=== PATIENT | male | born 1940 | race Caucasian/White ===

== ENCOUNTER 2019-08-28 23:59 | Emergency (ER) | payer MEDICARE, OTHER, MEDICAID, SELFPAY ==
[2019-08-29] VITALS: BP 164/93; PULSE 70; RESP 18; TEMP 36.6; O2SAT 98; BMI 29.0
--- NOTE | 2019-08-29 | ED_ITS ---
Entered by Lauren Pulido, acting as scribe for HPI - Psych General: Chief Complaint: Psychiatric Symptoms Stated Complaint: SI Time Seen by Provider: 08/29/19 00:01 Source: EMS Mode of arrival: EMS Limitations: no limitations History of Present Illness: HPI Narrative: 78 yo m came to the er by [facility] for Si attempt. 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 Pt states that he had had been having some problems and he decided to stab himself with some scissors in the right AC. 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 Review of Systems General: Reports: other (negative unless marked) Const: Denies: fever or chills Eyes: Denies: change in vision, eye discomfort or eye redness ENMT: Denies: throat pain, painful swallowing, ear pain, nasal discharge or nasal congestion Card: Denies: chest pain, palpitations, irregular heart rhythm or syncope Resp: Denies: shortness of breath, productive cough or wheezing GI: Denies: abdominal pain, nausea, vomiting or vomiting blood : Denies: difficulty urinating, painful urination or blood in urine Musc: Denies: neck pain or muscle weakness Skin/Breast: Denies: rash Neuro: Reports: behavioral changes; Denies: headache, numbness in extremities or dizziness Psych: Reports: depression and suicidal ideation PFS ED PFSH: Medical History Adrenal adenoma Atrial fibrillation Patient is taking a full ASA. Refuses Warfarin due to GI bleed in the past. Pt has episodes of atrial fibrillation with rapid ventricular rate. He has a history of TIA as well. ?No dizziness of syncope BPH (benign prostatic hyperplasia) Depression Diverticulitis Fatigue GERD (gastroesophageal reflux disease) GI bleed Hyperlipidemia Hypertension Incontinence Insomnia Neuropathy Osteoporosis Pacemaker Shortness of breath Thoracic back pain TIA (transient ischemic attack) Surgical History H/O vasectomy Hx of cataract surgery S/P foot surgery, right Family History Other CAD (coronary artery disease) Cancer Diabetes Hypertension Social History Smoking and tobacco status: never smoked Alcohol intake: never Physical Exam Const: COMMON NORMALS: no apparent distress HENMT: COMMON NORMALS: normocephalic, external ears normal and external nose normal; nasal mucous membranes&turbinates abnorm HEAD & SCALP: normocephalic FACE & SINUS: sinuses nontender NOSE: external nose normal; nasal mucous membranes&turbinates abnorm EXTERNAL EAR: Yes external ears normal MOUTH: oral and palatal mucosa normal THROAT: posterior oropharynx normal Neck/C-Spine: COMMON NORMALS: full ROM Resp: COMMON NORMALS: normal respiratory effort Cardio: COMMON NORMALS: regular rate and regular rhythm RATE: regular rate RHYTHM: regular rhythm GI: COMMON NORMALS: normal to inspection, nondistended, normoactive bowel sounds : COMMON NORMALS: Yes no CVA tenderness BLADDER/KIDNEY EXAM: Yes no CVA tenderness Back/Pelvis: COMMON NORMALS: no CVA tenderness Extremity: COMMON NORMALS: normal to inspection RIGHT UPPER EXTREMITY: Yes elbow joint (puncture digna to the ac) Right elbow: Yes inspection Psych: COMMON NORMALS: mental status grossly normal APPEARANCE: Yes grossly normal ATTITUDE: Yes calm Skin: COMMON NORMALS: no rashes or lesions noted GENERAL SKIN EXAM: no rashes or lesions noted Procedures Laceration Laceration 1: Site: upper extremity Side (If applicable): right Size (cm): 1 Description: linear Depth: simple, single layer Local Anesthetic: lidocaine 1% Amount of anesthesia used (mL): 3 Pre-repair: wound explored, irrigated extensively and deep structures in tact Skin layer closed with: nylon Size (cm): 4-0 Number of sutures: 1 Technique: simple, interrupted MDM - Psych MDM Narrative: Medical decision making narrative: 78-year-old gentleman in a custodial. He says he was put there because he was having problems with hypersexuality. He is away from his . He was feeling down and hopeless. He stabbed himself with a dull pair of scissors in the right AC space. There is no tendon damage. Bleeding was controlled on arrival. 1 suture was placed. Were looking for placement for geriatric psychiatry for this gentleman. TSH is mildly high. His other laboratory is benign. No urinary tract infection. Chest x-ray is negative for any infiltrate. EKG shows a paced rh ythm. He is positive for benzodiazepines, but is prescribed alprazolam. B12 level is pending at this point. Lab Data: Attestation: I reviewed the patient's lab results. Labs: Lab Results 08/29/19 08/29/19 08/29/19 Range/Units 00:21 00:21 01:40 WBC 7.4 (4.0-10.0) 10^3/ uL RBC 3.98 L (4.1-5.3) 10^6/u L Hgb 13.4 (11.7-16.6) g/dL Hct 39.7 L (42.0-52.0) % MCV 99.7 H (80-94) fL MCH 33.7 (28.0-34.0) pg MCHC 33.8 (30.0-36.0) g/dL RDW 12.1 (12.1-15.1) % Plt Count 248 (130-400) 10^3/c mm MPV 8.9 (7.4-10.4) fL Neut % (Auto) 59.2 % Lymph % (Auto) 20.6 % Dougherty % (Auto) 12.4 % Eos % (Auto) 6.5 % Baso % (Auto) 0.9 % Neut # (Auto) 4.4 (1.8-7.7) 10^3/u L Lymph # (Auto) 1.5 (0.8-4.8) 10^3/u L Dougherty # (Auto) 0.9 (0.2-0.9) 10^3/u L Eos # (Auto) 0.5 (0.0-0.8) 10^3/u L Baso # (Auto) 0.1 (0.0-0.1) 10^3/u L Nucleated RBC % (a uto) 0 % Nucleated RBCs # 0.0 /100WBC Sodium 135 L (136-145) mmol/L Potassium 4.7 (3.5-5.1) mmol/L Chloride 101 (98-107) mmol/L Carbon Dioxide 27 (22-29) mmol/L Anion Gap 11.7 (5-19) BUN 19 (8-23) mg/dL Creatinine 1.2 (0.7-1.2) mg/dL Glucose 119 H (65-115) mg/dL Calculated Osmolal ity 278 L (285-295) mOsm/k g Calcium 8.8 (8.5-10.5) mg/dL Total Bilirubin 0.2 (0.15-1.2) mg/dL AST 22 (0-40) U/L ALT 28 (0-41) U/L Alkaline Phosphata se 65 (40-130) IU/L Total Protein 6.9 (6.6-8.7) g/dL Albumin 3.9 (3.5-5.2) g/dL Globulin 3.0 (1.3-4.6) g/dL TSH 8.51 H (0.27-4.20) uIU/ mL Urine Color Yellow (Yellow) Urine Appearance Clear (CLEAR) Urine pH 5 (5-7) Ur Specific Gravit y 1.020 (1.005-1.030) Urine Protein Neg (Negative) Urine Glucose (UA) Norm (Normal) Urine Ketones Negative (Negative) Urine Blood Neg (Negative) Urine Nitrate Negative (Negative) Urine Bilirubin Neg (NEGATIVE) Urine Urobilinogen Norm (Negative) mg/dL Ur Leukocyte Ashley ase Negative (Negative) Digoxin 1.0 (0.6-1.2) ng/mL Salicylates < 0.3 L (3-10) mg/dL Urine Opiates Scre en (Negative) ng/mL Acetaminophen < 10.0 L (10-30) ug/mL Ur Barbiturates Sc reen (Negative) ng/mL Carbamazepine 2.0 L (4.0-12.0) ug/mL Ur Phencyclidine S crn (Negative) ng/mL Ur Amphetamines Sc reen (Negative) ng/mL U Benzodiazepines Scrn (Negative) ng/mL Urine Cocaine Scre en (Negative) ng/mL U Marijuana (THC) Screen (Negative) ng/mL Ethyl Alcohol < 10 (0-10) mg/dL 08/29/19 Range/Units 01:40 WBC (4.0-10.0) 10^3/ uL RBC (4.1-5.3) 10^6/u L Hgb (11.7-16.6) g/dL Hct (42.0-52.0) % MCV (80-94) fL MCH (28.0-34.0) pg MCHC (30.0-36.0) g/dL RDW (12.1-15.1) % Plt Count (130-400) 10^3/c mm MPV (7.4-10.4) fL Neut % (Auto) % Lymph % (Auto) % Dougherty % (Auto) % Eos % (Auto) % Baso % (Auto) % Neut # (Auto) (1.8-7.7) 10^3/u L Lymph # (Auto) (0.8-4.8) 10^3/u L Dougherty # (Auto) (0.2-0.9) 10^3/u L Eos # (Auto) (0.0-0.8) 10^3/u L Baso # (Auto) (0.0-0.1) 10^3/u L Nucleated RBC % (a uto) % Nucleated RBCs # /100WBC Sodium (136-145) mmol/L Potassium (3.5-5.1) mmol/L Chloride (98-107) mmol/L Carbon Dioxide (22-29) mmol/L Anion Gap (5-19) BUN (8-23) mg/dL Creatinine (0.7-1.2) mg/dL Glucose (65-115) mg/dL Calculated Osmolal ity (285-295) mOsm/k g Calcium (8.5-10.5) mg/dL Total Bilirubin (0.15-1.2) mg/dL AST (0-40) U/L ALT (0-41) U/L Alkaline Phosphata se (40-130) IU/L Total Protein (6.6-8.7) g/dL Albumin (3.5-5.2) g/dL Globulin (1.3-4.6) g/dL TSH (0.27-4.20) uIU/ mL Urine Color (Yellow) Urine Appearance (CLEAR) Urine pH (5-7) Ur Specific Gravit y (1.005-1.030) Urine Protein (Negative) Urine Glucose (UA) (Normal) Urine Ketones (Negative) Urine Blood (Negative) Urine Nitrate (Negative) Urine Bilirubin (NEGATIVE) Urine Urobilinogen (Negative) mg/dL Ur Leukocyte Ashley ase (Negative) Digoxin (0.6-1.2) ng/mL Salicylates (3-10) mg/dL Urine Opiates Scre en Negative (Negative) ng/mL Acetaminophen (10-30) ug/mL Ur Barbiturates Sc reen Negative (Negative) ng/mL Carbamazepine (4.0-12.0) ug/mL Ur Phencyclidine S crn Negative (Negative) ng/mL Ur Amphetamines Sc reen Negative (Negative) ng/mL U Benzodiazepines Scrn Positive H (Negative) ng/mL Urine Cocaine Scre en Negative (Negative) ng/mL U Marijuana (THC) Screen Negative (Negative) ng/mL Ethyl Alcohol (0-10) mg/dL Discharge Plan Discharge Prescriptions: No Action bisacodyl [Dulcolax (bisacodyl)] 10 mg suppository 10 mg NV ONCE PRNRF: 0 magnesium hydroxide [Milk of Magnesia] 400 mg/5 mL suspension 30 ml PO BID PRNRF: 0 Metamucil Fiber Thin 2.5 gram wafer 2 wafer PO TID PRNRF: 0 cholestyramine (with sugar) 4 gram powder 4 gm PO TID PRNRF: 0 levothyroxine 100 mcg capsule 100 mcg PO DAILY RF: 0 memantine 10 mg tablet 10 mg PO DAILY RF: 0 aspirin 325 mg tablet 325 mg PO DAILY RF: 0 donepezil 10 mg tablet 10 mg PO DAILY RF: 0 oxcarbazepine 150 mg tablet 150 mg PO BID RF: 0 digoxin 125 mcg (0.125 mg) tablet 125 mcg PO DAILY RF: 0 propafenone 225 mg capsule,extended release 12 hr 225 mg PO Q12H RF: 0 medroxyprogesterone 10 mg tablet 10 mg PO DAILY RF: 0 acetaminophen [Tylenol] 325 mg tablet 650 mg PO Q6H PRNRF: 0 propranolol 40 mg tablet 40 mg PO BID RF: 0 fluticasone propionate 50 mcg/actuation spray,suspension 1 spray INTRANASAL BID RF: 0 alprazolam 0.25 mg tablet 0.125 mg PO BID RF: 0 bupropion HCl 150 mg tablet extended release 24 hr 150 mg PO QAM RF: 0 trazodone 100 mg tablet 200 mg PO .at bedtime RF: 0 omeprazole 20 mg capsule,delayed release(DR/EC) 20 mg PO DAILY RF: 0 Coding Level of Care Code ED Integrated Circuit Fabricator for Chg Fwd Exam Comprehensive The documentation recorded by the Ashok sinha Stephanie Lyn, accurately reflects the service I personally performed and the decisions made by , Terrell Penn DO Aug 28, 2019 23:59
--- NOTE | 2019-08-29 00:15 | ECG_ITS ---
Measurements Intervals [place] Rate: 70 P: 124 MA: 231 QRS: -75 QRSD: 146 T: 86 QT: 424 QTc: 458 ELECTRONIC ATRIAL PACEMAKER ELECTRONIC VENTRICULAR PACEMAKER ABNORMAL RHYTHM ECG No previous ECG available for comparison Electronically Signed On 08-29-2019 17:21:35 CDT by Toro Mcpherson M.D. [id number]
--- NOTE | 2019-08-29 00:15 | XR_ITS ---
WS: [id number] XR chest 1V portable [id number] REASON FOR EXAM: altered mental status FINDINGS: Dual electrode pacemaker extends from the left side. The heart mediastinum within normal limits. The lung sweeney are well aerated. No pneumonia, pleural effusion, pulmonary edema, are pneumothorax. The hilum and apices normal. XR/XR chest 1V portable [id number] IMPRESSION: Negative chest for active pathology. Dual electrode pacemaker good position.
[2019-08-29 00:36] LABS: Basophils # 0.1 10^3/uL (0.0-0.1); Basophils % 0.9 %; Eosinophils # 0.5 10^3/uL (0.0-0.8); Eosinophils % 6.5 %; Hematocrit 39.7 % (42.0-52.0); Hemoglobin 13.4 g/dL (11.7-16.6); Lymphocytes # 1.5 10^3/uL (0.8-4.8); Lymphocytes % 20.6 %; Mean Corpuscular HGB Conc 33.8 g/dL (30.0-36.0); Mean Corpuscular Hemoglobin 33.7 pg (28.0-34.0); Mean Corpuscular Volume 99.7 fL (80-94); Mean Platelet Volume 8.9 fL (7.4-10.4); Monocytes # 0.9 10^3/uL (0.2-0.9); Monocytes % 12.4 %; Neutrophils # 4.4 10^3/uL (1.8-7.7); Neutrophils % 59.2 %; Nucleated Red Blood Cells % 0 %; Platelet Count 248 10^3/cmm (130-400); Red Blood Count 3.98 10^6/uL (4.1-5.3); Red Cell Distribution Width 12.1 % (12.1-15.1); White Blood Count 7.4 10^3/uL (4.0-10.0)
[2019-08-29 00:57] LABS: Acetaminophen < 10.0 ug/mL (10-30); Alanine Aminotransferase 28 U/L (0-41); Albumin Level 3.9 g/dL (3.5-5.2); Alkaline Phosphatase 65 IU/L (40-130); Anion Gap 11.7 (5-19); Aspartate Amino Transferase 22 U/L (0-40); Blood Urea Nitrogen 19 mg/dL (8-23); Calcium 8.8 mg/dL (8.5-10.5); Carbon Dioxide 27 mmol/L (22-29); Chloride 101 mmol/L (98-107); Creatinine Clr Calc Pharmacy 50.0841; Glucose 119 mg/dL (65-115); Osmolality Calculated 278 mOsm/kg (285-295); Potassium 4.7 mmol/L (3.5-5.1); Sodium 135 mmol/L (136-145); Thyroid Stimulating Hormone 8.51 uIU/mL (0.27-4.20); Total Bilirubin 0.2 mg/dL (0.15-1.2); Total Protein 6.9 g/dL (6.6-8.7)
[2019-08-29 01:08] LABS: Alcohol Level < 10 mg/dL (0-10); Salicylate < 0.3 mg/dL (3-10)
[2019-08-29 02:05] LABS: Add Urine Microscopic? NO
[2019-08-29 02:08] LABS: Bilirubin Urine Neg (NEGATIVE); Blood Urine Neg (Negative); Glucose Urine UA Norm (Normal); Ketones Urine Negative (Negative); Leukocyte Esterase Urine Negative (Negative); Nitrate Urine Negative (Negative); Protein Urine Neg (Negative); Urine Appearance Clear (CLEAR); Urine Color Yellow (Yellow); Urobilinogen Urine Norm (Negative); pH Urine 5 (5-7)
[2019-08-29 02:17] LABS: Amphetamines Screen Urine Negative (Negative); Barbiturates Screen Urine Negative (Negative); Benzodiazepines Screen Urine Positive (Negative); Cocaine Screen Urine Negative (Negative); Opiate Screen Urine Negative (Negative); PCP Screen Urine Negative (Negative); THC Screen Urine Negative (Negative)
[2019-08-29 03:07] LABS: Vitamin B12 340 pg/mL (232-1245)
[2019-08-29 05:46] VITALS: BP 119/72; PULSE 74; RESP 16; TEMP 37; O2SAT 97
== END 2019-08-29 07:40 | disposition other institution (70) ==
PROVIDERS: Emergency Provider Emergency Medicine; Family Provider Internal Medicine; PCP Internal Medicine
DX: S51.031A Puncture wound without foreign body of right elbow, initial encounter (principal); I48.91 Unspecified atrial fibrillation; E78.5 Hyperlipidemia, unspecified; I10 Essential (primary) hypertension; Z86.73 Personal history of transient ischemic attack (TIA), and cerebral infarction without residual deficits; W26.8XXA Contact with other sharp object(s), not elsewhere classified, initial encounter; Y92.129 Unspecified place in nursing home as the place of occurrence of the external cause
CPT/HCPCS: 12001; 12345; 71045; 80053; 80156; 80162; 80306; 80307; 81003; 82607; 84443; 85025; 93005; 99284; 99285

== ENCOUNTER 2020-03-10 11:25 | Emergency (ER) | payer MEDICARE, OTHER, MEDICAID, SELFPAY ==
[2020-03-10 11:27] VITALS: BP 156/91; PULSE 71; RESP 18; TEMP 36.6; O2SAT 95; BMI 27.6
[2020-03-10 12:01] VITALS: BP 128/72; PULSE 79; RESP 14; O2SAT 95
--- NOTE | 2020-03-10 12:08 | W.ED.WOUNDLC ---
HPI - Wound/Laceration General: Chief Complaint: Wound/Laceration Stated Complaint: BLEEDING ABOVE LEFT EYEBROW S/P FALL Time Seen by Provider: 03/10/20 11:31 Source: patient Mode of arrival: EMS Limitations: physical limitation History of Present Illness: HPI narrative: 79 yo male patient presents to ER with fall. Pt c/o laceration to right sie of forehead. Pt states he did not have any LOC and is not on blood thinners. Pt states he was walking to fast and got his feet tangled up. Pt denies any preceeding symptoms to fall. Pt is unsure of when last tetanus. Pt denies chest pain, shortness of breath or headache. Associated symptoms: Denies chills, fever(s), nausea, syncope or vomiting Review of Systems General: Reports: 10 or more systems reviewed and unremarkable except in HPI and below Const: Denies: fever(s) or chills Eyes: Denies: change in vision, blurry vision or blind spots ENMT: Denies: throat pain, dental pain, ear or mastoid pain or nasal discharge Card: Denies: chest pain, palpitations, irregular heart rhythm, lightheadedness or syncope Resp: Denies: dyspnea, productive cough, wheezing, stridor or pain on inspiration GI: Denies: abdominal pain, nausea or vomiting : Denies: flank pain, difficulty urinating, dysuria, urinary frequency or urinary urgency Musc: Denies: neck pain or back pain Neuro: Denies: headache(s), numbness in extremities, weakness in extremities, sensory changes, lack of coordination, dizziness, vertigo, confusion, behavioral changes, Slurred speech present or difficulty communicating thoughts [facility] ED PFSH: Medical History Adrenal adenoma Atrial fibrillation Patient is taking a full ASA. Refuses Warfarin due to GI bleed in the past. Pt has episodes of atrial fibrillation with rapid ventricular rate. He has a history of TIA as well. ?No dizziness of syncope BPH (benign prostatic hyperplasia) Depression Diverticulitis Fatigue GERD (gastroesophageal reflux disease) GI bleed Hyperlipidemia Hypertension Incontinence Insomnia Neuropathy Osteoporosis Pacemaker Shortness of breath Thoracic back pain TIA (transient ischemic attack) Surgical History H/O vasectomy Hx of cataract surgery S/P foot surgery, right Family History Other CAD (coronary artery disease) Cancer Diabetes Hypertension Social History Smoking and tobacco status: never smoked Alcohol intake: never Procedures Laceration Laceration 1: Site: face Size (cm): 5 Description: irregular Depth: simple, single layer Local Anesthetic: lidocaine 1% and with epi Amount of anesthesia used (mL): 5 Pre-repair: wound explored and irrigated extensively Skin layer closed with: nylon Size (cm): 5-0 Number of sutures: 10 Technique: simple, interrupted Subcutaneous layer closed with: other (nylon) Course Vital Signs: Vital signs: Vital Signs Temperature 97.8 F 03/10/20 11:27 Pulse Rate 79 03/10/20 12:01 Respiratory Rate 14 03/10/20 12:01 Blood Pressure 128/72 03/10/20 12:01 Pulse Oximetry 95 03/10/20 12:01 Discharge Plan Discharge Patient Disposition: Home Clinical Impression: Facial laceration Qualifiers: Encounter type: initial encounter Qualified Code(s): S01.81XA - Laceration without foreign body of other part of head, initial encounter Closed fracture nasal bone Qualifiers: Encounter type: initial encounter Qualified Code(s): S02.2XXA - Fracture of nasal bones, initial encounter for closed fracture Condition: Stable Prescriptions: No Action bisacodyl [Dulcolax (bisacodyl)] 10 mg suppository 10 mg MS ONCE PRNRF: 0 magnesium hydroxide [Milk of Magnesia] 400 mg/5 mL suspension 30 ml PO BID PRNRF: 0 Metamucil Fiber Thin 2.5 gram wafer 2 wafer PO TID PRNRF: 0 cholestyramine (with sugar) 4 gram powder 4 gm PO TID PRNRF: 0 levothyroxine 100 mcg capsule 100 mcg PO DAILY RF: 0 memantine 10 mg tablet 10 mg PO DAILY RF: 0 aspirin 325 mg tablet 325 mg PO DAILY RF: 0 donepezil 10 mg tablet 10 mg PO DAILY RF: 0 oxcarbazepine 150 mg tablet 150 mg PO BID RF: 0 digoxin 125 mcg (0.125 mg) tablet 125 mcg PO DAILY RF: 0 propafenone 225 mg capsule,extended release 12 hr 225 mg PO Q12H RF: 0 medroxyprogesterone 10 mg tablet 10 mg PO DAILY RF: 0 acetaminophen [Tylenol] 325 mg tablet 650 mg PO Q6H PRNRF: 0 propranolol 40 mg tablet 40 mg PO BID RF: 0 fluticasone propionate 50 mcg/actuation spray,suspension 1 spray INTRANASAL BID RF: 0 bupropion HCl 150 mg tablet extended release 24 hr 150 mg PO QAM RF: 0 trazodone 100 mg tablet 200 mg PO .at bedtime RF: 0 omeprazole 20 mg capsule,delayed release(DR/EC) 20 mg PO DAILY RF: 0 aripiprazole 5 mg tablet 5 mg PO DAILY RF: 0 fluoxetine 40 mg capsule 40 mg PO DAILY RF: 0 Discharge Orders: Discharge Order (Routine); Ordered 03/10/20 Ordered By: Adriana Burks Referrals: Rito Woods MD [Primary Care Provider] - Discharge Diet: Advance as tolerated Discharge Activity: Resume usual activity Patient Instructions: Nasal Fracture (ED), Laceration (ED) Activity Restrictions/Additional Instructions: 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
--- NOTE | 2020-03-10 12:09 | CTR_ITS ---
PROCEDURE INFORMATION: Exam: CT Head Without Contrast Exam date and time: 03/10/2020 12:59 PM Age: 79 years old Clinical indication: Injury or trauma; Initial encounter; Blunt trauma (contusions or hematomas); Consciousness not specified; Patient HX: Face first fall while walking TECHNIQUE: Imaging protocol: Computed tomography of the head without contrast. Radiation optimization: All CT scans at this facility use at least one of these dose optimization techniques: automated exposure control; mA and/or kV adjustment per patient size (includes targeted exams where dose is matched to clinical indication); or iterative reconstruction. COMPARISON: No relevant prior studies available. RADIATION DOSE METRICS: Total DLP (mGy-cm): 899.1 FINDINGS: Brain: No acute brain parenchymal abnormality. No intracranial hemorrhage. No extraaxial fluid collections. There is diffuse cerebral atrophy. Cerebral ventricles: No hydrocephalus when allowing for the atrophy. Bones/joints: No calvarial fracture. There are nasal bone fractures. Paranasal sinuses: Mucoperiosteal thickening and/or fluid in the sphenoid sinus. Mastoid air cells: The mastoid air cells are aerated. Soft tissues: There is a right frontal scalp hematoma. There is superficial soft tissue swelling, with gas bubbles, involving the nose. CT/CT head wo con* [id number] IMPRESSION: No intracranial injury or calvarial fracture. Radiation Dose CTDIVOL = (mGy): DLP = 899.1 (mGy-cm)
--- NOTE | 2020-03-10 12:09 | CTR_ITS ---
PROCEDURE INFORMATION: Exam: CT Maxillofacial Without Contrast Exam date and time: 03/10/2020 12:58 PM Age: 79 years old Clinical indication: Injury or trauma; Initial encounter; Blunt trauma (contusions or hematomas); Nose; Patient HX: Face first fall while walking TECHNIQUE: Imaging protocol: Computed tomography images of the face without contrast. Radiation optimization: All CT scans at this facility use at least one of these dose optimization techniques: automated exposure control; mA and/or kV adjustment per patient size (includes targeted exams where dose is matched to clinical indication); or iterative reconstruction. COMPARISON: No relevant prior studies available. RADIATION DOSE METRICS: Total DLP (mGy-cm): 733.37 FINDINGS: Orbits: No intraorbital emphysema or hematoma. The globes are intact. Bones/joints: There are acute nasal bone fractures. The temporomandibular joints are intact but degenerated, more so on the right. Paranasal sinuses: There is mucoperiosteal thickening and/or fluid in the sphenoid sinus. Mild mucoperiosteal thickening in ethmoid air cells bilaterally as well as the right maxillary antrum. Soft tissues: There is superficial soft tissue swelling with gas bubbles in the soft tissue of the nose. There is a right periorbital and right frontal scalp hematoma. CT/CT facial bones wo con* [id number] IMPRESSION: 1. Nasal bone fractures. 2. Superficial soft tissue injury. Radiation Dose CTDIVOL = (mGy): DLP = 733.37 (mGy-cm)
--- NOTE | 2020-03-10 12:09 | CTR_ITS ---
PROCEDURE INFORMATION: Exam: CT Cervical Spine Without Contrast Exam date and time: 03/10/2020 12:59 PM Age: 79 years old Clinical indication: Injury or trauma; Initial encounter; Blunt trauma; Patient HX: Face first fall while walking TECHNIQUE: Imaging protocol: Computed tomography images of the cervical spine without contrast. Radiation optimization: All CT scans at this facility use at least one of these dose optimization techniques: automated exposure control; mA and/or kV adjustment per patient size (includes targeted exams where dose is matched to clinical indication); or iterative reconstruction. COMPARISON: No relevant prior studies available. RADIATION DOSE METRICS: Total DLP (mGy-cm): 690.8 FINDINGS: Vertebrae: The vertebral bodies maintain height and alignment. The facets align normally. There is extensive bilateral multilevel facet arthropathy.The craniocervical junction is normal. There is degeneration and narrowing of the atlantodens interval. Extensive erosive changes present in the dens. No acute fracture. Discs/Spinal canal/Neural foramina: Disc degeneration and uncovertebral joint degeneration basically at every level in the cervical spine with the least affected being C2-C3. Multilevel mild central canal stenosis due to posterior osteophyte formation. Multilevel bilateral degenerative foraminal stenosis of varying degrees. Soft tissues: No acute soft tissue abnormality. Lungs: The lung apices are normal. CT/CT cervical spin wo con* [id number] IMPRESSION: 1. No acute osseous abnormality. 2. Multilevel degenerative changes and spinal stenosis. Radiation Dose CTDIVOL = (mGy): DLP = 690.8 (mGy-cm)
[2020-03-10 16:43] VITALS: BP 172/84; PULSE 73; RESP 18; O2SAT 96
--- NOTE | 2020-03-12 15:33 | DCPLANNER ---
account manager had message to schedule a follow up appointment for patient with Dr. Peterson, ENT. account manager faxed patients information to the office of Dr. Peterson. account manager will call for appointment information.
--- NOTE | 2020-03-14 10:58 | DCPLANNER ---
Patient has a follow up appointment scheduled for Saturday, March 21, 2020 at 2:[address] Peterson. Clinic called patient with appointment information.
--- NOTE | 2020-03-26 16:51 | DCPLANNER ---
Patient had a follow up appointment scheduled for 03.21.[address] Peterson - patient did attend appointment.
== END 2020-03-10 17:18 | disposition home or self-care (01) ==
PROVIDERS: Emergency Provider Registered Nurse; PCP Internal Medicine
DX: S01.81XA Laceration without foreign body of other part of head, initial encounter (principal); S02.2XXA Fracture of nasal bones, initial encounter for closed fracture; Z79.82 Long term (current) use of aspirin; I48.91 Unspecified atrial fibrillation; E78.5 Hyperlipidemia, unspecified; I10 Essential (primary) hypertension; Z95.0 Presence of cardiac pacemaker; Z86.73 Personal history of transient ischemic attack (TIA), and cerebral infarction without residual deficits; W01.0XXA Fall on same level from slipping, tripping and stumbling without subsequent striking against object, initial encounter
CPT/HCPCS: 12013; 12345; 70450; 70486; 72125; 99282; 99283

== ENCOUNTER → 2020-08-07 11:05 | Outpatient (BNVA) | payer MEDICARE, OTHER, MEDICAID, SELFPAY | PROVIDERS: PCP Internal Medicine; Visit Provider Internal Medicine Cardiovascular Disease | DX: R53.1 Weakness (principal) | CPT/HCPCS: 80053; 84443; 85025 ==

== ENCOUNTER 2020-10-03 17:50 | Outpatient (CLI) | payer MEDICARE, OTHER, MEDICAID, SELFPAY ==
[2020-10-03 18:40] LABS: Add Urine Microscopic? NO; Charge for UA Resulting for Rev
[2020-10-03 18:45] LABS: Basophils # 0.1 10^3/uL (0.0-0.1); Basophils % 0.8 %; Eosinophils # 0.4 10^3/uL (0.0-0.8); Eosinophils % 5.3 %; Hematocrit 44.2 % (42.0-52.0); Hemoglobin 14.9 g/dL (11.7-16.6); Lymphocytes # 1.6 10^3/uL (0.8-4.8); Lymphocytes % 21.7 %; Mean Corpuscular HGB Conc 33.7 g/dL (30.0-36.0); Mean Corpuscular Hemoglobin 33.3 pg (28.0-34.0); Mean Corpuscular Volume 98.7 fL (80-94); Monocytes # 0.6 10^3/uL (0.2-0.9); Monocytes % 7.5 %; Neutrophils # 4.86 10^3/uL (1.8-7.7); Neutrophils % 64.3 %; Nucleated Red Blood Cells % 0 %; Platelet Count 292 10^3/cmm (130-400); Red Blood Count 4.48 10^6/uL (4.1-5.3); Red Cell Distribution Width 12.5 % (12.1-15.1); White Blood Count 7.6 10^3/uL (4.0-10.0)
[2020-10-03 18:48] LABS: Bilirubin Urine Neg (Negative); Blood Urine Neg (Negative); Glucose Urine UA Norm (Normal); Ketones Urine Negative (Negative); Leukocyte Esterase Urine Negative (Negative); Nitrate Urine Negative (Negative); Protein Urine Neg (Negative); Specific Gravity, Urine 1.015 (1.005-1.030); Urine Appearance Clear (CLEAR); Urine Color Yellow (Yellow); Urobilinogen Urine 1 mg/dL (Negative); pH Urine 6 (5-7)
[2020-10-03 19:22] LABS: Alanine Aminotransferase 28 U/L (0-41); Albumin Level 4.4 g/dL (3.5-5.2); Alkaline Phosphatase 112 IU/L (40-130); Anion Gap 13.6 (5-19); Aspartate Amino Transferase 25 U/L (0-40); Blood Urea Nitrogen 19 mg/dL (8-23); Carbon Dioxide 26 mmol/L (22-29); Chloride 94 mmol/L (98-107); Chol HDL Ratio 5.42 mg/dL (1.0-5.00); Cholesterol 244 mg/dL (0-200); Globulin 2.5 g/dL (1.3-4.6); Glucose 102 mg/dL (65-115); HDL Cholesterol 45 mg/dL (60-100); LDL Cholesterol Calculated 153 mg/dL (50-129); Osmolality Calculated 270 mOsm/kg (285-295); Potassium 4.6 mmol/L (3.5-5.1); Sodium 129 mmol/L (136-145); Total Bilirubin 0.2 mg/dL (0.15-1.2); Total Protein 6.9 g/dL (6.6-8.7); Triglycerides 230 mg/dL (0-150)
== END 2020-10-03 17:51 | disposition home or self-care (01) ==
PROVIDERS: PCP Internal Medicine; Visit Provider Nurse Practitioner Family
DX: E03.9 Hypothyroidism, unspecified (principal); Z20.828 Contact with and (suspected) exposure to other viral communicable diseases; R50.9 Fever, unspecified; M62.81 Muscle weakness (generalized); I10 Essential (primary) hypertension
CPT/HCPCS: 80053; 80061; 81003; 85025

== ENCOUNTER 2021-05-22 11:22 | Outpatient (CLI) | payer MEDICARE, MEDICAID, SELFPAY ==
--- NOTE | 2021-05-22 11:31 | XR_ITS ---
WS: [id number] Exam: XR chest 2V insp/exp [id number] Date/Time of Exam: 05/22/2021 11:31 AM Reason For Exam: R05.9 - Cough, unspecified Comparison 08/29/2019. The lungs are fully expanded and clear. No pneumothorax is seen. No pleural effusion. Normal cardiome diastinal silhouette. A permanent cardiac pacer superimposes the left chest. Hiatal hernia noted. Reg ional bony elements are intact. XR/XR chest 2V insp/exp [id number] IMPRESSION: 1. No acute cardiopulmonary finding. No pneumothorax or infiltrate. 2. Prominent hiatal hernia.
== END 2021-05-22 11:23 | disposition home or self-care (01) ==
LOC: RAD 11:28
PROVIDERS: PCP Internal Medicine; Visit Provider Internal Medicine Cardiovascular Disease
DX: Z01.818 Encounter for other preprocedural examination (principal); R05.9 Cough, unspecified; K44.9 Diaphragmatic hernia without obstruction or gangrene; Z95.0 Presence of cardiac pacemaker
CPT/HCPCS: 71046; 80048; 85025; 85610; 86850; 86900; 87635

== ENCOUNTER 2021-06-05 14:05 | Observation (INO) | payer MEDICARE, MEDICAID, OTHER, SELFPAY ==
[2021-06-05] VITALS (7 sets, daily range): BP systolic 137–145; BP diastolic 69–81; PULSE 70–81; RESP 12–20; TEMP 36.6–36.9; O2SAT 96–99
--- NOTE | 2021-06-05 11:34 | ECG_ITS ---
[facility] Test Date: 2021-06-05 Pat Name: Sylvia Baptiste Department: Room: Gender: Male Surgical Coder: : 1940 Requested By: Malika Gutierrez Order Number: [id number] Elizabeth MD: Colby Lopez M.D. Measurements Intervals [place] Rate: 69 P: 116 [place]: 254 QRS: -38 QRSD: 105 T: 35 QT: 366 QTc: 394 Interpretive Statements ELECTRONIC ATRIAL PACEMAKER ELECTRONIC VENTRICULAR PACEMAKER -- CONTOUR ANALYSIS BASED ON INTRINSIC RHYTHM INDETERMINATE AXIS MINIMAL ST DEPRESSION [0.025+ mV ST DEPRESSION] Compared to ECG 08/29/2019 02:15:40 Indeterminate axis now present ST (T wave) deviation now present Electronically Signed On 06-06-2021 9:17:23 [employer] by Colby Lopez M.D. [id number]
[2021-06-05 11:48] LABS: Basophils # 0.1 10^3/uL (0.0-0.1); Basophils % 0.8 %; Eosinophils # 0.7 10^3/uL (0.0-0.8); Eosinophils % 7.8 %; Hematocrit 45.2 % (42.0-52.0); Hemoglobin 15.2 g/dL (11.7-16.6); Lymphocytes # 2.1 10^3/uL (0.8-4.8); Lymphocytes % 24.7 %; Mean Corpuscular HGB Conc 33.6 g/dL (30.0-36.0); Mean Corpuscular Hemoglobin 32.9 pg (28.0-34.0); Mean Corpuscular Volume 97.8 fl (80-94); Mean Platelet Volume 9.2 fL (7.4-10.4); Monocytes # 0.9 10^3/uL (0.2-0.9); Neutrophils % 55.3 %; Nucleated Red Blood Cells % 0 %; Platelet Count 298 10^3/cmm (130-400); Red Blood Count 4.62 10^6/uL (4.1-5.3); Red Cell Distribution Width 12.6 % (12.1-15.1); White Blood Count 8.3 10^3/uL (4.0-10.0)
[2021-06-05 12:08] LABS: Anion Gap 18.5 (5-19); Blood Urea Nitrogen 19 mg/dL (8-23); Calcium 8.9 mg/dL (8.5-10.5); Carbon Dioxide 20 mmol/L (22-29); Chloride 98 mmol/L (98-107); Glucose 85 mg/dL (65-115); Osmolality Calculated 276 mOsm/kg (285-295); Potassium 4.5 mmol/L (3.5-5.1); Sodium 132 mmol/L (136-145)
[2021-06-05 12:36] LABS: INR 0.99 (0.8-1.2)
--- NOTE | 2021-06-05 12:52 | W.PM.OPSUD ---
Surgery/Procedure H&P Update DATE OF PROCEDURE: June 05, 2021 DATE H&P PERFORMED: 05/22/21 H&P UPDATE INFORMATION: I have reviewed H&P completed within last 30 days, I have examined patient prior to procedure and No changes to prior documentation PREOP DIAGNOSIS: Julietteemaker MELINA PRIMARY INDICATION FOR PROCEDURE: MELINA PLANNED PROCEDURE: Operation Date: 06/05/21 12:00 Proposed Procedures p Pacemaker Generator Change(Left) - Malika Gutierrez MD PATIENT REASSESSED PRIOR TO SEDATION, WITH NO CHANGE NOTED: Yes PHYSICAL EXAM: alert, oriented x 3, clear to auscultation bilaterally, regular rate & rhythm and operative site marked AIRWAY EVAL/ANESTHESIA PLAN: normal airway, see other exam findings, ASA III, Monitored Anesthesia, Local Anesthesia, Risks, benefits & alternatives of sedation and/or procedure discussed and Patient agrees to continue as planned
--- NOTE | 2021-06-05 14:05 | PC.NURSE ---
Transfer Note Patient transferred to [facility] from clinical lab technologist via wheel chair. Handoff received from Beau RN. Patient oriented to environment and equipment. Covering service notified. Orders reviewed and will continue to monitor. Family and/or automobile sales representative notified.
[2021-06-05] MEDS: fluticasone nasal spray 16gm Btl 1 SPRAY INTRANASAL (18:04)
[2021-06-05] MEDS: propranolol 40 mg Tablet PO (18:04)
[2021-06-05] MEDS: OXcarbazepine 300 mg Tablet PO (18:04)
--- NOTE | 2021-06-05 18:42 | P.OP_ITS ---
Operative Report Date of procedure: June 05, 2021 Pre-op Diagnosis: Nicolasa SUMMERS Procedure: PROCEDURE: PACEMAKER REVISION PREOPERATIVE DIAGNOSIS: Pacemaker elective replacement indication. POSTOPERATIVE DIAGNOSIS: Pacemaker elective replacement indication. ESTIMATED BLOOD LOSS: Around 5 milliliters. COMPLICATIONS: None. BRIEF HISTORY: The patient is 80-year-old white male who had a permanent pacemaker implantation for symptomatic bradycardia. The patient was found to have elective replacement indication, during routine office followup evaluation. For further management of patient's condition for the symptomatic bradycardia, the patient required a pacemaker revision. Patient required a dual-chamber pacemaker for symptom relief and the need for AV synchrony The procedure was explained to the patient and his family in detail with the risks and benefits. The risks of bleeding, hematoma, vascular injury, infection and other concomitant complications were explained in detail, which the patient understood well and consented to proceed. PROCEDURES PERFORMED: 1. Explantation of the old pacemaker generator. 2. Implantation of the new generator. The patient brought to the Cardiac Print Production Manager. The left side of the neck and the subclavian area were cleaned and draped in a sterile fashion. 1% Xylocaine was used for local anesthetic agent. A 2 inch long incision was made just below the previous pacemaker scar. By sharp and blunt dissection, the pacemaker pocket was accessed. The old generator was delivered from the pocket. The generator was detached from the lead. The new Medtronic generator was attached to the lead. The pacemaker pocket was copiously irrigated with vancomycin solution. Complete hemostasis was achieved. The lead was positioned behind the generator and the generator was attached to the pectoralis fascia by suturing with 0 Surgilon. Sponge counts were confirmed. The pacemaker pocket was closed in layers. Skin was approximated using 4-0 Vicryl. EXPLANTED DEVICE: Pacemaker Generator: Brand: [employer] Model number: K063. Serial number: [id number]. Date of implant: 12/29 2012 IMPLANTED DEVICES: Ventricular Lead: Date of implantation: 08/04/2006 Model number: Flextend 4087 Serial number: [id number] Make: Checkd.In. Atrial lead Date of implantation: 08/04/2006 Model number: Flextend 4086 Serial number: [id number] Make: [employer] Implanted Generator: Date of implantation : 06/05/2021 Brand: Essentio DR pacemaker Model number: L101 Serial number: [id number] Make: Checkd.In Stimulation Threshold: The ventricular sensing was 19.1 millivolts. Ventricular lead impedance was 728 ohms and the pacing threshold was 1.0 volts at 0.4 milliseconds. The atrial sensing was 1.3 millivolts. Atrial lead impedance was 461 ohms and the pacing threshold was 1.5 volts at 0.4 milliseconds. The pacemaker was set for DDDR mode with an upper rate of 115 and a lower rate of 70. A pressure dressing was applied over the pacemaker site. The patient was transferred back to medical floor in stable condition. Sponge counts were correct.
[2021-06-06] MEDS: propafenone 150 mg Tablet 225 MG PO (01:34)
[2021-06-06] MEDS: sodium chloride 0.9% 1,000 ML 75 ML IV (01:38)
[2021-06-06 03:45] VITALS: BP 159/76; PULSE 70; RESP 14; TEMP 36.6; O2SAT 95
[2021-06-06 04:59] VITALS: PULSE 100
--- NOTE | 2021-06-06 06:00 | ECG_ITS ---
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 Measurements Intervals [place] Rate: 70 P: 131 NM: 236 QRS: -36 QRSD: 106 T: 32 QT: 390 QTc: 421 Interpretive Statements ELECTRONIC ATRIAL PACEMAKER LEFT AXIS DEVIATION [QRS AXIS < -30] Compared to ECG 06/05/2021 11:50:54 Left-axis deviation now present Ventricular-paced complex(es) or rhythm no longer present Indeterminate axis no longer present ST (T wave) deviation no longer present Electronically Signed On 06-06-2021 8:54:11 DIVISION HEAD by Colby Lopez M.D. [id number]
[2021-06-06 08:00] VITALS: BP 151/73; PULSE 70; RESP 18; TEMP 36.9; O2SAT 96
[2021-06-06] MEDS: levothyroxine 100 mcg Tablet PO (08:29)
[2021-06-06] MEDS: propranolol 40 mg Tablet PO (08:29)
[2021-06-06] MEDS: fluoxetine 10 mg Capsule PO (08:29)
[2021-06-06] MEDS: aspirin 81 mg EC Tablet PO (08:29)
[2021-06-06] MEDS: digoxin 125 mcg Tablet PO (08:29)
[2021-06-06] MEDS: memantine 5 mg tablet 10 MG PO (08:29)
[2021-06-06] MEDS: pantoprazole DR 40 mg Tablet PO (08:30)
[2021-06-06] MEDS: donepezil 5 MG Tablet 10 MG PO (08:30)
[2021-06-06] MEDS: medroxyprogesterone 2.5 mg Tablet 10 MG PO (09:42)
[2021-06-06] MEDS: OXcarbazepine 300 mg Tablet PO (09:42)
[2021-06-06 11:19] VITALS: BP 122/64; PULSE 70; RESP 18; TEMP 36.7; O2SAT 97
--- NOTE | 2021-06-06 11:25 | PC.CHAP ---
Pastoral Care Encounter/Spiritual Assessment Type of Contact [] Declined trailer chief visit [] Patient/Family/Request visit [] Outpatient visit [] Follow-up visit [] Physician referral [] Code/Alert [x] Routine visit [] Staff referral [] Actively dying [] Patient sleeping [] Family support [] [] Out of room [] Palliative care [] [x] Receiving care in room [] Pre-surgical visit [] Trauma [x] Long length of stay [] ICU visit [] Other: Relational/Emotional Strength [x] Patient feels connected with others/family/visitors/staff [] Distress [] Loneliness/isolation [] Abandonment Spirituality of Patient [x] Person of Aracelis [] Attends Uatsdin of their Aracelis [x] Believes in Prayer [] Reads Bible or Pentecostalism materials [] There are Spiritual issues to be addressed Soil Conservation Technician Interventions [x] Prayer [x] Active listening [x] Non-anxious presence [x] Spiritual/emotional support [] Crisis/trauma care [x] Spiritual counseling [] Bereavement support [] Provided bereavement packet [] Provided Bible/devotional materials [] Provided toy/stuffed animal, coloring book to patient or family member [] Provided Communion [] Anointing/[place] [] Salvation [x] Completed spiritual assessment [] Other: Impact on Illness or Injury [] Angry [] Fearful [x] Anxious [] Often cries [] Exhaustion [x] Unable to work [] Unable to attend baptist [] Unable to walk/stand [] Unable to read [] Unable to drive [] Unable to eat/drink [] Unable to sleep [] Unable to be with family [] Patient intubated [] Other: Summary [place] in to [place] has a good attitude and is going home today Time spent with patient 10 mins
[2021-06-06 12:12] LABS: Adenovirus Not Detected (NOT DETECT); Chlamydia Pneumoniae Not Detected (NOT DETECT); Coronavirus 229E,HKU1,NL63,OC4 Not Detected (NOT DETECT); Human Metapneumovirus Not Detected (NOT DETECT); Human Rhinovirus/Enterovirus Not Detected (NOT DETECT); Influenza A Not Detected (NOT DETECT); Influenza A H1 Not Detected (NOT DETECT); Influenza A H1-2009 Not Detected (NOT DETECT); Influenza A H3 Not Detected (NOT DETECT); Influenza B Not Detected (NOT DETECT); Mycoplasma Pneumoniae Not Detected (NOT DETECT); Parainfluenza Virus Type 1 Not Detected (NOT DETECT); Parainfluenza Virus Type 2 Not Detected (NOT DETECT); Parainfluenza Virus Type 3 Not Detected (NOT DETECT); Parainfluenza Virus Type 4 Not Detected (NOT DETECT); Respiratory Syncytial Virus A Not Detected (NOT DETECT); Respiratory Syncytial Virus B Not Detected (NOT DETECT); SARS-COV-2 Not Detected (NOT DETECT)
--- NOTE | 2021-06-06 12:44 | PC.NURSE ---
Report called to DAWOOD Diaz, at [facility]
== END 2021-06-06 13:45 ==
LOC: CSU 14:11
PROVIDERS: Admitting Provider Internal Medicine Cardiovascular Disease; PCP Internal Medicine; Visit Provider Internal Medicine Cardiovascular Disease
DX: Z45.010 Encounter for checking and testing of cardiac pacemaker pulse generator [battery] (principal); Z79.82 Long term (current) use of aspirin; N40.0 Benign prostatic hyperplasia without lower urinary tract symptoms; I10 Essential (primary) hypertension; Z86.73 Personal history of transient ischemic attack (TIA), and cerebral infarction without residual deficits; Z87.891 Personal history of nicotine dependence; E78.2 Mixed hyperlipidemia; I48.91 Unspecified atrial fibrillation
CPT/HCPCS: 33213; 80048; 85025; 85610; 87635; 93005; 97165; C1769; C1785; G0378; J0690; J2250; J3010; J7030; J7050

== ENCOUNTER → 2021-08-22 13:57 | Outpatient (BNVA) | payer MEDICARE, MEDICAID, OTHER, SELFPAY | PROVIDERS: PCP Internal Medicine; Visit Provider Internal Medicine Cardiovascular Disease | DX: I48.11 Longstanding persistent atrial fibrillation (principal); I10 Essential (primary) hypertension; E78.2 Mixed hyperlipidemia; G45.9 Transient cerebral ischemic attack, unspecified | CPT/HCPCS: 99214 ==

== ENCOUNTER → 2021-09-19 08:23 | Outpatient (BNVA) | payer MEDICARE, OTHER, MEDICAID, SELFPAY | PROVIDERS: PCP Internal Medicine; Referring Provider Internal Medicine; Visit Provider Podiatrist Foot & Ankle Surgery | DX: L60.0 Ingrowing nail (principal) | CPT/HCPCS: 11750; 99203; A6219; A6446 ==

== ENCOUNTER 2021-10-06 14:45 | Emergency (ER) | payer MEDICARE, MEDICAID, SELFPAY ==
--- NOTE | 2021-10-06 15:05 | CTR_ITS ---
PROCEDURE INFORMATION: Exam: CT Head Without Contrast Exam date and time: 10/06/2021 3:33 PM Age: 80 years old Clinical indication: Injury or trauma; Fall; Blunt trauma (contusions or hematomas) TECHNIQUE: Imaging protocol: Computed tomography of the head without contrast. Radiation optimization: All CT scans at this facility use at least one of these dose optimization techniques: automated exposure control; mA and/or kV adjustment per patient size (includes targeted exams where dose is matched to clinical indication); or iterative reconstruction. COMPARISON: CT head wo con* [id number] 03/10/2020 12:54 PM RADIATION DOSE METRICS: Total DLP (mGy-cm): 975.69 FINDINGS: Brain: No hemorrhage. Moderate diffuse cerebral atrophy. No significant white matter disease. No mass effect. Cerebral ventricles: No ventriculomegaly. Paranasal sinuses: Partially fluid-filled left sphenoid sinus. The rest of the paranasal sinuses are well pneumatized. Mastoid air cells: Visualized mastoid air cells are well aerated. Bones/joints: Unremarkable. No acute fracture. Soft tissues: Unremarkable. CT/CT head wo con* [id number] IMPRESSION: No acute intracranial abnormality.
--- NOTE | 2021-10-06 15:05 | XRR_ITS ---
PROCEDURE INFORMATION: Exam: XR Chest Exam date and time: 10/06/2021 3:16 PM Age: 80 years old Clinical indication: Injury or trauma; Fall; Blunt trauma (contusions or hematomas) TECHNIQUE: Imaging protocol: XR of the chest. Views: 1 view. COMPARISON: CR XR chest 2V insp/exp [id number] 05/22/2021 11:51 AM FINDINGS: Tubes, catheters and devices: Two lead pacer device noted in the left chest wall. Lungs: Unremarkable. No consolidation. Pleural spaces: Unremarkable. No pleural effusion. No pneumothorax. Heart/Mediastinum: Unremarkable. No cardiomegaly. Bones/joints: Unremarkable. XR/XR chest 1V portable [id number] IMPRESSION: No acute findings.
--- NOTE | 2021-10-06 15:07 | ECG_ITS ---
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 Measurements Intervals [place] Rate: 70 P: 109 ME: 231 QRS: -10 QRSD: 107 T: 81 QT: 399 QTc: 431 Interpretive Statements ELECTRONIC ATRIAL PACEMAKER INCOMPLETE RIGHT BUNDLE BRANCH BLOCK [90+ ms QRS DURATION, TERMINAL R IN V1/V2, 40+ ms S IN I/aVL/V4/V5/V6] ABNORMAL RHYTHM ECG Compared to ECG 06/06/2021 08:41:00 Incomplete right bundle-branch block now present Left-axis deviation no longer present Electronically Signed On 10-06-2021 19:26:01 CDT by Colby Lopez M.D. [id number]
[2021-10-06 15:08] VITALS: BP 126/64; BP 145/76; BP 154/59; PULSE 72; PULSE 73
[2021-10-06 15:19] VITALS: BP 167/87; PULSE 70; RESP 13; TEMP 36.7; O2SAT 97; BMI 27.3
--- NOTE | 2021-10-06 15:19 | ED_ITS ---
HPI - General Adult General: Chief complaint: Fall Stated complaint: NAUSEA S/P FALL Time Seen by Provider: 10/06/21 14:53 History of Present Illness: 80-year-old male brought in by EMS following fall. Patient reports he had a couple falls today. The falls have happened only after he has been getting up from the toilet. He reports that when he gets up he gets dizzy loses balance and falls. He did hit his head 1 time on the floor. He is not on any blood thinners. He is not actively currently dizzy at this time. He is not having chest pain associated with it. He had some mild nausea patient does report that he is on antibiotic for an upper respiratory infection. Associated symptoms: Reports headache(s) and nausea; Deny chest pain, dyspnea, palpitations or vomiting Review of Systems Const: Reports: other (Please see HPI); Denies: fever(s) or chills ENMT: Reports: nasal congestion; Denies: throat pain Card: Reports: lightheadedness and dyspnea on exertion; Denies: chest pain, palpitations or edema Resp: Reports: chest congestion; Denies: dyspnea, productive cough or non-productive cough GI: Reports: nausea; Denies: abdominal pain, vomiting, diarrhea or constipation Musc: Denies: neck pain, back pain or extremity pain Neuro: Reports: headache(s) and numbness in extremities Endo: Denies: excessive sweating or flushing PFSH ED PFSH: Medical History Adrenal adenoma Atrial fibrillation Patient is taking a full ASA. Refuses Warfarin due to GI bleed in the past. Pt has episodes of atrial fibrillation with rapid ventricular rate. He has a history of TIA as well. ?No dizziness of syncope BPH (benign prostatic hyperplasia) Depression Diverticulitis Fatigue GERD (gastroesophageal reflux disease) GI bleed Hyperlipidemia Hypertension Incontinence Insomnia Neuropathy Osteoporosis Pacemaker Shortness of breath Thoracic back pain TIA (transient ischemic attack) Surgical History H/O vasectomy Hx of cataract surgery S/P foot surgery, right Family History Other CAD (coronary artery disease) Cancer Dementia Diabetes Hypertension Denies family history of Clotting disorder Chronic kidney disease (CKD) Suicide Anesthesia complication Bleeding disorder Lung disease Stroke Social History Smoking and tobacco status: never smoked Alcohol intake: never Physical Exam Const: COMMON NORMALS: no acute distress, average body habitus and patient oriented x3 HENMT: COMMON NORMALS: normocephalic, hearing grossly normal bilaterally, external ears normal, moist oral mucous membranes and oropharynx normal HEAD & SCALP: normocephalic EXTERNAL EAR: Yes external ears normal Neck/C-Spine: COMMON NORMALS: full ROM and supple Resp: COMMON NORMALS: normal respiratory effort, No retractions, No use of accessory muscles and clear to auscultation bilaterally AUSCULTATION: clear to auscultation bilaterally Cardio: COMMON NORMALS: regular rate and regular rhythm RATE: regular rate RHYTHM: regular rhythm GI: COMMON NORMALS: Normal to inspection, nondistended, normoactive bowel sounds present, Soft to palpation and non-tender PALPATION: Yes Soft to palpation : COMMON NORMALS: Yes no CVA tenderness BLADDER/KIDNEY EXAM: Yes no CVA tenderness Back/Pelvis: COMMON NORMALS: no CVA tenderness Extremity: COMMON NORMALS: normal to inspection, full ROM and capillary refill normal Neuro: COMMON NORMALS: patient oriented x3, CN's II-XII intact bilaterally, moves all extremities, no focal motor deficits, no sensory deficits noted and deep tendon reflexes 2+ bilaterally Psych: COMMON NORMALS: mental status grossly normal, cooperative and normal affect Skin: COMMON NORMALS: no rashes or lesions noted GENERAL SKIN EXAM: no rashes or lesions noted Course Vital Signs: Vital signs: Vital Signs Temperature 98.1 F 10/06/21 15:19 Pulse Rate 70 10/06/21 15:19 Respiratory Rate 13 10/06/21 15:19 Blood Pressure 167/87 10/06/21 15:19 Pulse Oximetry 97 10/06/21 15:19 [facility] - General Adult Medical Decision Making Patient's evaluation consistent with by some mild dehydration. Patient's dizziness is only upon standing. Patient had no dizziness or syncope events here in the ER. I discussed with him the need to make sure he is drinking plenty of fluids follow-up with your primary care provider and apartment community assistant manager next week for further evaluation and evaluate his medications to ensure he is on proper medications. Patient is otherwise stable discharged back to the residential. Lab Data : 10/06/21 16:00 10/06/21 16:00 Radiology Impressions Chest X-Ray 10/06/21 15:05 IMPRESSION: No acute findings. Head CT 10/06/21 15:05 IMPRESSION: No acute intracranial abnormality. Laboratory Results WBC 8.0 10^3/uL (4.0-10.0) 10/06/21 16:00 RBC 3.79 10^6/uL (4.1-5.3) L 10/06/21 16:00 Hgb 12.9 g/dL (11.7-16.6) 10/06/21 16:00 Hct 36.8 % (42.0-52.0) L 10/06/21 16:00 MCV 97.1 fl (80-94) H 10/06/21 16:00 MCH 34.0 pg (28.0-34.0) 10/06/21 16:00 MCHC 35.1 g/dL (30.0-36.0) 10/06/21 16:00 RDW 13.0 % (12.1-15.1) 10/06/21 16:00 Plt Count 283 10^3/cmm (130-400) 10/06/21 16:00 MPV 9.1 fL (7.4-10.4) 10/06/21 16:00 Neut % (Auto) 56.5 % 10/06/21 16:00 Lymph % (Auto) 25.6 % 10/06/21 16:00 [place] % (Auto) 11.3 % 10/06/21 16:00 Eos % (Auto) 5.5 % 10/06/21 16:00 Baso % (Auto) 0.8 % 10/06/21 16:00 Neut # (Auto) 4.50 10^3/uL (1.8-7.7) 10/06/21 16:00 Lymph # (Auto) 2.0 10^3/uL (0.8-4.8) 10/06/21 16:00 [place] # (Auto) 0.9 10^3/uL (0.2-0.9) 10/06/21 16:00 Eos # (Auto) 0.4 10^3/uL (0.0-0.8) 10/06/21 16:00 Baso # (Auto) 0.1 10^3/uL (0.0-0.1) 10/06/21 16:00 Nucleated RBC % (auto) 0 % 10/06/21 16:00 Nucleated RBCs # 0.0 /100WBC 10/06/21 16:00 Sodium 132 mmol/L (136-145) L 10/06/21 16:00 Potassium 4.5 mmol/L (3.5-5.1) 10/06/21 16:00 Chloride 102 mmol/L (98-107) 10/06/21 16:00 Carbon Dioxide 19 mmol/L (22-29) L 10/06/21 16:00 Anion Gap 15.5 (5-19) 10/06/21 16:00 BUN 22 mg/dL (8-23) 10/06/21 16:00 Creatinine 1.2 mg/dL (0.7-1.2) 10/06/21 16:00 GFR Calculation Not Reportable 10/06/21 16:00 Glucose 98 mg/dL (65-115) 10/06/21 16:00 Calculated Osmolality 277 mOsm/kg (285-295) L 10/06/21 16:00 Calcium 8.1 mg/dL (8.5-10.5) L 10/06/21 16:00 Magnesium 2.1 mg/dL (1.7-2.3) 10/06/21 16:00 Total Bilirubin 0.2 mg/dL (0.15-1.2) 10/06/21 16:00 AST 18 U/L (0-40) 10/06/21 16:00 ALT 20 U/L (0-41) 10/06/21 16:00 Alkaline Phosphatase 84 IU/L (40-130) 10/06/21 16:00 Troponin T Gen 5 ng/L 17 ng/L (0-15) H 10/06/21 16:00 C-Reactive Protein 9.4 mg/L (0.0-4.9) H 10/06/21 16:00 Total Protein 6.3 g/dL (6.6-8.7) L 10/06/21 16:00 Albumin 3.8 g/dL (3.5-5.2) 10/06/21 16:00 Globulin 2.5 g/dL (1.3-4.6) 10/06/21 16:00 Urine Color Yellow (Yellow) 10/06/21 17:05 Urine Appearance Clear (CLEAR) 10/06/21 17:05 Urine pH 5 (5-7) 10/06/21 17:05 Ur Specific [place] 1.020 (1.005-1.030) 10/06/21 17:05 Urine Protein Neg (Negative) 10/06/21 17:05 Urine Glucose (UA) Norm (Normal) 10/06/21 17:05 Urine Ketones Negative (Negative) 10/06/21 17:05 Urine Blood Neg (Negative) 10/06/21 17:05 Urine Nitrate Negative (Negative) 10/06/21 17:05 Urine Bilirubin Neg (Negative) 10/06/21 17:05 Urine Urobilinogen Norm mg/dL (Negative) 10/06/21 17:05 Ur Leukocyte Esterase Negative (Negative) 10/06/21 17:05 Discharge Plan Discharge Patient Disposition: Home Clinical Impression: Vaso-vagal reaction, Dizziness on standing, Pacemaker Condition: Stable Prescriptions: No Action bisacodyl [Dulcolax (bisacodyl)] 10 mg suppository 10 mg DE ONCE PRN (Reason: Constipation) 0RF magnesium hydroxide [Milk of Magnesia] 400 mg/5 mL suspension 30 ml PO BID PRN (Reason: Constipation) 0RF cholestyramine (with sugar) 4 gram powder 4 gm PO TID PRN (Reason: cholesterol) 0RF levothyroxine 100 mcg capsule 100 mcg PO DAILY 0RF memantine 10 mg tablet 10 mg PO DAILY 0RF donepezil 10 mg tablet 10 mg PO DAILY 0RF digoxin 125 mcg (0.125 mg) tablet 125 mcg PO DAILY 0RF propafenone 225 mg capsule,extended release 12 hr 225 mg PO Q12H 0RF medroxyprogesterone 10 mg tablet 10 mg PO DAILY 0RF acetaminophen [Tylenol] 325 mg tablet 650 mg PO Q6H PRN (Reason: Pain) 0RF propranolol 40 mg tablet 40 mg PO BID 0RF fluticasone propionate 50 mcg/actuation spray,suspension 1 spray INTRANASAL BID 0RF omeprazole 20 mg capsule,delayed release(DR/EC) 20 mg PO DAILY 0RF oxcarbazepine 150 mg tablet 300 mg PO BID 0RF aspirin [Adult Aspirin Regimen] 81 mg tablet,delayed release (DR/EC) 81 mg PO DAILY 0RF fluoxetine 10 mg capsule 10 mg PO DAILY 0RF tamsulosin 0.4 mg capsule 0.4 mg PO DAILY 0RF cephalexin 500 mg capsule 500 mg PO BID 7 Days Qty: 14 0RF silver sulfadiazine 1 % cream 1 applic topical BID 14 Days Qty: 50 2RF Rx Instructions: apply a 1.5 mm thickness Lidocaine Viscous solution See Rx Instructions .ROUTE .COMPLEX PRN (Reason: Mouth Pain) 0RF Rx Instructions: one application apply to affected area of lower gum Discharge Orders: Discharge ED (Routine); Ordered 10/06/21 Ordered By: Anival Corea Referrals: Rito Woods MD [Primary Care Provider] - Discharge Diet: Usual diet Discharge Activity: Resume usual activity Patient Instructions: Opioid Safety Activity Restrictions/Additional Instructions: Please wait a few seconds or minutes when she is standing prior to ambulating Follow-up with your primary care provider next week and consider following up with cardiology Drink plenty of electrolyte containing fluids Coding Level of Care Code ED Scenario Writer for Chg Fwd Exam Comprehensive
[2021-10-06 16:05] LABS: Basophils # 0.1 10^3/uL (0.0-0.1); Basophils % 0.8 %; Eosinophils # 0.4 10^3/uL (0.0-0.8); Eosinophils % 5.5 %; Hematocrit 36.8 % (42.0-52.0); Hemoglobin 12.9 g/dL (11.7-16.6); Lymphocytes % 25.6 %; Mean Corpuscular HGB Conc 35.1 g/dL (30.0-36.0); Mean Corpuscular Volume 97.1 fl (80-94); Mean Platelet Volume 9.1 fL (7.4-10.4); Monocytes # 0.9 10^3/uL (0.2-0.9); Monocytes % 11.3 %; Neutrophils % 56.5 %; Nucleated Red Blood Cells % 0 %; Platelet Count 283 10^3/cmm (130-400); Red Blood Count 3.79 10^6/uL (4.1-5.3)
[2021-10-06] MEDS: sodium chloride 0.9% 500 ML IV (16:12)
[2021-10-06 16:33] LABS: Alanine Aminotransferase 20 U/L (0-41); Albumin Level 3.8 g/dL (3.5-5.2); Alkaline Phosphatase 84 IU/L (40-130); Anion Gap 15.5 (5-19); Aspartate Amino Transferase 18 U/L (0-40); Blood Urea Nitrogen 22 mg/dL (8-23); C Reactive Protein 9.4 mg/L (0.0-4.9); Calcium 8.1 mg/dL (8.5-10.5); Carbon Dioxide 19 mmol/L (22-29); Chloride 102 mmol/L (98-107); Globulin 2.5 g/dL (1.3-4.6); Glucose 98 mg/dL (65-115); Magnesium 2.1 mg/dL (1.7-2.3); Osmolality Calculated 277 mOsm/kg (285-295); Potassium 4.5 mmol/L (3.5-5.1); Sodium 132 mmol/L (136-145); Total Bilirubin 0.2 mg/dL (0.15-1.2); Total Protein 6.3 g/dL (6.6-8.7)
[2021-10-06 16:34] LABS: Troponin T (5th) Once 17 ng/L (0-15)
[2021-10-06 17:36] LABS: Add Urine Microscopic? NO; Charge for UA Resulting for Rev
[2021-10-06 17:40] LABS: Bilirubin Urine Neg (Negative); Blood Urine Neg (Negative); Glucose Urine UA Norm (Normal); Ketones Urine Negative (Negative); Leukocyte Esterase Urine Negative (Negative); Nitrate Urine Negative (Negative); Protein Urine Neg (Negative); Urine Appearance Clear (CLEAR); Urine Color Yellow (Yellow); Urobilinogen Urine Norm (Negative); pH Urine 5 (5-7)
[2021-10-06 19:36] VITALS: BP 166/69; PULSE 77; RESP 18; O2SAT 98
[2021-10-06 19:47] VITALS: BP 166/69; PULSE 77; RESP 18; O2SAT 98
== END 2021-10-06 19:45 | disposition home or self-care (01) ==
PROVIDERS: Emergency Provider Student in an Organized Health Care Education/Training Program; PCP Internal Medicine
DX: R55 Syncope and collapse (principal); R42 Dizziness and giddiness; W19.XXXA Unspecified fall, initial encounter; Z95.0 Presence of cardiac pacemaker; I48.91 Unspecified atrial fibrillation; I10 Essential (primary) hypertension; Z86.73 Personal history of transient ischemic attack (TIA), and cerebral infarction without residual deficits; Z79.82 Long term (current) use of aspirin
CPT/HCPCS: 70450; 71045; 80053; 81003; 83735; 84484; 85025; 86140; 93005; 96360; 99283; J7040

== ENCOUNTER → 2021-11-06 08:26 | Outpatient (BNVA) | payer MEDICARE, MEDICAID, SELFPAY | PROVIDERS: PCP Internal Medicine; Visit Provider Podiatrist Foot & Ankle Surgery | DX: Z98.890 Other specified postprocedural states (principal); M79.672 Pain in left foot | CPT/HCPCS: 99213 ==

== ENCOUNTER 2022-01-16 13:08 | Outpatient (CLI) | payer MEDICARE, MEDICAID, SELFPAY ==
[2022-01-16 14:56] LABS: Basophils # 0.1 10^3/uL (0.0-0.1); Basophils % 0.8 %; Eosinophils # 0.6 10^3/uL (0.0-0.8); Eosinophils % 7.9 %; Lymphocytes # 1.7 10^3/uL (0.8-4.8); Lymphocytes % 23.7 %; Mean Corpuscular HGB Conc 33.3 g/dL (30.0-36.0); Mean Corpuscular Hemoglobin 32.3 pg (28.0-34.0); Mean Corpuscular Volume 96.8 fl (80-94); Mean Platelet Volume 9.8 fL (7.4-10.4); Monocytes # 0.7 10^3/uL (0.2-0.9); Monocytes % 9.9 %; Neutrophils # 4.15 10^3/uL (1.8-7.7); Neutrophils % 57.3 %; Nucleated Red Blood Cells % 0 %; Platelet Count 314 10^3/cmm (130-400); Red Blood Count 4.65 10^6/uL (4.1-5.3); Red Cell Distribution Width 13.4 % (12.1-15.1); White Blood Count 7.3 10^3/uL (4.0-10.0)
[2022-01-16 15:24] LABS: Anion Gap 15.8 (5-19); Blood Urea Nitrogen 26 mg/dL (8-23); Calcium 9.3 mg/dL (8.5-10.5); Carbon Dioxide 25 mmol/L (22-29); Chloride 104 mmol/L (98-107); Digoxin 1.4 ng/mL (0.6-1.2); Glucose 76 mg/dL (65-115); Osmolality Calculated 294 mOsm/kg (285-295); Potassium 4.8 mmol/L (3.5-5.1); Sodium 140 mmol/L (136-145)
== END 2022-01-16 13:09 | disposition home or self-care (01) ==
LOC: LAB 13:10
PROVIDERS: PCP Internal Medicine; Visit Provider Nurse Practitioner Family
DX: Z86.73 Personal history of transient ischemic attack (TIA), and cerebral infarction without residual deficits (principal)
CPT/HCPCS: 80048; 80162; 85025

== ENCOUNTER 2022-01-17 10:49 | Outpatient (CLI) | payer MEDICARE, MEDICAID, SELFPAY ==
[2022-01-17 11:48] LABS: Digoxin 0.9 ng/mL (0.6-1.2)
== END 2022-01-17 10:50 | disposition home or self-care (01) ==
PROVIDERS: PCP Internal Medicine; Visit Provider Nurse Practitioner Family
DX: I50.9 Heart failure, unspecified (principal)
CPT/HCPCS: 80162

== ENCOUNTER 2022-01-20 15:37 | Emergency (ER) | payer MEDICARE, MEDICAID, SELFPAY ==
[2022-01-20 15:38] VITALS: BP 126/72; PULSE 72; RESP 17; TEMP 36.8; O2SAT 100; BMI 29.0
--- NOTE | 2022-01-20 15:39 | ECG_ITS ---
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 Measurements Intervals [place] Rate: 70 P: 100 NE: 240 QRS: -22 QRSD: 98 T: 70 QT: 379 QTc: 410 Interpretive Statements ELECTRONIC ATRIAL PACEMAKER BORDERLINE LEFT AXIS DEVIATION [QRS AXIS < -20] ABNORMAL RHYTHM ECG Compared to ECG 10/06/2021 16:07:58 Incomplete right bundle-branch block no longer present Electronically Signed On 01-21-2022 0:49:10 CDT by Malika Gutierrez M.D. [id number]
--- NOTE | 2022-01-20 15:39 | XR_ITS ---
WS: [id number] XR chest 1V portable [id number] REASON FOR EXAM: ams FINDINGS: Chest appears unchanged compared to 10/06/2021. Cardiac device overlying the right chest with pacemaker leads to the right atrium and right ventricul ar apex. Moderate tortuosity the thoracic aorta without aneurysmal dilatation. Normal heart size. Large hiatal hernia. Calcified granulomatous disease in both hemithoraces. No lung mass or significant lung nodule. No acute pulmonary parenchymal or pleural disease. XR/XR chest 1V portable [id number] IMPRESSION: No acute chest abnormality.
--- NOTE | 2022-01-20 15:39 | CTR_ITS ---
PROCEDURE INFORMATION: Exam: CT Head Without Contrast Exam date and time: 01/20/2022 4:25 PM Age: 81 years old Clinical indication: Altered mental status/memory loss; Additional info: AMS TECHNIQUE: Imaging protocol: Computed tomography of the head without contrast. Radiation optimization: All CT scans at this facility use at least one of these dose optimization techniques: automated exposure control; mA and/or kV adjustment per patient size (includes targeted exams where dose is matched to clinical indication); or iterative reconstruction. COMPARISON: CT head wo con* [id number] 10/06/2021 3:33 PM RADIATION DOSE METRICS: Total DLP (mGy-cm): 1171.98 FINDINGS: Brain: Age related parenchymal volume loss noted. There is decreased attenuation of the periventricular white matter, consistent with chronic microangiopathic white matter disease. No parenchymal edema identified. No intracranial hemorrhage noted. Cerebral ventricles: No ventriculomegaly. Paranasal sinuses: Mild mucoperiosteal thickening noted in the left sphenoid sinus. Paranasal sinuses are otherwise clear. Mastoid air cells: Unremarkable as visualized. No mastoid effusion. Bones/joints: Unremarkable. No acute fracture. Soft tissues: Unremarkable. CT/CT head wo con* [id number] IMPRESSION: 1. No acute intracranial abnormality demonstrated. 2. There is no interval change from the prior examination.
[2022-01-20 16:02] VITALS: BP 124/70; PULSE 70; RESP 16; O2SAT 97
[2022-01-20 16:12] LABS: Basophils # 0.1 10^3/uL (0.0-0.1); Basophils % 0.7 %; Eosinophils # 0.5 10^3/uL (0.0-0.8); Eosinophils % 7.8 %; Hematocrit 40.7 % (42.0-52.0); Hemoglobin 13.6 g/dL (11.7-16.6); Lymphocytes % 29.1 %; Mean Corpuscular HGB Conc 33.4 g/dL (30.0-36.0); Mean Corpuscular Hemoglobin 32.6 pg (28.0-34.0); Mean Corpuscular Volume 97.6 fl (80-94); Mean Platelet Volume 9.5 fL (7.4-10.4); Monocytes # 0.6 10^3/uL (0.2-0.9); Monocytes % 9.3 %; Neutrophils # 3.56 10^3/uL (1.8-7.7); Neutrophils % 52.8 %; Nucleated Red Blood Cells % 0 %; Platelet Count 259 10^3/cmm (130-400); Red Blood Count 4.17 10^6/uL (4.1-5.3); Red Cell Distribution Width 13.4 % (12.1-15.1); White Blood Count 6.8 10^3/uL (4.0-10.0)
--- NOTE | 2022-01-20 16:26 | ED_ITS ---
HPI - General Adult General: Chief complaint: General Medical Stated complaint: PER [facility] STAFF PT HAS INCREASED CONFUSION Time Seen by Provider: 01/20/22 15:38 History of Present Illness: Patient is an 81-year-old male presenting for from retirement for concerns of increased confusion per retirement, patient for the last few days has been reporting that he has experienced sharp pain around from his pacemaker site. Patient has been scheduled to meet with Dr. Plasencia. However earlier today, patient had a shock episode 130 this afternoon and was completely confused and altered for a few minutes. Patient denies any fever/chills, cough, runny nose sore throat, chest pain shortness breath palpitation or lightheadedness. Patient has no complaints of abdominal pain, nausea/vomiting, or complaints. Patient denies any syncope or lightheadedness around the time and the tingling of his pacemaker. Onset:earlier today Duration:ongoing Location:home Severity:moderate Associated symptoms: Deny chest pain, dyspnea, nausea, rash, palpitations or vomiting Review of Systems Const: Denies: fever(s) or chills Eyes: Denies: change in vision ENMT: Denies: mouth pain Card: Reports: other (+chest shocks); Denies: chest pain or palpitations Resp: Denies: dyspnea or non-productive cough GI: Denies: abdominal pain, nausea, vomiting or diarrhea : Denies: dysuria Musc: Denies: extremity pain Skin/Breast: Denies: rash or new lesions Neuro: Reports: other (+increased confusion); Denies: weakness in extremities Psych: Reports: other (Normal mood) Cameron/Lymph: Denies: easy bruising PFS ED PFSH: Medical History Adrenal adenoma Atrial fibrillation Patient is taking a full ASA. Refuses Warfarin due to GI bleed in the past. Pt has episodes of atrial fibrillation with rapid ventricular rate. He has a history of TIA as well. ?No dizziness of syncope BPH (benign prostatic hyperplasia) Depression Diverticulitis Fatigue GERD (gastroesophageal reflux disease) GI bleed Hyperlipidemia Hypertension Incontinence Insomnia Neuropathy Osteoporosis Pacemaker Shortness of breath Thoracic back pain TIA (transient ischemic attack) Surgical History H/O vasectomy Hx of cataract surgery S/P foot surgery, right Family History Other CAD (coronary artery disease) Cancer Dementia Diabetes Hypertension Denies family history of Clotting disorder Chronic kidney disease (CKD) Suicide Anesthesia complication Bleeding disorder Lung disease Stroke Social History Smoking and tobacco status: never smoked Alcohol intake: never Physical Exam Const: COMMON NORMALS: alert HENMT: COMMON NORMALS: atraumatic HEAD & SCALP: atraumatic MOUTH: moist mucous membranes not abnormal Eye: COMMON NORMALS: EOMs intact bilaterally and conjunctivae normal CON JUNCTIVA: Yes conjunctivae normal Neck/C-Spine: COMMON NORMALS: full ROM and supple Chest: OTHER: + Left chest pacemaker site dry/clean/intact Resp: COMMON NORMALS: normal respiratory effort and clear to auscultation bilaterally AUSCULTATION: clear to auscultation bilaterally Cardio: COMMON NORMALS: regular rate RATE: regular rate GI: COMMON NORMALS: Soft to palpation and non-tender PALPATION: Yes Soft to palpation Extremity: COMMON NORMALS: full ROM Neuro: SENSORIUM/ORIENTATION: Yes alert MOTOR EXAM: No Abnormal motor strength present and Other motor observations present (no focal motor deficits) Psych: COMMON NORMALS: speech normal SPEECH: Yes normal speech MOOD & AFFECT: Yes euthymic mood Course Vital Signs: Vital signs: Vital Signs Temperature 98.0 F 01/20/22 19:22 Pulse Rate 80 01/20/22 21:53 Respiratory Rate 17 01/20/22 21:53 Blood Pressure 128/75 01/20/22 21:53 Pulse Oximetry 99 01/20/22 19:22 Oxygen Delivery Me thod 01/20/22 19:22 MDM - General Adult Medical Decision Making 81-year-old male with history of pacemaker dependence, dementia, atrial fibrillation, prior GI bleed presenting to the emergency room for evaluation of altered mental status and sharp pain around the pacemaker site. On exam, patient is hemodynamically stable. Patient has a paced rhythm on the monitor. Patient is AAOx3, answering all my questions. Patient's pacemaker site appears to be dry/clean/intact. X-ray negative for any acute finding. UA is negative for any signs of UTI. CT is clear. Patient is to troponin with delta less than 5. Patient is creatinine 1.5 which is similar to his baseline. We discussed case with [facility] who tells me at the present, there is no increased atrial or ventricular activity for the last few days. It is unclear what exactly happened. As Patient has a pacemaker not and not an ICD device, it is unlikely the patient has been receiving shocks. However, given these unusual presentation will have patient follow-up closely with Cardiology for furthe assessment. Doubt ACS/PE or other emergent causes of chest pain. Troponin with delta less than 5. EKG is nonischemic. No suspicion for aortic dissection given no widened mediastinum, 2+ upper extremity pulses, or tearing pain. No suspicion for PE given no pleuritic chest pain, recent immobilization or surgery hemoptysis, or other VTE risk factors. EKG is non-ischemic. XR normal. I have given patient follow up with our patient case manager to be seen by our outpatient by Dr. Gutierrez for pacemaker assessment. Patient aware of a call from our patient case manager to schedule for appointment(s) and verbalizes understanding of the importance of following up. Disposition: Discharge. Patient counseled regarding diagnostic impression, treatment plan. Patient given ED strict return precautions to return for continuation, worsening, or development of new symptoms. Instructed to f/u w/ Dr Fermin Gutierrez regarding symptoms today. Patient verbalized understanding. Lab Data : 01/20/22 15:55 01/20/22 15:55 Radiology Impressions Chest X-Ray 01/20/22 15:39 IMPRESSION: No acute chest abnormality. Head CT 01/20/22 15:39 IMPRESSION: 1. No acute intracranial abnormality demonstrated. 2. There is no interval change from the prior examination. Laboratory Results WBC 6.8 10^3/uL (4.0-10.0) 01/20/22 15:55 RBC 4.17 10^6/uL (4.1-5.3) 01/20/22 15:55 Hgb 13.6 g/dL (11.7-16.6) 01/20/22 15:55 Hct 40.7 % (42.0-52.0) L 01/20/22 15:55 MCV 97.6 fl (80-94) H 01/20/22 15:55 MCH 32.6 pg (28.0-34.0) 01/20/22 15:55 MCHC 33.4 g/dL (30.0-36.0) 01/20/22 15:55 RDW 13.4 % (12.1-15.1) 01/20/22 15:55 Plt Count 259 10^3/cmm (130-400) 01/20/22 15:55 MPV 9.5 fL (7.4-10.4) 01/20/22 15:55 Neut % (Auto) 52.8 % 01/20/22 15:55 Lymph % (Auto) 29.1 % 01/20/22 15:55 [place] % (Auto) 9.3 % 01/20/22 15:55 Eos % (Auto) 7.8 % 01/20/22 15:55 Baso % (Auto) 0.7 % 01/20/22 15:55 Neut # (Auto) 3.56 10^3/uL (1.8-7.7) 01/20/22 15:55 Lymph # (Auto) 2.0 10^3/uL (0.8-4.8) 01/20/22 15:55 [place] # (Auto) 0.6 10^3/uL (0.2-0.9) 01/20/22 15:55 Eos # (Auto) 0.5 10^3/uL (0.0-0.8) 01/20/22 15:55 Baso # (Auto) 0.1 10^3/uL (0.0-0.1) 01/20/22 15:55 Nucleated RBC % (auto) 0 % 01/20/22 15:55 Nucleated RBCs # 0.0 /100WBC 01/20/22 15:55 Sodium 134 mmol/L (136-145) L 01/20/22 15:55 Potassium 4.2 mmol/L (3.5-5.1) 01/20/22 15:55 Chloride 104 mmol/L (98-107) 01/20/22 15:55 Carbon Dioxide 17 mmol/L (22-29) L 01/20/22 15:55 Anion Gap 17.2 (5-19) 01/20/22 15:55 BUN 25 mg/dL (8-23) H 01/20/22 15:55 Creatinine 1.5 mg/dL (0.7-1.2) H 01/20/22 15:55 GFR Calculation Not Reportable 01/20/22 15:55 Glucose 112 mg/dL (65-115) 01/20/22 15:55 Calculated Osmolality 283 mOsm/kg (285-295) L 01/20/22 15:55 Calcium 8.9 mg/dL (8.5-10.5) 01/20/22 15:55 Total Bilirubin 0.2 mg/dL (0.15-1.2) 01/20/22 15:55 AST 17 U/L (0-40) 01/20/22 15:55 ALT 15 U/L (0-41) 01/20/22 15:55 Alkaline Phosphatase 92 IU/L (40-130) 01/20/22 15:55 Troponin T Baseline 21 ng/L (0-15) H 01/20/22 15:55 Troponin T 120 Minute 19.38 ng/L (0-15) H 01/20/22 17:45 Delta Troponin T -1.62 ABS# (0-10) L 01/20/22 17:45 Total Protein 6.7 g/dL (6.6-8.7) 01/20/22 15:55 Albumin 3.6 g/dL (3.5-5.2) 01/20/22 15:55 Globulin 3.1 g/dL (1.3-4.6) 01/20/22 15:55 Lipase 28 U/L (13-60) 01/20/22 15:55 Urine Color Yellow (Yellow) 01/20/22 19:17 Urine Appearance Clear (CLEAR) 01/20/22 19:17 Urine pH 6 (5-7) 01/20/22 19:17 Ur Specific [place] 1.020 (1.005-1.030) 01/20/22 19:17 Urine Protein Neg (Negative) 01/20/22 19:17 Urine Glucose (UA) Norm (Normal) 01/20/22 19:17 Urine Ketones Negative (Negative) 01/20/22 19:17 Urine Blood Neg (Negative) 01/20/22 19:17 Urine Nitrate Negative (Negative) 01/20/22 19:17 Urine Bilirubin Neg (Negative) 01/20/22 19:17 Urine Urobilinogen Norm mg/dL (Negative) 01/20/22 19:17 Ur Leukocyte Esterase Negative (Negative) 01/20/22 19:17 Imaging Data Other Imaging: Radiologist's impression: [facility] [place] [address] CT Scan Report Signed Patient: Sylvia Baptiste Unit #: [id number] : 1940 Age/Sex: 81 / M ADM Date: 01/20/22 Loc: ER Room/Bed: Attending Dr: Ordering Provider/Ordering MD: Joycelyn Herman MD Date of Service: 01/20/22 Procedure(s): CT head wo con* [id number] Accession Number(s): [id number] Report Number: [id number] PROCEDURE INFORMATION: Exam: CT Head Without Contrast Exam date and time: 01/20/2022 4:25 PM Age: 81 years old Clinical indication: Altered mental status/memory loss; Additional info: AMS TECHNIQUE: Imaging protocol: Computed tomography of the head without contrast. Radiation optimization: All CT scans at this facility use at least one of these dose optimization techniques: automated exposure control; mA and/or kV adjustment per patient size (includes targeted exams where dose is matched to clinical indication); or iterative reconstruction. COMPARISON: CT head wo con* [id number] 10/06/2021 3:33 PM RADIATION DOSE METRICS: Total DLP (mGy-cm): 1171.98 FINDINGS: Brain: Age related parenchymal volume loss noted. There is decreased attenuation of the periventricular white matter, consistent with chronic microangiopathic white matter disease. No parenchymal edema identified. No intracranial hemorrhage noted. Cerebral ventricles: No ventriculomegaly. Paranasal sinuses: Mild mucoperiosteal thickening noted in the left sphenoid sinus. Paranasal sinuses are otherwise clear. Mastoid air cells: Unremarkable as visualized. No mastoid effusion. Bones/joints: Unremarkable. No acute fracture. Soft tissues: Unremarkable. CT/CT head wo con* [id number] IMPRESSION: 1. No acute intracranial abnormality demonstrated. 2. There is no interval change from the prior examination. ? Dictated By: Valentin Mejía MD Signed By: Valentin Mejía MD Signed Date/Time: 01/20/22 1659 DD/ [address] [facility] [place] [address] XRay Report Signed Patient: Sylvia Baptiste Unit #: [id number] : 1940 Age/Sex: 81 / M ADM Date: 01/20/22 Loc: ER Room/Bed: Attending Dr: Ordering Provider/Ordering MD: Joycelyn Herman MD Date of Service: 01/20/22 Procedure(s): XR chest 1V portable [id number] Accession Number(s): [id number] Report Number: [id number] WS: [id number] XR chest 1V portable [id number] REASON FOR EXAM: ams FINDINGS: Chest appears unchanged compared to 10/06/2021. Cardiac device overlying the right chest with pacemaker leads to the right atrium and right ventricular apex. Moderate tortuosity the thoracic aorta without aneurysmal dilatation. Normal heart size. Large hiatal hernia. Calcified granulomatous disease in both hemithoraces. No lung mass or significant lung nodule. No acute pulmonary parenchymal or pleural disease. XR/XR chest 1V portable [id number] IMPRESSION: No acute chest abnormality. ? ? Dictated By: Rayray Zhang Jr, MD Signed By: Rayray Zhang Jr, MD Signed Date/Time: 01/20/221554 DD/ 53 Discharge Plan Discharge Patient Disposition: Home Clinical Impression: Altered mental status Condition: Stable Prescriptions: No Action bisacodyl [Dulcolax (bisacodyl)] 10 mg suppository 10 mg MD DAILY PRN (Reason: Constipation) magnesium hydroxide [Milk of Magnesia] 400 mg/5 mL suspension 30 ml PO DAILY PRN (Reason: Constipation) digoxin 125 mcg (0.125 mg) tablet 125 mcg PO DAILY@07 Rx Instructions: hold for pulse less than 60 propafenone 225 mg capsule,extended release 12 hr 225 mg PO Q12H Rx Instructions: @07:00,19:00 medroxyprogesterone 10 mg tablet 10 mg PO DAILY@07 acetaminophen [Tylenol] 325 mg tablet 650 mg PO Q4H PRN (Reason: Pain) propranolol 40 mg tablet 40 mg PO BID Rx Instructions: hold from 01/16/2022 to 02/13/2022 fluticasone propionate 50 mcg/actuation spray,suspension 1 spray INTRANASAL BID@ aspirin [Adult Aspirin Regimen] 81 mg tablet,delayed release (DR/EC) 81 mg PO DAILY@07 fluoxetine 10 mg capsule 10 mg PO DAILY@07 tamsulosin 0.4 mg capsule 0.4 mg PO DAILY@19 triamcinolone acetonide 0.1 % ointment 1 applic topical BID Qty: 80 0RF Rx Instructions: Apply to affected area no more than 2 weeks per month. Not for face oxcarbazepine 300 mg tablet 300 mg PO BID@07,19 omeprazole 40 mg Capsule,Delayed Release(Dr/Ec) 40 mg PO DAILY@07 Ultram 50 mg Tablet 50 mg PO Q8H PRN (Reason: Pain) levothyroxine 100 mcg tablet 100 mcg PO DAILY@06 [id number] Enema 19-7 gram/118 mL Enema 118 ml MD DAILY PRN (Reason: Constipation) Lidocaine Viscous 2 % Solution See Rx Instructions .ROUTE .COMPLEX Rx Instructions: give 15ml po every 2 hours as needed for gum pain Claritin 10 mg Tablet 10 mg PO DAILY@07 Discharge Orders: Discharge ED (Routine); Ordered 01/20/22 Ordered By: Joycelyn Herman Referrals: Rito Woods MD [Primary Care Provider] - Discharge Diet: Advance as tolerated Discharge Activity: Increase activity as tolerated Patient Instructions: Altered Mental Status (ED) Activity Restrictions/Additional Instructions: Come back if you have any new or concerning issues. Coding Level of Care Code ED Journal Box Inspector for Zachary Fwd Exam Comprehensive
[2022-01-20 16:37] LABS: Troponin(5th) Baseline 21 ng/L (0-15)
[2022-01-20 16:38] LABS: Alanine Aminotransferase 15 U/L (0-41); Albumin Level 3.6 g/dL (3.5-5.2); Alkaline Phosphatase 92 IU/L (40-130); Anion Gap 17.2 (5-19); Aspartate Amino Transferase 17 U/L (0-40); Blood Urea Nitrogen 25 mg/dL (8-23); Calcium 8.9 mg/dL (8.5-10.5); Carbon Dioxide 17 mmol/L (22-29); Chloride 104 mmol/L (98-107); Globulin 3.1 g/dL (1.3-4.6); Glucose 112 mg/dL (65-115); Lipase 28 U/L (13-60); Osmolality Calculated 283 mOsm/kg (285-295); Potassium 4.2 mmol/L (3.5-5.1); Sodium 134 mmol/L (136-145); Total Bilirubin 0.2 mg/dL (0.15-1.2); Total Protein 6.7 g/dL (6.6-8.7)
[2022-01-20 18:49] LABS: Troponin 5 2HR 19.38 ng/L (0-15)
[2022-01-20 18:52] LABS: Troponin 5 2HR Delta -1.62 ABS# (0-10)
[2022-01-20 19:22] VITALS: BP 137/76; PULSE 76; RESP 17; TEMP 36.7; O2SAT 99
[2022-01-20 19:42] LABS: Add Urine Microscopic? NO; Charge for UA Resulting for Rev
[2022-01-20 20:13] LABS: Bilirubin Urine Neg (Negative); Blood Urine Neg (Negative); Glucose Urine UA Norm (Normal); Ketones Urine Negative (Negative); Leukocyte Esterase Urine Negative (Negative); Nitrate Urine Negative (Negative); Protein Urine Neg (Negative); Urine Appearance Clear (CLEAR); Urine Color Yellow (Yellow); Urobilinogen Urine Norm (Negative); pH Urine 6 (5-7)
[2022-01-20 21:00] VITALS: BP 128/75; PULSE 80; RESP 17
[2022-01-20 21:53] VITALS: BP 128/75; PULSE 80; RESP 17
--- NOTE | 2022-01-22 14:18 | DCPLANNER ---
Addendum entered by Agustina Wild 02/04/22 13:13: Patient had a follow up appointment scheduled with [facility] - patient did attend appointment. Addendum entered by Agustina Wild 01/23/22 13:57: Patient has a follow up appointment scheduled for Thursday, January 27, 2022 at 10:[address] Gutierrez at [facility]. Clinic will call patient with appointment information. Original Note: design engineering manager had message to schedule a follow up appointment for patient with cardiology. design engineering manager sent patients information to the front offce stass at cardiology. Patients information will be printed and reviewed. Clinic will call patient with appointment information.
== END 2022-01-20 22:19 | disposition home or self-care (01) ==
PROVIDERS: Emergency Provider Emergency Medicine; PCP Internal Medicine
DX: R41.82 Altered mental status, unspecified (principal); Z79.82 Long term (current) use of aspirin; E78.5 Hyperlipidemia, unspecified; I10 Essential (primary) hypertension; Z95.0 Presence of cardiac pacemaker; Z86.73 Personal history of transient ischemic attack (TIA), and cerebral infarction without residual deficits
CPT/HCPCS: 70450; 71045; 80053; 81003; 83690; 84484; 85025; 93005; 99285

== ENCOUNTER 2022-01-24 12:46 | Emergency (ER) | payer MEDICARE, MEDICAID, SELFPAY ==
[2022-01-24 12:47] VITALS: BP 141/71; PULSE 78; RESP 20; TEMP 36.6; O2SAT 99; BMI 26.6
--- NOTE | 2022-01-24 13:01 | ECG_ITS ---
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 Measurements Intervals [place] Rate: 70 P: 107 [place]: 222 QRS: -33 QRSD: 107 T: 55 QT: 387 QTc: 418 Interpretive Statements ELECTRONIC ATRIAL PACEMAKER LEFT AXIS DEVIATION [QRS AXIS < -30] MINIMAL ST DEPRESSION [0.025+ mV ST DEPRESSION] Nonspecific T wave changes Compared to ECG 01/20/2022 16:08:49 ST (T wave) deviation now present Electronically Signed On 01-24-2022 18:28:44 CDT by Malika Gutierrez M.D. [id number]
--- NOTE | 2022-01-24 13:03 | ED_ITS ---
HPI - Weakness General: Chief complaint: Weakness Stated complaint: SHOCKING FEELING IN CHEST Time Seen by Provider: 01/24/22 12:55 History of Present Illness: Patient comes in with a sensation of extra beats. States that every few minutes over the last couple weeks he feels like he is having an extra beat in his heart. Denies chest pain, shortness of breath. Denies any fever, cough, congestion, vomiting, diarrhea, or other cold symptoms. Patient has a pacemaker in. He was seen here last week he states for similar symptoms. Associated symptoms: Denies chest pain, dysuria, fever(s), headache(s), nausea or vomiting Review of Systems Const: Denies: fever(s) or body aches Eyes: Denies: change in vision or blurry vision ENMT: Denies: throat pain or odynophagia Card: Reports: palpitations; Denies: chest pain Resp: Denies: dyspnea or productive cough GI: Denies: abdominal pain, nausea or vomiting : Denies: flank pain or dysuria Musc: Denies: neck pain or back pain Skin/Breast: Denies: rash or pruritus Neuro: Denies: headache(s) or numbness in extremities Psych: Denies: anxiety or change in appetite Endo: Denies: polyuria or excessive sweating PFSH ED PFSH: Medical History Adrenal adenoma Atrial fibrillation Patient is taking a full ASA. Refuses Warfarin due to GI bleed in the past. Pt has episodes of atrial fibrillation with rapid ventricular rate. He has a history of TIA as well. ?No dizziness of syncope BPH (benign prostatic hyperplasia) Depression Diverticulitis Fatigue GERD (gastroesophageal reflux disease) GI bleed Hyperlipidemia Hypertension Incontinence Insomnia Neuropathy Osteoporosis Pacemaker Shortness of breath Thoracic back pain TIA (transient ischemic attack) Surgical History H/O vasectomy Hx of cataract surgery S/P foot surgery, right Family History Other CAD (coronary artery disease) Cancer Dementia Diabetes Hypertension Denies family history of Clotting disorder Chronic kidney disease (CKD) Suicide Anesthesia complication Bleeding disorder Lung disease Stroke Social History Smoking and tobacco status: never smoked Alcohol intake: never Physical Exam Const: COMMON NORMALS: no acute distress, patient oriented x3, healthy appearing and alert HENMT: COMMON NORMALS: normocephalic and atraumatic HEAD & SCALP: normocephalic and atraumatic Eye: COMMON NORMALS: Equal, round and reactive pupils present and EOMs intact bilaterally PUPIL: Yes Equal, round and reactive pupils present Neck/C-Spine: COMMON NORMALS: full ROM and supple Resp: COMMON NORMALS: normal respiratory effort, No retractions and No use of accessory muscles Cardio: COMMON NORMALS: regular rate and regular rhythm RATE: regular rate RHYTHM: regular rhythm GI: COMMON NORMALS: Normal to inspection, nondistended, normoactive bowel sounds present, Soft to palpation and non-tender PALPATION: Yes Soft to palpation Back/Pelvis: COMMON NORMALS: thoracic and lumbar spine normal to inspection and no thoracic nor lumbar tenderness Extremity: COMMON NORMALS: normal to inspection and full ROM Neuro: COMMON NORMALS: patient oriented x3 SENSORIUM/ORIENTATION: Yes alert Psych: COMMON NORMALS: mental status grossly normal and cooperative Skin: COMMON NORMALS: no rashes or lesions noted and no wounds GENERAL SKIN EXAM: no rashes or lesions noted Course Vital Signs: Vital signs: Vital Signs Temperature 97.9 F 01/24/22 12:47 Pulse Rate 78 01/24/22 12:47 Respiratory Rate 20 H 01/24/22 12:47 Blood Pressure 141/71 01/24/22 12:47 Pulse Oximetry 99 01/24/22 12:47 Oxygen Delivery Me thod 01/24/22 12:47 MDM - Weakness Medical Decision Making Patient comes in with a sensation of extra beats. States that every few minutes over the last couple weeks he feels like he is having an extra beat in his heart. Denies chest pain, shortness of breath. Denies any fever, cough, congestion, vomiting, diarrhea, or other cold symptoms. Patient has a pacemaker in. He was seen here last week he states for similar symptoms. Physical exam is unremarkable. Will check labs, EKG, interrogate pacemaker, and reassess. On reassessment I talked to the patient about the test results. Will discharge home at this time with precautions to return for worsening or changing symptoms. Lab Data : 01/24/22 13:00 01/24/22 13:00 Laboratory Results WBC 7.0 10^3/uL (4.0-10.0) 01/24/22 13:00 RBC 4.47 10^6/uL (4.1-5.3) 01/24/22 13:00 Hgb 14.2 g/dL (11.7-16.6) 01/24/22 13:00 Hct 42.9 % (42.0-52.0) 01/24/22 13:00 MCV 96.0 fl (80-94) H 01/24/22 13:00 MCH 31.8 pg (28.0-34.0) 01/24/22 13:00 MCHC 33.1 g/dL (30.0-36.0) 01/24/22 13:00 RDW 13.4 % (12.1-15.1) 01/24/22 13:00 Plt Count 265 10^3/cmm (130-400) 01/24/22 13:00 MPV 9.5 fL (7.4-10.4) 01/24/22 13:00 Neut % (Auto) 47.0 % 01/24/22 13:00 Lymph % (Auto) 31.5 % 01/24/22 13:00 [place] % (Auto) 12.8 % 01/24/22 13:00 Eos % (Auto) 7.4 % 01/24/22 13:00 Baso % (Auto) 0.9 % 01/24/22 13:00 Neut # (Auto) 3.30 10^3/uL (1.8-7.7) 01/24/22 13:00 Lymph # (Auto) 2.2 10^3/uL (0.8-4.8) 01/24/22 13:00 [place] # (Auto) 0.9 10^3/uL (0.2-0.9) 01/24/22 13:00 Eos # (Auto) 0.5 10^3/uL (0.0-0.8) 01/24/22 13:00 Baso # (Auto) 0.1 10^3/uL (0.0-0.1) 01/24/22 13:00 Nucleated RBC % (auto) 0 % 01/24/22 13:00 Nucleated RBCs # 0.0 /100WBC 01/24/22 13:00 Sodium 137 mmol/L (136-145) 01/24/22 13:00 Potassium 4.4 mmol/L (3.5-5.1) 01/24/22 13:00 Chloride 102 mmol/L (98-107) 01/24/22 13:00 Carbon Dioxide 23 mmol/L (22-29) 01/24/22 13:00 Anion Gap 16.4 (5-19) 01/24/22 13:00 BUN 25 mg/dL (8-23) H 01/24/22 13:00 Creatinine 1.4 mg/dL (0.7-1.2) H 01/24/22 13:00 GFR Calculation Not Reportable 01/24/22 13:00 Glucose 82 mg/dL (65-115) 01/24/22 13:00 Calculated Osmolality 287 mOsm/kg (285-295) 01/24/22 13:00 Calcium 9.1 mg/dL (8.5-10.5) 01/24/22 13:00 Total Bilirubin 0.2 mg/dL (0.15-1.2) 01/24/22 13:00 AST 22 U/L (0-40) 01/24/22 13:00 ALT 18 U/L (0-41) 01/24/22 13:00 Alkaline Phosphatase 100 IU/L (40-130) 01/24/22 13:00 Total Protein 7.2 g/dL (6.6-8.7) 01/24/22 13:00 Albumin 4.1 g/dL (3.5-5.2) 01/24/22 13:00 Globulin 3.1 g/dL (1.3-4.6) 01/24/22 13:00 Discharge Plan Discharge Patient Disposition: Home Clinical Impression: Palpitations Condition: Stable Prescriptions: No Action bisacodyl [Dulcolax (bisacodyl)] 10 mg suppository 10 mg DC DAILY PRN (Reason: Constipation) magnesium hydroxide [Milk of Magnesia] 400 mg/5 mL suspension 30 ml PO DAILY PRN (Reason: Constipation) digoxin 125 mcg (0.125 mg) tablet 125 mcg PO DAILY@07 Rx Instructions: hold for pulse less than 60 propafenone 225 mg capsule,extended release 12 hr 225 mg PO Q12H Rx Instructions: @07:00,19:00 medroxyprogesterone 10 mg tablet 10 mg PO DAILY@07 acetaminophen [Tylenol] 325 mg tablet 650 mg PO Q4H PRN (Reason: Pain) propranolol 40 mg tablet 40 mg PO BID Rx Instructions: hold from 01/16/2022 to 02/13/2022 fluticasone propionate 50 mcg/actuation spray,suspension 1 spray INTRANASAL BID@09,21 aspirin [Adult Aspirin Regimen] 81 mg tablet,delayed release (DR/EC) 81 mg PO DAILY@07 fluoxetine 10 mg capsule 10 mg PO DAILY@07 tamsulosin 0.4 mg capsule 0.4 mg PO DAILY@19 triamcinolone acetonide 0.1 % ointment 1 applic topical BID Qty: 80 0RF Rx Instructions: Apply to affected area no more than 2 weeks per month. Not for face oxcarbazepine 300 mg tablet 300 mg PO BID@07,19 omeprazole 40 mg Capsule,Delayed Release(Dr/Ec) 40 mg PO DAILY@07 Ultram 50 mg Tablet 50 mg PO Q8H PRN (Reason: Pain) levothyroxine 100 mcg tablet 100 mcg PO DAILY@06 [place] Enema 19-7 gram/118 mL Enema 118 ml DC DAILY PRN (Reason: Constipation) Lidocaine Viscous 2 % Solution See Rx Instructions .ROUTE .COMPLEX Rx Instructions: give 15ml po every 2 hours as needed for gum pain Claritin 10 mg Tablet 10 mg PO DAILY@07 Discharge Orders: Discharge ED (Routine); Ordered 01/24/22 Ordered By: Pedro Duggan Referrals: Rito Woods MD [Primary Care Provider] - Coding Level of Care Code ED Gyroscopic Engineering Technician for Chg Fwd Exam Comprehensive
[2022-01-24 13:12] LABS: Basophils # 0.1 10^3/uL (0.0-0.1); Basophils % 0.9 %; Eosinophils # 0.5 10^3/uL (0.0-0.8); Eosinophils % 7.4 %; Hematocrit 42.9 % (42.0-52.0); Hemoglobin 14.2 g/dL (11.7-16.6); Lymphocytes # 2.2 10^3/uL (0.8-4.8); Lymphocytes % 31.5 %; Mean Corpuscular HGB Conc 33.1 g/dL (30.0-36.0); Mean Corpuscular Hemoglobin 31.8 pg (28.0-34.0); Mean Platelet Volume 9.5 fL (7.4-10.4); Monocytes # 0.9 10^3/uL (0.2-0.9); Monocytes % 12.8 %; Nucleated Red Blood Cells % 0 %; Platelet Count 265 10^3/cmm (130-400); Red Blood Count 4.47 10^6/uL (4.1-5.3); Red Cell Distribution Width 13.4 % (12.1-15.1)
[2022-01-24 13:41] LABS: Alanine Aminotransferase 18 U/L (0-41); Albumin Level 4.1 g/dL (3.5-5.2); Alkaline Phosphatase 100 IU/L (40-130); Anion Gap 16.4 (5-19); Aspartate Amino Transferase 22 U/L (0-40); Blood Urea Nitrogen 25 mg/dL (8-23); Calcium 9.1 mg/dL (8.5-10.5); Carbon Dioxide 23 mmol/L (22-29); Chloride 102 mmol/L (98-107); Globulin 3.1 g/dL (1.3-4.6); Glucose 82 mg/dL (65-115); Osmolality Calculated 287 mOsm/kg (285-295); Potassium 4.4 mmol/L (3.5-5.1); Sodium 137 mmol/L (136-145); Total Bilirubin 0.2 mg/dL (0.15-1.2); Total Protein 7.2 g/dL (6.6-8.7)
--- NOTE | 2022-01-24 13:45 | PC.NURSE ---
pacemaker interrogated
--- NOTE | 2022-01-24 14:50 | PC.PHAR ---
pt is from [facility]-regina mancini [place] [facility] [place]s-
--- NOTE | 2022-01-24 15:13 | ECG_ITS ---
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 Measurements Intervals [place] Rate: 70 P: -40 WI: 216 QRS: 108 QRSD: 104 T: -26 QT: 401 QTc: 433 Interpretive Statements ELECTRONIC ATRIAL PACEMAKER PATTERN CONSISTENT WITH PULMONARY DISEASE POSSIBLE RIGHT VENTRICULAR HYPERTROPHY [SOME/ALL OF: PROMINENT R IN V1, LATE TRANSITION, RAD, REILLY, SSS] MINIMAL ST DEPRESSION [0.025+ mV ST DEPRESSION] ABNORMAL QRS-T ANGLE [QRS-T AXIS DIFFERENCE > 60] Compared to ECG 01/24/2022 12:55:44 Left-axis deviation no longer present ST (T wave) deviation still present Electronically Signed On 01-24-2022 18:37:06 CDT by Malika Gutierrez M.D. [id number]
[2022-01-24] MEDS: dilTIAZem 30 mg Tablet PO (16:12)
--- NOTE | 2022-01-24 16:16 | ECG_ITS ---
[facility] Test Date: 2022-01-24 Pat Name: Sylvia Baptiste Department: Room: Gender: Male Millwright Helper: : 1940 Requested By: Pedro Duggan Order Number: [id number] Elizabeth MD: Malika Gutierrez M.D. Measurements Intervals [place] Rate: 74 P: 124 WI: 215 QRS: -17 QRSD: 105 T: 52 QT: 386 QTc: 428 Interpretive Statements ELECTRONIC ATRIAL PACEMAKER POSSIBLE INFERIOR MYOCARDIAL INFARCTION , PROBABLY OLD [30 ms Q WAVE IN II/aVF] ABNORMAL RHYTHM ECG Compared to ECG 01/24/2022 15:13:58 Myocardial infarct finding now present ST (T wave) deviation no longer present Electronically Signed On 01-24-2022 18:37:49 CDT by Malika Gutierrez M.D. [id number]
[2022-01-24 17:03] VITALS: BP 118/71; PULSE 85; RESP 16; O2SAT 98
== END 2022-01-24 17:04 | disposition home or self-care (01) ==
PROVIDERS: Emergency Provider Emergency Medicine; PCP Internal Medicine
DX: R00.2 Palpitations (principal); Z79.82 Long term (current) use of aspirin; E78.5 Hyperlipidemia, unspecified; I10 Essential (primary) hypertension; Z95.0 Presence of cardiac pacemaker; Z86.73 Personal history of transient ischemic attack (TIA), and cerebral infarction without residual deficits
CPT/HCPCS: 80053; 85025; 93005; 99284

== ENCOUNTER → 2022-01-27 11:32 | Outpatient (BNVA) | payer MEDICARE, MEDICAID, SELFPAY | PROVIDERS: PCP Internal Medicine; Visit Provider Internal Medicine Cardiovascular Disease | DX: R06.02 Shortness of breath (principal); R42 Dizziness and giddiness; I48.11 Longstanding persistent atrial fibrillation; Z95.0 Presence of cardiac pacemaker; I10 Essential (primary) hypertension; G45.9 Transient cerebral ischemic attack, unspecified | CPT/HCPCS: 36415; 80048; 83880; 99214 ==

== ENCOUNTER → 2022-02-04 13:34 | Outpatient (BNVA) | payer MEDICARE, MEDICAID, SELFPAY | PROVIDERS: PCP Internal Medicine; Visit Provider Otolaryngology | DX: R42 Dizziness and giddiness (principal); R53.1 Weakness; I48.11 Longstanding persistent atrial fibrillation; R06.02 Shortness of breath; I95.1 Orthostatic hypotension; R09.81 Nasal congestion | CPT/HCPCS: 99204; 99205 ==

== ENCOUNTER 2022-02-25 11:16 | Emergency (ER) | payer MEDICARE, MEDICAID, SELFPAY ==
[2022-02-25 11:25] VITALS: BP 96/61; PULSE 83; RESP 18; TEMP 35.9; O2SAT 98; BMI 26.6
--- NOTE | 2022-02-25 11:50 | XRR_ITS ---
PROCEDURE INFORMATION: Exam: XR Right Shoulder Exam date and time: 02/25/2022 12:02 PM Age: 81 years old Clinical indication: Injury or trauma; Fall; Blunt trauma (contusions or hematomas); Shoulder; Right; Patient HX[place] [facility] [place]. PT states that his RT arm mid shaft is in a lot of pain; Additional info: Fall with shoulder pain TECHNIQUE: Imaging protocol: Radiologic exam of the Right shoulder. Views: 2 or more views. COMPARISON: NM bone scan whole body* [id number] 06/12/2015 7:12 AM FINDINGS: Bones/joints: There is a humeral head fracture extending into the neck including the greater tuberosity. Glenohumeral alignment is intact. Moderate inferior AC joint spurring. Soft tissues: Normal. XR/XR shoulder RT min 2V* [id number] IMPRESSION: Humeral head fracture.
--- NOTE | 2022-02-25 11:50 | CT_ITS ---
WS: [id number] CT HEAD NONCONTRAST HISTORY: fall and hit head. endorses brief LOC TECHNIQUE: Contiguous axial imaging performed through the brain in 2.5 mm imaging. Bone and soft tiss ue windows. Sagittal and coronal reformats reviewed. All CT scans at [facility] use at least one of these dose optimization techniques: automated exposure control; mA and/or kV adjustment per pa tient size (includes targeted exams where dose is matched to clinical indication); or iterative recon struction. DLP: 1159.58 mGy.cm COMPARISON: 01/20/2022 No acute intracranial hemorrhage, midline shift or mass effect. Moderate bilateral symmetric atrophy and mild small vessel ischemic disease. No lacunar infarcts. Ventricles: Normal size with no hydrocephalus. No inferior displacement of cerebellar tonsils. Paranasal sinuses: As visualized are clear. Mastoid air cells: Well pneumatized. Calvarium and scalp: Skull is intact with no soft tissue edema or swelling. CT/CT head wo con* [id number] IMPRESSION: 1. No acute intracranial hemorrhage or edema. 2. Moderate atrophy and small vessel ischemic disease.
--- NOTE | 2022-02-25 11:50 | CT_ITS ---
WS: [id number] CT CERVICAL SPINE HISTORY: fall with neck pain TECHNIQUE: Contiguous 2.5 mm axial imaging performed through the entire cervical spine. Sagittal and coronal reformats also performed. All CT scans at [facility] use at least one of these dose o ptimization techniques: automated exposure control; mA and/or kV adjustment per patient size (include s targeted exams where dose is matched to clinical indication); or iterative reconstruction. DLP: 145.87 mGy.cm COMPARISON: 03/10/2020 New fracture at the base of the odontoid process. This fracture is new since 03/10/2020. Slight retrop ulsion of the superior portion of the odontoid process by 2.6 mm. Marked narrowing of the predental s pace. The craniocervical junction is normally aligned. Additional chronic disc space narrowing and facet joint arthritis. C2-C3: Osteophytic ridging and facet joint arthritis. C3-C4: Moderate bilateral facet arthritis and foraminal narrowing. C4-C5: Diffuse osteophytic ridging and facet arthritis. C5-C6: Osteophytic ridging and severe facet joint arthritis and foraminal narrowing. C6-C7: Facet joint arthritis and foraminal narrowing. C7-T1: Facet arthritis and foraminal narrowing. Paravertebral soft tissues are negative. Mild soft tissue thickening surrounding the odontoid process . CT/CT cervical spin wo con* [id number] IMPRESSION: 1. Age-indeterminate minimally displaced fracture involving the base of the od ontoid process. Fracture is new since 03/10/2020 with only slight posterior disp lacement of the superior odontoid. 2. Advanced multilevel facet joint arthritis and disc disease. Notified AVNI Baxter at 02/25/2022 1:14 PM.
--- NOTE | 2022-02-25 11:59 | ED_ITS ---
Documented by User: AVNI Baxter 02/26/22 23:18 HPI - Fall General: Chief Complaint: Fall Stated Complaint: fall/ right shoulder and neck pain Time Seen by Provider: 02/25/22 11:38 History of Present Illness: Patient is an 81-year-old male comes to the ED via EMS after fall. Patient has a pacemaker and resides [facility]. Patient says he was walking in the bathroom and he was barefoot. He said the floor was a little wet he slipped causing him to fall backwards. Patient endorses hitting back of head and having a brief loss of consciousness. He has a mild headache and some neck pain since fall. Most of his pain is in his right shoulder and he rates the pain as severe. EMS put patient in a sling for right arm and c- collar. Patient is not on any blood thinners. Denies any loss of sensation or weakness to face or extremities. Associated symptoms-after fall: Reports headache(s) and neck pain; Denies abdominal pain, chest pain or hematuria Review of Systems Const: Denies: fever(s), chills or fatigue Eyes: Denies: change in vision or eye discomfort ENMT: Denies: throat pain, odynophagia, nasal discharge or nasal congestion Card: Denies: chest pain, palpitations, edema, swelling of feet/ankles, dyspnea on exertion or orthopnea Resp: Denies: dyspnea, productive cough or non-productive cough GI: Denies: abdominal pain, nausea, vomiting, diarrhea, constipation or hemat ochezia : Denies: flank pain, difficulty urinating, dysuria or hematuria Musc: Reports: neck pain and extremity pain (Right shoulder); Denies: back pain or extremity swelling Skin/Breast: Denies: rash or new lesions Neuro: Reports: headache(s); Denies: numbness in extremities or weakness in extremities PFS ED PFSH: Medical History Adrenal adenoma Atrial fibrillation Patient is taking a full ASA. Refuses Warfarin due to GI bleed in the past. Pt has episodes of atrial fibrillation with rapid ventricular rate. He has a history of TIA as well. ?No dizziness of syncope BPH (benign prostatic hyperplasia) Depression Diverticulitis Fatigue GERD (gastroesophageal reflux disease) GI bleed Hyperlipidemia Hypertension Incontinence Insomnia Neuropathy Osteoporosis Pacemaker Shortness of breath Thoracic back pain TIA (transient ischemic attack) Surgical History H/O vasectomy Hx of cataract surgery S/P foot surgery, right Family History Other CAD (coronary artery disease) Cancer Dementia Diabetes Hypertension Denies family history of Clotting disorder Chronic kidney disease (CKD) Suicide Anesthesia complication Bleeding disorder Lung disease Stroke Social History Smoking and tobacco status: never smoked Alcohol intake: never Physical Exam Const: COMMON NORMALS: patient oriented x3 and alert GENERAL APPEARANCE: cooperative HENMT: COMMON NORMALS: normocephalic HEAD & SCALP: normocephalic MOUTH: Normal oral and palatal mucosa present THROAT: posterior oropharynx normal and uvula midline Neck/C-Spine: COMMON NORMALS: supple GENERAL: Yes normal visual inspection CERVICAL SPINE: Yes Cervical spine tenderness, Yes Paracervical muscle tenderness and Yes collar present Resp: COMMON NORMALS: normal respiratory effort, No retractions, No use of accessory muscles and clear to auscultation bilaterally AUSCULTATION: clear to auscultation bilaterally Cardio: COMMON NORMALS: regular rate, regular rhythm, S1 normal heart sound present, S2 normal heart sound present, No gallops present (Cardio), No clicks present (Cardio), No murmurs present (Cardio) and Peripheral pulses 2+ throughout RATE: regular rate RHYTHM: regular rhythm HEART SOUNDS: S1 normal heart sound present and S2 normal heart sound present PERIPHERAL PULSES: Peripheral pulses 2+ throughout GI: COMMON NORMALS: Normal to inspection, nondistended, normoactive bowel sounds present, Soft to palpation, non-tender and no masses PALPATION: Yes Soft to palpation : COMMON NORMALS: Yes no CVA tenderness BLADDER/KIDNEY EXAM: Yes no CVA tenderness Back/Pelvis: COMMON NORMALS: no CVA tenderness Extremity: NARRATIVE EXTREMITY EXAM: Right shoulder?tenderness to humeral head region of upper arm. Limited range of motion due to pain. Neurovascular intact distally. Neuro: COMMON NORMALS: patient oriented x3 SENSORIUM/ORIENTATION: Yes alert GAIT: Yes Normal gait present Skin: GENERAL SKIN EXAM: dry skin Course Consultations: Consultation #1: I contacted Dr. Mccarthy about patient's CT cervical spine finding of odontoid fracture he reviewed the CT imaging and thought that fracture appears old and not new. He told me to keep patient in c-collar and he will see patient in clinic. Time: 14:10 Vital Signs: Vital signs: Vital Signs Temperature 96.7 F L 02/25/22 11:25 Pulse Rate 83 02/25/22 11:25 Respiratory Rate 16 02/25/22 12:30 Blood Pressure 102/66 02/25/22 15:29 Pulse Oximetry 98 02/25/22 11:25 Oxygen Delivery Me thod 02/25/22 11:25 MDM - Fall Medical Decision Making Patient is an 81-year-old male comes to the ED with right shoulder and neck pain after fall. Patient resides at [facility]. Patient slipped on wet bathroom floor causing injury. Denies any loss of consciousness or neuro symptoms. Vitals are stable. Exam shows tenderness over the proximal head of right humerus. Limited range of motion in right shoulder due to pain. Neurovascular tact distally. Patient has some tenderness over posterior aspect of neck and C- spine. Rest of patient's exam is benign. X-ray of right shoulder showed a humeral head fracture. CT of head showed no acute findings. Cervical spine CT showed age-indeterminate minimally displaced fracture involving the base of the odontoid process. I contacted Dr. Mccarthy told about patient case and he reviewed the CT findings and thinks the fracture appears old and not acute. He told me to keep patient in c-collar and he will follow-up with patient in the clinic. I placed order with case management for patient to be referred to Ortho for the arm fracture and Dr. Mccarthy for the odontoid fracture. Patient was put in a shoulder immobilizer and kept in c-collar discharged home with a prescription for hydrocodone. Strict return ED precautions given. Patient understood and agreed with plan. Lab Data Radiology Impressions Cervical Spine CT 02/25/22 11:50 IMPRESSION: 1. Age-indeterminate minimally displaced fracture involving the base of the odontoid process. Fracture is new since 03/10/2020 with only slight posterior displacement of the superior odontoid. 2. Advanced multilevel facet joint arthritis and disc disease. Notified AVNI Baxter at 02/25/2022 1:[address] 02/25/22 11:50 IMPRESSION: 1. No acute intracranial hemorrhage or edema. 2. Moderate atrophy and small vessel ischemic disease. Shoulder X-Ray 02/25/22 11:50 IMPRESSION: Humeral head fracture. Chest X-Ray 02/25/22 12:13 IMPRESSION: Right proximal humeral fracture. Humerus X-Ray 02/25/22 12:13 IMPRESSION: Proximal humeral fracture. Discharge Plan Discharge Patient Disposition: Home Clinical Impression: Fracture of head of humerus Qualifiers: Encounter type: subsequent encounter Fracture type: closed Laterality: right Fracture healing: with routine healing Qualified Code(s): S42.291D - Other displaced fracture of upper end of right humerus, subsequent encounter for fracture with routine healing Odontoid fracture Qualifiers: Encounter type: subsequent encounter Fracture type: closed Fracture healing: with routine healing Qualified Code(s): S12.100D - Unspecified displaced fracture of second cervical vertebra, subsequent encounter for fracture with routine healing Condition: Stable Prescriptions: No Action bisacodyl [Dulcolax (bisacodyl)] 10 mg suppository 10 mg OH DAILY PRN (Reason: Constipation) digoxin 125 mcg (0.125 mg) tablet 125 mcg PO DAILY@07 Rx Instructions: hold for pulse less than 60 propafenone 225 mg capsule,extended release 12 hr 225 mg PO Q12H Rx Instructions: @07:00,19:00 medroxyprogesterone 10 mg tablet 10 mg PO DAILY@07 acetaminophen [Tylenol] 325 mg tablet 650 mg PO Q4H PRN (Reason: Pain) propranolol 40 mg tablet 40 mg PO BID fluticasone propionate 50 mcg/actuation spray,suspension 1 spray INTRANASAL BID@, aspirin [Adult Aspirin Regimen] 81 mg tablet,delayed release (DR/EC) 81 mg PO DAILY@07 fluoxetine 10 mg capsule 10 mg PO DAILY@ tamsulosin 0.4 mg capsule 0.4 mg PO DAILY@ oxcarbazepine 300 mg tablet 300 mg PO BID@, omeprazole 40 mg Capsule,Delayed Release(Dr/Ec) 40 mg PO DAILY@07 tramadol [Ultram] 50 mg Tablet 50 mg PO Q8H PRN (Reason: Pain) levothyroxine 100 mcg tablet 100 mcg PO DAILY@06 [id number] Enema 19-7 gram/118 mL Enema 118 ml OH DAILY PRN (Reason: Constipation) lidocaine HCl [Lidocaine Viscous] 2 % Solution See Rx Instructions .ROUTE .COMPLEX Rx Instructions: give 15ml po every 2 hours as needed for gum pain loratadine [Claritin] 10 mg Tablet 10 mg PO DAILY@07 Discharge Orders: Discharge ED (Routine); Ordered 02/25/22 Ordered By: Chava Hussein Referrals: Rito Woods MD [Primary Care Provider] - Discharge Diet: Regular Discharge Activity: Limit activity as instructed Patient Instructions: Fractures - Humerus, Arm Fracture in Adults (DC), Opioid Safety Activity Restrictions/Additional Instructions: Follow-up with medical provider as directed. Case management will be contacting you next several days to set up an appointment with Ortho for follow-up on arm fracture and cervical spine fracture. Take medications as prescribed. Keep right arm in shoulder immobilizer. Wear c-collar until cleared by Dr. Mccarthy the orthospine specialist. Return to the ER or your medical provider if condition worsens. Please read and understand discharge instructions. Thank you for choosing [facility] for your healthcare needs today. Please realize this is an emergency room and that we are providing you with a medical screening exam and this may not be complete and all inclusive of all the testing and or work up that you may need to determine your ailment or severity of your illness. It is very important that you follow up as instructed or that you return to the Emergency Department should you have concerns or if your condition changes or worsens in any way. Coding Level of Care Code ED Cinder Crusher Operator for Chg Fwd Exam Comprehensive Documented by User: Yusuf Healy DO 03/04/22 08:25 HPI - Fall General: Chief Complaint: Fall Stated Complaint: fall/ right shoulder and neck pain Time Seen by Provider: 02/25/22 11:38 [facility] ED PFSH: Medical History Adrenal adenoma Atrial fibrillation Patient is taking a full ASA. Refuses Warfarin due to GI bleed in the past. Pt has episodes of atrial fibrillation with rapid ventricular rate. He has a history of TIA as well. ?No dizziness of syncope BPH (benign prostatic hyperplasia) Depression Diverticulitis Fatigue GERD (gastroesophageal reflux disease) GI bleed Hyperlipidemia Hypertension Incontinence Insomnia Neuropathy Osteoporosis Pacemaker Shortness of breath Thoracic back pain TIA (transient ischemic attack) Surgical History H/O vasectomy Hx of cataract surgery S/P foot surgery, right Family History Other CAD (coronary artery disease) Cancer Dementia Diabetes Hypertension Denies family history of Clotting disorder Chronic kidney disease (CKD) Suicide Anesthesia complication Bleeding disorder Lung disease Stroke Social History Smoking and tobacco status: never smoked Alcohol intake: never Course Vital Signs: Vital signs: Vital Signs Temperature 96.7 F L 02/25/22 11:25 Pulse Rate 83 02/25/22 11:25 Respiratory Rate 16 02/25/22 12:30 Blood Pressure 102/66 02/25/22 15:29 Pulse Oximetry 98 02/25/22 11:25 Oxygen Delivery Me thod 02/25/22 11:25 MDM - Fall Medical Decision Making Patient is an 81-year-old male comes to the ED with right shoulder and neck pain after fall. Patient resides at [facility]. Patient slipped on wet bathroom floor causing injury. Denies any loss of consciousness or neuro symptoms. Vitals are stable. Exam shows tenderness over the proximal head of right humerus. Limited range of motion in right shoulder due to pain. Neurovascular tact distally. Patient has some tenderness over posterior aspect of neck and C- spine. Rest of patient's exam is benign. X-ray of right shoulder showed a humeral head fracture. CT of head showed no acute findings. Cervical spine CT showed age-indeterminate minimally displaced fracture involving the base of the odontoid process. I contacted Dr. Mccarthy told about patient case and he reviewed the CT findings and thinks the fracture appears old and not acute. He told me to keep patient in c-collar and he will follow-up with patient in the clinic. I placed order with case management for patient to be referred to Ortho for the arm fracture and Dr. Mccarthy for the odontoid fracture. Patient was put in a shoulder immobilizer and kept in c-collar discharged home with a prescription for hydrocodone. Strict return ED precautions given. Patient understood and agreed with plan. Chart reviewed and patient discussed with midlevel. Agree with assessment and plan. Lab Data Radiology Impressions Cervical Spine CT 02/25/22 11:50 IMPRESSION: 1. Age-indeterminate minimally displaced fracture involving the base of the odontoid process. Fracture is new since 03/10/2020 with only slight posterior displacement of the superior odontoid. 2. Advanced multilevel facet joint arthritis and disc disease. Notified AVNI Baxter at 02/25/2022 1:[address] 02/25/22 11:50 IMPRESSION: 1. No acute intracranial hemorrhage or edema. 2. Moderate atrophy and small vessel ischemic disease. Shoulder X-Ray 02/25/22 11:50 IMPRESSION: Humeral head fracture. Chest X-Ray 02/25/22 12:13 IMPRESSION: Right proximal humeral fracture. Humerus X-Ray 02/25/22 12:13 IMPRESSION: Proximal humeral fracture. Discharge Plan Discharge Patient Disposition: Home Clinical Impression: Fracture of head of humerus Qualifiers: Encounter type: subsequent encounter Fracture type: closed Laterality: right Fracture healing: with routine healing Qualified Code(s): S42.291D - Other displaced fracture of upper end of right humerus, subsequent encounter for fracture with routine healing Odontoid fracture Qualifiers: Encounter type: subsequent encounter Fracture type: closed Fracture healing: with routine healing Qualified Code(s): S12.100D - Unspecified displaced fracture of second cervical vertebra, subsequent encounter for fracture with routine healing Condition: Stable Prescriptions: No Action bisacodyl [Dulcolax (bisacodyl)] 10 mg suppository 10 mg OH DAILY PRN (Reason: Constipation) digoxin 125 mcg (0.125 mg) tablet 125 mcg PO DAILY@07 Rx Instructions: hold for pulse less than 60 propafenone 225 mg capsule,extended release 12 hr 225 mg PO Q12H Rx Instructions: @07:00,19:00 medroxyprogesterone 10 mg tablet 10 mg PO DAILY@07 acetaminophen [Tylenol] 325 mg tablet 650 mg PO Q4H PRN (Reason: Pain) propranolol 40 mg tablet 40 mg PO BID fluticasone propionate 50 mcg/actuation spray,suspension 1 spray INTRANASAL BID@, aspirin [Adult Aspirin Regimen] 81 mg tablet,delayed release (DR/EC) 81 mg PO DAILY@07 fluoxetine 10 mg capsule 10 mg PO DAILY@07 tamsulosin 0.4 mg capsule 0.4 mg PO DAILY@19 oxcarbazepine 300 mg tablet 300 mg PO BID@07,19 omeprazole 40 mg Capsule,Delayed Release(Dr/Ec) 40 mg PO DAILY@07 tramadol [Ultram] 50 mg Tablet 50 mg PO Q8H PRN (Reason: Pain) levothyroxine 100 mcg tablet 100 mcg PO DAILY@06 Jvvjp-Uh-Jsm Enema 19-7 gram/118 mL Enema 118 ml OH DAILY PRN (Reason: Constipation) lidocaine HCl [Lidocaine Viscous] 2 % Solution See Rx Instructions .ROUTE .COMPLEX Rx Instructions: give 15ml po every 2 hours as needed for gum pain loratadine [Claritin] 10 mg Tablet 10 mg PO DAILY@07 Discharge Orders: Discharge ED (Routine); Ordered 02/25/22 Ordered By: Chava Hussein Referrals: Rito Woods MD [Primary Care Provider] - Discharge Diet: Regular Discharge Activity: Limit activity as instructed Patient Instructions: Fractures - Humerus, Arm Fracture in Adults (DC), Opioid Safety Activity Restrictions/Additional Instructions: Follow-up with medical provider as directed. Case management will be contacting you next several days to set up an appointment with Ortho for follow-up on arm fracture and cervical spine fracture. Take medications as prescribed. Keep right arm in shoulder immobilizer. Wear c-collar until cleared by Dr. Mccarthy the orthospine specialist. Return to the ER or your medical provider if condition worsens. Please read and understand discharge instructions. Thank you for choosing [facility] for your healthcare needs today. Please realize this is an emergency room and that we are providing you with a medical screening exam and this may not be complete and all inclusive of all the testing and or work up that you may need to determine your ailment or severity of your illness. It is very important that you follow up as instructed or that you return to the Emergency Department should you have concerns or if your condition changes or worsens in any way. Coding Level of Care Code ED Cinder Crusher Operator for Zachary Faria Exam Comprehensive
--- NOTE | 2022-02-25 12:13 | XRR_ITS ---
PROCEDURE INFORMATION: Exam: XR Right Humerus Exam date and time: 02/25/2022 12:17 PM Age: 81 years old Clinical indication: Injury or trauma; Fall; Blunt trauma (contusions or hematomas); Arm, upper; Right; Injury details: PT fell at [facility] on wet floor. PT states that his RT arm mid shaft is in a lot of pain; Additional info: Fall injury TECHNIQUE: Imaging protocol: Radiologic exam of the Right humerus. Views: 2 or more views. COMPARISON: CR XR shoulder RT min 2V* [id number] 02/25/2022 12:02 PM FINDINGS: Bones/joints: There is a fracture of the humeral neck extending into the greater tuberosity. Glenohumeral alignment is intact. Soft tissues: Normal. XR/[place] [id number] IMPRESSION: Proximal humeral fracture.
--- NOTE | 2022-02-25 12:13 | XRR_ITS ---
PROCEDURE INFORMATION: Exam: XR Chest Exam date and time: 02/25/2022 12:15 PM Age: 81 years old Clinical indication: Injury or trauma; Fall; Blunt trauma (contusions or hematomas); Injury details: PT fell at correction on wet floor. PT states that his RT arm mid shaft is in a lot of pain; Additional info: Fall injury TECHNIQUE: Imaging protocol: Radiologic exam of the chest. Views: 1 view. COMPARISON: CR XR chest 1V portable [id number] 01/20/2022 3:44 PM FINDINGS: Tubes, catheters and devices: Pacemaker. Lungs: Unremarkable. No consolidation. Pleural spaces: Unremarkable. No pleural effusion. No pneumothorax. Heart/Mediastinum: Unremarkable. No cardiomegaly. Bones/joints: Fracture of the right humeral neck extending into the head. XR/XR chest 1V portable [id number] IMPRESSION: Right proximal humeral fracture.
[2022-02-25 12:30] VITALS: RESP 16
[2022-02-25] MEDS: morphine 4 mg/mL SDV 1 mL IM (12:30)
[2022-02-25 14:04] VITALS: BP 102/66
[2022-02-25] MEDS: oxyCODONE-APAP 5-325 mg Tablet 1 TAB PO (14:37)
--- NOTE | 2022-02-25 15:15 | DCPLANNER ---
Addendum entered by Agustina Wild 03/07/22 09:00: Patient had a follow up appointment scheduled with ortho - patient did attend appointment. Addendum entered by Agustina Wild 02/28/22 09:08: Patient has a follow up appointment scheduled for , March 06, 2022 at 2:00 with AVNI Escalante at ortho. Clinic will call patient with appointment information. Original Note: facilities project manager had message to schedule a follow up appointment for patient with ortho, Dr. Mccarthy. facilities project manager sent patients information to the front office staff at ortho. Patients information will be printed and reviewed. Clinic will call patient with appointment information.
--- NOTE | 2022-02-25 15:18 | DCPLANNER ---
Addendum entered by Agustina Wild 03/06/22 07:49: Patient had a follow up appointment scheduled with ortho - patient did attend appointment. Addendum entered by Agustina Wild 02/28/22 08:58: Patient has a follow up appointment scheduled for Thursday, March 05, 2022 at 8:[address] Lucas. Clinic will call patient with appointment information. Original Note: chartered wealth manager had message to schedule a follow up appointment for patient with ortho. chartered wealth manager sent patients information to the front office staff at ortho. Patients information will be printed and reviewed. Clinic will call patient with appointment information.
[2022-02-25 15:29] VITALS: BP 102/66
== END 2022-02-25 15:32 | disposition home or self-care (01) ==
PROVIDERS: Emergency Provider Physician Assistant; PCP Internal Medicine
DX: S42.291A Other displaced fracture of upper end of right humerus, initial encounter for closed fracture (principal); S12.120A Other displaced dens fracture, initial encounter for closed fracture; Z79.82 Long term (current) use of aspirin; E78.5 Hyperlipidemia, unspecified; I10 Essential (primary) hypertension; Z95.0 Presence of cardiac pacemaker; Z86.73 Personal history of transient ischemic attack (TIA), and cerebral infarction without residual deficits; W01.0XXA Fall on same level from slipping, tripping and stumbling without subsequent striking against object, initial encounter; Y92.121 Bathroom in nursing home as the place of occurrence of the external cause
CPT/HCPCS: 29530; 70450; 71045; 72125; 73030; 73060; 96372; 99285; J2270

== ENCOUNTER 2022-02-28 15:34 | Emergency (ER) | payer MEDICARE, MEDICAID, SELFPAY ==
[2022-02-28 15:36] VITALS: BP 130/61; PULSE 72; RESP 16; TEMP 36.2; O2SAT 98
--- NOTE | 2022-02-28 19:39 | ED_ITS ---
HPI - Fall General: Chief Complaint: Fall Stated Complaint: FALLS Time Seen by Provider: 02/28/22 19:39 History of Present Illness: 81-year-old male patient comes in for reevaluation after a fall this morning. Patient reports coming out of the bathroom at the [facility] when he slipped on wet floor. Patient had recently fallen and been evaluated 3 to 4 days ago and was diagnosed at that time with a right humeral head fracture and a mild odontoid fracture of the cervical neck. Patient appears nontoxic. Patient appears in mild pain. Review of Systems Const: Denies: fever(s) Musc: Reports: extremity pain [facility] ED PFSH: Medical History Adrenal adenoma Atrial fibrillation Patient is taking a full ASA. Refuses Warfarin due to GI bleed in the past. Pt has episodes of atrial fibrillation with rapid ventricular rate. He has a history of TIA as well. ?No dizziness of syncope BPH (benign prostatic hyperplasia) Depression Diverticulitis Fatigue GERD (gastroesophageal reflux disease) GI bleed Hyperlipidemia Hypertension Incontinence Insomnia Neuropathy Osteoporosis Pacemaker Shortness of breath Thoracic back pain TIA (transient ischemic attack) Surgical History H/O vasectomy Hx of cataract surgery S/P foot surgery, right Family History Other CAD (coronary artery disease) Cancer Dementia Diabetes Hypertension Denies family history of Clotting disorder Chronic kidney disease (CKD) Suicide Anesthesia complication Bleeding disorder Lung disease Stroke Social History Smoking and tobacco status: never smoked Alcohol intake: never Physical Exam Const: COMMON NORMALS: alert HENMT: COMMON NORMALS: normocephalic HEAD & SCALP: normocephalic Neck/C-Spine: CERVICAL SPINE: Yes cervical ROM abnormal (Reduced range of motion), No pain with cervical ROM and No Cervical spine tenderness Resp: COMMON NORMALS: normal respiratory effort and clear to auscultation bilaterally AUSCULTATION: clear to auscultation bilaterally Cardio: COMMON NORMALS: regular rate and regular rhythm RATE: regular rate RHYTHM: regular rhythm Back/Pelvis: COMMON NORMALS: thoracic and lumbar spine normal to inspection Extremity: RIGHT UPPER EXTREMITY: Yes upper arm (Ecchymosis and swelling to the proximal right upper arm) Neuro: SENSORIUM/ORIENTATION: Yes alert Skin: COMMON NORMALS: turgor normal GENERAL SKIN EXAM: turgor normal Course Vital Signs: Vital signs: Vital Signs Temperature 97.1 F L 02/28/22 15:36 Pulse Rate 72 02/28/22 15:36 Respiratory Rate 16 02/28/22 15:36 Blood Pressure 130/61 02/28/22 15:36 Pulse Oximetry 98 02/28/22 15:36 Oxygen Delivery Me thod 02/28/22 15:36 MDM - Fall Medical Decision Making 81-year-old male patient comes in today with recent fall and needing evaluation. Patient recently fallen and was diagnosed with cervical odontoid fracture and a right proximal humerus fracture. On exam patient has a tenderness in the right shoulder. No significant tenderness is noted of the cervical spine, thoracic spine, or lumbar spine. Patient is able to stand and ambulate with minimal to no difficulty. Patient appears nontoxic. Patient appears no acute distress. P atient reported a slip and fall on wet floor. Differential diagnosis includes fracture, contusions, intracranial bleeding. CT of the head and neck noted no intracranial bleeding or acute injuries. X-ray of the humerus noted the proximal humeral fracture. No changes was noted in the fracture of the CT of the neck. Reviewed exam with patient and family with recommendations for continuing care at the retirement and follow-up as needed. Lab Data : 02/28/22 15:50 02/28/22 15:50 Radiology Impressions Cervical Spine CT 02/28/22 19:43 IMPRESSION: 1. No change in C2 fracture. 2. No additional acute abnormalities. Head CT 02/28/22 19:43 IMPRESSION: No acute intracranial abnormality. Humerus X-Ray 02/28/22 19:43 IMPRESSION: Proximal right humerus fracture not significantly changed. Laboratory Results WBC 10.8 10^3/uL (4.0-10.0) H 02/28/22 15:50 RBC 3.59 10^6/uL (4.1-5.3) L 02/28/22 15:50 Hgb 11.7 g/dL (11.7-16.6) 02/28/22 15:50 Hct 35.9 % (42.0-52.0) L 02/28/22 15:50 MCV 100.0 fl (80-94) H 02/28/22 15:50 MCH 32.6 pg (28.0-34.0) 02/28/22 15:50 MCHC 32.6 g/dL (30.0-36.0) 02/28/22 15:50 RDW 14.8 % (12.1-15.1) 02/28/22 15:50 Plt Count 327 10^3/cmm (130-400) 02/28/22 15:50 MPV 10.1 fL (7.4-10.4) 02/28/22 15:50 Neut % (Auto) 62.0 % 02/28/22 15:50 Lymph % (Auto) 20.5 % 02/28/22 15:50 [place]bot % (Auto) 10.7 % 02/28/22 15:50 Eos % (Auto) 5.8 % 02/28/22 15:50 Baso % (Auto) 0.6 % 02/28/22 15:50 Neut # (Auto) 6.69 10^3/uL (1.8-7.7) 02/28/22 15:50 Lymph # (Auto) 2.2 10^3/uL (0.8-4.8) 02/28/22 15:50 [place]bot # (Auto) 1.2 10^3/uL (0.2-0.9) H 02/28/22 15:50 Eos # (Auto) 0.6 10^3/uL (0.0-0.8) 02/28/22 15:50 Baso # (Auto) 0.1 10^3/uL (0.0-0.1) 02/28/22 15:50 Nucleated RBC % (auto) 0 % 02/28/22 15:50 Nucleated RBCs # 0.0 /100WBC 02/28/22 15:50 Sodium 134 mmol/L (136-145) L 02/28/22 15:50 Potassium 4.3 mmol/L (3.5-5.1) 02/28/22 15:50 Chloride 104 mmol/L (98-107) 02/28/22 15:50 Carbon Dioxide 18 mmol/L (22-29) L 02/28/22 15:50 Anion Gap 16.3 (5-19) 02/28/22 15:50 BUN 29 mg/dL (8-23) H 02/28/22 15:50 Creatinine 1.3 mg/dL (0.7-1.2) H 02/28/22 15:50 GFR Calculation Not Reportable 02/28/22 15:50 Glucose 120 mg/dL (65-115) H 02/28/22 15:50 Calculated Osmolality 285 mOsm/kg (285-295) 02/28/22 15:50 Calcium 8.7 mg/dL (8.5-10.5) 02/28/22 15:50 Total Bilirubin 0.2 mg/dL (0.15-1.2) 02/28/22 15:50 AST 23 U/L (0-40) 02/28/22 15:50 ALT 17 U/L (0-41) 02/28/22 15:50 Alkaline Phosphatase 85 U/L (40-130) 02/28/22 15:50 Total Protein 6.8 g/dL (6.6-8.7) 02/28/22 15:50 Albumin 3.7 g/dL (3.5-5.2) 02/28/22 15:50 Globulin 3.1 g/dL (1.3-4.6) 02/28/22 15:50 Discharge Plan Discharge Patient Disposition: Home Clinical Impression: Fall Qualifiers: Encounter type: initial encounter Qualified Code(s): W19.XXXA - Unspecified fall, initial encounter Odontoid fracture Qualifiers: Encounter type: subsequent encounter Fracture type: closed Fracture healing: with routine healing Qualified Code(s): S12.100D - Unspecified displaced fracture of second cervical vertebra, subsequent encounter for fracture with routine healing Fracture of head of humerus Qualifiers: Encounter type: subsequent encounter Fracture type: closed Laterality: right Fr acture healing: with routine healing Qualified Code(s): S42.291D - Other displaced fracture of upper end of right humerus, subsequent encounter for fracture with routine healing Condition: Stable Prescriptions: No Action bisacodyl [Dulcolax (bisacodyl)] 10 mg suppository 10 mg NM DAILY PRN (Reason: Constipation) digoxin 125 mcg (0.125 mg) tablet 125 mcg PO DAILY@07 Rx Instructions: hold for pulse less than 60 propafenone 225 mg capsule,extended release 12 hr 225 mg PO Q12H Rx Instructions: @07:00,19:00 medroxyprogesterone 10 mg tablet 10 mg PO DAILY@07 acetaminophen [Tylenol] 325 mg tablet 650 mg PO Q4H PRN (Reason: Pain) propranolol 40 mg tablet 40 mg PO BID fluticasone propionate 50 mcg/actuation spray,suspension 1 spray INTRANASAL BID@09,21 aspirin [Adult Aspirin Regimen] 81 mg tablet,delayed release (DR/EC) 81 mg PO DAILY@07 fluoxetine 10 mg capsule 10 mg PO DAILY@07 tamsulosin 0.4 mg capsule 0.4 mg PO DAILY@19 oxcarbazepine 300 mg tablet 300 mg PO BID@, omeprazole 40 mg Capsule,Delayed Release(Dr/Ec) 40 mg PO DAILY@07 tramadol [Ultram] 50 mg Tablet 50 mg PO Q8H PRN (Reason: Pain) levothyroxine 100 mcg tablet 100 mcg PO DAILY@06 [id number]-Wep Enema 19-7 gram/118 mL Enema 118 ml NM DAILY PRN (Reason: Constipation) lidocaine HCl [Lidocaine Viscous] 2 % Solution See Rx Instructions .ROUTE .COMPLEX Rx Instructions: give 15ml po every 2 hours as needed for gum pain loratadine [Claritin] 10 mg Tablet 10 mg PO DAILY@07 Discharge Orders: Discharge ED (Routine); Ordered 02/28/22 Ordered By: Donaldo Donis Referrals: Rito Woods MD [Primary Care Provider] - Discharge Diet: Usual diet Discharge Activity: Increase activity as tolerated Patient Instructions: Pain Management Activity Restrictions/Additional Instructions: Activity as tolerated. Use acetaminophen for pain. Follow-up with primary care for further instruction. Return to ER for new concerns or worsening symptoms such as high fever, uncontrolled pain. Coding Level of Care Code ED Social Security Benefits Interviewer for Zachary Fwdee dee Exam Comprehensive
[2022-02-28 19:43] LABS: Basophils # 0.1 10^3/uL (0.0-0.1); Basophils % 0.6 %; Eosinophils # 0.6 10^3/uL (0.0-0.8); Eosinophils % 5.8 %; Hematocrit 35.9 % (42.0-52.0); Hemoglobin 11.7 g/dL (11.7-16.6); Lymphocytes # 2.2 10^3/uL (0.8-4.8); Lymphocytes % 20.5 %; Mean Corpuscular HGB Conc 32.6 g/dL (30.0-36.0); Mean Corpuscular Hemoglobin 32.6 pg (28.0-34.0); Mean Platelet Volume 10.1 fL (7.4-10.4); Monocytes # 1.2 10^3/uL (0.2-0.9); Monocytes % 10.7 %; Neutrophils # 6.69 10^3/uL (1.8-7.7); Nucleated Red Blood Cells % 0 %; Platelet Count 327 10^3/cmm (130-400); Red Blood Count 3.59 10^6/uL (4.1-5.3); Red Cell Distribution Width 14.8 % (12.1-15.1); White Blood Count 10.8 10^3/uL (4.0-10.0)
--- NOTE | 2022-02-28 19:43 | XRR_ITS ---
PROCEDURE INFORMATION: Exam: XR Right Humerus Exam date and time: 02/28/2022 7:47 PM Age: 81 years old Clinical indication: Injury or trauma; Fall; Other: Unknown; Additional info: Fall, injury TECHNIQUE: Imaging protocol: Radiologic exam of the Right humerus. Views: 2 or more views. COMPARISON: [place] [id number] 02/25/2022 12:17 PM FINDINGS: Bones/joints: There is comminuted fracture of the proximal right humerus involving the surgical neck of the humerus and greater tuberosity. Appearance of the fractures not significantly changed from 02/25/2022. No additional fracture is identified compared with the previous study. Soft tissues: Normal. XR/[place] [id number] IMPRESSION: Proximal right humerus fracture not significantly changed.
--- NOTE | 2022-02-28 19:43 | CTR_ITS ---
PROCEDURE INFORMATION: Exam: CT Head Without Contrast Exam date and time: 02/28/2022 7:51 PM Age: 81 years old Clinical indication: Injury or trauma; Blunt trauma (contusions or hematomas); Patient HX: Fall yesterday with blow to back of head. C/O dizziness. TECHNIQUE: Imaging protocol: Computed tomography of the head without contrast. Radiation optimization: All CT scans at this facility use at least one of these dose optimization techniques: automated exposure control; mA and/or kV adjustment per patient size (includes targeted exams where dose is matched to clinical indication); or iterative reconstruction. COMPARISON: CT head wo con* [id number] 02/25/2022 12:45 PM RADIATION DOSE METRICS: Total DLP (mGy-cm): 1319.48 FINDINGS: Brain: There is marked cerebral atrophy. No hemorrhage. Unremarkable white matter. No mass effect. Cerebral ventricles: No ventriculomegaly. Paranasal sinuses: Visualized sinuses are unremarkable. No fluid levels. Mastoid air cells: Visualized mastoid air cells are well aerated. Bones/joints: Unremarkable. No acute fracture. Soft tissues: Unremarkable. CT/CT head wo con* [id number] IMPRESSION: No acute intracranial abnormality.
--- NOTE | 2022-02-28 19:43 | CTR_ITS ---
PROCEDURE INFORMATION: Exam: CT Cervical Spine Without Contrast Exam date and time: 02/28/2022 7:51 PM Age: 81 years old Clinical indication: Injury or trauma; Blunt trauma; Patient HX: Fall yesterday with blow to back of head. C/O dizziness. TECHNIQUE: Imaging protocol: Computed tomography of the cervical spine without contrast. Radiation optimization: All CT scans at this facility use at least one of these dose optimization techniques: automated exposure control; mA and/or kV adjustment per patient size (includes targeted exams where dose is matched to clinical indication); or iterative reconstruction. COMPARISON: CT cervical spin wo con* [id number] 02/25/2022 12:50 PM RADIATION DOSE METRICS: Total DLP (mGy-cm): 210 FINDINGS: Bones/joints: Redemonstration a distracted age indeterminate type 2 odontoid process fracture. No additional acute cervical spine fractures. No changes in alignment from comparison.The cervical spine demonstrates marked degenerative changes at multiple levels. Lungs: Lung apices are normal. Soft tissues: Unremarkable. CT/CT cervical spin wo con* [id number] IMPRESSION: 1. No change in C2 fracture. 2. No additional acute abnormalities.
[2022-02-28 20:05] LABS: Alanine Aminotransferase 17 U/L (0-41); Albumin Level 3.7 g/dL (3.5-5.2); Alkaline Phosphatase 85 U/L (40-130); Anion Gap 16.3 (5-19); Aspartate Amino Transferase 23 U/L (0-40); Blood Urea Nitrogen 29 mg/dL (8-23); Calcium 8.7 mg/dL (8.5-10.5); Carbon Dioxide 18 mmol/L (22-29); Chloride 104 mmol/L (98-107); Globulin 3.1 g/dL (1.3-4.6); Glucose 120 mg/dL (65-115); Osmolality Calculated 285 mOsm/kg (285-295); Potassium 4.3 mmol/L (3.5-5.1); Sodium 134 mmol/L (136-145); Total Bilirubin 0.2 mg/dL (0.15-1.2); Total Protein 6.8 g/dL (6.6-8.7)
[2022-02-28] MEDS: HYDROcodone-acetaminophen 5-325 mg Tablet 1 TAB PO (20:08)
== END 2022-02-28 21:33 | disposition home or self-care (01) ==
PROVIDERS: Emergency Provider Nurse Practitioner Family; PCP Internal Medicine
DX: S12.100D Unspecified displaced fracture of second cervical vertebra, subsequent encounter for fracture with routine healing (principal); S42.291D Other displaced fracture of upper end of right humerus, subsequent encounter for fracture with routine healing; W19.XXXA Unspecified fall, initial encounter
CPT/HCPCS: 70450; 72125; 73060; 80053; 85025; 99285

== ENCOUNTER 2022-03-03 02:52 | Emergency (ER) | payer MEDICARE, MEDICAID, SELFPAY ==
[2022-03-03 02:53] VITALS: BMI 25.6
[2022-03-03 03:00] VITALS: BP 139/52; PULSE 70; RESP 16; TEMP 36.9; O2SAT 96
--- NOTE | 2022-03-03 03:38 | XRR_ITS ---
PROCEDURE INFORMATION: Exam: XR Chest Exam date and time: 03/03/2022 3:41 AM Age: 81 years old Clinical indication: Other: AMS TECHNIQUE: Imaging protocol: Radiologic exam of the chest. Views: 1 view. COMPARISON: CR XR chest 1V portable [id number] 02/25/2022 12:15 PM FINDINGS: Lungs: There are normal lung volumes without interstitial or airspace opacities. Pleural spaces: There are no pleural effusions or pneumothorax. Heart/Mediastinum: The heart size is normal. There is a left subclavian pacemaker seen. There is a mildly tortuous thoracic aorta. The trachea is in the midline. Bones/joints: Deformity of the right proximal humerus is seen, related to a mildly displaced, impacted right proximal humeral surgical neck fracture. Dedicated imaging may be performed, if there is further clinical concern. Soft tissues: Multiple external densities are seen overlying the chest, limiting assessment. XR/XR chest 1V portable [id number] IMPRESSION: 1. No chest radiographic evidence of acute cardiopulmonary disease. 2. Right proximal humeral fracture, as noted above.
--- NOTE | 2022-03-03 03:39 | ECG_ITS ---
[facility] Test Date: 2022-03-03 Pat Name: Sylvia Baptiste Department: Room: Gender: Male [employer]: : 1940 Requested By: Terrell Larsen Order Number: [id number] Elizabeth MD: Toro Mcpherson M.D. Measurements Intervals [place] Rate: 70 P: 116 NV: 200 QRS: 35 QRSD: 100 T: 71 QT: 385 QTc: 416 Interpretive Statements ELECTRONIC ATRIAL PACEMAKER INCOMPLETE RIGHT BUNDLE BRANCH BLOCK [90+ ms QRS DURATION, TERMINAL R IN V1/V2, 40+ ms S IN I/aVL/V4/V5/V6] ABNORMAL RHYTHM ECG Compared to ECG 01/24/2022 16:16:05 Incomplete right bundle-branch block now present Myocardial infarct finding no longer present Electronically Signed On 03-03-2022 7:37:06 CDT by Toro Mcpherson M.D. [id number]
[2022-03-03 04:00] LABS: Basophils # 0.1 10^3/uL (0.0-0.1); Basophils % 0.6 %; Eosinophils # 0.5 10^3/uL (0.0-0.8); Eosinophils % 5.4 %; Lymphocytes # 1.3 10^3/uL (0.8-4.8); Lymphocytes % 16.2 %; Mean Corpuscular HGB Conc 32.4 g/dL (30.0-36.0); Mean Corpuscular Hemoglobin 32.1 pg (28.0-34.0); Mean Corpuscular Volume 99.1 fl (80-94); Mean Platelet Volume 9.6 fL (7.4-10.4); Monocytes # 0.7 10^3/uL (0.2-0.9); Monocytes % 8.6 %; Neutrophils # 5.69 10^3/uL (1.8-7.7); Neutrophils % 68.7 %; Nucleated Red Blood Cells % 0 %; Platelet Count 309 10^3/cmm (130-400); Red Blood Count 3.43 10^6/uL (4.1-5.3); Red Cell Distribution Width 14.9 % (12.1-15.1); White Blood Count 8.3 10^3/uL (4.0-10.0)
--- NOTE | 2022-03-03 04:01 | W.ED.AMS ---
Documented by User: Terrell Penn, 03/03/22 22:19 HPI - Altered Mental Status General: Chief Complaint: Altered Mental Status Stated Complaint: AMS Time Seen by Provider: 03/03/22 03:23 History of Present Illness: 81-year-old male long-term patient with a history of dementia. He presents by ambulance this morning, with a complaint of worsening confusion in the long-term. [facility] called report saying that the patient was more confused than normal. He has a recent diagnosis of a shoulder fracture, and is wearing a c-collar as well as a shoulder immobilizer. Evidently, C2 fracture was noted on prior CT, that appeared old. He has not followed up with orthopedic spine as yet, hence the c-collar. MD complaint: altered mental status Onset (ago): hour(s) Timing confirmed by: caregiver Severity: moderate Context: other Review of Systems General: Reports: ROS unobtainable due to mental status Const: Denies: fever(s) Resp: Denies: dyspnea GI: Denies: vomiting PFSH ED PFSH: Medical History Adrenal adenoma Atrial fibrillation Patient is taking a full ASA. Refuses Warfarin due to GI bleed in the past. Pt has episodes of atrial fibrillation with rapid ventricular rate. He has a history of TIA as well. ?No dizziness of syncope BPH (benign prostatic hyperplasia) Depression Diverticulitis Fatigue GERD (gastroesophageal reflux disease) GI bleed Hyperlipidemia Hypertension Incontinence Insomnia Neuropathy Osteoporosis Pacemaker Shortness of breath Thoracic back pain TIA (transient ischemic attack) Surgical History H/O vasectomy Hx of cataract surgery S/P foot surgery, right Family History Other CAD (coronary artery disease) Cancer Dementia Diabetes Hypertension Denies family history of Clotting disorder Chronic kidney disease (CKD) Suicide Anesthesia complication Bleeding disorder Lung disease Stroke Social History Smoking and tobacco status: never smoked Alcohol intake: never Physical Exam Const: COMMON NORMALS: no acute distress GENERAL APPEARANCE: cooperative, comfortable and frail appearing HENMT: COMMON NORMALS: normocephalic, atraumatic and Normal external nose present HEAD & SCALP: normocephalic and atraumatic NOSE: Normal external nose present and Normal nares present Eye: COMMON NORMALS: Equal, round and reactive pupils present and EOMs intact bilaterally PUPIL: Yes Equal, round and reactive pupils present Neck/C-Spine: GENERAL: Yes trachea midline Chest: CHEST: Yes Symmetrical chest wall rise Resp: COMMON NORMALS: normal respiratory effort, No use of accessory muscles and clear to auscultation bilaterally AUSCULTATION: clear to auscultation bilaterally Cardio: COMMON NORMALS: regular rate and regular rhythm RATE: regular rate RHYTHM: regular rhythm GI: COMMON NORMALS: Normal to inspection, nondistended, normoactive bowel sounds present, Soft to palpation and non-tender PALPATION: Yes Soft to palpation Extremity: NARRATIVE EXTREMITY EXAM: Right shoulder in shoulder immobilizer. Mild tenderness. No cervical spine tenderness. He is immobilized in a c-collar. Neuro: KAT COMA SCALE: document GCS findings Kat coma scale eye opening: Spontaneous Kat coma scale verbal response: Confused [facility] coma scale motor response: Obey commands [facility] coma scale total score: 14 Psych: COMMON NORMALS: cooperative Course Vital Signs: Vital signs: Vital Signs Temperature 98.4 F 03/03/22 03:00 Pulse Rate 70 03/03/22 06:47 Respiratory Rate 16 03/03/22 06:47 Blood Pressure 91/55 03/03/22 06:47 Pulse Oximetry 95 03/03/22 06:47 Oxygen Delivery Me thod 03/03/22 03:00 MDM - Altered Mental Status Medical Decision Making Mental status does not appear bad here. He follows commands well. He answers simple questions yes and no. CBC is essentially normal. BUN is 25, creatinine 1.3. Chest x-ray is negative for any acute change. Urinalysis is pending. He'll be checked out to the next physician at shift change. Lab Data : 03/03/22 03:05 03/03/22 03:05 Radiology Impressions Chest X-Ray 03/03/22 03:38 IMPRESSION: 1. No chest radiographic evidence of acute cardiopulmonary disease. 2. Right proximal humeral fracture, as noted above. Laboratory Results WBC 8.3 10^3/uL (4.0-10.0) 03/03/22 03:05 RBC 3.43 10^6/uL (4.1-5.3) L 03/03/22 03:05 Hgb 11.0 g/dL (11.7-16.6) L 03/03/22 03:05 Hct 34.0 % (42.0-52.0) L 03/03/22 03:05 MCV 99.1 fl (80-94) H 03/03/22 03:05 MCH 32.1 pg (28.0-34.0) 03/03/22 03:05 MCHC 32.4 g/dL (30.0-36.0) 03/03/22 03:05 RDW 14.9 % (12.1-15.1) 03/03/22 03:05 Plt Count 309 10^3/cmm (130-400) 03/03/22 03:05 MPV 9.6 fL (7.4-10.4) 03/03/22 03:05 Neut % (Auto) 68.7 % 03/03/22 03:05 Lymph % (Auto) 16.2 % 03/03/22 03:05 [place] % (Auto) 8.6 % 03/03/22 03:05 Eos % (Auto) 5.4 % 03/03/22 03:05 Baso % (Auto) 0.6 % 03/03/22 03:05 Neut # (Auto) 5.69 10^3/uL (1.8-7.7) 03/03/22 03:05 Lymph # (Auto) 1.3 10^3/uL (0.8-4.8) 03/03/22 03:05 [place] # (Auto) 0.7 10^3/uL (0.2-0.9) 03/03/22 03:05 Eos # (Auto) 0.5 10^3/uL (0.0-0.8) 03/03/22 03:05 Baso # (Auto) 0.1 10^3/uL (0.0-0.1) 03/03/22 03:05 Nucleated RBC % (auto) 0 % 03/03/22 03:05 Nucleated RBCs # 0.0 /100WBC 03/03/22 03:05 Sodium 136 mmol/L (136-145) 03/03/22 03:05 Potassium 4.3 mmol/L (3.5-5.1) 03/03/22 03:05 Chloride 105 mmol/L (98-107) 03/03/22 03:05 Carbon Dioxide 21 mmol/L (22-29) L 03/03/22 03:05 Anion Gap 14.3 (5-19) 03/03/22 03:05 BUN 25 mg/dL (8-23) H 03/03/22 03:05 Creatinine 1.3 mg/dL (0.7-1.2) H 03/03/22 03:05 GFR Calculation Not Reportable 03/03/22 03:05 Glucose 102 mg/dL (65-115) 03/03/22 03:05 Calculated Osmolality 287 mOsm/kg (285-295) 03/03/22 03:05 Lactate 1.2 mmol/L (0.5-2.2) 03/03/22 03:05 Calcium 8.7 mg/dL (8.5-10.5) 03/03/22 03:05 Total Bilirubin 0.6 mg/dL (0.15-1.2) 03/03/22 03:05 AST 25 U/L (0-40) 03/03/22 03:05 ALT 22 U/L (0-41) 03/03/22 03:05 Alkaline Phosphatase 88 U/L (40-130) 03/03/22 03:05 C-Reactive Protein 130.2 mg/L (0.0-4.9) H 03/03/22 03:05 Total Protein 6.7 g/dL (6.6-8.7) 03/03/22 03:05 Albumin 3.4 g/dL (3.5-5.2) L 03/03/22 03:05 Globulin 3.3 g/dL (1.3-4.6) 03/03/22 03:05 Urine Color Yellow (Yellow) 03/03/22 06:17 Urine Appearance Clear (CLEAR) 03/03/22 06:17 Urine pH 5 (5-7) 03/03/22 06:17 Ur Specific [place] 1.015 (1.005-1.030) 03/03/22 06:17 Urine Protein Neg (Negative) 03/03/22 06:17 Urine Glucose (UA) Norm (Normal) 03/03/22 06:17 Urine Ketones Negative (Negative) 03/03/22 06:17 Urine Blood Neg (Negative) 03/03/22 06:17 Urine Nitrate Negative (Negative) 03/03/22 06:17 Urine Bilirubin Neg (Negative) 03/03/22 06:17 Urine Urobilinogen Norm mg/dL (Negative) 03/03/22 06:17 Ur Leukocyte Esterase Negative (Negative) 03/03/22 06:17 Discharge Plan Discharge Patient Disposition: Home Clinical Impression: Altered mental status, Dementia Condition: Stable Prescriptions: No Action bisacodyl [Dulcolax (bisacodyl)] 10 mg suppository 10 mg [place] DAILY PRN (Reason: Constipation) digoxin 125 mcg (0.125 mg) tablet 125 mcg PO DAILY@07 Rx Instructions: hold for pulse less than 60 propafenone 225 mg capsule,extended release 12 hr 225 mg PO Q12H Rx Instructions: @07:00,19:00 medroxyprogesterone 10 mg tablet 10 mg PO DAILY@07 acetaminophen [Tylenol] 325 mg tablet 650 mg PO Q4H PRN (Reason: Pain) propranolol 40 mg tablet 40 mg PO BID fluticasone propionate 50 mcg/actuation spray,suspension 1 spray INTRANASAL BID@, aspirin [Adult Aspirin Regimen] 81 mg tablet,delayed release (DR/EC) 81 mg PO DAILY@07 fluoxetine 10 mg capsule 10 mg PO DAILY@07 tamsulosin 0.4 mg capsule 0.4 mg PO DAILY@19 oxcarbazepine 300 mg tablet 300 mg PO BID@, omeprazole 40 mg Capsule,Delayed Release(Dr/Ec) 40 mg PO DAILY@07 tramadol [Ultram] 50 mg Tablet 50 mg PO Q8H PRN (Reason: Pain) levothyroxine 100 mcg tablet 100 mcg PO DAILY@06 [id number]-[id number]-Xxy Enema 19-7 gram/118 mL Enema 118 ml KS DAILY PRN (Reason: Constipation) lidocaine HCl [Lidocaine Viscous] 2 % Solution See Rx Instructions .ROUTE .COMPLEX Rx Instructions: give 15ml po every 2 hours as needed for gum pain loratadine [Claritin] 10 mg Tablet 10 mg PO DAILY@07 Discharge Orders: Discharge ED (Routine); Ordered 03/03/22 Ordered By: Shazia Betts Referrals: Rito Woods MD [Primary Care Provider] - 1-3 days Discharge Diet: Advance as tolerated Discharge Activity: Increase activity as tolerated Patient Instructions: Dementia (ED) Activity Restrictions/Additional Instructions: Return for fever greater than 100, worsening mental status, shortness of breath, any other concerning symptoms. Coding Level of Care Code ED Digital Advertising Specialist for [employer] Exam Comprehensive Documented by User: Shazia Betts MD 03/03/22 06:46 HPI - Altered Mental Status General: Chief Complaint: Altered Mental Status Stated Complaint: AMS Time Seen by Provider: 03/03/22 03:23 PFSH ED PFSH: Medical History Adrenal adenoma Atrial fibrillation Patient is taking a full ASA. Refuses Warfarin due to GI bleed in the past. Pt has episodes of atrial fibrillation with rapid ventricular rate. He has a history of TIA as well. ?No dizziness of syncope BPH (benign prostatic hyperplasia) Depression Diverticulitis Fatigue GERD (gastroesophageal reflux disease) GI bleed Hyperlipidemia Hypertension Incontinence Insomnia Neuropathy Osteoporosis Pacemaker Shortness of breath Thoracic back pain TIA (transient ischemic attack) Surgical History H/O vasectomy Hx of cataract surgery S/P foot surgery, right Family History Other CAD (coronary artery disease) Cancer Dementia Diabetes Hypertension Denies family history of Clotting disorder Chronic kidney disease (CKD) Suicide Anesthesia complication Bleeding disorder Lung disease Stroke Social History Smoking and tobacco status: never smoked Alcohol intake: never Physical Exam Neuro: KAT COMA SCALE: document GCS findings [facility] coma scale total score: 14 Course Vital Signs: Vital signs: Vital Signs Temperature 98.4 F 03/03/22 03:00 Pulse Rate 70 03/03/22 06:47 Respiratory Rate 16 03/03/22 06:47 Blood Pressure 91/55 03/03/22 06:47 Pulse Oximetry 95 03/03/22 06:47 Oxygen Delivery Me thod 03/03/22 03:00 MDM - Altered Mental Status Medical Decision Making Mental status does not appear bad here. He follows commands well. He answers simple questions yes and no. CBC is essentially normal. BUN is 25, creatinine 1.3. Chest x-ray is negative for any acute change. Urinalysis is pending. He'll be checked out to the next physician at shift change. Patient checked out to me pending urine urinalysis here is normal patient had some altered mental status likely due to his dementia he is stable for discharge back to the long-term. Lab Data : 03/03/22 03:05 03/03/22 03:05 Radiology Impressions Chest X-Ray 03/03/22 03:38 IMPRESSION: 1. No chest radiographic evidence of acute cardiopulmonary disease. 2. Right proximal humeral fracture, as noted above. Laboratory Results WBC 8.3 10^3/uL (4.0-10.0) 03/03/22 03:05 RBC 3.43 10^6/uL (4.1-5.3) L 03/03/22 03:05 Hgb 11.0 g/dL (11.7-16.6) L 03/03/22 03:05 Hct 34.0 % (42.0-52.0) L 03/03/22 03:05 MCV 99.1 fl (80-94) H 03/03/22 03:05 MCH 32.1 pg (28.0-34.0) 03/03/22 03:05 MCHC 32.4 g/dL (30.0-36.0) 03/03/22 03:05 RDW 14.9 % (12.1-15.1) 03/03/22 03:05 Plt Count 309 10^3/cmm (130-400) 03/03/22 03:05 MPV 9.6 fL (7.4-10.4) 03/03/22 03:05 Neut % (Auto) 68.7 % 03/03/22 03:05 Lymph % (Auto) 16.2 % 03/03/22 03:05 [place] % (Auto) 8.6 % 03/03/22 03:05 Eos % (Auto) 5.4 % 03/03/22 03:05 Baso % (Auto) 0.6 % 03/03/22 03:05 Neut # (Auto) 5.69 10^3/uL (1.8-7.7) 03/03/22 03:05 Lymph # (Auto) 1.3 10^3/uL (0.8-4.8) 03/03/22 03:05 [place] # (Auto) 0.7 10^3/uL (0.2-0.9) 03/03/22 03:05 Eos # (Auto) 0.5 10^3/uL (0.0-0.8) 03/03/22 03:05 Baso # (Auto) 0.1 10^3/uL (0.0-0.1) 03/03/22 03:05 Nucleated RBC % (auto) 0 % 03/03/22 03:05 Nucleated RBCs # 0.0 /100WBC 03/03/22 03:05 Sodium 136 mmol/L (136-145) 03/03/22 03:05 Potassium 4.3 mmol/L (3.5-5.1) 03/03/22 03:05 Chloride 105 mmol/L (98-107) 03/03/22 03:05 Carbon Dioxide 21 mmol/L (22-29) L 03/03/22 03:05 Anion Gap 14.3 (5-19) 03/03/22 03:05 BUN 25 mg/dL (8-23) H 03/03/22 03:05 Creatinine 1.3 mg/dL (0.7-1.2) H 03/03/22 03:05 GFR Calculation Not Reportable 03/03/22 03:05 Glucose 102 mg/dL (65-115) 03/03/22 03:05 Calculated Osmolality 287 mOsm/kg (285-295) 03/03/22 03:05 Lactate 1.2 mmol/L (0.5-2.2) 03/03/22 03:05 Calcium 8.7 mg/dL (8.5-10.5) 03/03/22 03:05 Total Bilirubin 0.6 mg/dL (0.15-1.2) 03/03/22 03:05 AST 25 U/L (0-40) 03/03/22 03:05 ALT 22 U/L (0-41) 03/03/22 03:05 Alkaline Phosphatase 88 U/L (40-130) 03/03/22 03:05 C-Reactive Protein 130.2 mg/L (0.0-4.9) H 03/03/22 03:05 Total Protein 6.7 g/dL (6.6-8.7) 03/03/22 03:05 Albumin 3.4 g/dL (3.5-5.2) L 03/03/22 03:05 Globulin 3.3 g/dL (1.3-4.6) 03/03/22 03:05 Urine Color Yellow (Yellow) 03/03/22 06:17 Urine Appearance Clear (CLEAR) 03/03/22 06:17 Urine pH 5 (5-7) 03/03/22 06:17 Ur Specific [place] 1.015 (1.005-1.030) 03/03/22 06:17 Urine Protein Neg (Negative) 03/03/22 06:17 Urine Glucose (UA) Norm (Normal) 03/03/22 06:17 Urine Ketones Negative (Negative) 03/03/22 06:17 Urine Blood Neg (Negative) 03/03/22 06:17 Urine Nitrate Negative (Negative) 03/03/22 06:17 Urine Bilirubin Neg (Negative) 03/03/22 06:17 Urine Urobilinogen Norm mg/dL (Negative) 03/03/22 06:17 Ur Leukocyte Esterase Negative (Negative) 03/03/22 06:17 EKG Data EKG 1: I personally reviewed and interpreted this EKG as follows: EKG interpretation date: 03/03/22 EKG interpretation time: 05:38 Interpretation: afib with rvr hr [address] or t wave abnormalities qrs 122 qtc 410 Discharge Plan Discharge Patient Disposition: Home Clinical Impression: Altered mental status, Dementia Condition: Stable Prescriptions: No Action bisacodyl [Dulcolax (bisacodyl)] 10 mg suppository 10 mg [place] DAILY PRN (Reason: Constipation) digoxin 125 mcg (0.125 mg) tablet 125 mcg PO DAILY@07 Rx Instructions: hold for pulse less than 60 propafenone 225 mg capsule,extended release 12 hr 225 mg PO Q12H Rx Instructions: @07:00,19:00 medroxyprogesterone 10 mg tablet 10 mg PO DAILY@07 acetaminophen [Tylenol] 325 mg tablet 650 mg PO Q4H PRN (Reason: Pain) propranolol 40 mg tablet 40 mg PO BID fluticasone propionate 50 mcg/actuation spray,suspension 1 spray INTRANASAL BID@09,21 aspirin [Adult Aspirin Regimen] 81 mg tablet,delayed release (DR/EC) 81 mg PO DAILY@07 fluoxetine 10 mg capsule 10 mg PO DAILY@ tamsulosin 0.4 mg capsule 0.4 mg PO DAILY@ oxcarbazepine 300 mg tablet 300 mg PO BID@, omeprazole 40 mg Capsule,Delayed Release(Dr/Ec) 40 mg PO DAILY@07 tramadol [Ultram] 50 mg Tablet 50 mg PO Q8H PRN (Reason: Pain) levothyroxine 100 mcg tablet 100 mcg PO DAILY@06 [id number] Enema 19-7 gram/118 mL Enema 118 ml [place] DAILY PRN (Reason: Constipation) lidocaine HCl [Lidocaine Viscous] 2 % Solution See Rx Instructions .ROUTE .COMPLEX Rx Instructions: give 15ml po every 2 hours as needed for gum pain loratadine [Claritin] 10 mg Tablet 10 mg PO DAILY@07 Discharge Orders: Discharge ED (Routine); Ordered 03/03/22 Ordered By: Shazia Betts Referrals: Rito Woods MD [Primary Care Provider] - 1-3 days Discharge Diet: Advance as tolerated Discharge Activity: Increase activity as tolerated Patient Instructions: Dementia (ED) Activity Restrictions/Additional Instructions: Return for fever greater than 100, worsening mental status, shortness of breath, any other concerning symptoms. Coding Level of Care Code ED Digital Advertising Specialist for [facility] [employer] Exam Comprehensive
[2022-03-03 04:15] LABS: Lactate (Lactic Acid level) 1.2 mmol/L (0.5-2.2)
[2022-03-03 04:16] LABS: Alanine Aminotransferase 22 U/L (0-41); Albumin Level 3.4 g/dL (3.5-5.2); Alkaline Phosphatase 88 U/L (40-130); Anion Gap 14.3 (5-19); Aspartate Amino Transferase 25 U/L (0-40); Blood Urea Nitrogen 25 mg/dL (8-23); C Reactive Protein 130.2 mg/L (0.0-4.9); Calcium 8.7 mg/dL (8.5-10.5); Carbon Dioxide 21 mmol/L (22-29); Chloride 105 mmol/L (98-107); Globulin 3.3 g/dL (1.3-4.6); Glucose 102 mg/dL (65-115); Osmolality Calculated 287 mOsm/kg (285-295); Potassium 4.3 mmol/L (3.5-5.1); Sodium 136 mmol/L (136-145); Total Bilirubin 0.6 mg/dL (0.15-1.2); Total Protein 6.7 g/dL (6.6-8.7)
[2022-03-03 05:48] VITALS: BP 120/49; PULSE 70; RESP 16; O2SAT 97
[2022-03-03 06:00] VITALS: BP 123/39; PULSE 70; RESP 16; O2SAT 97
[2022-03-03 06:18] LABS: Add Urine Microscopic? NO; Charge for UA Resulting for Rev
[2022-03-03 06:21] LABS: Bilirubin Urine Neg (Negative); Blood Urine Neg (Negative); Glucose Urine UA Norm (Normal); Ketones Urine Negative (Negative); Leukocyte Esterase Urine Negative (Negative); Nitrate Urine Negative (Negative); Protein Urine Neg (Negative); Specific Gravity, Urine 1.015 (1.005-1.030); Urine Appearance Clear (CLEAR); Urine Color Yellow (Yellow); Urobilinogen Urine Norm (Negative); pH Urine 5 (5-7)
[2022-03-03 06:47] VITALS: BP 91/55; PULSE 70; RESP 16; O2SAT 95
== END 2022-03-03 07:21 | disposition home or self-care (01) ==
PROVIDERS: Emergency Medicine; Emergency Provider Emergency Medicine; PCP Internal Medicine
DX: R41.82 Altered mental status, unspecified (principal); F03.90 Unspecified dementia, unspecified severity, without behavioral disturbance, psychotic disturbance, mood disturbance, and anxiety; Z79.82 Long term (current) use of aspirin; E78.5 Hyperlipidemia, unspecified; I10 Essential (primary) hypertension; Z95.0 Presence of cardiac pacemaker; Z86.73 Personal history of transient ischemic attack (TIA), and cerebral infarction without residual deficits
CPT/HCPCS: 51701; 71045; 80053; 81003; 83605; 85025; 86140; 93005; 99282; 99285

== ENCOUNTER 2022-03-03 13:39 | Emergency (ER) | payer MEDICARE, MEDICAID, SELFPAY ==
[2022-03-03 14:01] VITALS: BP 101/62; PULSE 70; RESP 16; TEMP 36.1; O2SAT 97
--- NOTE | 2022-03-03 20:21 | ED_ITS ---
HPI - General Adult General: Chief complaint: General Medical Stated complaint: NO COMPLAINTS/ FAMILY WANTS PT SEEN Time Seen by Provider: 03/03/22 15:04 History of Present Illness: 81-year-old male patient presents to the emergency department with daughter. Patient was seen earlier today with no acute findings. Daughter states there are no new concerns. Daughter states she is concerned that patient is not being monitored given his frequent falls in the [place] [facility] and is requesting help for this. Patient denies any new complaints. Associated symptoms: Deny chest pain, confusion, diaphoresis, dyspnea, headache(s), malaise, nausea, rash, palpitations, syncope or vomiting Review of Systems Const: Denies: fever(s), chills, body aches, change in appetite, change in weight, fatigue, malaise or diaphoresis Eyes: Denies: change in vision, blurry vision, blind spots, photophobia, eye discomfort, eye discharge, eye redness, floaters or seeing flashes ENMT: Denies: throat pain, uvular edema, enlarged tonsils, odynophagia, hoarseness, mouth pain, swelling of lips/tongue, oral sores, bleeding gums, dental pain, dry mouth, ear or mastoid pain, ear discharge, change in hearing, tinnitus, disequilibrium, nasal discharge, nasal congestion, post nasal drip or sinus pain Card: Denies: chest pain, palpitations, irregular heart rhythm, edema, swelling of feet/ankles, lightheadedness, syncope, pre-syncope, dyspnea on exertion, orthopnea, leg pain with exertion or acrocyanosis Resp: Denies: dyspnea, productive cough, non-productive cough, wheezing, stridor, pain on inspiration, change in phlegm color, hemoptysis or chest congestion GI: Denies: abdominal pain, nausea, vomiting, hematemesis, dysphagia, diarrhea, constipation, GI cramping, change in bowel habits or rectal pain : Denies: flank pain, dysuria, urinary frequency, urinary urgency, urinary hesitancy or hematuria Musc: Denies: neck pain, back pain, extremity pain, extremity swelling, joint pain, joint swelling, joint redness, joint warmth or deformity Skin/Breast: Denies: rash, pruritus, erythema, sores, new lesions, changes in skin color or dry skin Neuro: Denies: headache(s), numbness in extremities, weakness in extremities, sensory changes, lack of coordination, difficulty walking, frequent falls, dizziness, vertigo, confusion, behavioral changes, Slurred speech present, difficulty communicating thoughts or seizure-like activity Psych: Denies: anxiety, depression, suicidal ideation or homicidal ideation Endo: Denies: polyuria, polydipsia, tired all the time, cold intolerance, excessive sweating, flushing, hot flashes or heat intolerance Cameron/Lymph: Denies: easy bruising, easy bleeding, petechiae, purpura, enlarged lymph nodes or tender lymph nodes All/Imm: Denies: urticaria, throat swelling, tongue swelling, facial swelling, acute wheezing or itchy eyes PFSH ED PFSH: Medical History Adrenal adenoma Atrial fibrillation Patient is taking a full ASA. Refuses Warfarin due to GI bleed in the past. Pt has episodes of atrial fibrillation with rapid ventricular rate. He has a history of TIA as well. ?No dizziness of syncope BPH (benign prostatic hyperplasia) Depression Diverticulitis Fatigue GERD (gastroesophageal reflux disease) GI bleed Hyperlipidemia Hypertension Incontinence Insomnia Neuropathy Osteoporosis Pacemaker Shortness of breath Thoracic back pain TIA (transient ischemic attack) Surgical History H/O vasectomy Hx of cataract surgery S/P foot surgery, right Family History Other CAD (coronary artery disease) Cancer Dementia Diabetes Hypertension Denies family history of Clotting disorder Chronic kidney disease (CKD) Suicide Anesthesia complication Bleeding disorder Lung disease Stroke Social History Smoking and tobacco status: never smoked Alcohol intake: never Physical Exam Const: COMMON NORMALS: no acute distress, patient oriented x3, healthy appearing, alert and well nourished GENERAL APPEARANCE: cooperative, comfortable, well kempt and well developed; not ill appearing ORIENTATION/CONSCIOUSNESS: Yes awake, Yes oriented to person, Yes oriented to place and Yes oriented to time HENMT: COMMON NORMALS: normocephalic, atraumatic, hearing grossly normal bilaterally and moist oral mucous membranes HEAD & SCALP: normal to inspection, normocephalic and atraumatic THROAT: no uvular edema Neck/C-Spine: COMMON NORMALS: full ROM, no lymphadenopathy, supple, no meningeal signs, no JVD and Thyroid normal GENERAL: Yes normal visual inspection and Yes trachea midline THYROID: Thyroid normal CERVICAL SPINE: Yes cervical ROM normal Lymph: LYMPHATIC: no lymphadenopathy noted and no lymphedema noted Chest: COMMONS NORMALS: normal inspection of the chest and normal palpation of entire chest wall Resp: COMMON NORMALS: normal respiratory effort, No retractions, No use of accessory muscles and clear to auscultation bilaterally EFFORT & INSPECTION: Yes able to speak in complete sentences and Yes symmetric chest movement AUSCULTATION: clear to auscultation bilaterally Cardio: COMMON NORMALS: no JVD, regular rate and regular rhythm RATE: regular rate RHYTHM: regular rhythm Back/Pelvis: COMMON NORMALS: thoracic and lumbar spine normal to inspection, no thoracic nor lumbar tenderness and thoraco-lumbar ROM normal THORACIC SPINE/UPPER BACK: Yes normal to inspection LUMBAR SPINE/LOWER BACK: Yes normal to inspection Extremity: COMMON NORMALS: normal to inspection, full ROM and capillary refill normal GENERAL: Yes normal exam except as noted Neuro: COMMON NORMALS: patient oriented x3, CN's II-XII intact bilaterally, moves all extremities, no focal motor deficits, no sensory deficits noted, deep tendon reflexes 2+ bilaterally and gait normal SENSORIUM/ORIENTATION: Yes alert, Yes oriented to person, Yes oriented to place and Yes oriented to time MENINGEAL SIGNS: Yes no meningeal signs CRANIAL NERVES: Yes CN normal except as noted SPEECH: speech normal GAIT: Yes Normal gait present SENSORY EXAM: Yes extremities MOTOR EXAM: 5/5 motor strength present throughout Psych: COMMON NORMALS: mental status grossly normal, Normal thought process present, cooperative, normal affect, speech normal, activity/motor behavior normal, denies hallucinations, denies homicidal ideation and denies suicidal ideation APPEARANCE: Yes grossly normal and Yes well kempt ATTITUDE: Yes calm ACTIVITY/MOTOR BEHAVIOR: Yes appropriate eye contact SPEECH: Yes normal speech THOUGHT PROCESS: Normal thought process present THOUGHT CONTENT: Yes Normal thought content present ATTENTION/CONCENTRATION: Yes attention grossly intact MEMORY/COGNITION: Yes memory grossly intact INSIGHT: Good insight present (Psych) JUDGEMENT: Good judgement present (Psych) Skin: COMMON NORMALS: no rashes or lesions noted, no wounds, turgor normal, no jaundice, no petechiae and no mottling GENERAL SKIN EXAM: no rashes or lesions noted and turgor normal Course Vital Signs: Vital signs: Vital Signs Temperature 97.0 F L 03/03/22 14:01 Pulse Rate 70 03/03/22 14:01 Respiratory Rate 16 03/03/22 14:01 Blood Pressure 101/62 03/03/22 14:01 Pulse Oximetry 97 03/03/22 14:01 Oxygen Delivery Me thod 03/03/22 14:01 MDM - General Adult Medical Decision Making Patient is well-appearing nontoxic and in no acute distress.81-year-old male patient presents to the emergency department with daughter. Patient was seen earlier today with no acute findings. Daughter states there are no new concerns. Daughter states she is concerned that patient is not being monitored given his frequent falls in the [place] [facility] and is requesting help for this. Patient denies any new complaints. wind energy project manager at bedside discussing with daughter the possibility of moving moving patient to a more dementia oriented unit at the [place] [facility]. wind energy project manager discussed with daughter at bedside patient has follow-up with orthopedist scheduled tomorrow. I do not feel any further emergent testing is needed at this time. wind energy project manager did offer assistance to family and family is satisfied with this. Discharge Plan Discharge Patient Disposition: Home Clinical Impression: Referral needed Condition: Stable Prescriptions: No Action bisacodyl [Dulcolax (bisacodyl)] 10 mg suppository 10 mg DE DAILY PRN (Reason: Constipation) digoxin 125 mcg (0.125 mg) tablet 125 mcg PO DAILY@07 Rx Instructions: hold for pulse less than 60 propafenone 225 mg capsule,extended release 12 hr 225 mg PO Q12H Rx Instructions: @07:00,19:00 medroxyprogesterone 10 mg tablet 10 mg PO DAILY@07 acetaminophen [Tylenol] 325 mg tablet 650 mg PO Q4H PRN (Reason: Pain) propranolol 40 mg tablet 40 mg PO BID fluticasone propionate 50 mcg/actuation spray,suspension 1 spray INTRANASAL BID@ aspirin [Adult Aspirin Regimen] 81 mg tablet,delayed release (DR/EC) 81 mg PO DAILY@07 fluoxetine 10 mg capsule 10 mg PO DAILY@07 tamsulosin 0.4 mg capsule 0.4 mg PO DAILY@ oxcarbazepine 300 mg tablet 300 mg PO BID@ omeprazole 40 mg Capsule,Delayed Release(Dr/Ec) 40 mg PO DAILY@07 tramadol [Ultram] 50 mg Tablet 50 mg PO Q8H PRN (Reason: Pain) levothyroxine 100 mcg tablet 100 mcg PO DAILY@06 Alnxw-Mc-Kld Enema 19-7 gram/118 mL Enema 118 ml DE DAILY PRN (Reason: Constipation) lidocaine HCl [Lidocaine Viscous] 2 % Solution See Rx Instructions .ROUTE .COMPLEX Rx Instructions: give 15ml po every 2 hours as needed for gum pain loratadine [Claritin] 10 mg Tablet 10 mg PO DAILY@07 Discharge Orders: Discharge ED (Routine); Ordered 03/03/22 Ordered By: Adriana Burks Referrals: Rito Woods MD [Primary Care Provider] - Discharge Diet: Advance as tolerated Discharge Activity: Increase activity as tolerated Patient Instructions: Opioid Safety, Pain Management Activity Restrictions/Additional Instructions: Please keep follow up appointments as scheduled Coding Level of Care Code ED Business Rules Analyst for Zachary Faria
== END 2022-03-03 16:06 | disposition home or self-care (01) ==
PROVIDERS: Emergency Provider Registered Nurse; PCP Internal Medicine
DX: R29.6 Repeated falls (principal); Z79.82 Long term (current) use of aspirin; E78.5 Hyperlipidemia, unspecified; I10 Essential (primary) hypertension; Z95.0 Presence of cardiac pacemaker; Z86.73 Personal history of transient ischemic attack (TIA), and cerebral infarction without residual deficits
CPT/HCPCS: 99282

== ENCOUNTER → 2022-03-05 08:30 | Outpatient (BNVA) | payer MEDICARE, MEDICAID, SELFPAY | PROVIDERS: PCP Internal Medicine; Referring Provider Physician Assistant; Visit Provider Orthopaedic Surgery | DX: W19.XXXA Unspecified fall, initial encounter (principal); S42.201A Unspecified fracture of upper end of right humerus, initial encounter for closed fracture | CPT/HCPCS: 23600; 73030; 99213 ==

== ENCOUNTER 2022-03-05 09:38 | Outpatient (CLI) | payer MEDICARE, MEDICAID, SELFPAY | END 2022-03-05 09:39 | disposition home or self-care (01) | LOC: SPT 09:40 | PROVIDERS: PCP Internal Medicine; Visit Provider Orthopaedic Surgery | DX: S42.201D Unspecified fracture of upper end of right humerus, subsequent encounter for fracture with routine healing (principal); X58.XXXA Exposure to other specified factors, initial encounter | CPT/HCPCS: 97760; A4565 ==

== ENCOUNTER 2022-03-05 14:51 | Emergency (ER) | payer MEDICARE, MEDICAID, SELFPAY ==
--- NOTE | 2022-03-05 | CTR_ITS ---
PROCEDURE INFORMATION: Exam: CT Head Without Contrast Exam date and time: 03/05/2022 4:43 PM Age: 81 years old Clinical indication: Injury or trauma; Fall; Blunt trauma (contusions or hematomas); Without loss of consciousness; Additional info: S/P fall TECHNIQUE: Imaging protocol: Computed tomography of the head without contrast. Radiation optimization: All CT scans at this facility use at least one of these dose optimization techniques: automated exposure control; mA and/or kV adjustment per patient size (includes targeted exams where dose is matched to clinical indication); or iterative reconstruction. COMPARISON: CT head wo con* [id number] 02/28/2022 7:51 PM RADIATION DOSE METRICS: Total DLP (mGy-cm): 1240.6 FINDINGS: Brain: Moderate diffuse cortical volume loss. 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 Mild hypodensities in supratentorial periventricular and subcortical white matter, consistent with microangiopathy. No intracranial hemorrhage. Cerebral ventricles: No ventriculomegaly. Pituitary gland and sella: Partially empty sella. Paranasal sinuses: Small amount of mucus or fluid in the left sphenoid sinus. The other sinuses are clear. Mastoid air cells: Visualized mastoid air cells are well aerated. Orbital cavities: Cataract surgery. Bones/joints: Unremarkable. No acute fracture. Soft tissues: Unremarkable. Vasculature: No hyperdense artery. CT/CT head wo con* [id number] IMPRESSION: 1. No acute intracranial abnormality.
[2022-03-05 15:15] VITALS: BP 121/48; PULSE 94; RESP 16; TEMP 37.1; O2SAT 98; BMI 26.6
--- NOTE | 2022-03-05 15:54 | ED_ITS ---
HPI - Fall General: Chief Complaint: Fall Stated Complaint: Hit his head Time Seen by Provider: 03/05/22 15:25 History of Present Illness: Patient is an 81-year-old male comes to the ED via EMS after fall. Fall occurred just prior to arrival. Patient resides in skilled nursing. Patient was walking to the bathroom and tripped and fell in bathroom. Patient endorses hitting his head and having brief loss of consciousness. Since fall his only complaint is a mild headache. Patient does not take any blood thinners. Patient was seen at Dr. Lucas's office today for his right humerus fracture. X-rays were performed today and he was put in a shoulder immobilizer. His fall today occurred after his visit at Dr. Lucas's office. Patient is not complaining of any worsening shoulder pain since fall. Denies any neck pain or back pain. Associated symptoms-after fall: Reports headache(s); Denies abdominal pain, chest pain, hematuria or neck pain Review of Systems Const: Denies: fever(s), chills or fatigue Eyes: Denies: change in vision or eye discomfort ENMT: Denies: throat pain, odynophagia, nasal discharge or nasal congestion Card: Denies: chest pain, palpitations, edema, swelling of feet/ankles, dyspnea on exertion or orthopnea Resp: Denies: dyspnea, productive cough or non-productive cough GI: Denies: abdominal pain, nausea, vomiting, diarrhea, constipation or hematochezia : Denies: flank pain, difficulty urinating, dysuria or hematuria Musc: Denies: neck pain, back pain or extremity swelling Skin/Breast: Denies: rash or new lesions Neuro: Reports: headache(s); Denies: numbness in extremities or weakness in extremities [facility] ED PFSH: Medical History Adrenal adenoma Atrial fibrillation Patient is taking a full ASA. Refuses Warfarin due to GI bleed in the past. Pt has episodes of atrial fibrillation with rapid ventricular rate. He has a history of TIA as well. ?No dizziness of syncope BPH (benign prostatic hyperplasia) Depression Diverticulitis Fatigue GERD (gastroesophageal reflux disease) GI bleed Hyperlipidemia Hypertension Incontinence Insomnia Neuropathy Osteoporosis Pacemaker Shortness of breath Thoracic back pain TIA (transient ischemic attack) Surgical History H/O vasectomy Hx of cataract surgery S/P foot surgery, right Family History Other CAD (coronary artery disease) Cancer Dementia Diabetes Hypertension Denies family history of Clotting disorder Chronic kidney disease (CKD) Suicide Anesthesia complication Bleeding disorder Lung disease Stroke Social History Smoking and tobacco status: never smoked Alcohol intake: never Physical Exam Const: COMMON NORMALS: no acute distress, patient oriented x3 and alert GENERAL APPEARANCE: cooperative and comfortable HENMT: COMMON NORMALS: normocephalic HEAD & SCALP: normocephalic MOUTH: Normal oral and palatal mucosa present THROAT: posterior oropharynx normal and uvula midline Eye: COMMON NORMALS: Equal, round and reactive pupils present and EOMs intact bilaterally GENERAL EYE: appearance normal, both eyes and all related structures PUPIL: Yes Equal, round and reactive pupils present Neck/C-Spine: COMMON NORMALS: supple GENERAL: Yes normal visual inspection CERVICAL SPINE: Yes cervical ROM normal and No Cervical spine tenderness Lymph: LYMPHATIC: no lymphadenopathy noted Resp: COMMON NORMALS: normal respiratory effort, No retractions, No use of accessory muscles and clear to auscultation bilaterally AUSCULTATION: clear to auscultation bilaterally Cardio: COMMON NORMALS: regular rate, regular rhythm, S1 normal heart sound present, S2 normal heart sound present, No gallops present (Cardio), No clicks present (Cardio), No murmurs present (Cardio) and Peripheral pulses 2+ throughout RATE: regular rate RHYTHM: regular rhythm HEART SOUNDS: S1 normal heart sound present and S2 normal heart sound present PERIPHERAL PULSES: Peripheral pulses 2+ throughout GI: COMMON NORMALS: Normal to inspection, nondistended, normoactive bowel sounds present, Soft to palpation, non-tender and no masses PALPATION: Yes Soft to palpation : COMMON NORMALS: Yes no CVA tenderness BLADDER/KIDNEY EXAM: Yes no CVA tenderness Back/Pelvis: COMMON NORMALS: no CVA tenderness THORACIC SPINE/UPPER BACK: No thoracic spinal tenderness LUMBAR SPINE/LOWER BACK: No lumbar spinal tenderness Extremity: GENERAL: Yes normal exam except as noted Neuro: COMMON NORMALS: patient oriented x3, CN's II-XII intact bilaterally, moves all extremities, no focal motor deficits and no sensory deficits noted SENSORIUM/ORIENTATION: Yes alert SENSORY EXAM: Yes extremities (intact) MOTOR EXAM: 5/5 motor strength present throughout Skin: COMMON NORMALS: no rashes or lesions noted GENERAL SKIN EXAM: no rashes or lesions noted and dry skin Course Vital Signs: Vital signs: Vital Signs Temperature 98.7 F 03/05/22 15:15 Pulse Rate 94 03/05/22 15:15 Respiratory Rate 16 03/05/22 15:15 Blood Pressure 121/48 03/05/22 15:15 Pulse Oximetry 98 03/05/22 15:15 Oxygen Delivery Me thod 03/05/22 15:15 Oxygen Flow Rate 2 03/05/22 15:15 MDM - Fall Medical Decision Making Patient is an 81-year-old male comes to the ED via EMS after fall. Fall occurred just prior to arrival.. Patient was walking to the bathroom and tripped and fell in bathroom. Patient endorses hitting his head and having brief loss of consciousness. Since fall his only complaint is a mild headache. Patient does not take any blood thinners. Patient had a recent fracture of right humerus and is in shoulder sling. He saw Dr. Lucas in clinic today and they did x-rays. Fall occurred after his visit at Dr. Lucas's office today. Vitals are stable. Neuro exam shows no deficits. Right shoulder x-ray showed stable displaced proximal right humerus fracture. CT of head showed no acute intracranial abnormality. Patient diagnosed with fall and stable for discharge back to skilled nursing. Follow-up with PCP in the next week for reevaluation. Return to ED precautions given. Patient understood and agreed with plan. Lab Data Radiology Impressions Head CT 03/05/22 00:00 IMPRESSION: 1. No acute intracranial abnormality. Shoulder X-Ray 03/05/22 16:05 IMPRESSION: Stable displaced proximal right humerus fracture. Discharge Plan Discharge Patient Disposition: Home Clinical Impression: Fall Qualifiers: Encounter type: initial encounter Qualified Code(s): W19.XXXA - Unspecified fall, initial encounter Condition: Stable Prescriptions: No Action bisacodyl [Dulcolax (bisacodyl)] 10 mg suppository 10 mg AK DAILY PRN (Reason: Constipation) digoxin 125 mcg (0.125 mg) tablet 125 mcg PO DAILY@07 Rx Instructions: hold for pulse less than 60 propafenone 225 mg capsule,extended release 12 hr 225 mg PO Q12H Rx Instructions: @07:00,19:00 medroxyprogesterone 10 mg tablet 10 mg PO DAILY@07 acetaminophen [Tylenol] 325 mg tablet 650 mg PO Q4H PRN (Reason: Pain) propranolol 40 mg tablet 40 mg PO BID fluticasone propionate 50 mcg/actuation spray,suspension 1 spray INTRANASAL BID@,21 aspirin [Adult Aspirin Regimen] 81 mg tablet,delayed release (DR/EC) 81 mg PO DAILY@07 fluoxetine 10 mg capsule 10 mg PO DAILY@07 tamsulosin 0.4 mg capsule 0.4 mg PO DAILY@19 (DME) sling See Rx Instructions .Route .MEDSUPPLY Qty: 1 0RF Rx Instructions: As directed oxcarbazepine 300 mg tablet 300 mg PO BID@, omeprazole 40 mg Capsule,Delayed Release(Dr/Ec) 40 mg PO DAILY@07 tramadol [Ultram] 50 mg Tablet 50 mg PO Q8H PRN (Reason: Pain) levothyroxine 100 mcg tablet 100 mcg PO DAILY@06 Mlteo-Nv-Ggo Enema 19-7 gram/118 mL Enema 118 ml AK DAILY PRN (Reason: Constipation) lidocaine HCl [Lidocaine Viscous] 2 % Solution See Rx Instructions .ROUTE .COMPLEX Rx Instructions: give 15ml po every 2 hours as needed for gum pain loratadine [Claritin] 10 mg Tablet 10 mg PO DAILY@07 Discharge Orders: Discharge ED (Routine); Ordered 03/05/22 Ordered By: Chava Hussein Referrals: Rito Woods MD [Primary Care Provider] - Discharge Diet: Regular Discharge Activity: Increase activity as tolerated Activity Restrictions/Additional Instructions: Follow-up with medical provider as directed in the next 5-7 days for reevaluation. Continue taking all home medications as previously prescribed. Return to the ER or your medical provider if condition worsens. Please read and understand discharge instructions. Thank you for choosing [facility] for your healthcare needs today. Please realize this is an emergency room and that we are providing you with a medical screening exam and this may not be complete and all inclusive of all the testing and or work up that you may need to determine your ailment or severity of your illness. It is very important that you follow up as instructed or that you return to the Emergency Department should you have concerns or if your condition changes or worsens in any way. Coding Level of Care Code ED Hand Gluer And Slicer for Chg Fwd Exam Comprehensive
--- NOTE | 2022-03-05 16:05 | XRR_ITS ---
PROCEDURE INFORMATION: Exam: XR Right Shoulder Exam date and time: 03/05/2022 4:24 PM Age: 81 years old Clinical indication: Pain; Upper arm; Right; Additional info: Fall today-hx of humerus fracture TECHNIQUE: Imaging protocol: Radiologic exam of the Right shoulder. Views: 2 or more views. COMPARISON: CR XR shoulder RT min 2V* [id number] 02/25/2022 12:02 PM FINDINGS: Bones/joints: Stable displaced comminuted fracture in the surgical neck of the right humerus. Stable mildly displaced fracture in the lateral humeral head. The glenohumeral joint appears intact. Mild degenerative changes of the acromioclavicular and glenohumeral joints. Soft tissues: Normal. XR/XR shoulder RT min 2V* [id number] IMPRESSION: Stable displaced proximal right humerus fracture.
== END 2022-03-05 18:16 | disposition home or self-care (01) ==
PROVIDERS: Emergency Provider Physician Assistant; PCP Internal Medicine
DX: S42.201A Unspecified fracture of upper end of right humerus, initial encounter for closed fracture (principal); Z79.82 Long term (current) use of aspirin; E78.5 Hyperlipidemia, unspecified; I10 Essential (primary) hypertension; Z95.0 Presence of cardiac pacemaker; Z86.73 Personal history of transient ischemic attack (TIA), and cerebral infarction without residual deficits; W01.0XXA Fall on same level from slipping, tripping and stumbling without subsequent striking against object, initial encounter; Y92.121 Bathroom in nursing home as the place of occurrence of the external cause; W19.XXXA Unspecified fall, initial encounter
CPT/HCPCS: 23600; 70450; 73030; 99213; 99284

== ENCOUNTER 2022-03-06 06:00 | Outpatient (CLI) | payer MEDICARE, MEDICAID, SELFPAY | END 2022-03-06 06:01 | disposition home or self-care (01) | LOC: SPT 03-20 16:03 | PROVIDERS: PCP Internal Medicine; Visit Provider Physician Assistant | DX: Z46.89 Encounter for fitting and adjustment of other specified devices (principal); S12.110S Anterior displaced Type II dens fracture, sequela; S42.209S Unspecified fracture of upper end of unspecified humerus, sequela; X58.XXXS Exposure to other specified factors, sequela | CPT/HCPCS: 97760; 99203; L0174; L3670 ==

== ENCOUNTER → 2022-03-06 14:01 | Outpatient (BNVA) | payer MEDICARE, MEDICAID, SELFPAY | PROVIDERS: PCP Internal Medicine; Referring Provider Physician Assistant; Visit Provider Physician Assistant | DX: S12.110A Anterior displaced Type II dens fracture, initial encounter for closed fracture (principal); W19.XXXA Unspecified fall, initial encounter | CPT/HCPCS: 72040 ==

== ENCOUNTER → 2022-04-15 08:13 | Outpatient (BNVA) | payer MEDICARE, MEDICAID, SELFPAY | PROVIDERS: PCP Internal Medicine; Visit Provider Nurse Practitioner Family | DX: S42.201A Unspecified fracture of upper end of right humerus, initial encounter for closed fracture (principal); X58.XXXA Exposure to other specified factors, initial encounter | CPT/HCPCS: 73030; 99214 ==

== ENCOUNTER → 2022-05-15 07:55 | Outpatient (BNVA) | payer MEDICARE, MEDICAID, SELFPAY | PROVIDERS: PCP Internal Medicine; Visit Provider Physician Assistant | DX: S12.110D Anterior displaced Type II dens fracture, subsequent encounter for fracture with routine healing (principal); W19.XXXD Unspecified fall, subsequent encounter; M47.812 Spondylosis without myelopathy or radiculopathy, cervical region | CPT/HCPCS: 72040; 99213 ==

== ENCOUNTER → 2022-05-20 10:24 | Outpatient (BNVA) | payer MEDICARE, MEDICAID, SELFPAY | PROVIDERS: PCP Internal Medicine; Visit Provider Nurse Practitioner Family | DX: Z09 Encounter for follow-up examination after completed treatment for conditions other than malignant neoplasm (principal) | CPT/HCPCS: 73030; 99213 ==

== ENCOUNTER → 2022-06-03 14:19 | Outpatient (BNVA) | payer MEDICARE, MEDICAID, SELFPAY | PROVIDERS: PCP Internal Medicine; Visit Provider Student in an Organized Health Care Education/Training Program | DX: M72.0 Palmar fascial fibromatosis [Dupuytren] (principal) | CPT/HCPCS: 99204 ==

== ENCOUNTER → 2022-07-03 08:38 | Outpatient (BNVA) | payer MEDICARE, MEDICAID, SELFPAY | PROVIDERS: PCP Internal Medicine; Visit Provider Physician Assistant | DX: S12.110A Anterior displaced Type II dens fracture, initial encounter for closed fracture (principal); W19.XXXA Unspecified fall, initial encounter | CPT/HCPCS: 72040; 99212 ==

== ENCOUNTER → 2022-07-21 14:15 | Outpatient (BNVA) | payer MEDICARE, MEDICAID, SELFPAY | PROVIDERS: PCP Internal Medicine; Visit Provider Student in an Organized Health Care Education/Training Program | DX: M72.0 Palmar fascial fibromatosis [Dupuytren] (principal); Z71.89 Other specified counseling | CPT/HCPCS: 20527; 99214; J0775 ==

== ENCOUNTER → 2022-07-24 06:48 | Outpatient (BNVA) | payer MEDICARE, MEDICAID, SELFPAY | PROVIDERS: PCP Internal Medicine; Visit Provider Student in an Organized Health Care Education/Training Program | DX: M72.0 Palmar fascial fibromatosis [Dupuytren] (principal) | CPT/HCPCS: 26605; 99214; A4590 ==

== ENCOUNTER → 2022-07-28 10:18 | Outpatient (BNVA) | payer MEDICARE, MEDICAID, SELFPAY | PROVIDERS: PCP Internal Medicine; Visit Provider Internal Medicine Cardiovascular Disease | DX: I10 Essential (primary) hypertension (principal); Z79.899 Other long term (current) drug therapy; E78.2 Mixed hyperlipidemia; I48.11 Longstanding persistent atrial fibrillation; Z95.0 Presence of cardiac pacemaker; Z86.73 Personal history of transient ischemic attack (TIA), and cerebral infarction without residual deficits | CPT/HCPCS: 99214 ==

== ENCOUNTER → 2022-07-29 08:58 | Outpatient (BNVA) | payer MEDICARE, MEDICAID, SELFPAY | PROVIDERS: PCP Internal Medicine; Visit Provider Nurse Practitioner Family | DX: S42.211D Unspecified displaced fracture of surgical neck of right humerus, subsequent encounter for fracture with routine healing (principal); X58.XXXD Exposure to other specified factors, subsequent encounter | CPT/HCPCS: 73030; 99213 ==

== ENCOUNTER → 2022-08-21 08:08 | Outpatient (BNVA) | payer MEDICARE, MEDICAID, SELFPAY | PROVIDERS: PCP Internal Medicine; Visit Provider Student in an Organized Health Care Education/Training Program | DX: S42.301D Unspecified fracture of shaft of humerus, right arm, subsequent encounter for fracture with routine healing (principal); X58.XXXD Exposure to other specified factors, subsequent encounter; M72.0 Palmar fascial fibromatosis [Dupuytren] | CPT/HCPCS: 99213; L3919 ==

== ENCOUNTER → 2022-08-21 08:24 | Outpatient (BNVA) | payer MEDICARE, MEDICAID, SELFPAY | PROVIDERS: PCP Internal Medicine; Visit Provider Student in an Organized Health Care Education/Training Program | DX: M72.0 Palmar fascial fibromatosis [Dupuytren] (principal); S42.301D Unspecified fracture of shaft of humerus, right arm, subsequent encounter for fracture with routine healing; X58.XXXD Exposure to other specified factors, subsequent encounter | CPT/HCPCS: 73030 ==

== ENCOUNTER → 2022-10-09 08:49 | Outpatient (BNVA) | payer MEDICARE, MEDICAID, SELFPAY | PROVIDERS: PCP Internal Medicine; Visit Provider Nurse Practitioner Family | DX: M72.0 Palmar fascial fibromatosis [Dupuytren] (principal) | CPT/HCPCS: 99213 ==

== ENCOUNTER 2022-11-02 13:36 | Emergency (ER) | payer MEDICARE, MEDICAID, SELFPAY ==
[2022-11-02] VITALS (16 sets, daily range): BP systolic 93–149; BP diastolic 55–111; PULSE 70–86; RESP 12–21; O2SAT 92–99
--- NOTE | 2022-11-02 13:43 | CTR_ITS ---
PROCEDURE INFORMATION: Exam: CT Head Without Contrast Exam date and time: 11/02/2022 2:15 PM Age: 81 years old Clinical indication: Altered mental status/memory loss; Confusion or disorientation TECHNIQUE: Imaging protocol: Computed tomography of the head without contrast. Radiation optimization: All CT scans at this facility use at least one of these dose optimization techniques: automated exposure control; mA and/or kV adjustment per patient size (includes targeted exams where dose is matched to clinical indication); or iterative reconstruction. REPORTING DATA: Count of CT and Cardiac NM exams in prior 12 months: This patient has received 6 known CTs and 0 known cardiac nuclear medicine studies in the 12 months prior to the current study. COMPARISON: CT head wo con* [id number] 03/05/2022 4:43 PM RADIATION DOSE METRICS: Total DLP (mGy-cm): 1270.38 FINDINGS: Brain: Cerebral volume loss appropriate for age No hemorrhage. Unremarkable white matter. No mass effect. Cerebral ventricles: Moderate ventriculomegaly appropriate for age. Paranasal sinuses: Visualize there is a mucous collection in the left sphenoid sinus a No fluid levels. Mastoid air cells: Visualized mastoid air cells are well aerated. Bones/joints: Unremarkable. No acute fracture. Soft tissues: Unremarkable. CT/CT head wo con* [id number] IMPRESSION: 1. No acute intracranial abnormality. 2. Cerebral atrophic changes and ventriculomegaly appropriate for age
--- NOTE | 2022-11-02 13:43 | XRR_ITS ---
PROCEDURE INFORMATION: Exam: XR Chest Exam date and time: 11/02/2022 2:03 PM Age: 81 years old Clinical indication: Other: AMS; Additional info: Altered mental status TECHNIQUE: Imaging protocol: Radiologic exam of the chest. Views: 1 view. COMPARISON: CR XR chest 1V portable [id number] 03/03/2022 3:41 AM FINDINGS: Lungs: Unremarkable. No consolidation. Pleural spaces: Unremarkable. No pleural effusion. No pneumothorax. Heart/Mediastinum: Unremarkable. No cardiomegaly. Bones/joints: Unremarkable. Cardiac device left anterior chest XR/XR chest 1V portable [id number] IMPRESSION: No acute findings. Cardiac device left anterior chest in good position.
--- NOTE | 2022-11-02 13:43 | ECG_ITS ---
[facility] Test Date: 2022-11-02 Pat Name: Sylvia Baptiste Department: Room: Gender: Male Communications Marketing Intern: : 1940 Requested By: Temo Steiner Order Number: [id number] Elizabeth MD: Colby Lopez M.D. Measurements Intervals [place] Rate: 70 P: 110 MN: 218 QRS: -43 QRSD: 114 T: 55 QT: 386 QTc: 417 Interpretive Statements ELECTRONIC ATRIAL PACEMAKER LEFT AXIS DEVIATION [QRS AXIS < -30] INCOMPLETE RIGHT BUNDLE BRANCH BLOCK [90+ ms QRS DURATION, TERMINAL R IN V1/V2, 40+ ms S IN I/aVL/V4/V5/V6] Compared to ECG 03/03/2022 03:51:07 Left-axis deviation now present Electronically Signed On 11-02-2022 19:25:26 CDT by Colby Lopez M.D. [id number]
--- NOTE | 2022-11-02 13:45 | PC.NURSE ---
Pt hooked up to continuous bedside cardiac monitoring.
--- NOTE | 2022-11-02 13:46 | ED_ITS ---
HPI - Altered Mental Status General: Chief Complaint: Altered Mental Status Stated Complaint: UNRESPONSIVE AT NH Time Seen by Provider: 11/02/22 13:39 History of Present Illness: Patient presents to the ER by EMS with complaints of responsive only to painful stimuli. Patient's last known well is unknown. Patient lives at the custodial. MD complaint: altered mental status and decreased responsiveness Onset (ago): unknown Severity: severe Consistency of symptoms: Unknown Review of Systems General: Reports: ROS unobtainable due to medical condition PFSH ED PFSH: Medical History Adrenal adenoma Atrial fibrillation Patient is taking a full ASA. Refuses Warfarin due to GI bleed in the past. Pt has episodes of atrial fibrillation with rapid ventricular rate. He has a history of TIA as well. ?No dizziness of syncope BPH (benign prostatic hyperplasia) Depression Diverticulitis Dupuytren's contracture of right hand Fatigue GERD (gastroesophageal reflux disease) GI bleed Hyperlipidemia Hypertension Incontinence Insomnia Neuropathy Osteoporosis Pacemaker Shortness of breath Thoracic back pain TIA (transient ischemic attack) Surgical History H/O vasectomy Hx of cataract surgery S/P foot surgery, right Family History Other CAD (coronary artery disease) Cancer Dementia Diabetes Hypertension Denies family history of Clotting disorder Chronic kidney disease (CKD) Suicide Anesthesia complication Bleeding disorder Lung disease Stroke Social History Smoking and tobacco status: never smoked Alcohol intake: never Substance/Drug Use: never Physical Exam Const: COMMON NORMALS: average body habitus and well nourished ORIENTATION/CONSCIOUSNESS: Yes patient obtunded (Responsive to painful stimuli only) HENMT: COMMON NORMALS: normocephalic, atraumatic, Normal external nose present and moist oral mucous membranes HEAD & SCALP: normocephalic and atraumatic NOSE: Normal external nose present Eye: COMMON NORMALS: Equal, round and reactive pupils present and conjunctivae normal CONJUNCTIVA: Yes conjunctivae normal SCLERA: sclerae normal PUPIL: Yes Equal, round and reactive pupils present Neck/C-Spine: COMMON NORMALS: no lymphadenopathy, supple and no JVD Lymph: LYMPHATIC: no lymphadenopathy noted Chest: COMMONS NORMALS: normal inspection of the chest and normal palpation of entire chest wall Resp: COMMON NORMALS: normal respiratory effort, No retractions and No use of accessory muscles AUSCULTATION: wheezes (Occasional wheeze and rhonchi) Cardio: COMMON NORMALS: no JVD, regular rate, regular rhythm, S1 normal heart sound present, S2 normal heart sound present, No gallops present (Cardio), No clicks present (Cardio) and No murmurs present (Cardio) RATE: regular rate RHYTHM: regular rhythm HEART SOUNDS: S1 normal heart sound present and S2 normal heart sound present GI: COMMON NORMALS: Normal to inspection, nondistended, normoactive bowel sounds present, Soft to palpation, non-tender, No hepatosplenomegaly present and no masses PALPATION: Yes Soft to palpation and Yes No hepatosplenomegaly present Extremity: COMMON NORMALS: normal to inspection Neuro: OTHER: Responsive to painful stimuli Course Vital Signs: Vital signs: Vital Signs Pulse Rate 70 11/02/22 16:52 Respiratory Rate 18 11/02/22 16:30 Blood Pressure 123/55 11/02/22 16:52 Pulse Oximetry 97 11/02/22 16:52 Oxygen Delivery Me thod Room Air 11/02/22 14:46 MDM - Altered Mental Status Medical Decision Making Patient presents to the ER by EMS for altered mental status only responsive to painful stimuli. Exam was performed lab work and imaging was obtained which revealed elevated prolactin and urinary tract infection. Patient was given 1 L bolus of normal saline and 1 g of Rocephin IV. Upon waiting for this to finish patient began to wake up and talk and was alert and coherent. Is felt the p atient may have had a seizure due to his elevated prolactin as well as had a urinary tract infection. Patient be discharged back to the custodial on Cipro for his urinary tract infection is to follow-up with his primary care doctor within the next 1 week. As needed Differential Diagnosis Likely altered mental status; Unlikely alcoholic intoxication, delirium, dementia, hypoglycemia, hyponatremia, subarachnoid hemorrhage or sepsis Medical Records I reviewed the patient's medical records. Lab Data I reviewed the patient's lab results. 11/02/22 13:44 11/02/22 13:44 Radiology Impressions Chest X-Ray 11/02/22 13:43 IMPRESSION: No acute findings. Cardiac device left anterior chest in good position. Head CT 11/02/22 13:43 IMPRESSION: 1. No acute intracranial abnormality. 2. Cerebral atrophic changes and ventriculomegaly appropriate for age Laboratory Results WBC 7.7 10^3/uL (4.0-10.0) 11/02/22 13:44 RBC 4.42 10^6/uL (4.1-5.3) 11/02/22 13:44 Hgb 13.9 g/dL (11.7-16.6) 11/02/22 13:44 Hct 41.5 % (42.0-52.0) L 11/02/22 13:44 MCV 93.9 fl (80-94) 11/02/22 13:44 MCH 31.4 pg (28.0-34.0) 11/02/22 13:44 MCHC 33.5 g/dL (30.0-36.0) 11/02/22 13:44 RDW 13.0 % (12.1-15.1) 11/02/22 13:44 Plt Count 318 10^3/cmm (130-400) 11/02/22 13:44 MPV 9.0 fL (7.4-10.4) 11/02/22 13:44 Neut % (Auto) 53.5 % 11/02/22 13:44 Lymph % (Auto) 26.8 % 11/02/22 13:44 [place] % (Auto) 12.0 % 11/02/22 13:44 Eos % (Auto) 6.5 % 11/02/22 13:44 Baso % (Auto) 0.7 % 11/02/22 13:44 Neut # (Auto) 4.10 10^3/uL (1.8-7.7) 11/02/22 13:44 Lymph # (Auto) 2.1 10^3/uL (0.8-4.8) 11/02/22 13:44 [place] # (Auto) 0.9 10^3/uL (0.2-0.9) 11/02/22 13:44 Eos # (Auto) 0.5 10^3/uL (0.0-0.8) 11/02/22 13:44 Baso # (Auto) 0.1 10^3/uL (0.0-0.1) 11/02/22 13:44 Nucleated RBC % (auto) 0 % 11/02/22 13:44 Nucleated RBCs # 0.0 /100WBC 11/02/22 13:44 PT 13.30 SECONDS (12.1-14.9) 11/02/22 13:44 INR 0.99 (0.8-1.2) 11/02/22 13:44 Sodium 128 mmol/L (136-145) L 11/02/22 13:44 Potassium 4.6 mmol/L (3.5-5.1) 11/02/22 13:44 Chloride 93 mmol/L (98-107) L 11/02/22 13:44 Carbon Dioxide 21 mmol/L (22-29) L 11/02/22 13:44 Anion Gap 18.6 (5-19) 11/02/22 13:44 BUN 23 mg/dL (8-23) 11/02/22 13:44 Creatinine 1.2 mg/dL (0.7-1.2) 11/02/22 13:44 GFR Calculation Not Reportable 11/02/22 13:44 Glucose 99 mg/dL (65-115) 11/02/22 13:44 Calculated Osmolality 270 mOsm/kg (285-295) L 11/02/22 13:44 Calcium 8.9 mg/dL (8.5-10.5) 11/02/22 13:44 Magnesium 2.2 mg/dL (1.7-2.3) 11/02/22 13:44 Total Bilirubin 0.4 mg/dL (0.15-1.2) 11/02/22 13:44 AST 16 U/L (0-40) 11/02/22 13:44 ALT 15 U/L (0-41) 11/02/22 13:44 Alkaline Phosphatase 84 U/L (40-130) 11/02/22 13:44 Total Protein 6.5 g/dL (6.6-8.7) L 11/02/22 13:44 Albumin 4.0 g/dL (3.5-5.2) 11/02/22 13:44 Globulin 2.5 g/dL (1.3-4.6) 11/02/22 13:44 Prolactin 46.93 ng/mL (4.0-15.2) H 11/02/22 13:44 Prolactin Cancelled 11/02/22 13:44 Urine Color Yellow (Yellow) 11/02/22 13:50 Urine Appearance Sl hazy (CLEAR) A 11/02/22 13:50 Urine pH 5 (5-7) 11/02/22 13:50 Ur Specific [place] 1.015 (1.005-1.030) 11/02/22 13:50 Urine Protein Neg (Negative) 11/02/22 13:50 Urine Glucose (UA) Norm (Normal) 11/02/22 13:50 Urine Ketones Negative (Negative) 11/02/22 13:50 Urine Blood 3+ (Negative) H 11/02/22 13:50 Urine Nitrate Negative (Negative) 11/02/22 13:50 Urine Bilirubin Neg (Negative) 11/02/22 13:50 Urine Urobilinogen Norm mg/dL (Negative) 11/02/22 13:50 Ur Leukocyte Esterase 1+ (Negative) H 11/02/22 13:50 Urine RBC 15-25 /hpf (0-2) H 11/02/22 13:50 Urine WBC 25-40 /hpf (0-5) H 11/02/22 13:50 Ur Squamous Epith Cells None /hpf (0-5) 11/02/22 13:50 Amorphous Sediment Not Reportable 11/02/22 13:50 Urine Bacteria 3+ /hpf (NONE) H 11/02/22 13:50 Digoxin 1.2 ng/mL (0.6-1.2) 11/02/22 13:44 Urine Opiates Screen Negative ng/mL (Negative) 11/02/22 13:50 Ur Barbiturates Screen Negative ng/mL (Negative) 11/02/22 13:50 Ur Phencyclidine Scrn Negative ng/mL (Negative) 11/02/22 13:50 Ur Amphetamines Screen Negative ng/mL (Negative) 11/02/22 13:50 U Benzodiazepines Scrn Negative ng/mL (Negative) 11/02/22 13:50 Urine Cocaine Screen Negative ng/mL (Negative) 11/02/22 13:50 U Marijuana (THC) Screen Negative ng/mL (Negative) 11/02/22 13:50 EKG Data EKG 1: I personally reviewed and interpreted this EKG as follows: EKG interpretation date: 11/02/22 EKG interpretation time: 13:53 Prior EKG tracings: not available for review Interpretation: Electronic atrial pacemaker, ventricular rate 70 bpm, OK interval 218, QRS duration 114, QTc 406, left axis deviation, incomplete right bundle branch block Discharge Plan Discharge Patient Disposition: Home Clinical Impression: Elevated prolactin level, Acute hyponatremia Urinary tract infection Qualifiers: Urinary tract infection type: acute cystitis Hematuria presence: with hematuria Qualified Code(s): N30.01 - Acute cystitis with hematuria Condition: Stable Prescriptions: New ciprofloxacin HCl 500 mg tablet 500 mg PO Q12H Qty: 20 0RF No Action bisacodyl [Dulcolax (bisacodyl)] 10 mg suppository 10 mg OK DAILY PRN (Reason: Constipation) digoxin 125 mcg (0.125 mg) tablet 125 mcg PO DAILY@07 Rx Instructions: hold for pulse less than 60 propafenone 225 mg capsule,extended release 12 hr 225 mg PO Q12H Rx Instructions: @07:00,19:00 medroxyprogesterone 10 mg tablet 10 mg PO DAILY@07 acetaminophen [Tylenol] 325 mg tablet 650 mg PO Q4H PRN (Reason: Pain) fluticasone propionate 50 mcg/actuation spray,suspension 1 spray INTRANASAL BID@,21 aspirin [Adult Aspirin Regimen] 81 mg tablet,delayed release (DR/EC) 81 mg PO DAILY@07 fluoxetine 10 mg capsule 10 mg PO DAILY@07 hydrocodone-acetaminophen 7.5-325 mg tablet 1 tab PO Q6H PRN (DME) sling See Rx Instructions .Route .MEDSUPPLY Qty: 1 0RF Rx Instructions: As directed (DME) NINILCHIK J COLLAR See Rx Instructions .Route .MEDSUPPLY Qty: 1 0RF Rx Instructions: As directed (DME) Shoulder Immobilizer See Rx Instructions .Route .MEDSUPPLY Qty: 1 0RF Rx Instructions: As directed oxcarbazepine 300 mg tablet 300 mg PO BID@07,19 omeprazole 40 mg Capsule,Delayed Release(Dr/Ec) 40 mg PO DAILY@07 tramadol [Ultram] 50 mg Tablet 50 mg PO Q8H PRN (Reason: Pain) levothyroxine 100 mcg tablet 100 mcg PO DAILY@06 [id number] Enema 19-7 gram/118 mL Enema 118 ml OK DAILY PRN (Reason: Constipation) lidocaine HCl [Lidocaine Viscous] 2 % Solution See Rx Instructions .ROUTE .COMPLEX Rx Instructions: give 15ml po every 2 hours as needed for gum pain loratadine [Claritin] 10 mg Tablet 10 mg PO DAILY@07 Discharge Orders: Discharge ED (Routine); Ordered 11/02/22 Ordered By: Temo Steiner Referrals: Rito Woods MD [Primary Care Provider] - Patient Instructions: Urinary Tract Infection in Men (ED), Hyponatremia (ED), Altered Mental Status (ED) Activity Restrictions/Additional Instructions: Lab work shows you have a urinary tract infection and elevated prolactin. Please finish all your antibiotics for the urinary tract infection. The elevated prolactin may have come from you having a seizure. This should be further evaluated by your family practice physician in approximately 1 to 2 weeks. 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
[2022-11-02 13:54] LABS: Basophils # 0.1 10^3/uL (0.0-0.1); Basophils % 0.7 %; Eosinophils # 0.5 10^3/uL (0.0-0.8); Eosinophils % 6.5 %; Hematocrit 41.5 % (42.0-52.0); Hemoglobin 13.9 g/dL (11.7-16.6); Lymphocytes # 2.1 10^3/uL (0.8-4.8); Lymphocytes % 26.8 %; Mean Corpuscular HGB Conc 33.5 g/dL (30.0-36.0); Mean Corpuscular Hemoglobin 31.4 pg (28.0-34.0); Mean Corpuscular Volume 93.9 fl (80-94); Monocytes # 0.9 10^3/uL (0.2-0.9); Neutrophils % 53.5 %; Nucleated Red Blood Cells % 0 %; Platelet Count 318 10^3/cmm (130-400); Red Blood Count 4.42 10^6/uL (4.1-5.3); White Blood Count 7.7 10^3/uL (4.0-10.0)
[2022-11-02 14:05] LABS: INR 0.99 (0.8-1.2)
[2022-11-02 14:11] LABS: Digoxin 1.2 ng/mL (0.6-1.2)
[2022-11-02 14:22] LABS: Alanine Aminotransferase 15 U/L (0-41); Alkaline Phosphatase 84 U/L (40-130); Anion Gap 18.6 (5-19); Aspartate Amino Transferase 16 U/L (0-40); Blood Urea Nitrogen 23 mg/dL (8-23); Calcium 8.9 mg/dL (8.5-10.5); Carbon Dioxide 21 mmol/L (22-29); Chloride 93 mmol/L (98-107); Globulin 2.5 g/dL (1.3-4.6); Glucose 99 mg/dL (65-115); Magnesium 2.2 mg/dL (1.7-2.3); Osmolality Calculated 270 mOsm/kg (285-295); Potassium 4.6 mmol/L (3.5-5.1); Prolactin 46.93 ng/mL (4.0-15.2); Sodium 128 mmol/L (136-145); Total Bilirubin 0.4 mg/dL (0.15-1.2); Total Protein 6.5 g/dL (6.6-8.7)
[2022-11-02 14:39] LABS: Amphetamines Screen Urine Negative (Negative); Barbiturates Screen Urine Negative (Negative); Benzodiazepines Screen Urine Negative (Negative); Cocaine Screen Urine Negative (Negative); Opiate Screen Urine Negative (Negative); PCP Screen Urine Negative (Negative); THC Screen Urine Negative (Negative)
[2022-11-02 14:46] LABS: Glucose Urine UA Norm (Normal); Ketones Urine Negative (Negative); Protein Urine Neg (Negative); Specific Gravity, Urine 1.015 (1.005-1.030); Urine Appearance SL Hazy (CLEAR); Urine Color Yellow (Yellow); pH Urine 5 (5-7)
[2022-11-02 14:47] LABS: Add Urine Culture? Yes; Add Urine Microscopic? YES; Bacteria Urine 3+ /hpf; Bilirubin Urine Neg (Negative); Blood Urine 3+ (Negative); Leukocyte Esterase Urine 1+ (Negative); Nitrate Urine Negative (Negative); RBC Urine 15-25 /hpf (0-2); Urobilinogen Urine Norm (Negative); WBC Urine 25-40 /hpf (0-5)
[2022-11-02] MEDS: cefTRIAXone 1,000 MG in sodium chloride 0.9% (plus) 50 ML 100 MG IV (15:06)
[2022-11-02] MEDS: sodium chloride 0.9% 1,000 ML 999 ML IV (15:09)
--- NOTE | 2022-11-02 16:09 | PC.NURSE ---
Patient is now alert and oriented to self, place, and time. Dr. Steiner updated. Family at bedside.
== END 2022-11-02 16:45 | disposition home or self-care (01) ==
PROVIDERS: Emergency Provider Emergency Medicine; PCP Internal Medicine
DX: N30.01 Acute cystitis with hematuria (principal); E87.1 Hypo-osmolality and hyponatremia; E22.1 Hyperprolactinemia; Z79.82 Long term (current) use of aspirin; E78.5 Hyperlipidemia, unspecified; I10 Essential (primary) hypertension; Z95.0 Presence of cardiac pacemaker; Z86.73 Personal history of transient ischemic attack (TIA), and cerebral infarction without residual deficits
CPT/HCPCS: 70450; 71045; 80053; 80162; 80306; 81001; 83735; 84146; 85025; 85610; 87086; 93005; 96365; 99285; J0696; J7030

== ENCOUNTER 2022-11-02 23:41 | Inpatient (IN) | payer MEDICARE, MEDICAID, SELFPAY ==
[2022-11-02 23:46] VITALS: BP 107/59; PULSE 70; RESP 14; TEMP 36.3; O2SAT 96; BMI 25.7
[2022-11-03] VITALS (12 sets, daily range): BP systolic 94–161; BP diastolic 50–71; PULSE 70–75; RESP 15–22; TEMP 36.3–36.7; O2SAT 94–98; BMI 25.7
--- NOTE | 2022-11-03 00:11 | XRR_ITS ---
PROCEDURE INFORMATION: Exam: XR Chest Exam date and time: 11/03/2022 1:18 AM Age: 81 years old Clinical indication: Other: AMS TECHNIQUE: Imaging protocol: Radiologic exam of the chest. Views: 1 view. COMPARISON: CR (CHEST, ) 11/02/2022 2:03 PM FINDINGS: Tubes, catheters and devices: Left-sided pacing device. Lungs: Unremarkable. No consolidation. Pleural spaces: Unremarkable. No pleural effusion. No pneumothorax. Heart/Mediastinum: Unremarkable. No cardiomegaly. Vasculature: Advanced diffuse vascular calcification noted. Bones/joints: Unremarkable. XR/XR chest 1V portable [id number] IMPRESSION: No acute findings.
[2022-11-03 00:22] LABS: Basophils % 0.4 %; Eosinophils # 0.3 10^3/uL (0.0-0.8); Eosinophils % 2.8 %; Hematocrit 39.6 % (42.0-52.0); Hemoglobin 13.1 g/dL (11.7-16.6); Lymphocytes # 1.6 10^3/uL (0.8-4.8); Lymphocytes % 15.5 %; Mean Corpuscular HGB Conc 33.1 g/dL (30.0-36.0); Mean Corpuscular Hemoglobin 31.3 pg (28.0-34.0); Mean Corpuscular Volume 94.7 fl (80-94); Mean Platelet Volume 9.1 fL (7.4-10.4); Monocytes % 9.3 %; Neutrophils # 7.39 10^3/uL (1.8-7.7); Neutrophils % 71.8 %; Nucleated Red Blood Cells % 0 %; Platelet Count 280 10^3/cmm (130-400); Red Blood Count 4.18 10^6/uL (4.1-5.3); Red Cell Distribution Width 13.2 % (12.1-15.1); White Blood Count 10.3 10^3/uL (4.0-10.0)
[2022-11-03 00:36] LABS: ABG PCO2 29.3 mmHg (35-45); Arterial Blood Gas Hematocrit 36.8 % (42-52); Blood Gas Allen Test Pos; Blood Gas Sample Site Radial, right; Blood Gas Sample Type Arterial; Carboxyhemoglobin 1.4 %THgb (0.4-20.1); HGB O2 Sat 94.8 % (95-100); Methemoglobin 0.4 % (0.4-1.5); PO2 ABG 76.7 mmHg (80.0-100.0)
[2022-11-03 00:48] LABS: Troponin(5th) Baseline 26 ng/L (0-15)
[2022-11-03 00:50] LABS: Alanine Aminotransferase 14 U/L (0-41); Alkaline Phosphatase 80 U/L (40-130); Anion Gap 19.4 (5-19); Aspartate Amino Transferase 15 U/L (0-40); Blood Urea Nitrogen 25 mg/dL (8-23); Calcium 8.6 mg/dL (8.5-10.5); Carbon Dioxide 19 mmol/L (22-29); Chloride 98 mmol/L (98-107); Globulin 2.9 g/dL (1.3-4.6); Glucose 98 mg/dL (65-115); Magnesium 1.9 mg/dL (1.7-2.3); Osmolality Calculated 278 mOsm/kg (285-295); Phosphorus 4.6 mg/dL (2.5-4.5); Potassium 4.4 mmol/L (3.5-5.1); Sodium 132 mmol/L (136-145); Total Bilirubin 0.3 mg/dL (0.15-1.2); Total Protein 6.9 g/dL (6.6-8.7)
[2022-11-03 01:13] LABS: Lactic Sepsis W/Reflex 1.9 mmol/L (0.5-2.2)
[2022-11-03 01:45] LABS: Troponin 5 2HR 26.38 ng/L (0-15)
[2022-11-03 01:55] LABS: Troponin 5 2HR Delta 0.38 ABS# (0-10)
--- NOTE | 2022-11-03 02:12 | ECG_ITS ---
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 Measurements Intervals [place] Rate: 70 P: 106 IN: 242 QRS: -26 QRSD: 100 T: 76 QT: 382 QTc: 413 Interpretive Statements ELECTRONIC ATRIAL PACEMAKER BORDERLINE LEFT AXIS DEVIATION [QRS AXIS < -20] INCOMPLETE RIGHT BUNDLE BRANCH BLOCK [90+ ms QRS DURATION, TERMINAL R IN V1/V2, 40+ ms S IN I/aVL/V4/V5/V6] NONSPECIFIC ST & T-WAVE ABNORMALITY ABNORMAL RHYTHM ECG Compared to ECG 11/03/2022 00:48:39 Possible ischemia no longer present T-wave abnormality still present Electronically Signed On 11-03-2022 16:37:09 CDT by Colby Lopez M.D. [email or web address] ([email or web address]/[id number]
--- NOTE | 2022-11-03 02:13 | ED_ITS ---
HPI - Seizure General: Chief Complaint: Seizure Stated Complaint: seizure Time Seen by Provider: 11/02/22 23:50 Source: patient History of Present Illness: HPI Narrative: 81-year-old male seen 8 to 9 hours ago after a period of decreased responsiveness. He had another short episode of decreased responsiveness prior to arrival. EMS were called. This episode was noted as a shaking type episode that lasted a few seconds. He seemed to be somewhat confused afterwards. He presents alert and awake now. He is essentially at baseline. MD complaint: possible seizure Onset (ago): minute(s) Description of Episode: loss of consciousness and tonic-clonic movement -: second(s) Witnessed: Yes - by Bystander Trauma: No Seizure History: Yes Place: [facility] Possible Precipitating Event: none Associated symptoms: Reports confusion and weakness (Generalized); Deny chest pain, chills, cough, fever(s), rash or short of breath Treatments prior to arrival: none Review of Systems 2 Const: Denies: fever(s) or chills ENMT: Denies: throat pain Card: Denies: chest pain Resp: Denies: dyspnea, productive cough or non-productive cough GI: Denies: abdominal pain, nausea or vomiting Neuro: Reports: confusion; Denies: headache(s) PFSH ED PFSH: Medical History Adrenal adenoma Atrial fibrillation Patient is taking a full ASA. Refuses Warfarin due to GI bleed in the past. Pt has episodes of atrial fibrillation with rapid ventricular rate. He has a history of TIA as well. ?No dizziness of syncope BPH (benign prostatic hyperplasia) Depression Diverticulitis Dupuytren's contracture of right hand Fatigue GERD (gastroesophageal reflux disease) GI bleed Hyperlipidemia Hypertension Incontinence Insomnia Neuropathy Osteoporosis Pacemaker Shortness of breath Thoracic back pain TIA (transient ischemic attack) Surgical History H/O vasectomy Hx of cataract surgery S/P foot surgery, right Family History Other CAD (coronary artery disease) Cancer Dementia Diabetes Hypertension Denies family history of Clotting disorder Chronic kidney disease (CKD) Suicide Anesthesia complication Bleeding disorder Lung disease Stroke Social History Smoking and tobacco status: never smoked Alcohol intake: never Substance/Drug Use: never Physical Exam Const: COMMON NORMALS: no acute distress GENERAL APPEARANCE: cooperative and frail appearing; not ill appearing HENMT: COMMON NORMALS: normocephalic, atraumatic and Normal external nose present HEAD & SCALP: normocephalic and atraumatic FACE & SINUS: normal facial exam and face symmetric NOSE: Normal external nose present Eye: COMMON NORMALS: Equal, round and reactive pupils present and EOMs intact bilaterally PUPIL: Yes Equal, round and reactive pupils present Neck/C-Spine: GENERAL: Yes trachea midline Chest: CHEST: Yes Symmetrical chest wall rise Resp: COMMON NORMALS: normal respiratory effort, No use of accessory muscles and clear to auscultation bilaterally AUSCULTATION: clear to auscultation bilaterally Cardio: COMMON NORMALS: regular rate and regular rhythm RATE: regular rate RHYTHM: regular rhythm GI: COMMON NORMALS: Normal to inspection, nondistended, normoactive bowel sounds present and Soft to palpation PALPATION: Yes Soft to palpation Extremity: GENERAL: Yes edema (Mild) Neuro: KAT COMA SCALE: document GCS findings Kat coma scale eye opening: Spontaneous Kat coma scale verbal response: Orientated (To place and situation) [place] coma scale motor response: Obey commands Kat coma scale total score: 15 SPEECH: speech normal MOTOR EXAM: Normal motor muscle tone present throughout Psych: COMMON NORMALS: cooperative Course Vital Signs: Vital signs: Vital Signs Temperature 97.3 F L 11/02/22 23:46 Pulse Rate 71 11/03/22 01:42 Respiratory Rate 16 11/03/22 01:42 Blood Pressure 105/50 11/03/22 01:27 Pulse Oximetry 96 11/03/22 01:42 Oxygen Delivery Me thod Room Air 11/02/22 23:46 MDM - Seizure MDM Narrative Medical decision making narrative: This 81-year-old gentleman tells me he has a history of seizure disorder. He is on oxcarbazepine twice daily presumably for this. He was seen earlier for an unresponsive episode. This episode sounds short in duration. He is awake, alert, and answering questions now. His blood pressure has been essentially normal, currently 106/54. Heart rhythm is paced at 70. It is interrogated, there were no arrhythmias. Saturations been above 93%. He does not have chest pain. CBC is not remarkable. BMP is not remarkable. His lactic acid is 1.9. Blood gas shows a PCO2 of 29 and a PO2 of 78. Delta troponin did not change. EKG shows a paced rhythm. Chest x-ray is nonacute. The patient had digoxin levels that were normal earlier today. He also had a CT that was negative. Patient's urine showed urinary tract infection earlier today, which is being treated. The patient evidently ambulates either with a cane or without in the nursing h ome. He is incredibly weak on trying to stand here. He still mildly confused actually. Because the episode he had this unresponsive episode, blood pressures been soft, with a paced rhythm, he will be observed Lab Data 11/02/22 23:33 11/02/22: Labs: Radiology Impressions Chest X-Ray 11/03/22 00:11 IMPRESSION: No acute findings. Laboratory Results WBC 10.3 10^3/uL (4.0-10.0) H 11/02/22: RBC 4.18 10^6/uL (4.1-5.3) 11/02/22: Hgb 13.1 g/dL (11.7-16.6) 11/02/22: Hct 39.6 % (42.0-52.0) L 11/02/22: MCV 94.7 fl (80-94) H 11/02/22: MCH 31.3 pg (28.0-34.0) 11/02/22: MCHC 33.1 g/dL (30.0-36.0) 11/02/22: RDW 13.2 % (12.1-15.1) 11/02/22: Plt Count 280 10^3/cmm (130-400) 11/02/22: MPV 9.1 fL (7.4-10.4) 11/02/22: Neut % (Auto) 71.8 % 11/02/22: Lymph % (Auto) 15.5 % 11/02/22: [place] % (Auto) 9.3 % 11/02/22: Eos % (Auto) 2.8 % 11/02/22:33 Baso % (Auto) 0.4 % 11/02/22 23:33 Neut # (Auto) 7.39 10^3/uL (1.8-7.7) 11/02/22 23:33 Lymph # (Auto) 1.6 10^3/uL (0.8-4.8) 11/02/22 23:33 [place] # (Auto) 1.0 10^3/uL (0.2-0.9) H 11/02/22 23: Eos # (Auto) 0.3 10^3/uL (0.0-0.8) 11/02/22 23: Baso # (Auto) 0.0 10^3/uL (0.0-0.1) 11/02/22 23:33 Nucleated RBC % (auto) 0 % 11/02/22 23: Nucleated RBCs # 0.0 /100WBC 11/02/22 23:33 Specimen Type Arterial 11/03/22 00:28 Sample Site Radial, right 11/03/22 00:28 ABG pCO2 29.3 mmHg (35-45) L 11/03/22 00:28 ABG pO2 76.7 mmHg (80.0-100.0) L 11/03/22 00:28 Abhay Test Pos 11/03/22 00:28 Hematocrit 36.8 % (42-52) L 11/03/22 00:28 Hgb O2 Saturation 94.8 % (95-100) L 11/03/22 00:28 Carboxyhemoglobin 1.4 %THgb (0.4-20.1) 11/03/22 00:28 Methemoglobin 0.4 % (0.4-1.5) 11/03/22 00:28 Total Hemoglobin 12.0 g/dL (14-18) L 11/03/22 00:28 O2 Delivery Device None 11/03/22 00:28 FiO2 21.0 % 11/03/22 00:28 Archives Director ID [email or web address] 11/03/22 00:28 Sodium 132 mmol/L (136-145) L 11/02/22 23:33 Potassium 4.4 mmol/L (3.5-5.1) 11/02/22 23: Chloride 98 mmol/L (98-107) 11/02/22 23:33 Carbon Dioxide 19 mmol/L (22-29) L 11/02/22 23:33 Anion Gap 19.4 (5-19) H 11/02/22 23:33 BUN 25 mg/dL (8-23) H 11/02/22 23:33 Creatinine 1.3 mg/dL (0.7-1.2) H 11/02/22 23:33 GFR Calculation Not Reportable 11/02/22 23:33 Glucose 98 mg/dL (65-115) 11/02/22 23:33 Calculated Osmolality 278 mOsm/kg (285-295) L 11/02/22 23:33 Lactic Acid 1.9 mmol/L (0.5-2.2) 11/03/22 00:54 Calcium 8.6 mg/dL (8.5-10.5) 11/02/22 23:33 Phosphorus 4.6 mg/dL (2.5-4.5) H 11/02/22 23:33 Magnesium 1.9 mg/dL (1.7-2.3) 11/02/22 23:33 Total Bilirubin 0.3 mg/dL (0.15-1.2) 11/02/22 23:33 AST 15 U/L (0-40) 11/02/22 23:33 ALT 14 U/L (0-41) 11/02/22 23:33 Alkaline Phosphatase 80 U/L (40-130) 11/02/22 23:33 Troponin T Baseline 26 ng/L (0-15) H 11/02/22 23:33 Troponin T 120 Minute 26.38 ng/L (0-15) H 11/03/22 00:54 Delta Troponin T 0.38 ABS# (0-10) 11/03/22 00:54 C-Reactive Protein 12.0 mg/L (0.0-4.9) H 11/02/22 23:33 Total Protein 6.9 g/dL (6.6-8.7) 11/02/22 23:33 Albumin 4.0 g/dL (3.5-5.2) 11/02/22 23:33 Globulin 2.9 g/dL (1.3-4.6) 11/02/22 23:33 Discharge Plan Discharge Patient Disposition: Placed in Observation Clinical Impression: Seizure, Urinary tract infection Coding Level of Care Code ED 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
--- NOTE | 2022-11-03 03:00 | PC.NURSE ---
To room to ambulate pt. Pt states he normally gets up and walks with a walker. Pt helped up x 2 person assist. Two steps taken but very unsteady. After that, this nurse decided pt to unsteady to continue and placed back on edge of bed. While sitting there, pt still shaking and almost fell back against siderail, but was stopped by staff before hitting anything. Pt was then rotated back in the bed and repositioned for comfort. notified.
--- NOTE | 2022-11-03 03:30 | PC.NURSE ---
Staff to room. Pt attempting to get out of bed at foot of bed in spite of both bedrails being up. Pt stopped by staff. Pt asked to stand and ambulate back toward head of bed x3 person assist and unable to complete task. Pt placed back in bed and lifted back toward head and put in position of comfort. Foot of bed elevated to decrease sliding down in bed and make pt more comfortable.
--- NOTE | 2022-11-03 03:35 | PC.NURSE ---
Staff to room. Pt trying to crawl out of head of bed. Pt caught prior to falling or injuring self in any way. Nurse will stay in area to monitor pt closer and decrease chances for fall.
--- NOTE | 2022-11-03 04:14 | PC.NURSE ---
pt being transferred to inpatient room. no attempts have been made to get up during period of observation.
[2022-11-03 06:12] LABS: Troponin 5 6HR 26.03 ng/L (0-15)
--- NOTE | 2022-11-03 06:12 | ECG_ITS ---
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 Measurements Intervals [place] Rate: 70 P: 102 [place]: 231 QRS: -26 QRSD: 110 T: 13 QT: 362 QTc: 391 Interpretive Statements ELECTRONIC ATRIAL PACEMAKER BORDERLINE LEFT AXIS DEVIATION [QRS AXIS < -20] INCOMPLETE RIGHT BUNDLE BRANCH BLOCK [90+ ms QRS DURATION, TERMINAL R IN V1/V2, 40+ ms S IN I/aVL/V4/V5/V6] ST DEVIATION AND MODERATE T-WAVE ABNORMALITY, CONSIDER LATERAL ISCHEMIA [-0.1+ mV T-WAVE IN I/aVL/V5/V6] Compared to ECG 11/02/2022 13:53:53 T-wave abnormality now present Possible ischemia now present Electronically Signed On 11-03-2022 16:39:00 CDT by Colby Lopez M.D. [id number]
[2022-11-03 06:16] LABS: Troponin 5 6HR Delta 0.03 ng/L (0-12)
--- NOTE | 2022-11-03 06:25 | USCV_ITS ---
Sylvia Baptiste Age: 81 Gender: M : 1940 Exam Date: 11/03/2022 07:07 Ordering Phys: Larissa Li MD Technologist: CT Exam Location: [facility] – [place] Indication: syncope BP: 98 / 65 HR: 70 Rhythm: Sinus Technical Quality: Adequate MEASUREMENTS (Male / Female) Normal Values 2D ECHO LV Diastolic Diameter PLAX 4.3 cm 4.2 - 5.9 / 3.9 - 5.3 cm LV Systolic Diameter PLAX 3.1 cm IVS Diastolic Thickness 1.2 cm 0.6 - 1.0 / 0.6 - 0.9 cm IVS Systolic Thickness 2.3 cm LVPW Diastolic Thickness 1.0 cm 0.6 - 1.0 / 0.6 - 0.9 cm LVPW Systolic Thickness 1.8 cm LVOT Diameter 2.1 cm LV Ejection Fraction 2D Teich 53.2 % LV Ejection Fraction MOD 2C 69.2 % LV Ejection Fraction 2C AL 68.9 % LA Diameter 4.2 cm Aorta at Sinotubular Diameter 2.4 cm M-MODE Aortic Annulus Diameter 3.8 cm LA Ao Ratio MM 1.1 MV E Point Septal Separation 0.7 cm DOPPLER AV Peak Velocity 134.0 cm/s LVOT Peak Velocity 130.0 cm/s AV Area Cont Eq vti 3.7 cm squared AV Area Cont Eq pk 3.2 cm squared MV Peak Velocity 178.0 cm/s MV Area PHT 3.6 cm squared Mitral E to A Ratio 0.5 MV E' Velocity 51.4 cm/s Mitral E to MV E' Ratio 8.0 Mitral E to LV E' Lateral Ratio 8.3 Mitral E to LV E' Septal Ratio 7.9 TR Peak Velocity 276.7 cm/s TR Peak Gradient 30.6 mmHg TR Mean Velocity 202.4 cm/s TR Mean Gradient 18.8 mmHg TR Velocity Time Integral 65.1 cm TV Peak E Velocity 139.0 cm/s Right Atrial Pressure 3.0 mmHg Pulmonary Artery Systolic Pressu 33.6 mmHg FINDINGS Left Ventricle Normal left ventricular size and systolic function, EF 57 %. Moderate left ventricular hypertrophy. No regional wall motion abnormalities. Grade I/IV diastolic dysfunction (abnormal relaxation filling pattern), normal to mildly elevated filling pressures. Right Ventricle Normal right ventricular size and systolic function. Pacemaker/defibrillator wire is noted Right Atrium Mildly increased right atrial size. Pacemaker/defibrillator wire is noted Left Atrium Mildly increased left atrial size. Mitral Valve Thickened mitral valve. Moderate mitral annular calcification. Aortic Valve Thickened aortic valve. [id number] aortic valve regurgitation. Tricuspid Valve Moderate tricuspid valve regurgitation. Estimated pulmonary artery peak systolic pressure 34 mmHg Pulmonic Valve Thickened pulmonic valve. Pericardium No pericardial effusion. Aorta Normal aortic annulus size. IVC Inferior vena cava not visualized. CONCLUSIONS Normal left ventricular size and systolic function, EF 57 %. Moderate left ventricular hypertrophy. No regional wall motion abnormalities. Grade I/IV diastolic dysfunction (abnormal relaxation filling pattern), normal to mildly elevated filling pressures. Mild biatrial enlargement Thickened mitral valve. Moderate mitral annular calcification. Thickened aortic valve. [id number] aortic valve regurgitation. Moderate tricuspid valve regurgitation. Estimated pulmonary artery peak systolic pressure 34 mmHg There is no pericardial effusion. Pacemaker/defibrillator wire is noted in the right atrium and right ventricle No similar previous studies are available for comparison Dr Malika Gutierrez MD [facility] (Electronically Signed) Final Date: 03 Nov 2022 09:34 S
--- NOTE | 2022-11-03 06:25 | USCV_ITS ---
Sylvia Baptiste Age: 81 Gender: M : 1940 Exam Date: 11/03/2022 07:57 Ordering Phys: Larissa Li MD Technologist: CT Exam Location: [facility] – [place] Indication: syncope Risk Factors: Previous Vascular Surgery: Right Brachial BP: / Left Brachial BP: / Right Left Velocity (cm/s) Spectral Plaque Velocity (cm/s) Spectral Plaque Syst/Diast Broadening Syst/Diast Broadening 111.40/12.10 Prox CCA 66.70 / 9.40 91.50/ 6.60 Mid CCA 109.40/ 13.70 88.20/ 11.00 Distal CCA 113.60/ 11.10 161.90/12.60 Prox ICA 160.80/ 20.10 118.70/23.40 Mid ICA 209.10/ 28.10 93.50/ 21.60 Distal ICA 106.60/ 14.00 175.00 ECA 307.60 1.45 ICA/CCA 1.84 Occluded Vertebral Antegrade / cm/s 45.20/ 9.90 cm/s Bi Subclavian Bi 232.1 268.6 0 0 FINDINGS some elevated velocities, rt vert occluded CONCLUSIONS Right ICA stenosis 50-69%. Moderate atheromatous plaque right carotid bulb/ICA. Left ICA stenosis 50-69%. Moderate atheromatous plaque left carotid bulb/ICA. Normal antegrade Doppler flow noted in the left vertebral artery. Occluded right vertebral artery. Jonny Webb MD (Electronically Signed) Final Date: 03 Nov 2022 12:45 S
--- NOTE | 2022-11-03 06:28 | P.HP_ITS ---
Providers/Chief Complaint Admitting Physician: Larissa Li MD Primary Care Provider: Rito Woods MD Chief Complaint: seizure History of Present Illness Limited history is available from the patient. Sylvia Baptiste is a 81 year old male who lives by himself, presents to the emergency room today with chief complaints of having fallen at home. Patient states that the last thing he remembers is going to the bathroom and then passing out. He does not recall if he struck his head or was passed out. He appears to be somewhat disoriented, states that he got up and walked into the maintenance closet, then corrects himself and states he called EMS to come to the emergency room. He is unable to tell me any details beyond this except that he has been feeling increased generalized weakness for the past several weeks and has not fallen repeatedly at home. Reports that he has a history of seizure disorder and suspects that he may have had a seizure. Review of records shows he is on oxcarbazepine. Review of Systems General: Reports: 10 or more systems reviewed and unremarkable except in HPI and below Const: Denies: fever(s), chills or body aches Eyes: Denies: change in vision, blurry vision or photophobia ENMT: Reports: hoarseness; Denies: throat pain, enlarged tonsils, odynophagia or nasal congestion Card: Denies: chest pain, palpitations, irregular heart rhythm, edema, swelling of feet/ankles, lightheadedness, pre-syncope, dyspnea on exertion or orthopnea Resp: Denies: dyspnea, productive cough, non-productive cough, wheezing, stridor, pain on inspiration, change in phlegm color, hemoptysis or chest congestion GI: Denies: abdominal pain, nausea, vomiting, hematemesis, coffee ground angelito sis, dysphagia, heartburn, diarrhea, constipation, GI cramping, change in stool character, hematochezia or melena : Denies: flank pain, dysuria, urinary frequency, urinary urgency, urinary hesitancy or hematuria Musc: Denies: neck pain, back pain, extremity pain, joint swelling, joint warmth or deformity Neuro: Denies: headache(s), numbness in extremities, weakness in extremities, sensory changes, difficulty walking, frequent falls, dizziness, vertigo, behavioral changes, Slurred speech present or seizure-like activity Psych: Denies: anxiety, depression, suicidal ideation or homicidal ideation Endo: Denies: polyuria, polydipsia, tired all the time, cold intolerance or hot flashes Cameron/Lymph: Denies: easy bruising or easy bleeding Medications/Allergies Home Medications Medication Instructions Recorded Confirmed Last Taken Type acetaminophen 325 mg tablet 650 mg PO Q4H PRN Pain 06/27/19 10/09/22 02/24/22 History (Tylenol) bisacodyl 10 mg rectal suppository 10 mg AZ DAILY PRN Constipation 06/27/19 10/09/22 Unknown History (Dulcolax (bisacodyl)) digoxin 125 mcg (0.125 mg) tablet 125 mcg PO DAILY@06/27/19 10/09/22 02/25/22 History fluticasone propionate 50 1 spray intranasal BID@06/27/19 10/09/22 02/25/22 History mcg/actuation nasal spray,suspension medroxyprogesterone 10 mg tablet 10 mg PO DAILY@06/27/19 10/09/22 02/25/22 History propafenone 225 mg 225 mg PO Q12H 06/27/19 10/09/22 02/25/22 History capsule,extended release 12 hr aspirin 81 mg tablet,delayed 81 mg PO DAILY@08/07/20 10/09/22 02/25/22 History release (Adult Aspirin Regimen) fluoxetine 10 mg capsule 10 mg PO DAILY@08/22/21 10/09/22 02/25/22 History levothyroxine 100 mcg tablet 100 mcg PO DAILY@01/24/22 10/09/22 02/25/22 History lidocaine HCl 2 % mucosal solution See Rx Instructions .Route .COMPLEX 01/24/22 10/09/22 01/22/22 History (Lidocaine Viscous) loratadine 10 mg tablet (Claritin) 10 mg PO DAILY@01/24/22 10/09/22 02/25/22 History omeprazole 40 mg capsule,delayed 40 mg PO DAILY@01/24/22 10/09/22 02/25/22 History release oxcarbazepine 300 mg tablet 300 mg PO BID@07,19 08/12/22 04/27/23 09/13/22 History sodium phosphates 19 gram-7 118 ml AZ DAILY PRN Constipation 01/24/22 10/09/22 Unknown History gram/118 mL enema (Pkyuq-Xj-Yhy Enema) tramadol 50 mg tablet (Ultram) 50 mg PO Q8H PRN Pain 01/24/22 10/09/22 Unknown History sling #1 ea 03/05/22 10/09/22 Unknown Rx NANWALEK J COLLAR #1 ea 03/06/22 10/09/22 Unknown Rx Shoulder Immobilizer #1 ea 03/06/22 10/09/22 Unknown Rx hydrocodone 7.5 mg-acetaminophen 1 tab PO Q6H PRN 07/28/22 10/09/22 Unknown History 325 mg tablet ciprofloxacin HCl 500 mg tablet 500 mg PO Q12H #20 tabs 11/02/22 Unknown Rx Allergies Allergy/AdvReac Type Severity Reaction Status Date / Time No Known Allergies Allergy Verified 11/02/22 23:46 PFSH Acute PFSH: Medical History Adrenal adenoma Atrial fibrillation Patient is taking a full ASA. Refuses Warfarin due to GI bleed in the past. Pt has episodes of atrial fibrillation with rapid ventricular rate. He has a history of TIA as well. ?No dizziness of syncope BPH (benign prostatic hyperplasia) Depression Diverticulitis Dupuytren's contracture of right hand Fatigue GERD (gastroesophageal reflux disease) GI bleed Hyperlipidemia Hypertension Incontinence Insomnia Neuropathy Osteoporosis Pacemaker Shortness of breath Thoracic back pain TIA (transient ischemic attack) Surgical History H/O vasectomy Hx of cataract surgery S/P foot surgery, right Family History Other CAD (coronary artery disease) Cancer Dementia Diabetes Hypertension Denies family history of Clotting disorder Chronic kidney disease (CKD) Suicide Anesthesia complication Bleeding disorder Lung disease Stroke Social History Smoking and tobacco status: never smoked Alcohol intake: never Substance/Drug Use: never Vitals/I&O/Wt Last Vital Signs Temp 98.1 F 11/03/22 05:08 Pulse 70 11/03/22 05:08 Resp 19 H 11/03/22 05:08 BP 98/65 11/03/22 05:08 Pulse Ox 95 11/03/22 05:08 O2 Del Method Room Air 11/03/22 04:49 Weight last 48 hrs Weight 76.657 kg Weight 76.657 kg Physical Exam Narrative: General: No acute distress, AO x2-3 HEENT: PERRLA, pupils bilaterally equal and reactive, pallors not present Chest: Normal vesicular breath sounds, no added sounds, equal good air entry bilaterally CVS: S1-S2 regular, no murmurs, no tachycardia, no gallops, no rubs Abdomen: Soft, nontender, no organomegaly, bowel sounds present Neuro: No focal deficits, no facial deformity, AO x3, power 5/5 in all limbs Data 11/02/22 23:33 11/02/22 23:33 A&P Assessment and plan (1) Urinary tract infection: (2) Syncope: Plan Patient presenting today with fall in the bathroom at home in unclear circumstances For his history appears that he may have had a syncopal episode versus a seizure episode given his past history. Admit to [employer] Monitor on telemetry, obtain pacemaker report for any arrhythmias Check orthostatics CT head without acute intracranial abnormalities. Check echocardiogram and carotid artery ultrasound Patient also appears to have a UTI, denies any urinary symptoms or any fever, however he only appears to be alert x2 -3 uncertain if he is reliable in this regard. Empiric ceftriaxone 1 g IV every 24 hours for UTI PT OT eval for recurrent falls Attestations Medical Necessity Statement*: anticipate greater than 2 midnight admission for above defined care Coding Level of Care Code Acute Code for Chg Fwd Diagnoses Urinary tract infection N39.0 Syncope R55
[2022-11-03] MEDS: pantoprazole DR 40 mg Tablet PO (08:51)
[2022-11-03] MEDS: cefTRIAXone 1,000 MG in sodium chloride 0.9% (plus) 50 ML 100 MG IV (08:51)
[2022-11-03] MEDS: enoxaparin 40 mg/0.4 mL Syringe SUBCUT (08:52)
--- NOTE | 2022-11-03 12:17 | PM.MISC ---
Miscellaneous Note Note: Overnight HPI labs and vitals reviewed,2D Echo results reviewed. Carotid duplex results awaited, currently patient is holding good conversation,awaiting PT evaluation.
[2022-11-04] VITALS (9 sets, daily range): BP systolic 126–176; BP diastolic 62–92; PULSE 70–78; RESP 14–20; TEMP 36.7–37; O2SAT 96–99
[2022-11-04 05:55] LABS: Basophils % 0.7 %; Eosinophils # 0.1 10^3/uL (0.0-0.8); Eosinophils % 2.5 %; Hematocrit 39.4 % (42.0-52.0); Hemoglobin 12.7 g/dL (11.7-16.6); Lymphocytes % 18.1 %; Mean Corpuscular HGB Conc 32.2 g/dL (30.0-36.0); Mean Corpuscular Hemoglobin 32.6 pg (28.0-34.0); Mean Corpuscular Volume 101.3 fl (80-94); Mean Platelet Volume 9.3 fL (7.4-10.4); Monocytes # 0.7 10^3/uL (0.2-0.9); Monocytes % 12.3 %; Neutrophils # 3.73 10^3/uL (1.8-7.7); Neutrophils % 66.2 %; Nucleated Red Blood Cells % 0 %; Platelet Count 256 10^3/cmm (130-400); Red Blood Count 3.89 10^6/uL (4.1-5.3); Red Cell Distribution Width 13.3 % (12.1-15.1); White Blood Count 5.6 10^3/uL (4.0-10.0)
[2022-11-04] MEDS: enoxaparin 40 mg/0.4 mL Syringe SUBCUT (06:05)
[2022-11-04] MEDS: levothyroxine 100 mcg Tablet PO (06:06)
[2022-11-04] MEDS: aspirin 81 mg EC Tablet PO (06:09)
[2022-11-04] MEDS: pantoprazole DR 40 mg Tablet PO (06:09)
[2022-11-04 06:13] LABS: Alanine Aminotransferase 14 U/L (0-41); Albumin Level 3.8 g/dL (3.5-5.2); Alkaline Phosphatase 84 U/L (40-130); Aspartate Amino Transferase 23 U/L (0-40); Blood Urea Nitrogen 21 mg/dL (8-23); Calcium 8.9 mg/dL (8.5-10.5); Carbon Dioxide 21 mmol/L (22-29); Chloride 98 mmol/L (98-107); Globulin 3.2 g/dL (1.3-4.6); Glucose 105 mg/dL (65-115); Osmolality Calculated 273 mOsm/kg (285-295); Sodium 130 mmol/L (136-145); Total Bilirubin 0.4 mg/dL (0.15-1.2)
--- NOTE | 2022-11-04 08:41 | PC.NURSE ---
Pt urinated in toilet and flushed it before amount could be noted.
[2022-11-04] MEDS: cefTRIAXone 1,000 MG in sodium chloride 0.9% (plus) 50 ML 100 MG IV (09:39)
[2022-11-04] MEDS: sodium chloride 0.9% 1,000 ML 75 ML IV (09:43)
--- NOTE | 2022-11-04 10:20 | PC.CHAP ---
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 [] Patient/Family/Request visit [] Outpatient visit [] Follow-up visit [] Physician referral [] Code/Alert [x] Routine visit [] Staff referral [] Actively dying [] Patient sleeping [] Family support [] [] Out of room [] Palliative care [] [] Receiving care in room [] Pre-surgical visit [] Trauma [] Long length of stay [] ICU visit [] Other: Relational/Emotional Strength [x] Patient feels connected with others/family/visitors/staff [] Distress [] Loneliness/isolation [] Abandonment Spirituality of Patient [x] Person of Aracelis [] Attends Bahai of their Aracelis [x] Believes in Prayer [] Reads Bible or Episcopalian materials [] There are Spiritual issues to be addressed Gem Expert Interventions [x] Prayer [] Active listening [] Non-anxious presence [x] Spiritual/emotional support [] Crisis/trauma care [] Spiritual counseling [] Bereavement support [] Provided bereavement packet [] Provided Bible/devotional materials [] Provided toy/stuffed animal, coloring book to patient or family member [] Provided Communion [] Anointing/Lovely [] Salvation [x] Completed spiritual assessment [] Other: Impact on Illness or Injury [] Angry [] Fearful [] Anxious [] Often cries [] Exhaustion [] Unable to work [] Unable to attend hindu [] Unable to walk/stand [] Unable to read [] Unable to drive [] Unable to eat/drink [] Unable to sleep [] Unable to be with family [] Patient intubated [] Other: Summary Time spent with patient 5 min
[2022-11-04 13:45] LABS: ABG PH Result 7.43 (7.35-7.45); Base Excess ABG -4.1 mmol/L (-2.0-2.0); HCO3 ABG 19.3 mmol/L (22-26)
--- NOTE | 2022-11-04 18:05 | PM.PN ---
Subjective Subjective: Patient was seen and examined this morning, he has continued to complain of dizziness, orthostatic vital signs checked today is positive. Medications: Medication Review Details: Generic Name Dose Route Start Last Admin Trade Name Hemanth PRN Reason Stop Dose Admin Aspirin 81 mg 11/04/22 07:00 11/04/22 06:09 Aspirin 81 Mg Ec Tablet PO 81 mg DAILY@07 NIRAJ Administration Enoxaparin Sodium 40 mg 11/03/22 06:30 11/04/22 06:05 Enoxaparin 40 Mg /0.4 Ml Syringe SUBCUT 40 mg Q24H NIRAJ Administration Ceftriaxone Sodium 1,000 mg/ 50 mls @ 100 mls/ hr 11/03/22 06:30 11/04/22 10:32 Sodium Chloride IV Infused Q24H NIRAJ Infusion Protocol Sodium Chloride 1,000 mls @ 75 ml s/hr 11/04/22 09:00 11/04/22 09:43 Sodium Chloride 0.9% IV 75 mls/hr .[id number] NIRAJ Administration Levothyroxine Sodi um 100 mcg 11/04/22 06:00 11/04/22 06:06 Levothyroxine 10 0 Mcg Tablet PO 100 mcg DAILY@06 NIRAJ Administration Pantoprazole Sodiu m 40 mg 11/04/22 07:00 11/04/22 06:[address] 40 Mg Tablet PO 40 mg DAILY@07 NIRAJ Administration Vitals/I&O/Wt Last Vital Signs Temp 98.0 F 11/04/22 12:47 Pulse 70 11/04/22 12:47 Resp 18 11/04/22 12:47 BP 159/78 11/04/22 13:30 Pulse Ox 97 11/04/22 12:47 O2 Del Method Room Air 11/04/22 12:47 11/04/22 11/04/22 11/04/22 06:59 14:59 22:59 Intake Total 150 / 950 410 / 410 Balance 150 / 350 410 / 410 Weight last 48 hrs Weight 76.657 kg Weight 76.657 kg Physical Exam Const: COMMON NORMALS: patient oriented x3 HENMT: COMMON NORMALS: normocephalic and atraumatic HEAD & SCALP: normocephalic and atraumatic Resp: COMMON NORMALS: normal respiratory effort, No retractions, No use of accessory muscles and clear to auscultation bilaterally EFFORT & INSPECTION: Yes symmetric chest movement AUSCULTATION: clear to auscultation bilaterally Cardio: COMMON NORMALS: regular rate, regular rhythm, S1 normal heart sound present, S2 normal heart sound present, No gallops present (Cardio), No murmurs present (Cardio), No rub (Cardio) and Peripheral pulses 2+ throughout RATE: regular rate RHYTHM: regular rhythm HEART SOUNDS: S1 normal heart sound present and S2 normal heart sound present PERIPHERAL PULSES: Peripheral pulses 2+ throughout GI: COMMON NORMALS: Normal to inspection, nondistended, normoactive bowel sounds present, Soft to palpation, non-tender, No hepatosplenomegaly present and no masses AUSCULTATION: Yes normoactive bowel sounds PALPATION: Yes Soft to palpation and Yes No hepatosplenomegaly present RECTAL EXAM: Yes deferred Extremity: COMMON NORMALS: no clubbing, cyanosis or edema and no pedal edema Neuro: COMMON NORMALS: patient oriented x3 Data 11/04/22 05:47 11/04/22 05:47 A&P Assessment and plan (1) Urinary tract infection: (2) Syncope: Plan 81-year-old male with past medical history of hypertension, A-fib, not on anticoagulation due to GI bleed, TIA, s/p pacemaker, resident of [facility], was brought in after experiencing fall in the bathroom, appears to have experienced syncopal episode, seizure was a concern also.Currently he is being managed for: Assessment: S/p fall: Possibly syncopal episode: Possibly secondary to orthostatic hypotension: Possible vasovagal syncope: CT head without contrast no acute intracranial pathology: Carotid Doppler has shown: Occluded right vertebral artery. 2D echo: Has shown normal LV size and systolic function with a EF of 57% Pacemaker check has been done: No acute findings suggested Orthostatic vital sign positive: Patient has received normal saline bolus and is on maintenance IV fluid: We will monitor orthostatic vital sign for now. Will educate patient on conservative management of orthostatic vital sign. UTI: Urine culture is growing strep agalactiae Currently on ceftriaxone History of atrial fibrillation: Continue propafenone Not on anticoagulation due to prior history of GI bleed History of hypothyroidism: Continue levothyroxine for now History of TIA: Continue aspirin chronic hyponatremia: Currently on p.o. salt tablet Serum sodium appears to be approaching the baseline. CODE STATUS: Full code DVT prophylaxis on Lovenox Attestations Medical Necessity Statement*: Needs to be in hospital for IV hydration, positive orthostatic vitals. Coding Level of Care Code Acute Code for Chg Fwd Diagnoses Urinary tract infection N39.0 Syncope R55
[2022-11-05] MEDS: sodium chloride 0.9% 1,000 ML 75 ML IV (02:52)
[2022-11-05 03:58] VITALS: BP 169/79; PULSE 78; RESP 20; TEMP 36.8; O2SAT 96
[2022-11-05 05:11] LABS: Basophils % 0.7 %; Eosinophils # 0.6 10^3/uL (0.0-0.8); Eosinophils % 10.5 %; Hematocrit 34.9 % (42.0-52.0); Hemoglobin 11.6 g/dL (11.7-16.6); Lymphocytes # 1.7 10^3/uL (0.8-4.8); Lymphocytes % 28.8 %; Mean Corpuscular HGB Conc 33.2 g/dL (30.0-36.0); Mean Corpuscular Hemoglobin 31.6 pg (28.0-34.0); Mean Corpuscular Volume 95.1 fl (80-94); Mean Platelet Volume 8.9 fL (7.4-10.4); Monocytes # 0.9 10^3/uL (0.2-0.9); Monocytes % 14.8 %; Neutrophils # 2.66 10^3/uL (1.8-7.7); Neutrophils % 44.9 %; Nucleated Red Blood Cells % 0 %; Platelet Count 212 10^3/cmm (130-400); Red Blood Count 3.67 10^6/uL (4.1-5.3); Red Cell Distribution Width 13.1 % (12.1-15.1); White Blood Count 5.9 10^3/uL (4.0-10.0)
[2022-11-05 05:29] LABS: Anion Gap 12.9 (5-19); Blood Urea Nitrogen 16 mg/dL (8-23); Calcium 8.3 mg/dL (8.5-10.5); Carbon Dioxide 20 mmol/L (22-29); Chloride 104 mmol/L (98-107); Glucose 90 mg/dL (65-115); Osmolality Calculated 277 mOsm/kg (285-295); Potassium 3.9 mmol/L (3.5-5.1); Sodium 133 mmol/L (136-145)
[2022-11-05] MEDS: enoxaparin 40 mg/0.4 mL Syringe SUBCUT (05:51)
[2022-11-05] MEDS: levothyroxine 100 mcg Tablet PO (05:51)
[2022-11-05] MEDS: aspirin 81 mg EC Tablet PO (06:13)
[2022-11-05] MEDS: pantoprazole DR 40 mg Tablet PO (06:13)
[2022-11-05 08:00] VITALS: BP 150/78; PULSE 63; RESP 18; TEMP 36.9; O2SAT 96
[2022-11-05] MEDS: sodium chloride 1 gm Tablet PO (09:25)
[2022-11-05] MEDS: cefTRIAXone 1,000 MG in sodium chloride 0.9% (plus) 50 ML 100 MG IV (09:28)
[2022-11-05 12:00] VITALS: BP 177/99; PULSE 76; RESP 18; TEMP 36.7; O2SAT 99
[2022-11-05] MEDS: amlodipine 5 mg Tablet PO (13:15)
[2022-11-05 15:05] VITALS: BP 177/99; PULSE 76; RESP 18; TEMP 36.7; O2SAT 99
--- NOTE | 2022-11-06 15:41 | P.DS_ITS ---
Discharge Providers Date of Admission: 11/03/22 09:51 Date of Discharge: November 06, 2022 Attending Provider at Admission: Larissa Li MD Attending Provider at Discharge: Napoleon Garrido MD Primary Care Provider: Rito Woods MD Diagnoses at Discharge Discharge Diagnosis (1) Urinary tract infection: Status: Acute (2) Syncope: Status: Acute Reason for Visit Reason for Visit: seizure Hospital Course Hospital Course 81-year-old male with past medical history of hypertension, A-fib, not on anticoagulation due to GI bleed, TIA, s/p pacemaker, resident of [facility], was brought in after experiencing fall in the bathroom, appears to have experienced syncopal episode, seizure was a concern, at the longterm, it seizure could have been possible as a part of vasovagal syncope, patient has no prior history of seizure disorder, during the hospital stay he was managed for s/p fall: Possibly secondary to syncope versus seizure, possibly secondary to chronic orthostatic hypotension. No seizure episodes were experienced during this hospital stay.CT head without contrast no acute intracranial pathology:Carotid Doppler has shown:?Occluded right vertebral artery.2D echo: Has shown normal LV size and systolic function with a EF of 57%,Pacemaker check has been done: No acute findings suggested. Orthostatic vital sign was positive patient has known known history of chronic orthostatic hypotension, patient was managed with IV fluids, telemetry monitoring, orthostatic vital signs were monitored, physical therapy was on board, patient did not had any similar episode during the hospital stay, during the hospital stay he was also managed for UTI, urine culture was growing strep agalactiae, was on ceftriaxone and was discharged on levofloxacin, for his history of atrial fibrillation he was continued on propafenone, digoxin was also continued on discharge, patient is not on any anticoagulation due to prior history of GI bleed, For his prior history of hypothyroidism was continued on levothyroxine, patient was also continued to be managed for his other comorbid conditions.Overall he responded well to above medical management and was discharged in stable condition to longterm.He will continue to follow his PCP as outpatient. Physical Exam Const: COMMON NORMALS: patient oriented x3 HENMT: COMMON NORMALS: normocephalic and atraumatic HEAD & SCALP: normocephalic and atraumatic Resp: COMMON NORMALS: normal respiratory effort, No retractions, No use of accessory muscles and clear to auscultation bilaterally EFFORT & INSPECTION: Yes symmetric chest movement AUSCULTATION: clear to auscultation bilaterally Cardio: COMMON NORMALS: regular rate, regular rhythm, S1 normal heart sound present, S2 normal heart sound present, No gallops present (Cardio), No murmurs present (Cardio), No rub (Cardio) and Peripheral pulses 2+ throughout RATE: regular rate RHYTHM: regular rhythm HEART SOUNDS: S1 normal heart sound present and S2 normal heart sound present PERIPHERAL PULSES: Peripheral pulses 2+ throughout GI: COMMON NORMALS: Normal to inspection, nondistended, normoactive bowel sounds present, Soft to palpation, non-tender, No hepatosplenomegaly present and no masses AUSCULTATION: Yes normoactive bowel sounds PALPATION: Yes Soft to palpation and Yes No hepatosplenomegaly present RECTAL EXAM: Yes deferred Extremity: COMMON NORMALS: no clubbing, cyanosis or edema and no pedal edema Neuro: COMMON NORMALS: patient oriented x3 Discharge Data Studies Completed and Pending Completed Studies During Hospitalization Category Date Time Status XR chest 1V portable [id number] Stat Exams 11/03/22 00:11 Completed CV carotid duplex BI* [id number] Routine Ultrasound 11/03/22 06:25 Completed CV. echo complete* [id number] Routine Ultrasound 11/03/22 06:25 Completed Radiology Impressions Chest X-Ray 11/03/22 00:11 IMPRESSION: No acute findings. Laboratory Results WBC 5.9 10^3/uL (4.0-10.0) 11/05/22 05:03 RBC 3.67 10^6/uL (4.1-5.3) L 11/05/22 05:03 Hgb 11.6 g/dL (11.7-16.6) L 11/05/22 05:03 Hct 34.9 % (42.0-52.0) L 11/05/22 05:03 MCV 95.1 fl (80-94) H D 11/05/22 05:03 MCH 31.6 pg (28.0-34.0) 11/05/22 05:03 MCHC 33.2 g/dL (30.0-36.0) 11/05/22 05:03 RDW 13.1 % (12.1-15.1) 11/05/22 05:03 Plt Count 212 10^3/cmm (130-400) 11/05/22 05:03 MPV 8.9 fL (7.4-10.4) 11/05/22 05:03 Neut % (Auto) 44.9 % 11/05/22 05:03 Lymph % (Auto) 28.8 % 11/05/22 05:03 [place] % (Auto) 14.8 % 11/05/22 05:03 Eos % (Auto) 10.5 % 11/05/22 05:03 Baso % (Auto) 0.7 % 11/05/22 05:03 Neut # (Auto) 2.66 10^3/uL (1.8-7.7) 11/05/22 05:03 Lymph # (Auto) 1.7 10^3/uL (0.8-4.8) 11/05/22 05:03 [place] # (Auto) 0.9 10^3/uL (0.2-0.9) 11/05/22 05:03 Eos # (Auto) 0.6 10^3/uL (0.0-0.8) 11/05/22 05:03 Baso # (Auto) 0.0 10^3/uL (0.0-0.1) 11/05/22 05:03 Nucleated RBC % (auto) 0 % 11/05/22 05:03 Nucleated RBCs # 0.0 /100WBC 11/05/22 05:03 Specimen Type Arterial 11/03/22 00:28 Sample Site Radial, right 11/03/22 00:28 ABG pH 7.43 (7.35-7.45) 11/03/22 00:28 ABG pCO2 29.3 mmHg (35-45) L 11/03/22 00:28 ABG pO2 76.7 mmHg (80.0-100.0) L 11/03/22 00:28 ABG HCO3 19.3 mmol/L (22-26) L 11/03/22 00:28 ABG Base Excess -4.1 mmol/L (-2.0-2.0) L 11/03/22 00:28 Abhay Test Pos 11/03/22 00:28 Hematocrit 36.8 % (42-52) L 11/03/22 00:28 Hgb O2 Saturation 94.8 % (95-100) L 11/03/22 00:28 Carboxyhemoglobin 1.4 %THgb (0.4-20.1) 11/03/22 00:28 Methemoglobin 0.4 % (0.4-1.5) 11/03/22 00:28 Total Hemoglobin 12.0 g/dL (14-18) L 11/03/22 00:28 O2 Delivery Device None 11/03/22 00:28 FiO2 21.0 % 11/03/22 00:28 Professor Of Environmental Studies ID [email or web address] 11/03/22 00:28 Sodium 133 mmol/L (136-145) L 11/05/22 05:03 Potassium 3.9 mmol/L (3.5-5.1) 11/05/22 05:03 Chloride 104 mmol/L (98-107) 11/05/22 05:03 Carbon Dioxide 20 mmol/L (22-29) L 11/05/22 05:03 Anion Gap 12.9 (5-19) 11/05/22 05:03 BUN 16 mg/dL (8-23) 11/05/22 05:03 Creatinine 1.0 mg/dL (0.7-1.2) 11/05/22 05:03 GFR Calculation Not Reportable 11/05/22 05:03 Glucose 90 mg/dL (65-115) 11/05/22 05:03 Calculated Osmolality 277 mOsm/kg (285-295) L 11/05/22 05:03 Lactic Acid 1.9 mmol/L (0.5-2.2) 11/03/22 00:54 Calcium 8.3 mg/dL (8.5-10.5) L 11/05/22 05:03 Phosphorus 4.6 mg/dL (2.5-4.5) H 11/02/22 23:33 Magnesium 1.9 mg/dL (1.7-2.3) 11/02/22 23:33 Total Bilirubin 0.4 mg/dL (0.15-1.2) 11/04/22 05:47 AST 23 U/L (0-40) 11/04/22 05:47 ALT 14 U/L (0-41) 11/04/22 05:47 Alkaline Phosphatase 84 U/L (40-130) 11/04/22 05:47 Troponin T Baseline 26 ng/L (0-15) H 11/02/22 23:33 Troponin T 120 Minute 26.38 ng/L (0-15) H 11/03/22 00:54 Delta Troponin T 0.38 ABS# (0-10) 11/03/22 00:54 Troponin T Hi Sens 6Hr 26.03 ng/L (0-15) H 11/03/22 05:31 Troponin T Hi Sens 6Hr Delta 0.03 ng/L (0-12) 11/03/22 05:31 C-Reactive Protein 12.0 mg/L (0.0-4.9) H 11/02/22 23:33 Total Protein 7.0 g/dL (6.6-8.7) 11/04/22 05:47 Albumin 3.8 g/dL (3.5-5.2) 11/04/22 05:47 Globulin 3.2 g/dL (1.3-4.6) 11/04/22 05:47 Vitals Last Vital Signs Temp 98.1 F 11/05/22 15:05 Pulse 76 11/05/22 15:05 Resp 18 11/05/22 15:05 BP 177/99 11/05/22 15:05 Pulse Ox 99 11/05/22 15:05 O2 Del Method Room Air 11/05/22 12:00 Discharge Plan Discharge Patient Disposition: Xfer SNF Condition: Stable Prescriptions: New levofloxacin 500 mg tablet 500 mg PO DAILY 5 Days Qty: 5 0RF Continued bisacodyl [Dulcolax (bisacodyl)] 10 mg suppository 10 mg HI DAILY PRN (Reason: Constipation) digoxin 125 mcg (0.125 mg) tablet 125 mcg PO DAILY@07 Rx Instructions: hold for pulse less than 60 propafenone 225 mg capsule,extended release 12 hr 225 mg PO Q12H Rx Instructions: @07:00,19:00 medroxyprogesterone 10 mg tablet 10 mg PO DAILY@07 acetaminophen [Tylenol] 325 mg tablet 650 mg PO Q4H PRN (Reason: Pain) fluticasone propionate 50 mcg/actuation spray,suspension 1 spray INTRANASAL BID@09,21 aspirin [Adult Aspirin Regimen] 81 mg tablet,delayed release (DR/EC) 81 mg PO DAILY@07 hydrocodone-acetaminophen 7.5-325 mg tablet 1 tab PO Q6H PRN (Reason: Pain) (DME) sling See Rx Instructions .Route .MEDSUPPLY Qty: 1 0RF Rx Instructions: As directed (DME) [place] J COLLAR See Rx Instructions .Route .MEDSUPPLY Qty: 1 0RF Rx Instructions: As directed (DME) Shoulder Immobilizer See Rx Instructions .Route .MEDSUPPLY Qty: 1 0RF Rx Instructions: As directed fexofenadine 180 mg Tablet 180 mg PO DAILY ammonium lactate 12 % Cream 1 applic TOPICAL DAILY sodium chloride 1,000 mg Tablet,Soluble 1,000 mg PO DAILY oxcarbazepine 300 mg tablet 300 mg PO BID@07,19 omeprazole 40 mg Capsule,Delayed Release(Dr/Ec) 40 mg PO DAILY@07 tramadol [Ultram] 50 mg Tablet 50 mg PO Q8H PRN (Reason: Pain) levothyroxine 100 mcg tablet 100 mcg PO DAILY@06 [id number] Enema 19-7 gram/118 mL Enema 118 ml HI DAILY PRN (Reason: Constipation) lidocaine HCl [Lidocaine Viscous] 2 % Solution See Rx Instructions .ROUTE .COMPLEX Rx Instructions: give 15ml po every 2 hours as needed for gum pain Discontinued ciprofloxacin HCl 500 mg tablet 500 mg PO Q12H Qty: 20 0RF Discharge Orders: Discharge Order (Routine); Ordered 11/05/22 Ordered By: Napoleon Garrido Referrals: Rito Woods MD [Primary Care Provider] - Patient Instructions: Levofloxacin (By mouth), Opioid Safety, Seizures Discharge Attestations Time Spent in Discharge Care*: less than 30 min Quality Metrics Clinical Quality Measures [ No reported AMI, CVA or VTE this stay] Coding Level of Care Code Acute Code for Chg Fwd Diagnoses Urinary tract infection N39.0 Syncope R55
== END 2022-11-05 14:45 | disposition skilled nursing facility (03) | DRG 312 ==
LOC: ER 11-03 03:17 → MEDSURG 11-03 05:16
PROVIDERS: Admitting Provider Student in an Organized Health Care Education/Training Program; Emergency Provider Emergency Medicine; PCP Internal Medicine; Visit Provider Internal Medicine
DX: I95.1 Orthostatic hypotension (principal); N39.0 Urinary tract infection, site not specified; E87.1 Hypo-osmolality and hyponatremia; W18.30XA Fall on same level, unspecified, initial encounter; Y92.121 Bathroom in nursing home as the place of occurrence of the external cause; I10 Essential (primary) hypertension; I48.91 Unspecified atrial fibrillation; Z86.73 Personal history of transient ischemic attack (TIA), and cerebral infarction without residual deficits; Z95.810 Presence of automatic (implantable) cardiac defibrillator; Z79.82 Long term (current) use of aspirin; Z79.891 Long term (current) use of opiate analgesic; I08.3 Combined rheumatic disorders of mitral, aortic and tricuspid valves; N40.0 Benign prostatic hyperplasia without lower urinary tract symptoms; F32.A Depression, unspecified; K21.9 Gastro-esophageal reflux disease without esophagitis; E78.5 Hyperlipidemia, unspecified; G62.9 Polyneuropathy, unspecified; M81.0 Age-related osteoporosis without current pathological fracture; B95.4 Other streptococcus as the cause of diseases classified elsewhere; E03.9 Hypothyroidism, unspecified
CPT/HCPCS: 36415; 36600; 70450; 71045; 80048; 80053; 80162; 80306; 81001; 82805; 83605; 83735; 84100; 84146; 84484; 85025; 85610; 86140; 87086; 93005; 93306; 93880; 96365; 96372; 97116; 97161; 99285; J0696; J1650; J7030

== ENCOUNTER → 2023-01-01 10:35 | Outpatient (BNVA) | payer MEDICARE, MEDICAID, SELFPAY | PROVIDERS: PCP Internal Medicine; Visit Provider Dermatology | DX: L82.1 Other seborrheic keratosis (principal); L57.0 Actinic keratosis; L81.4 Other melanin hyperpigmentation; L57.8 Other skin changes due to chronic exposure to nonionizing radiation; L92.3 Foreign body granuloma of the skin and subcutaneous tissue | CPT/HCPCS: 11102; 17000; 99213 ==

== ENCOUNTER → 2023-02-09 11:14 | Outpatient (BNVA) | payer MEDICARE, MEDICAID, SELFPAY | PROVIDERS: PCP Internal Medicine; Visit Provider Internal Medicine Cardiovascular Disease | DX: I10 Essential (primary) hypertension (principal); E78.2 Mixed hyperlipidemia; I48.11 Longstanding persistent atrial fibrillation; Z95.0 Presence of cardiac pacemaker; Z86.73 Personal history of transient ischemic attack (TIA), and cerebral infarction without residual deficits | CPT/HCPCS: 99214 ==

== ENCOUNTER 2023-02-23 07:23 | Outpatient (CLI) | payer MEDICARE, MEDICAID, SELFPAY ==
--- NOTE | 2023-02-23 08:00 | USCV_ITS ---
Sylvia Baptiste Age: 82 Gender: M : 1940 Exam Date: 02/23/2023 07:53 Ordering Phys: Malika Gutierrez MD ([email or web address]) Technologist: ED [place] [facility] [place]: Stenosis Risk Factors: Previous Vascular Surgery: Right Brachial BP: / Left Brachial BP: / Right Left Velocity (cm/s) Spectral Plaque Velocity (cm/s) Spectral Plaque Syst/Diast Broadening Syst/Diast Broadening 113.60/14.30 Prox CCA 72.50 / 13.20 119.10/6.60 Mid CCA 63.70 / 11.00 83.80/ 8.80 Distal CCA 135.20/ 23.30 124.60/19.80 Prox ICA 196.50/ 42.70 121.30/16.50 Mid ICA 132.10/ 24.90 68.40/ 13.20 Distal ICA 105.60/ 14.00 99.20 ECA 247.80 1.05 ICA/CCA 1.45 Antegrade Vertebral Antegrade 32.00/ 11.00 cm/s 51.00/ 14.90 cm/s Tri Subclavian Tri 161.6 257.8 0 0 FINDINGS Comparison:. 11/03/22. Technically difficult exam. Diffuse bilateral scattered calcified plaque and intimal thickening throughout the common carotid arteries and extending through the bifurcation. Minimal flow seen in the right vertebral artery. No progression of stenosis since the prior exam. CONCLUSIONS Left ICA stenosis 50-69%. Right ICA stenosis < 50%. Minimal flow seen in the right verebral artery today. Extensive plaque throughout the carotid arteries. Dr. Klaudia Juan DO (Electronically Signed) Final Date: 23 February 2023 09:53 S
== END 2023-02-23 07:24 | disposition home or self-care (01) ==
PROVIDERS: PCP Internal Medicine; Visit Provider Internal Medicine Cardiovascular Disease
DX: I65.23 Occlusion and stenosis of bilateral carotid arteries (principal); R42 Dizziness and giddiness
CPT/HCPCS: 93880

== ENCOUNTER 2023-06-29 10:37 | Inpatient (IN) | payer MEDICARE, MEDICAID, SELFPAY ==
[2023-06-29] VITALS (12 sets, daily range): BP systolic 117–188; BP diastolic 64–85; PULSE 70–118; RESP 20–30; TEMP 36.6–36.7; O2SAT 93–100; BMI 26.4; BMI 27.0
--- NOTE | 2023-06-29 10:43 | ECG_ITS ---
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 Measurements Intervals [place] Rate: 126 P: 0 MT: 0 QRS: -77 QRSD: 129 T: 70 QT: 331 QTc: 480 Interpretive Statements ATRIAL FIBRILLATION WITH RAPID VENTRICULAR RESPONSE LEFT AXIS DEVIATION [QRS AXIS < -30] RIGHT BUNDLE BRANCH BLOCK [120+ ms QRS DURATION, UPRIGHT V1, 40+ ms S IN I/aVL/V4/V5/V6] ST DEPRESSION, CONSIDER SUBENDOCARDIAL INJURY [0.1+ mV ST DEPRESSION] Compared to ECG 11/03/2022 01:56:22 Right bundle-branch block now present ST (T wave) deviation now present Atrial-paced complex(es) or rhythm no longer present Incomplete right bundle-branch block no longer present T-wave abnormality no longer present Electronically Signed On 06-29-2023 11:22:09 SERVICE WRITER ADVISOR by Colby Lopez M.D. [id number]
--- NOTE | 2023-06-29 10:43 | XR_ITS ---
WS: [id number] Exam: XR chest 1V portable [id number] Date/Time of Exam: 06/29/2023 10:44 AM Reason For Exam: chest pain Comparison 11/03/2022. The lungs are clear and fully expanded. Unremarkable cardiomediastinal silhouette. No pleural effusio ns. Permanent cardiac pacer superimposes the LEFT chest. Monitoring leads overlie the chest. Bony str uctures are intact. IMPRESSION: 1. No acute cardiopulmonary process.
[2023-06-29 10:52] LABS: Basophils # 0.1 10^3/uL (0.0-0.1); Basophils % 0.8 %; Eosinophils # 0.7 10^3/uL (0.0-0.8); Eosinophils % 7.7 %; Hematocrit 45.5 % (37-53); Lymphocytes # 3.5 10^3/uL (0.8-4.8); Lymphocytes % 36.7 %; Mean Corpuscular HGB Conc 33.6 g/dL (30-55); Mean Corpuscular Hemoglobin 30.2 pg (27-33); Mean Corpuscular Volume 89.9 fl (82-101); Mean Platelet Volume 9.5 fL (7.4-10.4); Monocytes # 0.9 10^3/uL (0.2-0.9); Neutrophils # 4.33 10^3/uL (1.8-7.7); Neutrophils % 45.4 %; Nucleated Red Blood Cells % 0 %; Platelet Count 352 10^3/cmm (157-399); Red Blood Count 5.06 10^6/uL (3.85-5.65); Red Cell Distribution Width 15.4 % (12.1-15.1); White Blood Count 9.54 10^3/uL (3.29-11.43)
--- NOTE | 2023-06-29 11:01 | ED_ITS ---
HPI - Chest Pain 2 General: Chief Complaint: Chest Pain Stated Complaint: chest pain Time Seen by Provider: 06/29/23 10:51 Source: patient and EMS Mode of arrival: EMS Limitations: no limitations History of Present Illness: 82-year-old male is here from [facility] he does have a history A-fib he is in A-fib with RVR he states he has had sharp chest pains this morning. States that he has a pacemaker but does not believe it has been functioning. Denies any cough denies any fever denies any shortness of breath. Associated symptoms: Deny abdominal pain, dyspnea, fever(s), nausea or vomiting Review of Systems 2 Const: Denies: fever(s), chills, body aches or change in appetite Eyes: Denies: eye discomfort ENMT: Denies: throat pain or dental pain Card: Reports: chest pain Resp: Denies: dyspnea GI: Denies: abdominal pain, nausea, vomiting or diarrhea : Denies: dysuria Musc: Denies: neck pain or back pain Skin/Breast: Denies: rash Neuro: Denies: headache(s) PFSH ED 2 PFSH: Medical History Syncope Seizure Urinary tract infection Dupuytren's contracture of right hand Hypertension Hyperlipidemia Shortness of breath Atrial fibrillation Patient is taking a full ASA. Refuses Warfarin due to GI bleed in the past. Pt has episodes of atrial fibrillation with rapid ventricular rate. He has a history of TIA as well. ?No dizziness of syncope BPH (benign prostatic hyperplasia) Fatigue Insomnia GI bleed Adrenal adenoma Thoracic back pain Depression Neuropathy TIA (transient ischemic attack) Diverticulitis Incontinence GERD (gastroesophageal reflux disease) Pacemaker Osteoporosis Surgical History Hx of cataract surgery H/O vasectomy S/P foot surgery, right Family History Other CAD (coronary artery disease) Cancer Dementia Diabetes Hypertension Denies family history of Clotting disorder Chronic kidney disease (CKD) Suicide Anesthesia complication Bleeding disorder Lung disease Stroke Social History Smoking and tobacco/nicotine status: never used tobacco/nicotine Alcohol intake: never Substance/Drug Use: never Physical Exam 2 Const: COMMON NORMALS: no acute distress, patient oriented x3 and healthy appearing HENMT: COMMON NORMALS: normocephalic and atraumatic HEAD & SCALP: n ormocephalic and atraumatic Eye: COMMON NORMALS: Equal, round and reactive pupils present and EOMs intact bilaterally PUPIL: Yes Equal, round and reactive pupils present Neck/C-Spine: COMMON NORMALS: full ROM and supple Chest: COMMONS NORMALS: normal inspection of the chest and normal palpation of entire chest wall Resp: COMMON NORMALS: normal respiratory effort, No retractions, No use of accessory muscles and clear to auscultation bilaterally AUSCULTATION: clear to auscultation bilaterally Cardio: COMMON NORMALS: No murmurs present (Cardio) RATE: tachycardic R HYTHM: abnormal rhythm irregularly irregular GI: COMMON NORMALS: Normal to inspection, nondistended, normoactive bowel sounds present, Soft to palpation, non-tender and no masses PALPATION: Yes Soft to palpation Extremity: COMMON NORMALS: normal to inspection and full ROM Neuro: COMMON NORMALS: patient oriented x3, moves all extremities and no focal motor deficits Psych: COMMON NORMALS: mental status grossly normal, Normal thought process present and cooperative THOUGHT PROCESS: Normal thought process present Skin: COMMON NORMALS: no rashes or lesions noted and no wounds GENERAL SKIN EXAM: no rashes or lesions noted Course 2 Vital Signs: Vital signs: Vital Signs Temperature 98.0 F 06/29/23 10:51 Pulse Rate 105 H 06/29/23 13:23 Respiratory Rate 27 H 06/29/23 13:23 Blood Pressure 136/85 06/29/23 13:23 Pulse Oximetry 97 06/29/23 13:23 Oxygen Delivery Me thod Nasal Cannula 06/29/23 11:00 Oxygen Flow Rate 2 06/29/23 11:00 MDM - Chest Pain Medical Decision Making Patient presents here with chest pain along with A-fib with RVR his heart rate did improve after Cardizem bolus but he is now back up to the 120s did start him on a Cardizem drip his chest pain is resolved here he does have an elevated 2- hour troponin could be due to his A-fib as well spoke to the hospitalist will admit to CSU we will trend a 6-hour troponin. Medical Records I reviewed the patient's medical records. Lab Data I reviewed the patient's lab results. 06/29/23 10:30 06/29/23 10:30 Laboratory Results WBC 9.54 10^3/uL (3.29-11.43) 06/29/23 10:30 RBC 5.06 10^6/uL (3.85-5.65) 06/29/23 10:30 Hgb 15.30 g/dL (11.27-16.99) 06/29/23 10:30 Hct 45.5 % (37-53) 06/29/23 10:30 MCV 89.9 fl (82-101) 06/29/23 10:30 MCH 30.2 pg (27-33) 06/29/23 10:30 MCHC 33.6 g/dL (30-55) 06/29/23 10:30 RDW 15.4 % (12.1-15.1) H 06/29/23 10:30 Plt Count 352 10^3/cmm (157-399) 06/29/23 10:30 MPV 9.5 fL (7.4-10.4) 06/29/23 10:30 Neut % (Auto) 45.4 % 06/29/23 10:30 Lymph % (Auto) 36.7 % 06/29/23 10:30 [place] % (Auto) 9.0 % 06/29/23 10:30 Eos % (Auto) 7.7 % 06/29/23 10:30 Baso % (Auto) 0.8 % 06/29/23 10:30 Neut # (Auto) 4.33 10^3/uL (1.8-7.7) 06/29/23 10:30 Lymph # (Auto) 3.5 10^3/uL (0.8-4.8) 06/29/23 10:30 [place] # (Auto) 0.9 10^3/uL (0.2-0.9) 06/29/23 10:30 Eos # (Auto) 0.7 10^3/uL (0.0-0.8) 06/29/23 10:30 Baso # (Auto) 0.1 10^3/uL (0.0-0.1) 06/29/23 10:30 Nucleated RBC % (auto) 0 % 06/29/23 10:30 Nucleated RBCs # 0.0 /100WBC 06/29/23 10:30 Sodium 135 mmol/L (136-145) L 06/29/23 10:30 Potassium 4.0 mmol/L (3.5-5.1) 06/29/23 10:30 Chloride 99 mmol/L (98-107) 06/29/23 10:30 Carbon Dioxide 21 mmol/L (22-29) L 06/29/23 10:30 Anion Gap 19.0 (5-19) 06/29/23 10:30 BUN 16 mg/dL (8-23) 06/29/23 10:30 Creatinine 1.2 mg/dL (0.7-1.2) 06/29/23 10:30 GFR Calculation Not Reportable 06/29/23 10:30 Glucose 127 mg/dL (65-115) H 06/29/23 10:30 Calculated Osmolality 283 mOsm/kg (285-295) L 06/29/23 10:30 Calcium 9.6 mg/dL (8.5-10.5) 06/29/23 10:30 Total Bilirubin 0.4 mg/dL (0.15-1.2) 06/29/23 10:30 AST 23 U/L (0-40) 06/29/23 10:30 ALT 17 U/L (0-41) 06/29/23 10:30 Alkaline Phosphatase 93 U/L (40-130) 06/29/23 10:30 Troponin T Baseline 55 ng/L (0-15) H 06/29/23 10:30 Troponin T 120 Minute 69.33 ng/L (0-15) H 06/29/23 12:28 Delta Troponin T 14.33 ABS# (0-10) H* 06/29/23 12:28 Total Protein 7.8 g/dL (6.6-8.7) 06/29/23 10:30 Albumin 4.0 g/dL (3.5-5.2) 06/29/23 10:30 Globulin 3.8 g/dL (1.3-4.6) 06/29/23 10:30 Digoxin 1.1 ng/mL (0.6-1.2) 06/29/23 10:30 All radiology interpretation(s) finalized by discharge EKG Data EKG 1: I personally reviewed and interpreted this EKG as follows: EKG interpretation date: 06/29/23 EKG interpretation time: 10:54 Interpretation: afib rvr hr [address] or t wave abnormalities qrs 129 qtc 406 Discharge Plan Discharge Patient Disposition: Admitted As Inpatient Clinical Impression: Atrial fibrillation with RVR, Chest pain Condition: Stable Prescriptions: No Action bisacodyl [Dulcolax (bisacodyl)] 10 mg suppository 10 mg [place] DAILY PRN (Reason: Constipation) digoxin 125 mcg (0.125 mg) tablet 125 mcg PO DAILY@07 Rx Instructions: hold for pulse less than 60 propafenone 225 mg capsule,extended release 12 hr 225 mg PO Q12H Rx Instructions: @07:00,19:00 medroxyprogesterone 10 mg tablet 10 mg PO DAILY@07 acetaminophen [Tylenol] 325 mg tablet 650 mg PO Q4H PRN (Reason: Pain) fluticasone propionate 50 mcg/actuation spray,suspension 1 spray INTRANASAL BID@,21 aspirin [Adult Aspirin Regimen] 81 mg tablet,delayed release (DR/EC) 81 mg PO DAILY@07 hydrocodone-acetaminophen 7.5-325 mg tablet 1 tab PO Q6H PRN (Reason: Pain) (DME) sling See Rx Instructions .Route .MEDSUPPLY Qty: 1 0RF Rx Instructions: As directed (DME) [place] J COLLAR See Rx Instructions .Route .MEDSUPPLY Qty: 1 0RF Rx Instructions: As directed (DME) Shoulder Immobilizer See Rx Instructions .Route .MEDSUPPLY Qty: 1 0RF Rx Instructions: As directed ammonium lactate 12 % Cream 1 applic TOPICAL DAILY sodium chloride 1,000 mg Tablet,Soluble 1,000 mg PO DAILY oxcarbazepine 300 mg tablet 300 mg PO BID@07,19 omeprazole 40 mg Capsule,Delayed Release(Dr/Ec) 40 mg PO DAILY@07 tramadol [Ultram] 50 mg Tablet 50 mg PO Q8H PRN (Reason: Pain) levothyroxine 100 mcg tablet 100 mcg PO DAILY@06 Evlzf-Xz-Qik Enema 19-7 gram/118 mL Enema 118 ml [place] DAILY PRN (Reason: Constipation) lidocaine HCl [Lidocaine Viscous] 2 % Solution See Rx Instructions .ROUTE .COMPLEX Rx Instructions: give 15ml po every 2 hours as needed for gum pain Referrals: Rito Woods MD [Primary Care Provider] - Coding Level of Care Code ED Steward/Stewardess Second for Brandyg Giana
[2023-06-29] MEDS: sodium chloride 0.9% 1,000 ML 999 ML IV (11:10)
[2023-06-29 11:12] LABS: Troponin(5th) Baseline 55 ng/L (0-15)
[2023-06-29] MEDS: dilTIAZem 5 mg/mL SDV 5 mL 10 MG IVP (11:12)
[2023-06-29 11:15] LABS: Alanine Aminotransferase 17 U/L (0-41); Alkaline Phosphatase 93 U/L (40-130); Aspartate Amino Transferase 23 U/L (0-40); Blood Urea Nitrogen 16 mg/dL (8-23); Calcium 9.6 mg/dL (8.5-10.5); Carbon Dioxide 21 mmol/L (22-29); Chloride 99 mmol/L (98-107); Digoxin 1.1 ng/mL (0.6-1.2); Globulin 3.8 g/dL (1.3-4.6); Glucose 127 mg/dL (65-115); Osmolality Calculated 283 mOsm/kg (285-295); Sodium 135 mmol/L (136-145); Total Bilirubin 0.4 mg/dL (0.15-1.2); Total Protein 7.8 g/dL (6.6-8.7)
--- NOTE | 2023-06-29 12:43 | ECG_ITS ---
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 Measurements Intervals [place] Rate: 112 P: 0 ME: 0 QRS: -61 QRSD: 99 T: 73 QT: 387 QTc: 530 Interpretive Statements ATRIAL FLUTTER/TACHYCARDIA WITH RAPID VENTRICULAR RESPONSE LEFT AXIS DEVIATION [QRS AXIS < -30] PATTERN CONSISTENT WITH PULMONARY DISEASE INCOMPLETE RIGHT BUNDLE BRANCH BLOCK [90+ ms QRS DURATION, TERMINAL R IN V1/V2, 40+ ms S IN I/aVL/V4/V5/V6] ST DEPRESSION, CONSIDER SUBENDOCARDIAL INJURY [0.1+ mV ST DEPRESSION] Compared to ECG 06/29/2023 10:54:05 Incomplete right bundle-branch block now present Atrial fibrillation no longer present.Right bundle-branch block no longer present ST (T wave) deviation still present Electronically Signed On 06-30-2023 19:40:17 BAG MACHINE OPERATOR HELPER by Malika Gutierrez M.D. [id number]
[2023-06-29 13:04] LABS: Troponin 5 2HR 69.33 ng/L (0-15)
[2023-06-29 13:14] LABS: Troponin 5 2HR Delta 14.33 ABS# (0-10)
[2023-06-29 13:47] LABS: INR 0.94 (0.8-1.2)
--- NOTE | 2023-06-29 14:28 | P.HP_ITS ---
Providers/Chief Complaint 2 Admitting Physician: Savanna Wright MD Primary Care Provider: Rito Woods MD Chief Complaint: chest pain History of Present Illness Sylvia Baptiste is a 82 year old male who presented from senior living with chief complaint of chest pain. He indicates that he was lying in bed today when he had sudden onset of substernal chest pain. It was a pressure-like sensation that was severe. Does not recall if he had any associated symptoms. He was brought into the emergency room by EMS for evaluation. He was noted to be in atrial fibrillation with rapid ventricular response. Heart rate was as high as 120s to 130s. He has a known history of what sounds like paroxysmal atrial fibrillation from what I can discern from previous records. He is not on chronic anticoagulation due to history of GI bleed but he does take aspirin regularly. Heart rate is controlled by digoxin and propafenone. Digoxin level was checked and was within appropriate range. In the emergency room heart rate was 118 on arrival. He received some IV push Cardizem with initial improvement in his heart rate but subsequently developed rapid ventricular response again. 2-hour troponin was also noted to be slightly elevated with a delta at 14. He was chest pain-free. EMS had given him nitroglycerin x 2 doses. No known history of coronary artery disease from review of old records. He does have permanent pacemaker. He denies having had similar symptoms previously. History is obtained from Mr. Baptiste. While he is a alert and oriented to person, place, time and situation when to start talking with him it becomes apparent that he is confused about some details of his history and that answers to some questions are not the same if such questions are asked again. He does have a personal history of some dementia that presented primarily with behavioral changes a few years ago leading to him being at [facility]. he was originally on a dementia unit but currently resides on the regular floor after significant improvement with medications. Mr. Baptiste follows with Dr. Gutierrez on an outpatient basis and last saw him in January 2023. Twelve-lead EKG showed atrial fibrillation with rapid ventricular response initially. Review of Systems 2 General: Reports: Other (ROS as per HPI or as otherwise noted here) Const: Denies: fever(s) ENMT: Denies: throat pain Card: Reports: chest pain and palpitations; Denies: swelling of feet/ankles or dyspnea on exertion Resp: Denies: productive cough or non-productive cough GI: Denies: nausea, vomiting or hematochezia : Denies: difficulty urinating or hematuria Neuro: Reports: weakness in extremities (general, not focal); Denies: dizziness Psych: Reports: anxiety and depression (sad as he has not seen his or daughter) Cameron/Lymph: Denies: easy bleeding Medications/Allergies Home Medications Medication Instructions Recorded Confirmed Last Taken Type acetaminophen 325 mg tablet 650 mg PO Q4H PRN Pain 06/27/19 06/29/23 02/24/22 History (Tylenol) bisacodyl 10 mg rectal suppository 10 mg FL DAILY PRN Constipation 06/27/19 06/29/23 Unknown History (Dulcolax (bisacodyl)) digoxin 125 mcg (0.125 mg) tablet 125 mcg PO DAILY@06/27/19 06/29/23 02/25/22 History fluticasone propionate 50 1 spray intranasal BID@06/27/19 06/29/23 02/25/22 History mcg/actuation nasal spray,suspension medroxyprogesterone 10 mg tablet 10 mg PO DAILY@06/27/19 06/29/23 02/25/22 History propafenone 225 mg 225 mg PO Q12H 06/27/19 06/29/23 02/25/22 History capsule,extended release 12 hr aspirin 81 mg tablet,delayed 81 mg PO DAILY@08/07/20 06/29/23 02/25/22 History release (Adult Aspirin Regimen) levothyroxine 100 mcg tablet 100 mcg PO DAILY@01/24/22 06/29/23 02/25/22 History lidocaine HCl 2 % mucosal solution See Rx Instructions .Route .COMPLEX 01/24/22 06/29/23 01/22/22 History (Lidocaine Viscous) omeprazole 40 mg capsule,delayed 40 mg PO DAILY@01/24/22 06/29/23 02/25/22 History release oxcarbazepine 300 mg tablet 300 mg PO BID@01/24/22 06/29/23 02/25/22 History sodium phosphates 19 gram-7 118 ml FL DAILY PRN Constipation 01/24/22 06/29/23 Unknown History gram/118 mL enema (Plmkk-Kw-Cwf Enema) sling #1 ea 03/05/22 06/29/23 Unknown Rx [place] J COLLAR #1 ea 03/06/22 06/29/23 Unknown Rx Shoulder Immobilizer #1 ea 03/06/22 06/29/23 Unknown Rx hydrocodone 7.5 mg-acetaminophen 1 tab PO Q6H PRN Pain 07/28/22 06/29/23 Unknown History 325 mg tablet ammonium lactate 12 % topical cream 1 applic topical DAILY 11/03/22 06/29/23 Unknown History sodium chloride 1,000 mg soluble 1,000 mg PO DAILY 11/03/22 06/29/23 Unknown History tablet fexofenadine 180 mg tablet 180 mg PO DAILY 06/29/23 06/29/23 Unknown History magnesium hydroxide 400 mg/5 mL See Rx Instructions .Route 06/29/23 06/29/23 Unknown History oral suspension (Milk of Magnesia) .COMPLEX PRN Constipation nitroglycerin 0.4 mg sublingual See Rx Instructions .Route 06/29/23 06/29/23 Unknown History tablet (Nitrostat) .COMPLEX PRN Chest Pain Allergies Allergy/AdvReac Type Severity Reaction Status Date / Time No Known Allergies Allergy Verified 06/29/23 10:59 PFSH Acute 2 PFSH: Medical History (Updated 06/29/23 @ 17:43 by Savanna Wright MD) Hypothyroidism Tremor Alzheimer's dementia Orthostatic hypotension Anxiety Humerus fracture Conduct disorder on medroxyprogesterone Syncope Seizure Urinary tract infection Dupuytren's contracture of right hand Hypertension Hyperlipidemia Atrial fibrillation Patient is taking a full ASA. Refuses Warfarin due to GI bleed in the past. Pt has episodes of atrial fibrillation with rapid ventricular rate. He has a history of TIA as well. ? BPH (benign prostatic hyperplasia) Insomnia GI bleed Adrenal adenoma benign Thoracic back pain Depression Neuropathy TIA (transient ischemic attack) Diverticulitis Incontinence GERD (gastroesophageal reflux disease) Pacemaker Osteoporosis Surgical History Hx of cataract surgery H/O vasectomy S/P foot surgery, right Family History Other CAD (coronary artery disease) Cancer Dementia Diabetes Hypertension Denies family history of Clotting disorder Chronic kidney disease (CKD) Suicide Anesthesia complication Bleeding disorder Lung disease Stroke Social History (Updated 06/29/23 @ 17:41 by Savanna Wright MD) Smoking and tobacco/nicotine status: never used tobacco/nicotine Alcohol intake: never Substance/Drug Use: never Housing: [facility] Vitals/I&O/Wt Last Vital Signs Temp 98.0 F 06/29/23 10:51 Pulse 70 06/29/23 14:00 Resp 24 H 06/29/23 14:00 BP 145/75 06/29/23 14:00 Pulse Ox 96 06/29/23 14:00 O2 Del Method Nasal Cannula 06/29/23 11:00 O2 Flow Rate 2 06/29/23 11:00 06/28/23 06/29/23 06/29/23 22:59 06:59 14:59 Intake Total 1000 / 1000 Balance 1000 / 1000 Weight last 48 hrs Weight 78.925 kg Physical Exam 2 Narrative: Patient is awake and alert. Extraocular movements are intact. Oropharynx with moist mucous membranes. Neck is supple. Lungs are clear to auscultation bilaterally without any rales rhonchi or wheezes noted. Cardiovascular examination at the time of my exam shows a regular rate and rhythm without any murmurs gallops or rubs. Pulses are 2+ radially, 1+ at the feet. Abdomen is soft. Nontender. Extremities there is no pitting edema. Speech is clear. Face is symmetric. Handgrip is equal. Patient has a sad demeanor with some tearing up as he talks about his and daughter and missing them. Data 06/29/23 10:30 06/29/23 10:30 Other Labs: Laboratory Results WBC 9.54 10^3/uL (3.29-11.43) 06/29/23 10:30 RBC 5.06 10^6/uL (3.85-5.65) 06/29/23 10:30 Hgb 15.30 g/dL (11.27-16.99) 06/29/23 10:30 Hct 45.5 % (37-53) 06/29/23 10:30 MCV 89.9 fl (82-101) 06/29/23 10:30 MCH 30.2 pg (27-33) 06/29/23 10:30 MCHC 33.6 g/dL (30-55) 06/29/23 10:30 RDW 15.4 % (12.1-15.1) H 06/29/23 10:30 Plt Count 352 10^3/cmm (157-399) 06/29/23 10:30 MPV 9.5 fL (7.4-10.4) 06/29/23 10:30 Neut % (Auto) 45.4 % 06/29/23 10:30 Lymph % (Auto) 36.7 % 06/29/23 10:30 [place] % (Auto) 9.0 % 06/29/23 10:30 Eos % (Auto) 7.7 % 06/29/23 10:30 Baso % (Auto) 0.8 % 06/29/23 10:30 Neut # (Auto) 4.33 10^3/uL (1.8-7.7) 06/29/23 10:30 Lymph # (Auto) 3.5 10^3/uL (0.8-4.8) 06/29/23 10:30 [place] # (Auto) 0.9 10^3/uL (0.2-0.9) 06/29/23 10:30 Eos # (Auto) 0.7 10^3/uL (0.0-0.8) 06/29/23 10:30 Baso # (Auto) 0.1 10^3/uL (0.0-0.1) 06/29/23 10:30 Nucleated RBC % (auto) 0 % 06/29/23 10:30 Nucleated RBCs # 0.0 /100WBC 06/29/23 10:30 PT 12.80 SECONDS (12.1-14.9) 06/29/23 10:30 INR 0.94 (0.8-1.2) 06/29/23 10:30 Sodium 135 mmol/L (136-145) L 06/29/23 10:30 Potassium 4.0 mmol/L (3.5-5.1) 06/29/23 10:30 Chloride 99 mmol/L (98-107) 06/29/23 10:30 Carbon Dioxide 21 mmol/L (22-29) L 06/29/23 10:30 Anion Gap 19.0 (5-19) 06/29/23 10:30 BUN 16 mg/dL (8-23) 06/29/23 10:30 Creatinine 1.2 mg/dL (0.7-1.2) 06/29/23 10:30 GFR Calculation Not Reportable 06/29/23 10:30 Glucose 127 mg/dL (65-115) H 06/29/23 10:30 Calculated Osmolality 283 mOsm/kg (285-295) L 06/29/23 10:30 Calcium 9.6 mg/dL (8.5-10.5) 06/29/23 10:30 Total Bilirubin 0.4 mg/dL (0.15-1.2) 06/29/23 10:30 AST 23 U/L (0-40) 06/29/23 10:30 ALT 17 U/L (0-41) 06/29/23 10:30 Alkaline Phosphatase 93 U/L (40-130) 06/29/23 10:30 Troponin T Baseline 55 ng/L (0-15) H 06/29/23 10:30 Troponin T 120 Minute 69.33 ng/L (0-15) H 06/29/23 12:28 Delta Troponin T 14.33 ABS# (0-10) H* 06/29/23 12:28 Total Protein 7.8 g/dL (6.6-8.7) 06/29/23 10:30 Albumin 4.0 g/dL (3.5-5.2) 06/29/23 10:30 Globulin 3.8 g/dL (1.3-4.6) 06/29/23 10:30 Digoxin 1.1 ng/mL (0.6-1.2) 06/29/23 10:30 A&P Assessment and plan (1) Chest pain: Precordial chest pain with 2-hour delta troponin just outside of normal range. Could be secondary to onset of A-fib with RVR which is an intermittent problem for him or could be the cause of atrial fibrillation with rapid ventricular response. Has resolved after rate control, nitroglycerin and return to sinus rhythm more recently noted during my evaluation of him once on the floor. No known history of coronary artery disease but has multiple risk factors including known history of hypertension, hyperlipidemia, atrial fibrillation. (2) Atrial fibrillation: History of longstanding persistent atrial fibrillation that has been managed with antiarrhythmics and digoxin. He occasionally develops A-fib with RVR according to outpatient cardiology records, Which would be more of a paroxysmal pattern since starting propafenone. I am unable to discern from him what symptoms he has had previously with A-fib with RVR but he does not think that it was likely he experienced today. Initially required Cardizem for rate control but has since converted to sinus rhythm since arriving to floor. Qualifiers: Atrial fibrillation type: longstanding persistent Qualified Code(s): I 48.11 - Longstanding persistent atrial fibrillation (3) Pacemaker: Noted. Has been checked as recently as last clinic visit and January 2023 at which time battery life was deemed adequate and no specific abnormalities were noted. (4) Hypertension: Outpatient diagnosis though does not currently appear to be on any outpatient medication specifically for this. Blood pressures lower ranger after receiving 2 dose of nitroglycerin by EMS and diltiazem in ED, but have since elevated Qualifiers: Hypertension type: essential hypertension Qualified Code(s): I10 - Essential (primary) hypertension (5) Hyperlipidemia: Outpatient diagnosis but does not appear to be on any medication management chronically Qualifiers: Hyperlipidemia type: mixed hyperlipidemia Qualified Code(s): E78.2 - Mixed hyperlipidemia (6) Hypothyroidism: Acquired, chronically on levothyroxine (7) Conduct disorder: Chronically on medroxyprogesterone with good result along with oxcarbazepine (8) Anxiety: Present at admission along with tearfulness. From what I can gather appears to be a component of both conduct disorder and a degree of dementia. (9) Alzheimer's dementia: Diagnosis from senior living records. Patient was originally admitted to a behavioral unit a few years ago due to significant hypersexuality and conduct changes. Symptoms have been managed with medroxyprogesterone and oxcarbazepine with improvement. Most of the time patient will appear alert and oriented upon first talking to him but he does have difficulty recalling accurate details and can be emotional at times. Plan Observation admission for now Telemetry monitoring Given return of sinus rhythm will hold continuation of further cardizem at this time Continue serial cardiac enzymes Continue home digoxin and propafenone Discussed with Dr Gutierrez and he recommended cardiac stress testing which I have ordered Pacemaker check Continue aspirin and nitroglycerin, both home medications Add Lovenox Add nitro, may need antihypertensive at discharge Check lipid panel Check urinalysis Continue home levothyroxine, check TSH due to RVR Continue home medroxyprogesterone and oxcarbazepine Continue home fexofenadine and fluticasone for allergies Continue home omeprazole VTE prophylaxis: Lovenox currently at treatment dose GI Prophylaxis: PPI Telemetry: ordered secondary to afib with rvr at presentation Ruiz: not currently indicated Line(s): peripheral IVs Disposition plan: Home with outpatient follow up currently anticipated plus or minus follow-up with cardiology sooner than currently scheduled (08/19/23) Code Status: Allow Natural as per facility records Supportive care otherwise Findings, concerns and plans were discussed with patient and they were given an opportunity to ask questions Attestations 2 Medical Necessity Statement*: Currently anticipate a stay less than two midnights in this gentleman with a known history of atrial fibrillation presenting with chest pain and found to be in atrial fibrillation with rapid ventricular response. Chest pain has resolved as has his atrial fibrillation with rapid ventricular response. 2-hour troponin however is positive with a delta of 14 and etiology of either chest pain or A-fib with RVR is not clear at this point in time. Plans are as indicated. and High Time for a total of 80 minutes, includes reviewing past or interval history, examining/interviewing patient, placing orders, updating patient/family/other support, discussing plan of care with staff (nursing), communicating with other healthcare providers and documenting encounter Diagnoses Chest pain R07.9 Longstanding persistent atrial fibrillation I48.11 Atrial fibrillation type: longstanding persistent Pacemaker Z95.0 Essential hypertension I10 Hypertension type: essential hypertension Mixed hyperlipidemia E78.2 Hyperlipidemia type: mixed hyperlipidemia Hypothyroidism E03.9 Conduct disorder F91.9 Anxiety F41.9 Alzheimer's dementia G30.9; F02.80
[2023-06-29] MEDS: propafenone 150 mg Tablet PO ×2 (16:17→20:08)
[2023-06-29] MEDS: enoxaparin 80 mg/0.8 mL Syringe SUBCUT (16:17)
--- NOTE | 2023-06-29 17:00 | ECG_ITS ---
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 Measurements Intervals [place] Rate: 70 P: 128 AL: 221 QRS: -2 QRSD: 105 T: 122 QT: 389 QTc: 420 Interpretive Statements ELECTRONIC ATRIAL PACEMAKER INCOMPLETE RIGHT BUNDLE BRANCH BLOCK [90+ ms QRS DURATION, TERMINAL R IN V1/V2, 40+ ms S IN I/aVL/V4/V5/V6] NONSPECIFIC ST & T-WAVE ABNORMALITY Compared to ECG 06/29/2023 13:02:39 T-wave abnormality now present Atrial flutter no longer present Left-axis deviation no longer present ST (T wave) deviation no longer present Electronically Signed On 06-30-2023 19:41:09 REAL ESTATE ASSOCIATE by Malika Gutierrez M.D. [id number]
[2023-06-29 17:11] LABS: Troponin 5 6HR 207.9 ng/L (0-15); Troponin 5 6HR Delta 152.9 ng/L (0-12)
--- NOTE | 2023-06-29 17:26 | ECG_ITS ---
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 Interpretive Statements NAME OF STUDY: LEXISCAN SESTAMIBI STRESS TEST INDICATION: Chest pain, Afib with RVR; Positive Troponin PROCEDURE: At the baseline, the EKG revealed normal sinus rhythm with an incomplete right bundle branch block pattern. The baseline heart was 73 bpm with a blood pressue of 180/75 mm of Hg Lexiscan was infused over a period of 20 seconds. A total of 0.4 milligrams of Lexiscan was infused. The stress phase was continued for a total of 5 minutes. Heart rate at the end of the stress phase was 84 bpm with a blood pressure 150/74 mm of Hg. The EKG at the peak infusion revealed some nonspecific ST changes. Sestamibi was injected 20 seconds after the Lexiscan infusion. Heart rate at the end of the recovery phase was 82 bpm with a blood pressure of 138/74 mm of Hg. CONCLUSION: 1. No significant EKG changes with the LexiScan infusion 2. No LexiScan induced chest pain or cardiac arrhythmia 3. Normal blood pressure and heart rate response 4. Sestamibi/sestamibi perfusion scan pending; see separate report. Electronically Signed On 07-01-2023 10:17:44 GIVING OFFICER by Malika Gutierrez M.D. [id number]
[2023-06-29] MEDS: nitroglycerin 1 gm/inch oint Pkt 0.5 INCH TOPICAL (18:49)
[2023-06-29] MEDS: OXcarbazepine 300 mg Tablet PO (20:08)
[2023-06-29] MEDS: atorvastatin 40 mg Tablet PO (20:08)
[2023-06-29] MEDS: fluticasone nasal spray 16gm Btl 1 SPRAY INTRANASAL (20:08)
[2023-06-30] VITALS (13 sets, daily range): BP systolic 133–188; BP diastolic 62–84; PULSE 69–82; RESP 13–35; TEMP 36.4–36.8; O2SAT 95–97
[2023-06-30] MEDS: nitroglycerin 1 gm/inch oint Pkt 0.5 INCH TOPICAL ×4 (00:59→17:24)
[2023-06-30 04:41] LABS: Basophils # 0.1 10^3/uL (0.0-0.1); Basophils % 0.7 %; Eosinophils # 0.5 10^3/uL (0.0-0.8); Eosinophils % 6.4 %; Hematocrit 36.6 % (37-53); Lymphocytes # 2.1 10^3/uL (0.8-4.8); Lymphocytes % 25.9 %; Mean Corpuscular HGB Conc 33.1 g/dL (30-55); Mean Corpuscular Hemoglobin 30.4 pg (27-33); Mean Platelet Volume 9.7 fL (7.4-10.4); Monocytes # 0.8 10^3/uL (0.2-0.9); Monocytes % 10.2 %; Neutrophils # 4.67 10^3/uL (1.8-7.7); Neutrophils % 56.4 %; Nucleated Red Blood Cells % 0 %; Platelet Count 287 10^3/cmm (157-399); Red Blood Count 3.98 10^6/uL (3.85-5.65); Red Cell Distribution Width 15.6 % (12.1-15.1); White Blood Count 8.27 10^3/uL (3.29-11.43)
[2023-06-30 04:58] LABS: Anion Gap 14.1 (5-19); Blood Urea Nitrogen 16 mg/dL (8-23); Calcium 8.9 mg/dL (8.5-10.5); Carbon Dioxide 21 mmol/L (22-29); Chloride 105 mmol/L (98-107); Glucose 95 mg/dL (65-115); Osmolality Calculated 283 mOsm/kg (285-295); Phosphorus 3.9 mg/dL (2.5-4.5); Potassium 4.1 mmol/L (3.5-5.1); Sodium 136 mmol/L (136-145)
[2023-06-30 05:13] LABS: Chol HDL Ratio 5.97 mg/dL (1.0-5.00); Cholesterol 173 mg/dL (0-200); HDL Cholesterol 29 mg/dL (60-100); LDL Cholesterol Calculated 111 mg/dL (50-129); LDL HDL Ratio 3.83 RATIO (0.00-3.22); Thyroid Stimulating Hormone 2.81 uIU/mL (0.27-4.20); Triglycerides 165 mg/dL (0-150)
[2023-06-30] MEDS: regadenoson 0.4 Mg/5 ml Syringe IVP (07:35)
--- NOTE | 2023-06-30 08:00 | NMCV_ITS ---
NM toni perf SPECT r/s* [id number] Sylvia Baptiste Age: 82 Gender: M : 1940 Exam Date: 06/30/2023 06:49 Ordering Phys: Savanna Wright MD Technologist: MONY Li Exam Location: [facility] Indications: CHEST PAIN STRESS TEST Please see separate stress test report in [facility] for full findings IMAGE PROTOCOL Rest/Stress 1 Lexiscan Day Radiopharmaceutical Dose (mCi) Administration Site Administered by Rest: Tc-99m 10.9 IV MONY Alexander Sestamibi Stress:Tc-99m 32.9 IV MONY Alexander Sestamibi Rest: 30-Jun-2023 60 Discovery 630 Stress: 30-Jun-2023 30 Discovery 630 0.4mg Lexiscan. Supine position only as patient was unable to lay prone. SPECT RESULTS Technical Quality: Excellent Raw Data Analysis: Normal Image Corrections: No attenuation or motion correction applied Summed Stress Score: 8 Summed Rest Score: 1 Summed Difference Score: 7 PERFUSION FINDINGS Moderate area of moderately decreased tracer uptake involving the basal and mid inferior, mid inferolateral and apical lateral region with almost complete reversibility FUNCTIONAL RESULTS (calculated via Gated SPECT) Stress Image LV EF (%): 74 Stress EDV (mL):89 TID: 0.96 Stress ESV (mL):23 FUNCTIONAL FINDINGS: Segmental wall motion analysis revealing no gross wall motion abnormalities. IMPRESSIONS 1. Myocardial perfusion imaging revealing moderate area of reversible defect involving the inferior, inferolateral and apical lateral regions suggesting ischemia in the distribution of the right coronary artery/circumflex artery 2. Normal LV ejection fraction 74%. 3. LV wall motion analysis revealing no gross wall motion abnormalities. 4. Normal LV volume No similar previous studies are available for comparison Dr Malika Gutierrez MD [facility] (Electronically Signed) Final Date: 30 June 2023 10:02 S
[2023-06-30] MEDS: sodium chloride 1 gm Tablet PO (08:49)
[2023-06-30] MEDS: fexofenadine 60 mg Tablet 180 MG PO (08:49)
[2023-06-30] MEDS: medroxyprogesterone 2.5 mg Tablet 10 MG PO (08:49)
[2023-06-30] MEDS: levothyroxine 100 mcg Tablet PO (08:50)
[2023-06-30] MEDS: aspirin 81 mg EC Tablet PO (08:50)
[2023-06-30] MEDS: OXcarbazepine 300 mg Tablet PO ×2 (08:50→19:54)
[2023-06-30] MEDS: propafenone 150 mg Tablet PO ×3 (08:50→21:09)
[2023-06-30] MEDS: digoxin 125 mcg Tablet PO (08:51)
[2023-06-30] MEDS: pantoprazole DR 40 mg Tablet PO (08:51)
--- NOTE | 2023-06-30 09:07 | PC.CHAP ---
Pastoral Care Encounter/Spiritual Assessment Type of Contact [] Declined laborer petroleum refinery visit [] Patient/Family/Request visit [] Outpatient visit [] Follow-up visit [] Physician referral [] Code/Alert [] Routine visit [] Staff referral [] Actively dying [] Patient sleeping [] Family support [] [] Out of room [] Palliative care [] [x] Receiving care in room [] Pre-surgical visit [] Trauma [] Long length of stay [] ICU visit [] Other: Relational/Emotional Strength [] Patient feels connected with others/family/visitors/staff [] Distress [] Loneliness/isolation [] Abandonment Spirituality of Patient [] Person of Aracelis [] Attends Adventism of their Aracelis [] Believes in Prayer [] Reads Bible or Denominational materials [] There are Spiritual issues to be addressed Polishing Machine Operator Helper Interventions [] Prayer [] Active listening [] Non-anxious presence [] Spiritual/emotional support [] Crisis/trauma care [] Spiritual counseling [] Bereavement support [] Provided bereavement packet [] Provided Bible/devotional materials [] Provided toy/stuffed animal, coloring book to patient or family member [] Provided Communion [] Anointing/[place] [] Salvation [] Completed spiritual assessment [] Other: Impact on Illness or Injury [] Angry [] Fearful [] Anxious [] Often cries [] Exhaustion [] Unable to work [] Unable to attend zoroastrianism [] Unable to walk/stand [] Unable to read [] Unable to drive [] Unable to eat/drink [] Unable to sleep [] Unable to be with family [] Patient intubated [] Other: Summary Time spent with patient
--- NOTE | 2023-06-30 12:06 | P.PN_ITS ---
Subjective 2 Subjective: Positive stress test Considering dementia chronic kidney disease and no symptoms at rest discussed the option of angiogram versus medical management, I discussed this case with Dr. Mcpherson over the phone as well who recommended optimization of antianginal for now I have discussed this with the daughter and his Vitals/I&O/Wt Last Vital Signs Temp 97.6 F 06/30/23 09:02 Pulse 79 06/30/23 09:02 Resp 16 06/30/23 09:02 BP 186/79 06/30/23 09:02 Pulse Ox 97 06/30/23 09:02 O2 Del Method Room Air 06/30/23 03:07 O2 Flow Rate 2 06/29/23 11:00 06/29/23 06/30/23 06/30/23 22:59 06:59 14:59 Intake Total 716 / 716 Output Total 190 / 190 Balance 526 / 526 Weight last 48 hrs Weight 81.238 kg Weight 81.238 kg Weight 80.739 kg Weight 78.925 kg Physical Exam 2 Narrative: GCS 15 Awake and alert No active chest pain Awake and alert Eating breakfast S1, S2 Abdomen soft Data 06/30/23 03:52 06/30/23 03:52 A&P Assessment and plan (1) Positive cardiac stress test: (2) Chest pain: (3) NSTEMI (non-ST elevated myocardial infarction): (4) Hypertension: Qualifiers: Hypertension type: essential hypertension Qualified Code(s): I10 - Essential (primary) hypertension (5) Atrial fibrillation: Qualifiers: Atrial fibrillation type: longstanding persistent Qualified Code(s): I 48.11 - Longstanding persistent atrial fibrillation (6) Hypothyroidism: (7) Alzheimer's dementia: (8) Generalized weakness: Plan Positive stress test Plan is to medically optimize for now in case patient fails his medical management he can go for an angiogram for now as per my discussion with the family and Dr. Mcpherson over the phone, no plan for intervention as of now, this will change if patient starts getting symptoms or family thinks otherwise Continue cardiac diet Patient does not have capacity to make decision A-fib without RVR Not a candidate to be on anticoagulating agent DNR/DNI Multiple phone calls were made, spoke with Dr. Mcpherson, mother and call daughter twice, also had a family meeting later in the day Attestations 2 Medical Necessity Statement*: Possible discharge by tomorrow Diagnoses Positive cardiac stress test R94.39 Chest pain R07.9 NSTEMI (non-ST elevated myocardial infarction) I21.4 Essential hypertension I10 Hypertension type: essential hypertension Longstanding persistent atrial fibrillation I48.11 Atrial fibrillation type: longstanding persistent Hypothyroidism E03.9 Alzheimer's dementia G30.9; F02.80 Generalized weakness R53.1
[2023-06-30] MEDS: enoxaparin 80 mg/0.8 mL Syringe SUBCUT (13:50)
[2023-06-30] MEDS: fluticasone nasal spray 16gm Btl 1 SPRAY INTRANASAL ×2 (13:51→21:10)
--- NOTE | 2023-06-30 14:07 | PM.CONSULT ---
Providers/Reason For Consult Consulting Physician/Specialty*: LARON Gutierrez MD/cardiology Reason for Consult*: Patient with a chest pain and abnormal Myocardial perfusion imaging Requesting Physician: Dr. Knowles Attending Physician: Mark Knowles MD Primary Care Provider: Rito Woods MD History of Present Illness History of Present Illness Sylvia Baptiste is a 82 year old male with a history of hypertension, dyslipidemia, chronic intermittent atrial fibrillation, GI bleed and dementia, was brought to the emergency room from the correction with complaints of shortness of breath and chest discomfort. The patient is not able to give any details of the chest pain. The pain was radiating across the chest. He also was found to be short of breath. For these reasons, he was brought to the emergency room. In the emergency room, he was found to be e in atrial fibrillation with rapid ventricular rate. He was started on IV Cardizem in the emergency room. The rhythm spontaneously converted to sinus. His initial troponin T was in the 50s. He had a 2-hour delta of 14 and a 6-hour delta of 150. Apparently he has not been complaining of any chest pain since the hospital admission. For further evaluation of his symptoms, a myocardial perfusion imaging was performed today. He was found to have moderate area of reversible defect in the basal, mid inferior, mid inferolateral and apical lateral regions. Cardiology consult is requested for further cardiac evaluation recommendations. This patient denies any chest pain at the time of my examination. Apparently has not had any chest symptoms since the hospital admission. No fever, chills or cough. He has no previous history for coronary disease or myocardial infarction. No history of congestive heart failure. He had a permanent pacer implantation for sick sinus syndrome in the . The device was revised in 2006 and in 2020. Pacemaker function was found to be appropriate based on the last interrogation. Review of Systems Narrative: CONSTITUTIONAL: No fever or chills. EYES: No blurring of vision or other visual disturbances lately. ENT: No hoarseness of voice, auditory disturbances or sore throat. CARDIOVASCULAR: As mentioned above. RESPIRATORY: No significant cough. GASTROINTESTINAL: History of GI bleed GENITOURINARY: No dysuria or hematuria. INTEGUMENTARY: No skin rashes or history of skin cancer. NEURO: Known to have dementia and history of CVA PSYCHIATRIC: No history of psychosis or major depression. HEMATOLOGIC: History of anemia ENDOCRINE: History of hypothyroidism MUSCULOSKELETAL: No recent joint pain or swelling. ALLERGY/IMMUNOLOGY: As mentioned above. Medications/Allergies Home Medications Medication Instructions Recorded Confirmed Last Taken Type acetaminophen 325 mg tablet 650 mg PO Q4H PRN Pain 06/27/19 06/29/23 02/24/22 History (Tylenol) bisacodyl 10 mg rectal suppository 10 mg MD DAILY PRN Constipation 06/27/19 06/29/23 Unknown History (Dulcolax (bisacodyl)) digoxin 125 mcg (0.125 mg) tablet 125 mcg PO DAILY@06/27/19 06/29/23 02/25/22 History fluticasone propionate 50 1 spray intranasal BID@06/27/19 06/29/23 02/25/22 History mcg/actuation nasal spray,suspension medroxyprogesterone 10 mg tablet 10 mg PO DAILY@06/27/19 06/29/23 02/25/22 History propafenone 225 mg 225 mg PO Q12H 06/27/19 06/29/23 02/25/22 History capsule,extended release 12 hr aspirin 81 mg tablet,delayed 81 mg PO DAILY@08/07/20 06/29/23 02/25/22 History release (Adult Aspirin Regimen) levothyroxine 100 mcg tablet 100 mcg PO DAILY@01/24/22 06/29/23 02/25/22 History lidocaine HCl 2 % mucosal solution See Rx Instructions .Route .COMPLEX 01/24/22 06/29/23 01/22/22 History (Lidocaine Viscous) omeprazole 40 mg capsule,delayed 40 mg PO DAILY@01/24/22 06/29/23 02/25/22 History release oxcarbazepine 300 mg tablet 300 mg PO BID@01/24/22 06/29/23 02/25/22 History sodium phosphates 19 gram-7 118 ml MD DAILY PRN Constipation 01/24/22 06/29/23 Unknown History gram/118 mL enema (Yjiyq-Oq-Cns Enema) sling #1 ea 03/05/22 06/29/23 Unknown Rx [facility] #1 ea 03/06/22 06/29/23 Unknown Rx Shoulder Immobilizer #1 ea 03/06/22 06/29/23 Unknown Rx hydrocodone 7.5 mg-acetaminophen 1 tab PO Q6H PRN Pain 07/28/22 06/29/23 Unknown History 325 mg tablet ammonium lactate 12 % topical cream 1 applic topical DAILY 11/03/22 06/29/23 Unknown History sodium chloride 1,000 mg soluble 1,000 mg PO DAILY 11/03/22 06/29/23 Unknown History tablet fexofenadine 180 mg tablet 180 mg PO DAILY 06/29/23 06/29/23 Unknown History magnesium hydroxide 400 mg/5 mL See Rx Instructions .Route 06/29/23 06/29/23 Unknown History oral suspension (Milk of Magnesia) .COMPLEX PRN Constipation nitroglycerin 0.4 mg sublingual See Rx Instructions .Route 06/29/23 06/29/23 Unknown History tablet (Nitrostat) .COMPLEX PRN Chest Pain Allergies Allergy/AdvReac Type Severity Reaction Status Date / Time No Known Allergies Allergy Verified 06/29/23 10:59 Current Medications Generic Name Dose Route Start Last Admin Trade Name Freq PRN Reason Stop Dose Admin Aspirin 81 mg 06/30/23 09:00 06/30/23 08:50 Aspirin 81 Mg Ec Tablet PO 81 mg DAILY NIRAJ Administration Atorvastatin Calcium 40 mg 06/29/23 21:00 06/29/23 20:08 Atorvastatin 40 Mg Tablet PO 40 mg BEDTIME NIRAJ Administration Digoxin 125 mcg 06/30/23 07:00 06/30/23 08:51 Digoxin 125 Mcg Tablet PO 125 mcg DAILY@07 NIRAJ Administration Docusate Sodium 100 mg 06/29/23 18:00 06/30/23 08:54 Docusate Sodium 100 Mg Capsule PO Not Given BID NIRAJ Enoxaparin Sodium 80 mg 06/30/23 12:00 06/30/23 13:50 Enoxaparin 80 Mg/0.8 Ml Syringe SUBCUT 80 mg Q12H NRIAJ Administration Fexofenadine HCl 180 mg 06/30/23 09:00 06/30/23 08:49 Fexofenadine 60 Mg Tablet PO 180 mg DAILY NIRAJ Administration Fluticasone Propionate 1 spray 06/29/23 21:00 06/30/23 13:51 Fluticasone Nasal Andreas 16gm Btl INTRANASAL 1 spray BID@ NIRAJ Administration Levothyroxine Sodium 100 mcg 06/30/23 06:00 06/30/23 08:50 Levothyroxine 100 Mcg Tablet PO 100 mcg DAILY@06 NIRAJ Administration Medroxyprogesterone Acetate 10 mg 06/30/23 09:00 06/30/23 08:49 Medroxyprogesterone 2.5 Mg Tablet PO 10 mg DAILY NIRAJ Administration Nitroglycerin 0.5 inch 06/29/23 18:00 06/30/23 13:51 Nitroglycerin 1 Gm/Inch Oint Pkt TOPICAL 0.5 inch Q6H NIRAJ Administration Oxcarbazepine 300 mg 06/29/23 19:00 06/30/23 08:50 Oxcarbazepine 300 Mg Tablet PO 300 mg BID@07,19 NIRAJ Administration Pantoprazole Sodium 40 mg 06/30/23 07:00 06/30/23 08:[address] 40 Mg Tablet PO 40 mg DAILY@07 NIRAJ Administration Propafenone HCl 150 mg 06/29/23 15:00 06/30/23 14:06 Propafenone 150 Mg Tablet PO 150 mg TID NIRAJ Administration Sodium Chloride 1 gm 06/30/23 09:00 06/30/23 08:49 Sodium Chloride 1 Gm Tablet PO 1 gm DAILY NIRAJ Administration PFSH Acute PFSH: Medical History Hypothyroidism Tremor Alzheimer's dementia Orthostatic hypotension Anxiety Humerus fracture Conduct disorder on medroxyprogesterone Syncope Seizure Urinary tract infection Dupuytren's contracture of right hand Hypertension Hyperlipidemia Atrial fibrillation Patient is taking a full ASA. Refuses Warfarin due to GI bleed in the past. Pt has episodes of atrial fibrillation with rapid ventricular rate. He has a history of TIA as well. ? BPH (benign prostatic hyperplasia) Insomnia GI bleed Adrenal adenoma benign Thoracic back pain Depression Neuropathy TIA (transient ischemic attack) Diverticulitis Incontinence GERD (gastroesophageal reflux disease) Pacemaker Osteoporosis Surgical History Hx of cataract surgery H/O vasectomy S/P foot surgery, right Family History Other CAD (coronary artery disease) Cancer Dementia Diabetes Hypertension Denies family history of Clotting disorder Chronic kidney disease (CKD) Suicide Anesthesia complication Bleeding disorder Lung disease Stroke Social History Smoking and tobacco/nicotine status: never used tobacco/nicotine Alcohol intake: never Substance/Drug Use: never Housing: [facility] Vitals/I&O/Wt Last Vital Signs Temp 97.6 F 06/30/23 09:02 Pulse 70 06/30/23 13:45 Resp 16 06/30/23 09:02 BP 173/76 06/30/23 13:45 Pulse Ox 97 06/30/23 09:02 O2 Del Method Room Air 06/30/23 03:07 O2 Flow Rate 2 06/29/23 11:00 06/29/23 06/30/23 06/30/23 22:59 06:59 14:59 Intake Total 716 / 716 Output Total 190 / 190 Balance 526 / 526 Weight last 48 hrs Weight 179 lb 1.6 oz Weight 179 lb 1.6 oz Weight 178 lb Weight 174 lb Physical Exam Narrative: GENERAL: The patient is alert and oriented to the person and place. Not in any acute distress. HEENT: No significant pallor, icterus or lymphadenopathy.Oral cavity: There are no mucous membrane lesions. NECK: Trachea appears to be central. No masses noted. No JVD or thyromegaly appreciated. RESPIRATORY: Chest is symmetrical. No intercostals muscle retraction or any accessory muscle activation. There is no chest wall tenderness. Breath sounds are heard bilaterally. No rales or rhonchi heard. No evidence of any consolidation. BREASTS: Deferred. HEART: The heart sounds are normal. No S3 or S4. Short systolic murmur the left sternal border. No diastolic murmurs. No pericardial rub ABDOMEN: No vessel pulsations or distention. No tenderness. No organomegaly appreciated. Bowel sounds are normally heard. : Deferred. RECTAL: Deferred. LYMPHATIC: No lymphadenopathy noted in the neck. EXTREMITIES: No edema or cyanosis. No clubbing. MUSCULOSKELETAL: No acute joint deformities or swelling SKIN: There are no significant rashes or ecchymosis NEUROPSYCHIATRIC: The patient is alert and oriented x3. Appears to be in a good mood. No tremors or rigidity noted. Data 06/30/23 03:52 06/30/23 03:52 Other Labs: Laboratory Last Values WBC 8.27 10^3/uL (3.29-11.43) 06/30/23 03:52 RBC 3.98 10^6/uL (3.85-5.65) 06/30/23 03:52 Hgb 12.10 g/dL (11.27-16.99) 06/30/23 03:52 Hct 36.6 % (37-53) L 06/30/23 03:52 MCV 92.0 fl (82-101) 06/30/23 03:52 MCH 30.4 pg (27-33) 06/30/23 03:52 MCHC 33.1 g/dL (30-55) 06/30/23 03:52 RDW 15.6 % (12.1-15.1) H 06/30/23 03:52 Plt Count 287 10^3/cmm (157-399) 06/30/23 03:52 MPV 9.7 fL (7.4-10.4) 06/30/23 03:52 Neut % (Auto) 56.4 % 06/30/23 03:52 Lymph % (Auto) 25.9 % 06/30/23 03:52 Braxton % (Auto) 10.2 % 06/30/23 03:52 Eos % (Auto) 6.4 % 06/30/23 03:52 Baso % (Auto) 0.7 % 06/30/23 03:52 Neut # (Auto) 4.67 10^3/uL (1.8-7.7) 06/30/23 03:52 Lymph # (Auto) 2.1 10^3/uL (0.8-4.8) 06/30/23 03:52 Braxton # (Auto) 0.8 10^3/uL (0.2-0.9) 06/30/23 03:52 Eos # (Auto) 0.5 10^3/uL (0.0-0.8) 06/30/23 03:52 Baso # (Auto) 0.1 10^3/uL (0.0-0.1) 06/30/23 03:52 Nucleated RBC % (auto) 0 % 06/30/23 03:52 Nucleated RBCs # 0.0 /100WBC 06/30/23 03:52 PT 12.80 SECONDS (12.1-14.9) 06/29/23 10:30 INR 0.94 (0.8-1.2) 06/29/23 10:30 Sodium 136 mmol/L (136-145) 06/30/23 03:52 Potassium 4.1 mmol/L (3.5-5.1) 06/30/23 03:52 Chloride 105 mmol/L (98-107) 06/30/23 03:52 Carbon Dioxide 21 mmol/L (22-29) L 06/30/23 03:52 Anion Gap 14.1 (5-19) 06/30/23 03:52 BUN 16 mg/dL (8-23) 06/30/23 03:52 Creatinine 1.3 mg/dL (0.7-1.2) H 06/30/23 03:52 GFR Calculation Not Reportable 06/30/23 03:52 Glucose 95 mg/dL (65-115) 06/30/23 03:52 Calculated Osmolality 283 mOsm/kg (285-295) L 06/30/23 03:52 Calcium 8.9 mg/dL (8.5-10.5) 06/30/23 03:52 Phosphorus 3.9 mg/dL (2.5-4.5) 06/30/23 03:52 Magnesium 2.0 mg/dL (1.7-2.3) 06/30/23 03:52 Total Bilirubin 0.4 mg/dL (0.15-1.2) 06/29/23 10:30 AST 23 U/L (0-40) 06/29/23 10:30 ALT 17 U/L (0-41) 06/29/23 10:30 Alkaline Phosphatase 93 U/L (40-130) 06/29/23 10:30 Troponin T Baseline 55 ng/L (0-15) H 06/29/23 10:30 Troponin T 120 Minute 69.33 ng/L (0-15) H 06/29/23 12:28 Delta Troponin T 14.33 ABS# (0-10) H* 06/29/23 12:28 Troponin T Hi Sens 6Hr 207.9 ng/L (0-15) H 06/29/23 16:42 Troponin T Hi Sens 6Hr Delta 152.9 ng/L (0-12) H* 06/29/23 16:42 Total Protein 7.8 g/dL (6.6-8.7) 06/29/23 10:30 Albumin 4.0 g/dL (3.5-5.2) 06/29/23 10:30 Globulin 3.8 g/dL (1.3-4.6) 06/29/23 10:30 Triglycerides 165 mg/dL (0-150) H 06/30/23 03:52 Cholesterol 173 mg/dL (0-200) 06/30/23 03:52 LDL Cholesterol, Calc 111 mg/dL (50-129) 06/30/23 03:52 HDL Cholesterol 29 mg/dL (60-100) L 06/30/23 03:52 LDL/HDL Ratio 3.83 RATIO (0.00-3.22) H 06/30/23 03:52 Cholesterol/HDL Ratio 5.97 mg/dL (1.0-5.00) H 06/30/23 03:52 TSH 2.81 uIU/mL (0.27-4.20) 06/30/23 03:52 Urine Color Yellow (Yellow) 06/30/23 14:00 Urine Appearance Clear (CLEAR) 06/30/23 14:00 Urine pH 6 (5-7) 06/30/23 14:00 Ur Specific [place] 1.015 (1.005-1.030) 06/30/23 14:00 Urine Protein Neg (Negative) 06/30/23 14:00 Urine Glucose (UA) Norm (Normal) 06/30/23 14:00 Urine Ketones Negative (Negative) 06/30/23 14:00 Urine Blood Neg (Negative) 06/30/23 14:00 Urine Nitrate Negative (Negative) 06/30/23 14:00 Urine Bilirubin Neg (Negative) 06/30/23 14:00 Urine Urobilinogen Neg mg/dL (Negative) 06/30/23 14:00 Ur Leukocyte Esterase Negative (Negative) 06/30/23 14:00 Digoxin 1.1 ng/mL (0.6-1.2) 06/29/23 10:30 Other data: The EKG revealed A paced rhythm Incomplete right bundle branch block pattern Diffuse ST-T changes Myocardial perfusion imaging on 06/30/2023 1. Myocardial perfusion imaging revealing moderate area of reversible defect involving the inferior, inferolateral and apical lateral regions suggesting ischemia in the distribution of the right coronary artery/circumflex artery 2. Normal LV ejection fraction 74%. 3. LV wall motion analysis revealing no gross wall motion abnormalities. 4. Normal LV volume No similar previous studies are available for comparison Current Doppler examination February 2023 Left ICA stenosis 50-69%. Right ICA stenosis < 50%. Minimal flow seen in the right verebral artery today. Extensive plaque throughout the carotid arteries. A&P Assessment and plan (1) NSTEMI (non-ST elevated myocardial infarction): Patient's clinical features are consistent with a non-ST elevation myocardial infarction. He is being treated with Lovenox, beta-austin, Plavix, aspirin and other symptomatic measures. (2) Abnormal myocardial perfusion study: The Myocardial perfusion imaging is suggestive of ischemia in the distribution of the right coronary artery and circumflex artery. In order to further evaluate the coronary status, patient requires a cardiac catheterization. This was discussed with the patient and his family. Patient son has been power of health care attorney. The daughter was present at the bedside. The daughter apparently discussed with the brother and her mother regarding his further management. They all wanted to have him the angiogram to decide on further management. Because of the history of chronic kidney disease, possibility of contrast-induced nephropathy, recurrence of CVA, etc. were discussed in detail which is understood well by the family. (3) Hyperlipidemia: May continue on the current medications. Qualifiers: Hyperlipidemia type: mixed hyperlipidemia Qualified Code(s): E78.2 - Mixed hyperlipidemia (4) Hypertension: The blood pressure is elevated. Will try to optimize the antihypertensive medications. Qualifiers: Hypertension type: essential hypertension Qualified Code(s): I10 - Essential (primary) hypertension (5) Atrial fibrillation: Patient is on propafenone and digoxin. The atrial fibrillation is intermittent. Currently he is in sinus rhythm. Because of the GI bleed, patient refused oral anticoagulation. Will continue on the current medications. Qualifiers: Atrial fibrillation type: longstanding persistent Qualified Code(s): I48.11 - Longstanding persistent atrial fibrillation (6) Chronic kidney disease: The BUN/creatinine seems to be stable. The possibility of the patient developing acute renal failure from the contrast-induced nephropathy was discussed. The family understood this well. Will be carefully hydrating the patient before and after the procedure. Qualifiers: Chronic kidney disease stage: stage 3 (moderate) Chronic kidney disease stage 3 subtype: stage 3a (GFR 45-59) Qualified Code(s): N18.31 - Chronic kidney disease, stage 3a Plan The other problems are History of TIA History of GI bleed Dementia For better control of the blood pressure, patient may start on amlodipine 5 mg p.o. now and daily. Also may go out and start him on Plavix 300 mg p.o. today followed by 75 mg p.o. daily I may go ahead an echocardiogram to evaluate LV function and rule out any other pathology. We may go ahead tentatively scheduled for the angiogram in the morning. Based on the results, further recommendations will be made Thank you for the opportunity to evaluate this patient and make these recommendations Consult Attestations Medical Necessity Statement: Patient requires continued hospital stay for close monitoring and further management Coding Level of Care Code 21434 Diagnoses NSTEMI (non-ST elevated myocardial infarction) I21.4 Abnormal myocardial perfusion study R94.39 Mixed hyperlipidemia E78.2 Hyperlipidemia type: mixed hyperlipidemia Essential hypertension I10 Hypertension type: essential hypertension Longstanding persistent atrial fibrillation I48.11 Atrial fibrillation type: longstanding persistent Stage 3a chronic kidney disease N18.31 Chronic kidney disease stage: stage 3 (moderate) Chronic kidney disease stage 3 subtype: stage 3a (GFR 45-59)
[2023-06-30 14:23] LABS: Add Urine Microscopic? NO; Charge for UA Resulting for Rev
[2023-06-30 14:32] LABS: Bilirubin Urine Neg (Negative); Blood Urine Neg (Negative); Glucose Urine UA Norm (Normal); Ketones Urine Negative (Negative); Leukocyte Esterase Urine Negative (Negative); Nitrate Urine Negative (Negative); Protein Urine Neg (Negative); Specific Gravity, Urine 1.015 (1.005-1.030); Urine Appearance Clear (CLEAR); Urine Color Yellow (Yellow); Urobilinogen Urine Neg (Negative); pH Urine 6 (5-7)
[2023-06-30] MEDS: metoprolol tartrate 25 mg Tablet PO ×2 (14:42→21:09)
--- NOTE | 2023-06-30 16:33 | USCV_ITS ---
Sylvia Baptiste Age: 82 Gender: M : 1940 Exam Date: 06/30/2023 17:06 Ordering Phys: Malika Gutierrez MD ([email or web address]) Technologist: [email or web address] Exam Location: [facility] [place] Indication: NSTEMI BP: 141 / 62 HR: 70 Rhythm: Sinus Technical Quality: Adequate MEASUREMENTS (Male / Female) Normal Values 2D ECHO LVOT Diameter 2.0 cm LV Ejection Fraction MOD 2C 59.6 % LV Ejection Fraction 2C AL 65.3 % LA Diameter 3.0 cm LA Width 3.6 cm LA Height 5.1 cm RA Width 4.1 cm RA Height 4.9 cm Aorta at Sinotubular Diameter 2.4 cm M-MODE Aortic Annulus Diameter 3.4 cm LA Ao Ratio MM 0.9 MV E Point Septal Separation 0.9 cm DOPPLER AV Peak Velocity 113.0 cm/s LVOT Peak Velocity 96.0 cm/s AV Area Cont Eq vti 3.4 cm squared AV Area Cont Eq pk 2.5 cm squared MV Peak Velocity 167.0 cm/s MV Area PHT 4.0 cm squared Mitral E to A Ratio 0.7 MV E' Velocity 43.0 cm/s Mitral E to MV E' Ratio 17.5 Mitral E to LV E' Lateral Ratio 15.5 Mitral E to LV E' Septal Ratio 20.7 TR Peak Velocity 135.4 cm/s TR Peak Gradient 7.3 mmHg TR Mean Velocity 106.0 cm/s TR Mean Gradient 4.7 mmHg TR Velocity Time Integral 37.5 cm TV Peak E Velocity 43.0 cm/s Right Atrial Pressure 8.0 mmHg Pulmonary Artery Systolic Pressu 15.3 mmHg PV Peak Velocity 67.0 cm/s RV Acceleration Time 0.1 s RV Ejection Time 0.2 s RV AcT/ET 0.5 FINDINGS Left Ventricle Normal left ventricular size and systolic function, EF 61 %. Moderate left ventricular hypertrophy. Grade I/IV diastolic dysfunction (abnormal relaxation filling pattern), normal to mildly elevated filling pressures. Right Ventricle Catheter/pacemaker wire in the right ventricular cavity. Right Atrium Mildly increased right atrial size. Catheter/pacemaker wire in the right atrial cavity. Left Atrium Mildly increased left atrial size. Mitral Valve Moderate mitral annular calcification. Mild mitral valve regurgitation. Aortic Valve Thickened aortic valve. Moderate aortic valve regurgitation. Tricuspid Valve Mild tricuspid valve regurgitation. Pulmonic Valve Mild pulmonary valve regurgitation. Pericardium No pericardial effusion. Aorta Normal aortic annulus size. IVC Inferior vena cava not visualized. CONCLUSIONS Normal left ventricular size and systolic function, EF 61 %. Moderate left ventricular hypertrophy. Grade I/IV diastolic dysfunction (abnormal relaxation filling pattern), normal to mildly elevated filling pressures. Mildly increased left atrial size. Moderate mitral annular calcification. Mild mitral valve regurgitation. Thickened aortic valve. Moderate aortic valve regurgitation. Mild tricuspid valve regurgitation. Mild pulmonary valve regurgitation. Estimated pulmonary artery peak systolic pressure, probably within normal limits Pacemaker wire in the right atrium and right ventricle There are no intracardiac masses. Dr Malika Gutierrez MD [facility] (Electronically Signed) Final Date: 30 June 2023 20:04 S
[2023-06-30] MEDS: lanolin oint 7 gm 1 APPLIC TOPICAL (17:24)
[2023-06-30] MEDS: docusate sodium 100 mg Capsule PO (17:24)
[2023-06-30] MEDS: sodium chloride 0.9% 1,000 ML 50 ML IV (17:25)
[2023-06-30] MEDS: clopidogrel 300 mg Tablet PO (19:02)
[2023-06-30] MEDS: amlodipine 5 mg Tablet PO (19:02)
[2023-06-30] MEDS: atorvastatin 40 mg Tablet PO (21:09)
[2023-07-01] VITALS (12 sets, daily range): BP systolic 127–180; BP diastolic 67–89; PULSE 60–80; RESP 21–24; TEMP 36.6–37; O2SAT 96–97; BMI 27.2
[2023-07-01] MEDS: nitroglycerin 1 gm/inch oint Pkt 0.5 INCH TOPICAL ×4 (00:53→21:26)
[2023-07-01 04:24] LABS: Anion Gap 16.3 (5-19); Blood Urea Nitrogen 22 mg/dL (8-23); Calcium 9.6 mg/dL (8.5-10.5); Carbon Dioxide 21 mmol/L (22-29); Chloride 101 mmol/L (98-107); Glucose 92 mg/dL (65-115); Osmolality Calculated 281 mOsm/kg (285-295); Potassium 4.3 mmol/L (3.5-5.1); Sodium 134 mmol/L (136-145)
[2023-07-01] MEDS: pantoprazole DR 40 mg Tablet PO (06:20)
[2023-07-01] MEDS: levothyroxine 100 mcg Tablet PO (06:20)
[2023-07-01] MEDS: OXcarbazepine 300 mg Tablet PO ×2 (06:20→21:26)
[2023-07-01] MEDS: digoxin 125 mcg Tablet PO (06:20)
--- NOTE | 2023-07-01 07:39 | PC.NURSE ---
pt is still very restless, confused and getting in and out the bed. pt is easily redirected and bed alarm reset.
--- NOTE | 2023-07-01 07:58 | XACV_ITS ---
Exam Room: [facility] Ht: 173 cm Wt: 81 kg BSA: 1.99 m2 Gender: Male : 1940 Any Known Allergies: No known allergies Exam Priority: Routine Indication(s): - Non-ST elevation OR Procedure(s): Procedure Description: Diagnostic procedure Procedure Description: PCI procedure Procedure Description: Coronary IVUS Procedure Description: Drug Eluting Coronary Stent Procedure Description: Miscellaneous Procedure Description: Angio-Seal Procedure Description: ACT Procedure Description: Coronary Angiography Matt KIRAN; Diagnostic Cath Status: Urgent Diagnostic Findings * Left Main is small caliber and diffusely diseased. No severe stenosis. . * Circumflex has diffuse moderate global hypokinesis. * LAD is small caliber. Has diffuse moderate disease. Distal to apical LAD has diffuse severe stenoses. * Proximal Right Coronary Artery: Critical 99% stenosis. Calcified lesion. * Distal Right Coronary Artery: obstructive 60% stenosis, ANA: 3 flow. * Coronary angiography shows right dominance. PCI Status: Urgent PCI Indication: NSTE - ACS Interventional Findings * Procedure details: We engaged RCA with JR4 guide catheter. IV heparin was administered to maintain anticoagulation. 0.014 run-through guidewire was used to cross the stenosis. We dilated the stenosis first with 2.0 x 12 mm semicompliant balloon. This was followed by dilation with 2.5 x 12 mm semicompliant balloon. We then predilated with 3.0 x 12 mm semicompliant balloon. We then dilated with 3.0 x 12 mm NC balloon. This caused a nonflow limiting dissection. We then proceeded with placement of 3.0 x 15 mm resolute Alpesh drug-eluting stent. It covered the dissection completely. Excellent flow and no significant residual stenosis was seen. IVUS was performed that showed no residual dissection extending past the stent. Guidewire and guide catheter were removed. Patient left the Cafeteria Server in a stable condition.. * Proximal Right Coronary Artery: 99% stenosis treated with a AB MINI TREK 2.00X12 RX BALLOON, AB TREK 2.50X12 RX BALLOON, AB TREK 3.00X12 RX BALLOON, AB TREK 3.00X12 RX BALLOON, MDT DARLENE EUPHORA RX 3.60L56HQ BALLOON, and MDDavid R ALPESH 3.0X15 JACOBY. 0% residual stenosis, ANA: 3 flow. Conclusions 1. Critical 99% proximal RCA stenosis s/p successful revascularization with 1 stent. Diffuse severe disease of distal to apical LAD. Medical therapy. This is not amenable to revascularization.. 2. Proximal Right Coronary Artery was treated with a Balloon, Balloon, Balloon, Balloon, Balloon, and Drug Eluting Stent. Recommendations * Dual antiplatelet therapy with aspirin and Plavix. * High intensity statin therapy. * Outpatient cardiology follow-up in 4 weeks. Interventional RX Recommendation: PCI w/o planned CABG Diagnostic RX Recommendation: PCI w/o planned CABG Anticoagulation: Heparin Pressures Phase:Rest AO : -6 / -8 ( -8 ) @ 10:28:00 AM 99 / 63 ( 81 ) @ 10:55:00 AM 72 / 35 ( 50 ) @ 11:17:00 AM 78 / 36 ( 48 ) @ 11:18:00 AM 162 / 86 ( 119 ) @ 11:20:00 AM 159 / 87 ( 120 ) @ 11:24:00 AM 152 / 83 ( 115 ) @ 11:25:00 AM Clinical Evaluation EBL: 5mL-10mL Procedural Details Procedure Consent Obtained. Current Diagnosis : NSTEMI. Pre-Procedure Time Out. Identified patient by full name and date of as verbalized by the patient/guarantor. Does the consent match the physician's order: Yes. Accurate & Complete Informed Consent: Yes. Inpatient/Outpatient History & Physical on Chart: Yes. If H&P is completed, is and addenduem needed: No; If yes, is the addendum complete: N/A. Visualize and Verify Site with Patient/Guarantor: N/A. Relevant Radiology Images available: Yes. Pre-op teaching completed and patient verbalized understanding. The risks, benefits, and alternatives of sedation and/or procedure were discussed by physician. The patient agrees to continue. Procedure started. [facility] Clinical Fraility Score: 7: Severely Frail. Cafeteria Server Indications: Worsening Angina. Chest Pain Symptom Assessment: Atypical Angina. Cardiovascular Instability: No. Correct patient, site and procedure confirmed by cath team. Current diagnosis: NSTEMI. PERRLA. Strong, equal hand court clerk bilaterally. Lungs clear x 5 lobes. IV Site on Arrival: 20 gauge in the right anticubital. IV Fluids: 0.9% NaCl at KVO. 300 mL infused prior to pit laborer. Pre Procedural Pulses: bilateral posterior tibial was Doppled. Pre Procedural Pulses: bilateral dorsalis pedis was Doppled. Pre Procedural Pulses: bilateral radial was 3+. Oxygen started at 3liters/min via nasal canula. right groin was prepped with chloroprep then draped in the usual sterile fashion. right radial was prepped with chloroprep then draped in the usual sterile fashion. Physician notified. Baseline sample Acquired. HR: 70 BPM. Family updated by md prior to the start of the procedure. Equipment: 5F - Radial. Cardiac Cath Pack. ACIST Manifold Kit Model BT 2000. Heparinized Saline (2 units/mL), 1000 mL bag. Equipment: 6F - Radial. Equipment: 5F - Femoral. Equipment: 6F - Femoral. Physician arrived. Physician scrubbed in. Immediate Pre-Procedure Time Out. Correct Patient: Yes; Correct Procedure: Yes; Correct Site: Yes; Correct Patient Position: Yes; Correct Supplies: Yes; Dried Flammable Prep: Yes; Blood Products Available: N/A;. Lidocaine 1% infiltrated to the right radial. Arterial access obtained. A 5 mexican TIG catheter in over wire. Wire out. Hand injection of the right brachial artery taken by . Glidewire inserted. Catheter advanced into the subclavian. Wire removed. Hand injection performed. Glidewire inserted. Unable to advance catheter. Removed as a whole by MD. Aborting radial for femoral approach d/t vasuclar anatomy. Lidocaine 1% infiltrated to the right groin. A TR Band was successful obtaining hemostatsis at the Right Radial artery insertion site. TR band placed. Hemostasis obtained. Arterial access obtained with micropuncture set. A CRD 5F JL4 Diagnostic Catheter was advanced over the wire and used for Left coronary angiography. Multiple views taken of left coronary artery. Catheter removed over the standard wire. A CRD 5F JR4 Diagnostic Catheter was advanced over the wire and used for Right coronary angiography. Multiple views taken of right coronary artery. Catheter removed over the wire. 6 mexican JR 4 guide catheter was inserted over the wire. Runthrough guidewire was advanced through the guide catheter to lesion in the prox RCA. Guidewire advanced across lesion. 2.5x 12 trek inserted. no cross. removed over the wire. Inflation number : 1 A AB MINI TREK 2.00X12 RX BALLOON was prepped and advanced across the Prox RCA , then inflated to 8 KAYLYN for 0:16 seconds. Inflation number: 2 The AB MINI TREK 2.00X12 RX BALLOON was reinflated across the Prox RCA, to 10 KAYLYN for 0:13 seconds. Balloon out. Results checked. Inflation number : 3 A AB TREK 2.50X12 RX BALLOON was prepped and advanced across the Prox RCA , then inflated to 10 KAYLYN for 0:20 seconds. Balloon out over the wire. ACT drawn. Results 326 seconds. Therapeutic limits - pre-heparin administration 90-150 seconds and monitoring heparin during a vascular procedure >250 seconds. Shockwave 3.0x12 inserted over the wire. Family updated. Shockwave lot [id number] EXP 11/12/2024. Shockwave balloon did not cross. Removed over the wire. Inflation number : 4 A AB TREK 3.00X12 RX BALLOON was prepped and advanced across the Prox RCA , then inflated to 8 KAYLYN for 0:14 seconds. Inflation number: 5 The AB TREK 3.00X12 RX BALLOON was reinflated across the Prox RCA, to 8 KAYLYN for 0:05 seconds. Inflation number: 6 The AB TREK 3.00X12 RX BALLOON was reinflated across the Prox RCA, to 8 KAYLYN for 0:11 seconds. Balloon out. Results checked. Shockwave 3.0x12 reinserted. No cross. Shockwave removed. Guideliner inserted. Shockwave reinserted. No cross. Shockwave removed. Inflation number : 7 A RAQUEL COLON EUPHORA RX 3.82R69OU BALLOON was prepped and advanced across the Prox RCA , then inflated to 18 KAYLYN for 0:22 seconds. Balloon out over the wire. 3.0x15 JACOBY inserted. No cross. Removed intact. 2nd Runthrough guidewire was advanced through the guide catheter to lesion in the prox RCA. Guidewire advanced across lesion. 2nd runthroug removed. Inflation Number : 8 A RAQUEL R ALPESH 3.0X15 JACOBY -Lot Number# [id number] was prepped and advanced across the Prox RCA. The stent was deployed at 12 KAYLYN for 0:21 seconds. EXP 10/23/25. Results checked. Stent balloon out over the wire. Results checked. IVUS catheter inserted. IVUS performed of the proximal RCA. IVUS catheter removed. Results checked. Runthrough wire removed. Results checked. Catheter removed over the wire. ACT drawn. Results 306 seconds. Therapeutic limits - pre-heparin administration 90-150 seconds and monitoring heparin during a vascular procedure >250 seconds. A Right femoral angiogram was performed to determine safe placement of closure device. A Angio-Seal VIP ([place]) was successful obtaining hemostatsis at the Right Femoral artery insertion site. Angioseal lot# [id number] exp 02/05/2024. Physician scrubbed out. Physician review of films. Angioseal placed without complications. No signs or symptoms of hematoma noted. Sterile dressing applied per usual sterile fashion. Post-op diagnosis: Critical proximal RCA stenosis; Status post 1 drug eleuting stent. Complications: None. Sheath(s) removed and manual pressure held until hemostasis was achieved. Sterile 4x4 and Op-site applied to the puncture site. No oozing or hematoma noted. Post sheath removal instructions were given and the patient verbalized understanding. Post Procedure: Pulses reassessed and unchanged. PERRLA. Strong, equal hand court clerk bilaterally. No VTE prophylaxis required. Medication waste: Lidocaine- 7 ml Nitroglycerin- 49.6 mg Heparin- 3000 units Versed- 1.5 mg Fentanyl- 25 mcg. Total IV fluids: 130 mL. Fluoro: 19:06. Contrast type used: Visipaque 320 mgI/mL, 200 mL bottle. [id number]. Estimated blood loss: 5mL-10mL. Responsiveness - Normal response to verbal stimuli; alert and oriented, PERRLA. Airway - Unaffected, no intervention required; spontaneous ventilation. Circulation: W/N/L, pulses unchanged. Nausea/Vomiting: No. Procedure completed. Patient transferred by stretcher to 1st floor. Vital chart was stopped. Access Site Site: Right Radial artery Sheath Size: 6 Fr Hemostasis Method: TR Band Hemostasis Success: Successful Site: Right Femoral artery Sheath Size: 6 Fr Hemostasis Method: Angio-Seal VIP ([facility] An[place]oli[place]) Hemostasis Success: Successful Procedure Medications Start: 10:16 AM Stop: 10:16 AM Medication: Fentanyl Amount: 25 mcg Route: I.V. Start: 10:23 AM Stop: 10:23 AM Medication: Nitrogylcerin Amount: 200 mcg Route: I.A. Start: 10:46 AM Stop: 10:46 AM Medication: Heparin Amount: 7000 units Route: I.V. Start: 10:57 AM Stop: 10:57 AM Medication: Fentanyl Amount: 25 mcg Route: I.V. Start: 11:17 AM Stop: 11:17 AM Medication: Heparin Amount: 1000 units Route: I.V. Start: 11:18 AM Stop: 11:18 AM Medication: 0.9% Saline Amount: 250 ml Route: I.V. bolus Start: 11:24 AM Stop: 11:24 AM Medication: Versed Amount: 0.5 mg Route: I.V. Start: 11:24 AM Stop: 11:24 AM Medication: Fentanyl Amount: 25 mcg Route: I.V. Start: 11:31 AM Stop: 11:31 AM Medication: Nitrogylcerin Amount: 200 mcg Route: I.C. I, the attending physician, have reviewed and verified all procedure medications. Yes, all medications given per verbal order History/Risk Factors Hypertension: Yes Dyslipidemia: No Peripheral Arterial Disease (PAD): No Myocardial Infarction (OR): No Obesity: No Renal Disease: Yes Prior Interventions PCI: No CABG: No Valve Surgery: No Report Signatures Finalized by Colby Lopez MD on 07/13/2023 11:10 AM
--- NOTE | 2023-07-01 08:00 | P.PN_ITS ---
Subjective 2 Subjective: Patient denies any chest pain. According to nurses, he was agitated through the night. This morning he seems to be calm and responding appropriately. The family is at the bedside. He is still wanting to go ahead with the procedure. Medications: Medication Review Details: Current Medications Acetaminophen (Acetaminophen 325 Mg Tablet) 650 mg PO Q4H PRN PRN Reason: mild pain or temp >/=101 Hydrocodone Bitart/Acetaminophen (Hydrocodone-Acetaminophen 7.5-325 Mg Tablet) 1 tab PO Q6H PRN PRN Reason: MODERATE TO SEVERE PAIN Amlodipine Besylate (Amlodipine 5 Mg Tablet) 5 mg PO DAILY [facility] Last Admin: 06/30/23 19:02 Dose: 5 mg Aspirin (Aspirin 81 Mg Ec Tablet) 81 mg PO DAILY [facility] Last Admin: 06/30/23 08:50 Dose: 81 mg Atorvastatin Calcium (Atorvastatin 40 Mg Tablet) 40 mg PO BEDTIME [facility] Last Admin: 06/30/23 21:09 Dose: 40 mg Bisacodyl (Bisacodyl 5 Mg Tablet) 10 mg PO DAILY PRN; Protocol PRN Reason: Constipation (see protocol) Clopidogrel Bisulfate (Clopidogrel 75 Mg Tablet) 75 mg PO DAILY [facility] Digoxin (Digoxin 125 Mcg Tablet) 125 mcg PO DAILY@07 [facility] Last Admin: 07/01/23 06:20 Dose: 125 mcg Docusate Sodium (Docusate Sodium 100 Mg Capsule) 100 mg PO BID [facility] Last Admin: 06/30/23 17:24 Dose: 100 mg Enoxaparin Sodium (Enoxaparin 80 Mg/0.8 Ml Syringe) 80 mg SUBCUT Q12H [facility] Last Admin: 07/01/23 00:26 Dose: Not Given Fexofenadine HCl (Fexofenadine 60 Mg Tablet) 180 mg PO DAILY [facility] Last Admin: 06/30/23 08:49 Dose: 180 mg Fluticasone Propionate (Fluticasone Nasal [place] 16gm Btl) 1 spray INTRANASAL BID@21 [facility] Last Admin: 06/30/23 21:10 Dose: 1 spray Sodium Chloride (Sodium Chloride 0.9%) 1,000 mls @ 50 mls/hr IV .Q20H [facility] Stop: 07/01/23 09:00 Last Admin: 06/30/23 17:25 Dose: 50 mls/hr Sodium Chloride (Sodium Chloride 0.9%) 1,000 mls @ 50 mls/hr IV .Q20H [facility] Stop: 07/02/23 03:56 Lanolin (Lanolin Oint 7 Gm) 1 applic TOPICAL PRN PRN PRN Reason: DRYNESS Last Admin: 06/30/23 17:24 Dose: 1 applic Lanolin (Lanolin Oint 7 Gm) 1 applic TOPICAL PRN PRN PRN Reason: DRYNESS Levothyroxine Sodium (Levothyroxine 100 Mcg Tablet) 100 mcg PO DAILY@06 [facility] Last Admin: 07/01/23 06:20 Dose: 100 mcg Magnesium Hydroxide (Magnesium Hydroxide 30 Ml Udc) 30 ml PO DAILY PRN PRN Reason: Constipation Medroxyprogesterone Acetate (Medroxyprogesterone 2.5 Mg Tablet) 10 mg PO DAILY [facility] Last Admin: 06/30/23 08:49 Dose: 10 mg Metoprolol Tartrate (Metoprolol Tartrate 25 Mg Tablet) 25 mg PO BID@0900,2100 [facility] Last Admin: 06/30/23 21:09 Dose: 25 mg Nitroglycerin (Nitroglycerin 0.4 Mg Sublingual Tablet) 0 mg SUBLINGUAL Q5MIN PRN PRN Reason: Chest Pain Nitroglycerin (Nitroglycerin 1 Gm/Inch Oint Pkt) 0.5 inch TOPICAL Q6H [facility] Last Admin: 07/01/23 06:22 Dose: 0.5 inch Ondansetron HCl (Ondansetron 2 Mg/Ml Sdv 2 Ml) 4 mg IVP Q8H PRN PRN Reason: vomiting, or N/V if npo Oxcarbazepine (Oxcarbazepine 300 Mg Tablet) 300 mg PO BID@07,19 [facility] Last Admin: 07/01/23 06:20 Dose: 300 mg Pantoprazole Sodium (Pantoprazole Dr 40 Mg Tablet) 40 mg PO DAILY@07 [facility] Last Admin: 07/01/23 06:20 Dose: 40 mg Propafenone HCl (Propafenone 150 Mg Tablet) 150 mg PO TID [facility] Last Admin: 06/30/23 21:09 Dose: 150 mg Sodium Chloride (Sodium Chloride 1 Gm Tablet) 1 gm PO DAILY [facility] Last Admin: 06/30/23 08:49 Dose: 1 gm Vitals/I&O/Wt Last Vital Signs Temp 97.9 F 07/01/23 03:30 Pulse 75 07/01/23 06:20 Resp 23 H 07/01/23 03:30 BP 180/87 07/01/23 03:30 Pulse Ox 96 07/01/23 03:30 O2 Del Method Room Air 07/01/23 03:30 O2 Flow Rate 2 06/29/23 11:00 06/30/23 07/01/23 07/01/23 22:59 06:59 14:59 Output Total 130 / 320 Balance -130 / 396 Weight last 48 hrs Weight 179 lb 1.6 oz Weight 179 lb 1.6 oz Weight 179 lb 1.6 oz Weight 178 lb Weight 174 lb Physical Exam 2 Narrative: GENERAL: The patient is alert and oriented to the person and place. Not in any acute distress. HEENT: No significant pallor, icterus or lymphadenopathy.Oral cavity: There are no mucous membrane lesions. NECK: Trachea appears to be central. No masses noted. No JVD or thyromegaly appreciated. RESPIRATORY: Chest is symmetrical. No intercostals muscle retraction or any accessory muscle activation. There is no chest wall tenderness. Breath sounds are heard bilaterally. No rales or rhonchi heard. No evidence of any consolidation. BREASTS: Deferred. HEART: The heart sounds are normal. No S3 or S4. Short systolic murmur the left sternal border. Grade 2 early diastolic murmur. No pericardial rub ABDOMEN: No vessel pulsations or distention. No tenderness. No organomegaly appreciated. Bowel sounds are normally heard. : Deferred. RECTAL: Deferred. LYMPHATIC: No lymphadenopathy noted in the neck. EXTREMITIES: No edema or cyanosis. No clubbing. MUSCULOSKELETAL: No acute joint deformities or swelling SKIN: There are no significant rashes or ecchymosis NEUROPSYCHIATRIC: The patient is alert and oriented x3. Appears to be in a good mood. No tremors or rigidity noted. Data 06/30/23 03:52 07/01/23 03:22 Other Labs: Laboratory Last Values WBC 8.27 10^3/uL (3.29-11.43) 06/30/23 03:52 RBC 3.98 10^6/uL (3.85-5.65) 06/30/23 03:52 Hgb 12.10 g/dL (11.27-16.99) 06/30/23 03:52 Hct 36.6 % (37-53) L 06/30/23 03:52 MCV 92.0 fl (82-101) 06/30/23 03:52 MCH 30.4 pg (27-33) 06/30/23 03:52 MCHC 33.1 g/dL (30-55) 06/30/23 03:52 RDW 15.6 % (12.1-15.1) H 06/30/23 03:52 Plt Count 287 10^3/cmm (157-399) 06/30/23 03:52 MPV 9.7 fL (7.4-10.4) 06/30/23 03:52 Neut % (Auto) 56.4 % 06/30/23 03:52 Lymph % (Auto) 25.9 % 06/30/23 03:52 [place] % (Auto) 10.2 % 06/30/23 03:52 Eos % (Auto) 6.4 % 06/30/23 03:52 Baso % (Auto) 0.7 % 06/30/23 03:52 Neut # (Auto) 4.67 10^3/uL (1.8-7.7) 06/30/23 03:52 Lymph # (Auto) 2.1 10^3/uL (0.8-4.8) 06/30/23 03:52 [place] # (Auto) 0.8 10^3/uL (0.2-0.9) 06/30/23 03:52 Eos # (Auto) 0.5 10^3/uL (0.0-0.8) 06/30/23 03:52 Baso # (Auto) 0.1 10^3/uL (0.0-0.1) 06/30/23 03:52 Nucleated RBC % (auto) 0 % 06/30/23 03:52 Nucleated RBCs # 0.0 /100WBC 06/30/23 03:52 PT 12.80 SECONDS (12.1-14.9) 06/29/23 10:30 INR 0.94 (0.8-1.2) 06/29/23 10:30 Sodium 134 mmol/L (136-145) L 07/01/23 03:22 Potassium 4.3 mmol/L (3.5-5.1) 07/01/23 03:22 Chloride 101 mmol/L (98-107) 07/01/23 03:22 Carbon Dioxide 21 mmol/L (22-29) L 07/01/23 03:22 Anion Gap 16.3 (5-19) 07/01/23 03:22 BUN 22 mg/dL (8-23) 07/01/23 03:22 Creatinine 1.2 mg/dL (0.7-1.2) 07/01/23 03:22 GFR Calculation Not Reportable 07/01/23 03:22 Glucose 92 mg/dL (65-115) 07/01/23 03:22 Calculated Osmolality 281 mOsm/kg (285-295) L 07/01/23 03:22 Calcium 9.6 mg/dL (8.5-10.5) 07/01/23 03:22 Phosphorus 3.9 mg/dL (2.5-4.5) 06/30/23 03:52 Magnesium 2.0 mg/dL (1.7-2.3) 06/30/23 03:52 Total Bilirubin 0.4 mg/dL (0.15-1.2) 06/29/23 10:30 AST 23 U/L (0-40) 06/29/23 10:30 ALT 17 U/L (0-41) 06/29/23 10:30 Alkaline Phosphatase 93 U/L (40-130) 06/29/23 10:30 Troponin T Baseline 55 ng/L (0-15) H 06/29/23 10:30 Troponin T 120 Minute 69.33 ng/L (0-15) H 06/29/23 12:28 Delta Troponin T 14.33 ABS# (0-10) H* 06/29/23 12:28 Troponin T Hi Sens 6Hr 207.9 ng/L (0-15) H 06/29/23 16:42 Troponin T Hi Sens 6Hr Delta 152.9 ng/L (0-12) H* 06/29/23 16:42 Total Protein 7.8 g/dL (6.6-8.7) 06/29/23 10:30 Albumin 4.0 g/dL (3.5-5.2) 06/29/23 10:30 Globulin 3.8 g/dL (1.3-4.6) 06/29/23 10:30 Triglycerides 165 mg/dL (0-150) H 06/30/23 03:52 Cholesterol 173 mg/dL (0-200) 06/30/23 03:52 LDL Cholesterol, Calc 111 mg/dL (50-129) 06/30/23 03:52 HDL Cholesterol 29 mg/dL (60-100) L 06/30/23 03:52 LDL/HDL Ratio 3.83 RATIO (0.00-3.22) H 06/30/23 03:52 Cholesterol/HDL Ratio 5.97 mg/dL (1.0-5.00) H 06/30/23 03:52 TSH 2.81 uIU/mL (0.27-4.20) 06/30/23 03:52 Urine Color Yellow (Yellow) 06/30/23 14:00 Urine Appearance Clear (CLEAR) 06/30/23 14:00 Urine pH 6 (5-7) 06/30/23 14:00 Ur Specific [place] 1.015 (1.005-1.030) 06/30/23 14:00 Urine Protein Neg (Negative) 06/30/23 14:00 Urine Glucose (UA) Norm (Normal) 06/30/23 14:00 Urine Ketones Negative (Negative) 06/30/23 14:00 Urine Blood Neg (Negative) 06/30/23 14:00 Urine Nitrate Negative (Negative) 06/30/23 14:00 Urine Bilirubin Neg (Negative) 06/30/23 14:00 Urine Urobilinogen Neg mg/dL (Negative) 06/30/23 14:00 Ur Leukocyte Esterase Negative (Negative) 06/30/23 14:00 Digoxin 1.1 ng/mL (0.6-1.2) 06/29/23 10:30 A&P Assessment and plan (1) NSTEMI (non-ST elevated myocardial infarction): Patient's clinical features are consistent with a non-ST elevation myocardial infarction. He is being treated with Lovenox, beta-austin, Plavix, aspirin and other symptomatic measures. (2) Abnormal myocardial perfusion study: The Myocardial perfusion imaging is suggestive of ischemia in the distribution of the right coronary artery and circumflex artery. In order to further evaluate the coronary status, patient requires a cardiac catheterization. This was discussed with the patient and his family. Patient son has the power of business analysis analyst. The daughter was present at the bedside. The daughter apparently discussed with the brother and her mother regarding his further management. They all wanted to have him the angiogram to decide on further management. Because of the history of chronic kidney disease, possibility of contrast-induced nephropathy, recurrence of CVA, etc. were discussed in detail which is understood well by the family. (3) Hyperlipidemia: May continue on the current medications. Qualifiers: Hyperlipidemia type: mixed hyperlipidemia Qualified Code(s): E78.2 - Mixed hyperlipidemia (4) Hypertension: The blood pressure is elevated. May go ahead and give him hydralazine 50 mg p.o. now. Also may go ahead and give other morning medications. Qualifiers: Hypertension type: essential hypertension Qualified Code(s): I10 - Essential (primary) hypertension (5) Atrial fibrillation: Patient is on propafenone and digoxin. The atrial fibrillation is intermittent. Currently he is in sinus rhythm. Because of the GI bleed, patient refused oral anticoagulation. Will continue on the current medications. Qualifiers: Atrial fibrillation type: longstanding persistent Qualified Code(s): I 48.11 - Longstanding persistent atrial fibrillation (6) Chronic kidney disease: The BUN/creatinine seems to be stable. The possibility of the patient developing acute renal failure from the contrast-induced nephropathy was discussed. The family understood this well. Will be carefully hydrating the patient before and after the procedure. Qualifiers: Chronic kidney disease stage: stage 3 (moderate) Chronic kidney disease stage 3 subtype: stage 3a (GFR 45-59) Qualified Code(s): N18.31 - Chronic kidney disease, stage 3a Plan The other problems are History of TIA History of GI bleed Dementia Possible cardiac catheterization today. Based on the angiogram findings, further recommendations will be made. Attestations 2 Medical Necessity Statement*: Patient requires continued hospital stay for close monitoring and further management Coding Level of Care Code 76235 Diagnoses NSTEMI (non-ST elevated myocardial infarction) I21.4 Abnormal myocardial perfusion study R94.39 Mixed hyperlipidemia E78.2 Hyperlipidemia type: mixed hyperlipidemia Essential hypertension I10 Hypertension type: essential hypertension Longstanding persistent atrial fibrillation I48.11 Atrial fibrillation type: longstanding persistent Stage 3a chronic kidney disease N18.31 Chronic kidney disease stage: stage 3 (moderate) Chronic kidney disease stage 3 subtype: stage 3a (GFR 45-59)
[2023-07-01] MEDS: amlodipine 5 mg Tablet PO (08:31)
[2023-07-01] MEDS: aspirin 325 mg Tablet PO (08:31)
[2023-07-01] MEDS: diphenhydrAMINE 50 mg Capsule PO (08:31)
[2023-07-01] MEDS: propafenone 150 mg Tablet PO ×3 (08:31→21:26)
[2023-07-01] MEDS: hyDRALAzine 50 mg Tablet PO (08:31)
[2023-07-01] MEDS: metoprolol tartrate 25 mg Tablet PO ×2 (08:31→21:26)
[2023-07-01] MEDS: clopidogrel 75 mg Tablet PO (08:31)
--- NOTE | 2023-07-01 10:00 | PC.NURSE ---
going to the laboratory phlebotomist
--- NOTE | 2023-07-01 10:04 | P.PN_ITS ---
Subjective 2 Subjective: This morning patient is going for angiogram No active chest pain Patient went to the bathroom on his own with some assistance from the family Hemodynamic stable Currently on room air Vitals/I&O/Wt Last Vital Signs Temp 97.9 F 07/01/23 03:30 Pulse 60 07/01/23 09:50 Resp 23 H 07/01/23 03:30 BP 151/70 07/01/23 09:50 Pulse Ox 96 07/01/23 03:30 O2 Del Method Room Air 07/01/23 03:30 O2 Flow Rate 2 06/29/23 11:00 06/30/23 07/01/23 07/01/23 22:59 06:59 14:59 Output Total 130 / 320 Balance -130 / 396 Weight last 48 hrs Weight 81.238 kg Weight 81.238 kg Weight 81.238 kg Weight 80.739 kg Weight 78.925 kg Physical Exam 2 Narrative: Awake alert Euvolemic GCS 15 Pleasant Oriented to himself S1, S2 Doing well on room air Data 06/30/23 03:52 07/01/23 03:22 A&P Assessment and plan (1) High risk medication use: (2) NSTEMI (non-ST elevated myocardial infarction): (3) Positive cardiac stress test: (4) Chest pain: (5) Chronic kidney disease: Qualifiers: Chronic kidney disease stage: stage 3 (moderate) Chronic kidney disease stage 3 subtype: stage 3a (GFR 45-59) Qualified Code(s): N18.31 - Chronic kidney disease, stage 3a (6) Alzheimer's dementia: Plan Going for angiogram today Possible discharge by tomorrow No active chest pain Continue therapeutic Lovenox Family at the bedside DNR/DNI N.p.o. for now Chronic kidney disease creatinine at baseline Attestations 2 Medical Necessity Statement*: Angiogram today Diagnoses High risk medication use Z79.899 NSTEMI (non-ST elevated myocardial infarction) I21.4 Positive cardiac stress test R94.39 Chest pain R07.9 Stage 3a chronic kidney disease N18.31 Chronic kidney disease stage: stage 3 (moderate) Chronic kidney disease stage 3 subtype: stage 3a (GFR 45-59) Alzheimer's dementia G30.9; F02.80
--- NOTE | 2023-07-01 10:17 | W.PM.OPSUD ---
Surgery/Procedure H&P Update DATE OF PROCEDURE: July 01, 2023 DATE H&P PERFORMED: 06/30/23 H&P UPDATE INFORMATION: I have reviewed H&P completed within last 30 days, I have examined patient prior to procedure and No changes to prior documentation PREOP DIAGNOSIS: NSTEMI PRIMARY INDICATION FOR PROCEDURE: NSTEMI PLANNED PROCEDURE: Left heart cath with possible percutaneous coronary intervention PATIENT REASSESSED PRIOR TO SEDATION, WITH NO CHANGE NOTED: Yes PHYSICAL EXAM: alert, oriented x 3, clear to auscultation bilaterally and regular rate & rhythm AIRWAY EVAL/ANESTHESIA PLAN: normal airway, ASA III, Local Anesthesia and Risks, benefits & alternatives of sedation and/or procedure discussed ADDITIONAL INFORMATION: Moderate sedation
--- NOTE | 2023-07-01 16:39 | PM.MISC ---
Miscellaneous Note Purpose of Documentation: Brief procedure note Note: Left heart cath findings: Left main: Patent. Diffuse disease LAD: Has severe diffuse disease in the distal to apical segement. LCX: Patent RCA: Has critical 99% ostial to proximal stenosis. S/p successful revascularization with balloon angioplasty and 1 stent PLAN: Dual anti-platetlet therapy with aspirin and plavix Transfer back to CSU
[2023-07-01] MEDS: atorvastatin 40 mg Tablet PO (21:26)
[2023-07-02] VITALS (8 sets, daily range): BP systolic 140–170; BP diastolic 73–82; PULSE 70–78; RESP 17–31; TEMP 36.6–37.1; O2SAT 93–96; BMI 25.6
[2023-07-02] MEDS: enoxaparin 80 mg/0.8 mL Syringe SUBCUT (00:29)
[2023-07-02] MEDS: nitroglycerin 1 gm/inch oint Pkt 0.5 INCH TOPICAL ×2 (04:10→08:03)
[2023-07-02 04:15] LABS: Basophils # 0.1 10^3/uL (0.0-0.1); Basophils % 0.6 %; Eosinophils # 0.7 10^3/uL (0.0-0.8); Eosinophils % 7.9 %; Hematocrit 38.5 % (37-53); Lymphocytes % 21.7 %; Mean Corpuscular HGB Conc 33.8 g/dL (30-55); Mean Corpuscular Hemoglobin 30.9 pg (27-33); Mean Corpuscular Volume 91.4 fl (82-101); Mean Platelet Volume 9.5 fL (7.4-10.4); Monocytes % 10.3 %; Neutrophils % 59.3 %; Nucleated Red Blood Cells % 0 %; Platelet Count 304 10^3/cmm (157-399); Red Blood Count 4.21 10^6/uL (3.85-5.65); Red Cell Distribution Width 15.7 % (12.1-15.1); White Blood Count 9.28 10^3/uL (3.29-11.43)
[2023-07-02 04:33] LABS: Anion Gap 16.2 (5-19); Blood Urea Nitrogen 22 mg/dL (8-23); Calcium 9.1 mg/dL (8.5-10.5); Carbon Dioxide 19 mmol/L (22-29); Chloride 102 mmol/L (98-107); Glucose 86 mg/dL (65-115); Osmolality Calculated 279 mOsm/kg (285-295); Potassium 4.2 mmol/L (3.5-5.1); Sodium 133 mmol/L (136-145)
[2023-07-02] MEDS: levothyroxine 100 mcg Tablet PO (06:36)
[2023-07-02] MEDS: digoxin 125 mcg Tablet PO (06:36)
[2023-07-02] MEDS: pantoprazole DR 40 mg Tablet PO (06:36)
[2023-07-02] MEDS: OXcarbazepine 300 mg Tablet PO (06:36)
[2023-07-02] MEDS: medroxyprogesterone 2.5 mg Tablet 10 MG PO (08:03)
[2023-07-02] MEDS: metoprolol tartrate 25 mg Tablet PO (08:04)
[2023-07-02] MEDS: fexofenadine 60 mg Tablet 180 MG PO (08:04)
[2023-07-02] MEDS: amlodipine 5 mg Tablet PO (08:04)
[2023-07-02] MEDS: sodium chloride 1 gm Tablet PO (08:04)
[2023-07-02] MEDS: clopidogrel 75 mg Tablet PO (08:04)
[2023-07-02] MEDS: aspirin 81 mg EC Tablet PO (08:04)
[2023-07-02] MEDS: docusate sodium 100 mg Capsule PO (08:04)
[2023-07-02] MEDS: propafenone 150 mg Tablet PO (08:04)
--- NOTE | 2023-07-02 09:00 | PM.PN ---
Subjective Subjective: Patient has no chest pain or shortness of breath. He underwent a cardiac catheterization yesterday. He was found to have a critical lesion at the ostium of the right coronary artery for which he underwent PCI. He had an uneventful postprocedure course. Has no hematoma bleeding from the arterial puncture sites at the right wrist and in the groin. Vital signs remained stable. Patient was somewhat agitated through the night. Medications: Medication Review Details: Current Medications Acetaminophen (Acetaminophen 325 Mg Tablet) 650 mg PO Q4H PRN PRN Reason: mild pain or temp >/=101 Hydrocodone Bitart/Acetaminophen (Hydrocodone-Acetaminophen 7.5-325 Mg Tablet) 1 tab PO Q6H PRN PRN Reason: MODERATE TO SEVERE PAIN Amlodipine Besylate (Amlodipine 5 Mg Tablet) 5 mg PO DAILY [facility] Last Admin: 07/02/23 08:04 Dose: 5 mg Aspirin (Aspirin 81 Mg Ec Tablet) 81 mg PO DAILY [facility] [place] Last Admin: 07/02/23 08:04 Dose: 81 mg Atorvastatin Calcium (Atorvastatin 40 Mg Tablet) 40 mg PO BEDTIME [facility] [place] Last Admin: 07/01/23 21:26 Dose: 40 mg Bisacodyl (Bisacodyl 5 Mg Tablet) 10 mg PO DAILY PRN; Protocol PRN Reason: Constipation (see protocol) Clopidogrel Bisulfate (Clopidogrel 75 Mg Tablet) 75 mg PO DAILY [facility] [place] Last Admin: 07/02/23 08:04 Dose: 75 mg Digoxin (Digoxin 125 Mcg Tablet) 125 mcg PO DAILY@07 [facility] [place] Last Admin: 07/02/23 06:36 Dose: 125 mcg Docusate Sodium (Docusate Sodium 100 Mg Capsule) 100 mg PO BID [facility] [place] Last Admin: 07/02/23 08:04 Dose: 100 mg Enoxaparin Sodium (Enoxaparin 80 Mg/0.8 Ml Syringe) 80 mg SUBCUT Q12H [facility] [place] Last Admin: 07/02/23 00:29 Dose: 80 mg Fexofenadine HCl (Fexofenadine 60 Mg Tablet) 180 mg PO DAILY [facility] [place] Last Admin: 07/02/23 08:04 Dose: 180 mg Fluticasone Propionate (Fluticasone Nasal [place] 16gm Btl) 1 spray INTRANASAL BID@09,21 [facility] [place] Last Admin: 07/02/23 08:38 Dose: Not Given Lanolin (Lanolin Oint 7 Gm) 1 applic TOPICAL PRN PRN PRN Reason: DRYNESS Last Admin: 06/30/23 17:24 Dose: 1 applic Lanolin (Lanolin Oint 7 Gm) 1 applic TOPICAL PRN PRN PRN Reason: DRYNESS Levothyroxine Sodium (Levothyroxine 100 Mcg Tablet) 100 mcg PO DAILY@06 [facility] [place] Last Admin: 07/02/23 06:36 Dose: 100 mcg Magnesium Hydroxide (Magnesium Hydroxide 30 Ml Udc) 30 ml PO DAILY PRN PRN Reason: Constipation Medroxyprogesterone Acetate (Medroxyprogesterone 2.5 Mg Tablet) 10 mg PO DAILY [facility] [place] Last Admin: 07/02/23 08:03 Dose: 10 mg Metoprolol Tartrate (Metoprolol Tartrate 25 Mg Tablet) 25 mg PO BID@0900,2100 [facility] [place] Last Admin: 07/02/23 08:04 Dose: 25 mg Nitroglycerin (Nitroglycerin 0.4 Mg Sublingual Tablet) 0 mg SUBLINGUAL Q5MIN PRN PRN Reason: Chest Pain Nitroglycerin (Nitroglycerin 1 Gm/Inch Oint Pkt) 0.5 inch TOPICAL Q6H [facility] [place] Last Admin: 07/02/23 08:03 Dose: 0.5 inch Ondansetron HCl (Ondansetron 2 Mg/Ml Sdv 2 Ml) 4 mg IVP Q8H PRN PRN Reason: vomiting, or N/V if npo Oxcarbazepine (Oxcarbazepine 300 Mg Tablet) 300 mg PO BID@07,19 [facility] [place] Last Admin: 07/02/23 06:36 Dose: 300 mg Pantoprazole Sodium (Pantoprazole Dr 40 Mg Tablet) 40 mg PO DAILY@07 [facility] [place] Last Admin: 07/02/23 06:36 Dose: 40 mg Propafenone HCl (Propafenone 150 Mg Tablet) 150 mg PO TID [facility] [place] Last Admin: 07/02/23 08:04 Dose: 150 mg Sodium Chloride (Sodium Chloride 1 Gm Tablet) 1 gm PO DAILY [facility] [place] Last Admin: 07/02/23 08:04 Dose: 1 gm Vitals/I&O/Wt Last Vital Signs Temp 98.5 F 07/02/23 07:33 Pulse 78 07/02/23 08:03 Resp 20 H 07/02/23 07:33 BP 153/73 07/02/23 07:33 Pulse Ox 95 07/02/23 07:33 O2 Del Method Room Air 07/02/23 07:33 O2 Flow Rate 2 06/29/23 11:00 Weight last 48 hrs Weight 168 lb 7 oz Weight 179 lb 1.6 oz Physical Exam Narrative: GENERAL: The patient is alert and oriented to the person and place. Not in any acute distress. HEENT: No significant pallor, icterus or lymphadenopathy.Oral cavity: There are no mucous membrane lesions. NECK: Trachea appears to be central. No masses noted. No JVD or thyromegaly appreciated. RESPIRATORY: Chest is symmetrical. No intercostals muscle retraction or any accessory muscle activation. There is no chest wall tenderness. Breath sounds are heard bilaterally. No rales or rhonchi heard. No evidence of any consolidation. BREASTS: Deferred. HEART: The heart sounds are normal. No S3 or S4. Short systolic murmur the left sternal border. Grade 2 early diastolic murmur. No pericardial rub ABDOMEN: No vessel pulsations or distention. No tenderness. No organomegaly appreciated. Bowel sounds are normally heard. : Deferred. RECTAL: Deferred. LYMPHATIC: No lymphadenopathy noted in the neck. EXTREMITIES: No hematoma bleeding at the radial arterial puncture site and also in the right groin MUSCULOSKELETAL: No acute joint deformities or swelling SKIN: There are no significant rashes or ecchymosis NEUROPSYCHIATRIC: The patient is alert and oriented x3. Appears to be in a good mood. No tremors or rigidity noted. Data 07/02/23 03:30 07/02/23 03:30 A&P Assessment and plan (1) NSTEMI (non-ST elevated myocardial infarction): Status post coronary angiogram. Status post PCI of the RCA lesion. Currently seems to be stable. (2) Hyperlipidemia: May continue on the current medications. Qualifiers: Hyperlipidemia type: mixed hyperlipidemia Qualified Code(s): E78.2 - Mixed hyperlipidemia (3) Hypertension: The blood pressure seems to be slowly getting under control. May continue on the current medication for the time being. Qualifiers: Hypertension type: essential hypertension Qualified Code(s): I10 - Essential (primary) hypertension (4) Atrial fibrillation: Patient is on propafenone and digoxin. The atrial fibrillation is intermittent. Currently he is in sinus rhythm. Because of the GI bleed, patient refused oral anticoagulation. Will continue on the current medications. We may keep him on baby aspirin and Plavix Qualifiers: Atrial fibrillation type: longstanding persistent Qualified Code(s): I48.11 - Longstanding persistent atrial fibrillation (5) Chronic kidney disease: The BUN/creatinine is stable. Will continue on the current measures. Qualifiers: Chronic kidney disease stage: stage 3 (moderate) Chronic kidney disease stage 3 subtype: stage 3a (GFR 45-59) Qualified Code(s): N18.31 - Chronic kidney disease, stage 3a Plan The other problems are History of TIA History of GI bleed Dementia If the patient continues to remain stable, may be discharged home today. Appointment the [facility] in 1 week to be seen by the nurse practitioner. Appointment with me in the office in 1 month. Attestations Medical Necessity Statement*: Disposition as per the primary Coding Level of Care Code 90828 Diagnoses NSTEMI (non-ST elevated myocardial infarction) I21.4 Mixed hyperlipidemia E78.2 Hyperlipidemia type: mixed hyperlipidemia Essential hypertension I10 Hypertension type: essential hypertension Longstanding persistent atrial fibrillation I48.11 Atrial fibrillation type: longstanding persistent Stage 3a chronic kidney disease N18.31 Chronic kidney disease stage: stage 3 (moderate) Chronic kidney disease stage 3 subtype: stage 3a (GFR 45-59)
--- NOTE | 2023-07-02 09:41 | P.DS_ITS ---
Discharge Providers Date of Admission: 06/30/23 12:26 Date of Discharge: July 02, 2023 Attending Provider at Admission: Savanna Wright MD Attending Provider at Discharge: Mark Knowles MD Primary Care Provider: Rito Woods MD Diagnoses at Discharge Discharge Diagnosis (1) NSTEMI (non-ST elevated myocardial infarction): Status: Acute (2) Hyperlipidemia: Status: Chronic Qualifiers: Hyperlipidemia type: mixed hyperlipidemia Qualified Code(s): E78.2 - Mixed hyperlipidemia (3) Hypertension: Status: Chronic Qualifiers: Hypertension type: essential hypertension Qualified Code(s): I10 - Essential (primary) hypertension (4) Atrial fibrillation: Status: Chronic Qualifiers: Atrial fibrillation type: longstanding persistent Qualified Code(s): I48.11 - Longstanding persistent atrial fibrillation Permanent problem details: Patient is taking a full ASA. Refuses Warfarin due to GI bleed in the past. Pt has episodes of atrial fibrillation with rapid ventricular rate. He has a history of TIA as well. ? (5) Chronic kidney disease: Status: Chronic Qualifiers: Chronic kidney disease stage: stage 3 (moderate) Chronic kidney disease stage 3 subtype: stage 3a (GFR 45-59) Qualified Code(s): N18.31 - Chronic kidney disease, stage 3a Reason for Visit Reason for Visit: chest pain Hospital Course Hospital Course 82-year-old male who was admitted for management evaluation of unstable angina which he experienced at the alf however no such episodes during hospitalization EKG without ischemic or infarctive changes, troponin were showed significant delta he was put on ACS protocol,, family was contemplating whether they would opt for intervention or stress test, decided to pursue stress test first, stress test was positive, multiple family meetings were conducted, they decided to go with angiogram, Dr. Ratliff did balloon angioplasty with 1 stent of RCA, patient has significant dementia, not complaining of active chest pain, he is DNR/DNI, he will be discharged on dual antiplatelet therapy, they follow- up with Dr. Gutierrez outpatient creatinine is 1.3 which is around baseline, grade 1 diastolic dysfunction with preserved ejection fraction Physical Exam Narrative: Awake and alert GCS 15 No active chest pain Eating breakfast Currently on room air Discharge Data Studies Completed and Pending Completed Studies During Hospitalization Category Date Time Status Cardiac Stress Test MIBI [Sestamibi Stress Test Request Exams 06/29/23 17:26 Completed ] Routine XR chest 1V portable [id number] Urgent Exams 06/29/23 10:43 Completed NM toni perf SPECT r/s* [id number] Routine Nuc Med 06/30/23 08:00 Completed CV. echo complete* [id number] Routine Ultrasound 06/30/23 16:33 Completed Pending at discharge Category Date Time Status REHABILITATION ENGINEER request for service Routine Exams 07/01/23 07:58 Taken Laboratory Results WBC 9.28 10^3/uL (3.29-11.43) 07/02/23 03:30 RBC 4.21 10^6/uL (3.85-5.65) 07/02/23 03:30 Hgb 13.00 g/dL (11.27-16.99) 07/02/23 03:30 Hct 38.5 % (37-53) 07/02/23 03:30 MCV 91.4 fl (82-101) 07/02/23 03:30 MCH 30.9 pg (27-33) 07/02/23 03:30 MCHC 33.8 g/dL (30-55) 07/02/23 03:30 RDW 15.7 % (12.1-15.1) H 07/02/23 03:30 Plt Count 304 10^3/cmm (157-399) 07/02/23 03:30 MPV 9.5 fL (7.4-10.4) 07/02/23 03:30 Neut % (Auto) 59.3 % 07/02/23 03:30 Lymph % (Auto) 21.7 % 07/02/23 03:30 [place] % (Auto) 10.3 % 07/02/23 03:30 Eos % (Auto) 7.9 % 07/02/23 03:30 Baso % (Auto) 0.6 % 07/02/23 03:30 Neut # (Auto) 5.50 10^3/uL (1.8-7.7) 07/02/23 03:30 Lymph # (Auto) 2.0 10^3/uL (0.8-4.8) 07/02/23 03:30 [place] # (Auto) 1.0 10^3/uL (0.2-0.9) H 07/02/23 03:30 Eos # (Auto) 0.7 10^3/uL (0.0-0.8) 07/02/23 03:30 Baso # (Auto) 0.1 10^3/uL (0.0-0.1) 07/02/23 03:30 Nucleated RBC % (auto) 0 % 07/02/23 03:30 Nucleated RBCs # 0.0 /100WBC 07/02/23 03:30 PT 12.80 SECONDS (12.1-14.9) 06/29/23 10:30 INR 0.94 (0.8-1.2) 06/29/23 10:30 Sodium 133 mmol/L (136-145) L 07/02/23 03:30 Potassium 4.2 mmol/L (3.5-5.1) 07/02/23 03:30 Chloride 102 mmol/L (98-107) 07/02/23 03:30 Carbon Dioxide 19 mmol/L (22-29) L 07/02/23 03:30 Anion Gap 16.2 (5-19) 07/02/23 03:30 BUN 22 mg/dL (8-23) 07/02/23 03:30 Creatinine 1.3 mg/dL (0.7-1.2) H 07/02/23 03:30 GFR Calculation Not Reportable 07/02/23 03:30 Glucose 86 mg/dL (65-115) 07/02/23 03:30 Calculated Osmolality 279 mOsm/kg (285-295) L 07/02/23 03:30 Calcium 9.1 mg/dL (8.5-10.5) 07/02/23 03:30 Phosphorus 3.9 mg/dL (2.5-4.5) 06/30/23 03:52 Magnesium 2.0 mg/dL (1.7-2.3) 06/30/23 03:52 Total Bilirubin 0.4 mg/dL (0.15-1.2) 06/29/23 10:30 AST 23 U/L (0-40) 06/29/23 10:30 ALT 17 U/L (0-41) 06/29/23 10:30 Alkaline Phosphatase 93 U/L (40-130) 06/29/23 10:30 Troponin T Baseline 55 ng/L (0-15) H 06/29/23 10:30 Troponin T 120 Minute 69.33 ng/L (0-15) H 06/29/23 12:28 Delta Troponin T 14.33 ABS# (0-10) H* 06/29/23 12:28 Troponin T Hi Sens 6Hr 207.9 ng/L (0-15) H 06/29/23 16:42 Troponin T Hi Sens 6Hr Delta 152.9 ng/L (0-12) H* 06/29/23 16:42 Total Protein 7.8 g/dL (6.6-8.7) 06/29/23 10:30 Albumin 4.0 g/dL (3.5-5.2) 06/29/23 10:30 Globulin 3.8 g/dL (1.3-4.6) 06/29/23 10:30 Triglycerides 165 mg/dL (0-150) H 06/30/23 03:52 Cholesterol 173 mg/dL (0-200) 06/30/23 03:52 LDL Cholesterol, Calc 111 mg/dL (50-129) 06/30/23 03:52 HDL Cholesterol 29 mg/dL (60-100) L 06/30/23 03:52 LDL/HDL Ratio 3.83 RATIO (0.00-3.22) H 06/30/23 03:52 Cholesterol/HDL Ratio 5.97 mg/dL (1.0-5.00) H 06/30/23 03:52 TSH 2.81 uIU/mL (0.27-4.20) 06/30/23 03:52 Urine Color Yellow (Yellow) 06/30/23 14:00 Urine Appearance Clear (CLEAR) 06/30/23 14:00 Urine pH 6 (5-7) 06/30/23 14:00 Ur Specific [place] 1.015 (1.005-1.030) 06/30/23 14:00 Urine Protein Neg (Negative) 06/30/23 14:00 Urine Glucose (UA) Norm (Normal) 06/30/23 14:00 Urine Ketones Negative (Negative) 06/30/23 14:00 Urine Blood Neg (Negative) 06/30/23 14:00 Urine Nitrate Negative (Negative) 06/30/23 14:00 Urine Bilirubin Neg (Negative) 06/30/23 14:00 Urine Urobilinogen Neg mg/dL (Negative) 06/30/23 14:00 Ur Leukocyte Esterase Negative (Negative) 06/30/23 14:00 Digoxin 1.1 ng/mL (0.6-1.2) 06/29/23 10:30 Vitals Last Vital Signs Temp 98.5 F 07/02/23 07:33 Pulse 78 07/02/23 08:03 Resp 20 H 07/02/23 07:33 BP 153/73 07/02/23 07:33 Pulse Ox 95 07/02/23 07:33 O2 Del Method Room Air 07/02/23 07:33 O2 Flow Rate 2 06/29/23 11:00 Discharge Plan Discharge Patient Disposition: Home Condition: Stable Prescriptions: New carvedilol [Coreg] 3.125 mg tablet 3.125 mg PO BID Qty: 60 3RF Rx Instructions: must administer with a meal/food atorvastatin 40 mg Tablet 40 mg PO BEDTIME Qty: 30 0RF clopidogrel 75 mg Tablet 75 mg PO DAILY Qty: 90 3RF Continued bisacodyl [Dulcolax (bisacodyl)] 10 mg suppository 10 mg [place] DAILY PRN (Reason: Constipation) propafenone 225 mg capsule,extended release 12 hr 225 mg PO Q12H Rx Instructions: @07:00,19:00 medroxyprogesterone 10 mg tablet 10 mg PO DAILY@07 acetaminophen [Tylenol] 325 mg tablet 650 mg PO Q4H PRN (Reason: Pain) fluticasone propionate 50 mcg/actuation spray,suspension 1 spray INTRANASAL BID@09,21 hydrocodone-acetaminophen 7.5-325 mg tablet 1 tab PO Q6H PRN (Reason: Pain) (DME) sling See Rx Instructions .Route .MEDSUPPLY Qty: 1 0RF Rx Instructions: As directed (DME) QUECHAN J COLLAR See Rx Instructions .Route .MEDSUPPLY Qty: 1 0RF Rx Instructions: As directed (DME) Shoulder Immobilizer See Rx Instructions .Route .MEDSUPPLY Qty: 1 0RF Rx Instructions: As directed ammonium lactate 12 % Cream 1 applic TOPICAL DAILY sodium chloride 1,000 mg Tablet,Soluble 1,000 mg PO DAILY oxcarbazepine 300 mg tablet 300 mg PO BID@07,19 omeprazole 40 mg Capsule,Delayed Release(Dr/Ec) 40 mg PO DAILY@07 levothyroxine 100 mcg tablet 100 mcg PO DAILY@06 Helqr-Xi-[id number] Enema 19-7 gram/118 mL Enema 118 ml VT DAILY PRN (Reason: Constipation) lidocaine HCl [Lidocaine Viscous] 2 % Solution See Rx Instructions .ROUTE .COMPLEX Rx Instructions: give 15ml po every 2 hours as needed for gum pain Genia 180 mg Tablet 180 mg PO DAILY Milk of Magnesia 400 mg/5 mL Suspension See Rx Instructions .ROUTE .COMPLEX PRN (Reason: Constipation) Rx Instructions: Give 30 ml by mouth every 24 hours as needed for constipation. Nitrostat 0.4 mg Tablet, Sublingual See Rx Instructions .ROUTE .COMPLEX PRN (Reason: Chest Pain) Rx Instructions: 0.4 mg sublingually every 5 minuts as needed for chest pain x 2 doses. If chest pain continues send to ER. aspirin [Adult Aspirin Regimen] 81 mg tablet,delayed release (DR/EC) 81 mg PO DAILY@07 Qty: 90 3RF Discontinued digoxin 125 mcg (0.125 mg) tablet 125 mcg PO DAILY@07 Rx Instructions: hold for pulse less than 60 Discharge Orders: Discharge Order (Routine); Ordered 07/02/23 Ordered By: Mark Knowles Referrals: Rito Woods MD [Primary Care Provider] - Tabatha Devi FNP [Nurse Practitioner] - 07/14/23 2:00 pm Patient Instructions: Opioid Safety Discharge Attestations Time Spent in Discharge Care*: greater than 30 min Quality Metrics Clinical Quality Measures [ No reported AMI, CVA or VTE this stay] Coding Level of Care Code Acute Code for [facility] Fwd Diagnoses NSTEMI (non-ST elevated myocardial infarction) I21.4 Mixed hyperlipidemia E78.2 Hyperlipidemia type: mixed hyperlipidemia Essential hypertension I10 Hypertension type: essential hypertension Longstanding persistent atrial fibrillation I48.11 Atrial fibrillation type: longstanding persistent Stage 3a chronic kidney disease N18.31 Chronic kidney disease stage: stage 3 (moderate) Chronic kidney disease stage 3 subtype: stage 3a (GFR 45-59)
== END 2023-07-02 15:46 | disposition skilled nursing facility (03) | DRG 322 ==
LOC: ER 13:38 → ER IP 13:45 → CSU 14:09
PROVIDERS: Internal Medicine; Physician Assistant; Admitting Provider Hospitalist; Emergency Provider Emergency Medicine; PCP Internal Medicine; Visit Provider Internal Medicine
PROC: 027034Z Dilation of Coronary Artery, One Artery with Drug-eluting Intraluminal Device, Percutaneous Approach (ICD-10-PCS; principal; 2023-07-01 10:00)
PROC: 027034Z Dilation of Coronary Artery, One Artery with Drug-eluting Intraluminal Device, Percutaneous Approach (ICD-10-PCS; 2023-07-01 10:00)
DX: I21.4 Non-ST elevation (NSTEMI) myocardial infarction (principal); I48.0 Paroxysmal atrial fibrillation; G30.9 Alzheimer's disease, unspecified; F02.80 Dementia in other diseases classified elsewhere, unspecified severity, without behavioral disturbance, psychotic disturbance, mood disturbance, and anxiety; E03.9 Hypothyroidism, unspecified; F41.9 Anxiety disorder, unspecified; M72.0 Palmar fascial fibromatosis [Dupuytren]; I12.9 Hypertensive chronic kidney disease with stage 1 through stage 4 chronic kidney disease, or unspecified chronic kidney disease; N18.31 Chronic kidney disease, stage 3a; E78.2 Mixed hyperlipidemia; N40.1 Benign prostatic hyperplasia with lower urinary tract symptoms; N39.498 Other specified urinary incontinence; F32.A Depression, unspecified; I49.5 Sick sinus syndrome; Z66 Do not resuscitate; F91.9 Conduct disorder, unspecified; M81.0 Age-related osteoporosis without current pathological fracture; K21.9 Gastro-esophageal reflux disease without esophagitis; G62.9 Polyneuropathy, unspecified; Z79.82 Long term (current) use of aspirin; Z87.440 Personal history of urinary (tract) infections; Z86.73 Personal history of transient ischemic attack (TIA), and cerebral infarction without residual deficits; Z95.0 Presence of cardiac pacemaker
CPT/HCPCS: 36415; 71045; 78452; 80048; 80053; 80061; 80162; 81003; 83735; 84100; 84443; 84484; 85025; 85347; 85610; 92978; 93005; 93017; 93306; 93454; 96365; 96372; 96375; 99152; 99153; 99285; A9500; C1725; C1753; C1760; C1769; C1874; C1887; C1894; C9600; G0378; J1644; J1650; J2250; J2785; J3010; J3490; J7030; Q0163; Q9967

== ENCOUNTER → 2023-07-14 13:48 | Outpatient (BNVA) | payer MEDICARE, MEDICAID, SELFPAY | PROVIDERS: PCP Internal Medicine; Visit Provider Nurse Practitioner Family | DX: I25.10 Atherosclerotic heart disease of native coronary artery without angina pectoris (principal); I12.9 Hypertensive chronic kidney disease with stage 1 through stage 4 chronic kidney disease, or unspecified chronic kidney disease; N18.9 Chronic kidney disease, unspecified; Z95.0 Presence of cardiac pacemaker | CPT/HCPCS: 99213 ==

== ENCOUNTER → 2023-08-19 09:46 | Outpatient (BNVA) | payer MEDICARE, MEDICAID, SELFPAY | PROVIDERS: PCP Internal Medicine; Visit Provider Internal Medicine Cardiovascular Disease | DX: I25.10 Atherosclerotic heart disease of native coronary artery without angina pectoris (principal); I65.23 Occlusion and stenosis of bilateral carotid arteries; E78.2 Mixed hyperlipidemia; I48.11 Longstanding persistent atrial fibrillation; Z95.0 Presence of cardiac pacemaker; Z86.73 Personal history of transient ischemic attack (TIA), and cerebral infarction without residual deficits; I12.9 Hypertensive chronic kidney disease with stage 1 through stage 4 chronic kidney disease, or unspecified chronic kidney disease; N18.9 Chronic kidney disease, unspecified | CPT/HCPCS: 99214 ==

== ENCOUNTER 2023-09-01 07:01 | Outpatient (CLI) | payer MEDICARE, MEDICAID, SELFPAY ==
--- NOTE | 2023-09-01 07:00 | USCV_ITS ---
Sylvia Baptiste Age: 82 Gender: M : 1940 Exam Date: 09/01/2023 07:10 Ordering Phys: Malika Gutierrez MD ([email or web address]) Technologist: NIKKI Exam Location: [facility] Indication: TIA Risk Factors: Previous Vascular Surgery: Right Brachial BP: / Left Brachial BP: / Right Left Velocity (cm/s) Spectral Plaque Velocity (cm/s) Spectral Plaque Syst/Diast Broadening Syst/Diast Broadening 127.60/12.60 Prox CCA 69.40 / 11.10 180.10/12.60 Mid CCA 127.70/ 17.70 154.30/15.20 Distal CCA 125.80/ 8.10 188.60/16.60 Prox ICA 184.00/ 22.70 104.30/11.30 Mid ICA 195.10/ 17.30 73.40/ 9.80 Distal ICA 115.20/ 11.40 166.80 ECA 316.00 1.20 ICA/CCA 1.60 Antegrade Vertebral Antegrade 26.70/ 0.00 cm/s 61.10/ 9.90 cm/s Tri Subclavian Tri 122.5 211.2 0 0 FINDINGS Moderate to heavy heterogenous irregular plaques of the bifurcations and proximal internal carotid arteries bilaterally Minimal to moderate plaque in the distal common carotid arteries bilaterally Antegrade flow in the vertebral arteries bilaterally Markedly elevated Doppler flow velocity in the left external carotid artery Diminished Doppler flow velocity on the right side CONCLUSIONS Moderate to heavy heterogenous irregular plaques of the bifurcations and proximal internal carotid arteries bilaterally suggesting 50 to 69% stenosis Markedly elevated Doppler flow velocity in the left external carotid artery suggesting hemodynamically significant stenosis Diminished flow velocity in the right vertebral artery may suggest occlusive disease Mild to moderate plaque in the distal common carotid artery bilaterally. Compared to the study from 02/23/2023, there is progression of disease in the right internal carotid artery. Dr Malika Gutierrez MD [facility] (Electronically Signed) Final Date: 07 September 2023 09:51 S
== END 2023-09-01 07:02 | disposition home or self-care (01) ==
LOC: RAD 07:01
PROVIDERS: PCP Internal Medicine; Visit Provider Internal Medicine Cardiovascular Disease
DX: G45.9 Transient cerebral ischemic attack, unspecified (principal); I77.9 Disorder of arteries and arterioles, unspecified
CPT/HCPCS: 93880

== ENCOUNTER 2023-10-31 20:51 | Inpatient (IN) | payer MEDICARE, MEDICAID, SELFPAY ==
[2023-10-31] VITALS (22 sets, daily range): BP systolic 154–198; BP diastolic 63–106; PULSE 70–77; RESP 18–30; TEMP 36.6; O2SAT 94–100; BMI 22.3
--- NOTE | 2023-10-31 20:53 | XRR_ITS ---
PROCEDURE INFORMATION: Exam: XR Chest Exam date and time: 10/31/2023 9:13 PM Age: 82 years old Clinical indication: Pain; Angina pectoris; Prior surgery; Surgery date: 6+ months; Surgery type: Pacemaker; Additional info: Chest pain TECHNIQUE: Imaging protocol: Radiologic exam of the chest. Views: 1 view. COMPARISON: CR XR chest 1V portable [id number] 06/29/2023 10:45 AM FINDINGS: Tubes, catheters and devices: Transvenous cardiac pacer leads are stable in position. Lungs: Unremarkable. No consolidation. Pleural spaces: Unremarkable. No pleural effusion. No pneumothorax. Heart/Mediastinum: Unremarkable. No cardiomegaly. Bones/joints: Unremarkable. XR/XR chest 1V portable [id number] IMPRESSION: No acute findings.
--- NOTE | 2023-10-31 21:00 | ED_ITS ---
HPI - Chest Pain 2 General: Chief Complaint: Chest Pain Stated Complaint: Chest Pain Time Seen by Provider: 10/31/23 20:52 History of Present Illness: 82-year-old man with a history of contreras ry artery disease status post balloon angioplasty, hypertension, hyperlipidemia, A-fib (he refuses anticoagulation secondary to a GI bleed in the past), pacemaker placement depression, TIA, diverticulitis, anxiety who presents to the emergency room with chest pain that started about 30 minutes ago. He said he had a very bad pressure in his epigastric/left lower chest. This was improved some with nitro. No nausea. No vomiting. Some mild diaphoresis. EKG transmitted and route shows some diffuse ST depression. After comparison to old EKG he had the same tracing. Although when he had this tracing he had had a non-STEMI at that time. Review of Systems 2 Narrative: Constitutional symptoms: Negative except as documented in HPI. Skin symptoms: Negative except as documented in HPI. Eye symptoms: Negative except as documented in HPI. ENMT symptoms: Negative except as documented in HPI. Respiratory symptoms: Negative except as documented in HPI. Cardiovascular symptoms: Negative except as documented in HPI. Gastrointestinal symptoms: Negative except as documented in HPI. Genitourinary symptoms: Negative except as documented in HPI. Musculoskeletal symptoms: Negative except as documented in HPI. Neurologic symptoms: Negative except as documented in HPI. Psychiatric symptoms: Negative except as documented in HPI. Endocrine symptoms: Negative except as documented in HPI. PFSH ED 2 PFSH: Medical History Hypertension Hyperlipidemia Atrial fibrillation Patient is taking a full ASA. Refuses Warfarin due to GI bleed in the past. Pt has episodes of atrial fibrillation with rapid ventricular rate. He has a history of TIA as well. ? Pacemaker Atherosclerosis of [place] coronary artery without angina pectoris Chronic kidney disease Abnormal myocardial perfusion study Positive cardiac stress test NSTEMI (non-ST elevated myocardial infarction) Chest pain High risk medication use digoxin Generalized weakness Hypothyroidism Tremor Alzheimer's dementia Orthostatic hypotension Anxiety Humerus fracture Conduct disorder on medroxyprogesterone Syncope Seizure Urinary tract infection Dupuytren's contracture of right hand BPH (benign prostatic hyperplasia) Insomnia GI bleed Adrenal adenoma benign Thoracic back pain Depression Neuropathy TIA (transient ischemic attack) Diverticulitis Incontinence GERD (gastroesophageal reflux disease) Osteoporosis Surgical History Hx of cataract surgery H/O vasectomy S/P foot surgery, right Family History Other CAD (coronary artery disease) Cancer Dementia Diabetes Hypertension Denies family history of Clotting disorder Chronic kidney disease (CKD) Suicide Anesthesia complication Bleeding disorder Lung disease Stroke Social History Smoking and tobacco/nicotine status: never used tobacco/nicotine Alcohol intake: never Substance/Drug Use: never Housing: Long-Term Physical Exam 2 Narrative: EXAM NARRATIVE: General: Alert, no acute distress. Skin: Warm, dry. Head: Normocephalic, atraumatic. Neck: Supple, trachea midline. Eye: Extraocular movements are intact. Ears, nose, mouth and throat: mucosa moist. Cardiovascular: Regular, Normal peripheral perfusion. Respiratory: Lungs are clear to auscultation, respirations are non-labored, breath sounds are equal, Symmetrical chest wall expansion. Gastrointestinal: Soft, Nontender, Non distended, Normal bowel sounds. Musculoskeletal: Normal ROM, no deformity. Neurological: Alert and oriented, No focal neurological deficit observed. Psychiatric: Cooperative, appropriate mood & affect. Course 2 Vital Signs: Vital signs: Vital Signs Temperature 97.8 F 10/31/23 20:52 Pulse Rate 76 10/31/23 20:56 Respiratory Rate 23 H 10/31/23 20:56 Blood Pressure 170/75 10/31/23 20:56 Pulse Oximetry 96 10/31/23 20:56 Oxygen Delivery Me thod Room Air 10/31/23 20:56 MDM - Chest Pain Medical Decision Making Differential diagnosis for patient with chest pain includes but is not limited to and based on the above HPI, review of systems and physical exam: Pneumonia. unstable angina. angina. Acute coronary syndrome / IN. Pulmonary embolism. Costochondritis / musculoskeletal. Pleurisy. Pericarditis. Esophageal spasm. Pancreatis. Cholecystitis. Workup: Lab work, chest X-ray and EKG ordered to evaluate, rule in and rule out above pathologies. EKG: Time 2053 rate 80. Normal sinus rhythm, first-degree AV block, diffuse ST depression that is unchanged from previous EKG. No ST elevation. No ectopy., This was reviewed and interpreted by myself the ER physician at 2055 Chest x-ray: Pacemaker is present in the left chest. Wires appear intact. No acute process. No infiltrate. No pneumothorax. This was reviewed and interpreted by myself the ER physician. Lab Review: Laboratory results were reviewed and interpreted by myself the emergency room physician. White count is 8. Hemoglobin is 13.5. BUN/creatinine are 21 and 1.2. Troponin is elevated at 128. I believe this patient is having a non-STEMI with a troponin at 128 only 30 minutes after symptoms started. I reviewed the patient's medical record. Consultation: I have consulted The affirmative action officer on-call per the hospitalist request Assessment and plan: Non-ST elevation myocardial infarction -Heparin drip started -I discussed the patient with the hospitalist on-call who is admitting the patient. - Discussed findings and plan with patient. Answered any questions. - All laboratory values were reviewed and interpreted personally by myself, the ER physician - All imaging was reviewed and interpreted personally by myself, the ER physician. - Evaluation and treatment of this problem were appropriate in the emergency setting Lab Data 10/31/23 20:39 10/31/23 20:39 Laboratory Results WBC 7.59 10^3/uL (3.29-11.43) 10/31/23 20:39 RBC 4.09 10^6/uL (3.85-5.65) 10/31/23 20:39 Hgb 13.50 g/dL (11.27-16.99) 10/31/23 20:39 Hct 38.8 % (37-53) 10/31/23 20:39 MCV 94.9 fl (82-101) 10/31/23 20:39 MCH 33.0 pg (27-33) 10/31/23 20:39 MCHC 34.8 g/dL (30-55) 10/31/23 20:39 RDW 13.5 % (12.1-15.1) 10/31/23 20:39 Plt Count 251 10^3/cmm (157-399) 10/31/23 20:39 MPV 9.3 fL (7.4-10.4) 10/31/23 20:39 Neut % (Auto) 52.2 % 10/31/23 20:39 Lymph % (Auto) 26.5 % 10/31/23 20:39 [place] % (Auto) 11.5 % 10/31/23 20:39 Eos % (Auto) 9.1 % 10/31/23 20:39 Baso % (Auto) 0.4 % 10/31/23 20:39 Neut # (Auto) 3.97 10^3/uL (1.8-7.7) 10/31/23 20:39 Lymph # (Auto) 2.0 10^3/uL (0.8-4.8) 10/31/23 20:39 [place] # (Auto) 0.9 10^3/uL (0.2-0.9) 10/31/23 20:39 Eos # (Auto) 0.7 10^3/uL (0.0-0.8) 10/31/23 20:39 Baso # (Auto) 0.0 10^3/uL (0.0-0.1) 10/31/23 20:39 Nucleated RBC % (auto) 0 % 10/31/23 20:39 Nucleated RBCs # 0.0 /100WBC 10/31/23 20:39 Sodium 131 mmol/L (136-145) L 10/31/23 20:39 Potassium 4.3 mmol/L (3.5-5.1) 10/31/23 20:39 Chloride 99 mmol/L (98-107) 10/31/23 20:39 Carbon Dioxide 19 mmol/L (22-29) L 10/31/23 20:39 Anion Gap 17.3 (5-19) 10/31/23 20:39 BUN 21 mg/dL (8-23) 10/31/23 20:39 Creatinine 1.2 mg/dL (0.7-1.2) 10/31/23 20:39 GFR Calculation Not Reportable 10/31/23 20:39 Glucose 146 mg/dL (65-115) H 10/31/23 20:39 Calculated Osmolality 278 mOsm/kg (285-295) L 10/31/23 20:39 Calcium 8.6 mg/dL (8.5-10.5) 10/31/23 20:39 Total Bilirubin 0.2 mg/dL (0.15-1.2) 10/31/23 20:39 AST 22 U/L (0-40) 10/31/23 20:39 ALT 17 U/L (0-41) 10/31/23 20:39 Alkaline Phosphatase 96 U/L (40-130) 10/31/23 20:39 Troponin T Baseline 128 ng/L (0-15) H* 10/31/23 20:39 NT-Pro-B Natriuret Pep 1474 pg/mL (0-450) H 10/31/23 20:39 Total Protein 7.2 g/dL (6.6-8.7) 10/31/23 20:39 Albumin 4.0 g/dL (3.5-5.2) 10/31/23 20:39 Globulin 3.2 g/dL (1.3-4.6) 10/31/23 20:39 All radiology interpretation(s) finalized by discharge Discharge Plan Discharge Patient Disposition: Admitted As Inpatient Clinical Impression: Non-ST elevated myocardial infarction Condition: Stable Coding Level of Care Code ED Finish Molder for Zachary Faria
[2023-10-31 21:02] LABS: Basophils % 0.4 %; Eosinophils # 0.7 10^3/uL (0.0-0.8); Eosinophils % 9.1 %; Hematocrit 38.8 % (37-53); Lymphocytes % 26.5 %; Mean Corpuscular HGB Conc 34.8 g/dL (30-55); Mean Corpuscular Volume 94.9 fl (82-101); Mean Platelet Volume 9.3 fL (7.4-10.4); Monocytes # 0.9 10^3/uL (0.2-0.9); Monocytes % 11.5 %; Neutrophils # 3.97 10^3/uL (1.8-7.7); Neutrophils % 52.2 %; Nucleated Red Blood Cells % 0 %; Platelet Count 251 10^3/cmm (157-399); Red Blood Count 4.09 10^6/uL (3.85-5.65); Red Cell Distribution Width 13.5 % (12.1-15.1); White Blood Count 7.59 10^3/uL (3.29-11.43)
[2023-10-31 21:32] LABS: Alanine Aminotransferase 17 U/L (0-41); Alkaline Phosphatase 96 U/L (40-130); Anion Gap 17.3 (5-19); Aspartate Amino Transferase 22 U/L (0-40); Blood Urea Nitrogen 21 mg/dL (8-23); Calcium 8.6 mg/dL (8.5-10.5); Carbon Dioxide 19 mmol/L (22-29); Chloride 99 mmol/L (98-107); Creatinine Clr Calc Pharmacy 44.6706; Globulin 3.2 g/dL (1.3-4.6); Glucose 146 mg/dL (65-115); NT Pro B Type Natriuretic Pept 1474 pg/mL (0-450); Osmolality Calculated 278 mOsm/kg (285-295); Potassium 4.3 mmol/L (3.5-5.1); Sodium 131 mmol/L (136-145); Total Bilirubin 0.2 mg/dL (0.15-1.2); Total Protein 7.2 g/dL (6.6-8.7)
[2023-10-31 21:33] LABS: Troponin(5th) Baseline 128 ng/L (0-15)
[2023-10-31] MEDS: heparin drip 25,000 UNIT/500 ML PREMIX 16 UNIT IV (22:06)
--- NOTE | 2023-10-31 22:11 | PM.HP ---
Providers/Chief Complaint Primary Care Provider: Rito Woods MD Chief Complaint: Chest Pain History of Present Illness Sylvia Baptiste is a 82 year old male with a past medical history of CAD, atrial fibrillation, history of GI bleeds, not on anticoagulation, recent history of coronary angiography, jun 2023, with history of stent placement, who presents [facility] for chest pain. Patient tells me that tonight he had dinner and went to bed, he woke up with severe substernal chest pain, nonradiating no associate shortness of breath, no lightheadedness, no dizziness, no nausea, no vomiting, initial troponin 120, EKG showing ST depressions in inferior lateral leads, currently chest pain-free Review of Systems Const: Denies: fever(s) Eyes: Denies: change in vision Card: Reports: chest pain Resp: Denies: dyspnea GI: Denies: abdominal pain Medications/Allergies Home Medications Medication Instructions Recorded Confirmed Last Taken Type acetaminophen 325 mg tablet 650 mg PO Q4H PRN Pain 06/27/19 08/19/23 02/24/22 History (Tylenol) bisacodyl 10 mg rectal suppository [address] DAILY PRN Constipation 06/27/19 08/19/23 Unknown History (Dulcolax (bisacodyl)) fluticasone propionate 50 1 spray intranasal BID@06/27/19 08/19/23 02/25/22 History mcg/actuation nasal spray,suspension propafenone 225 mg 225 mg PO Q12H 06/27/19 08/19/23 02/25/22 History capsule,extended release 12 hr levothyroxine 100 mcg tablet 100 mcg PO DAILY@01/24/22 08/19/23 02/25/22 History lidocaine HCl 2 % mucosal solution See Rx Instructions .Route .COMPLEX 01/24/22 08/19/23 01/22/22 History (Lidocaine Viscous) omeprazole 40 mg capsule,delayed 40 mg PO DAILY@01/24/22 08/19/23 02/25/22 History release oxcarbazepine 300 mg tablet 300 mg PO BID@01/24/22 08/19/23 02/25/22 History sodium phosphates 19 gram-[address] DAILY PRN Constipation 01/24/22 08/19/23 Unknown History gram/118 mL enema (Jncnc-Pe-Xch Enema) sling #1 ea 03/05/22 08/20/23 Unknown Rx CAPITAN GRANDE BAND J COLLAR #1 ea 03/06/22 08/20/23 Unknown Rx Shoulder Immobilizer #1 ea 03/06/22 08/20/23 Unknown Rx hydrocodone 7.5 mg-acetaminophen 1 tab PO Q6H PRN Pain 07/28/22 08/19/23 Unknown History 325 mg tablet ammonium lactate 12 % topical cream 1 applic topical DAILY 11/03/22 08/19/23 Unknown History sodium chloride 1,000 mg soluble 1,000 mg PO DAILY 11/03/22 08/19/23 Unknown History tablet fexofenadine 180 mg tablet 180 mg PO DAILY 06/29/23 08/20/23 Unknown History magnesium hydroxide 400 mg/5 mL See Rx Instructions .Route 06/29/23 08/19/23 Unknown History oral suspension (Milk of Magnesia) .COMPLEX PRN Constipation nitroglycerin 0.4 mg sublingual See Rx Instructions .Route 06/29/23 08/19/23 Unknown History tablet (Nitrostat) .COMPLEX PRN Chest Pain aspirin 81 mg tablet,delayed 81 mg PO DAILY@07 #90 tabs 07/02/23 08/19/23 02/25/22 Rx release (Adult Aspirin Regimen) atorvastatin 40 mg tablet 40 mg PO BEDTIME #30 tabs 07/02/23 08/19/23 Unknown Rx carvedilol 3.125 mg tablet (Coreg) 3.125 mg PO BID #60 tabs 07/02/23 08/19/23 Unknown Rx clopidogrel 75 mg tablet 75 mg PO DAILY #90 tabs 07/02/23 08/19/23 Unknown Rx digoxin 125 mcg (0.125 mg) tablet 125 mcg PO DAILY@07 #90 tabs 07/14/23 08/19/23 Unknown Rx Allergies Allergy/AdvReac Type Severity Reaction Status Date / Time No Known Allergies Allergy Verified 10/31/23 20:57 PFSH Acute PFSH: Medical History Hypertension Hyperlipidemia Atrial fibrillation Patient is taking a full ASA. Refuses Warfarin due to GI bleed in the past. Pt has episodes of atrial fibrillation with rapid ventricular rate. He has a history of TIA as well. ? Pacemaker Atherosclerosis of circle coronary artery without angina pectoris Chronic kidney disease Abnormal myocardial perfusion study Positive cardiac stress test NSTEMI (non-ST elevated myocardial infarction) Chest pain High risk medication use digoxin Generalized weakness Hypothyroidism Tremor Alzheimer's dementia Orthostatic hypotension Anxiety Humerus fracture Conduct disorder on medroxyprogesterone Syncope Seizure Urinary tract infection Dupuytren's contracture of right hand BPH (benign prostatic hyperplasia) Insomnia GI bleed Adrenal adenoma benign Thoracic back pain Depression Neuropathy TIA (transient ischemic attack) Diverticulitis Incontinence GERD (gastroesophageal reflux disease) Osteoporosis Surgical History Hx of cataract surgery H/O vasectomy S/P foot surgery, right Family History Other CAD (coronary artery disease) Cancer Dementia Diabetes Hypertension Denies family history of Clotting disorder Chronic kidney disease (CKD) Suicide Anesthesia complication Bleeding disorder Lung disease Stroke Social History Smoking and tobacco/nicotine status: never used tobacco/nicotine Alcohol intake: never Substance/Drug Use: never Housing: [facility] Vitals/I&O/Wt Last Vital Signs Temp 97.8 F 10/31/23 20:52 Pulse 76 10/31/23 20:56 Resp 23 H 10/31/23 20:56 BP 170/75 10/31/23 20:56 Pulse Ox 96 10/31/23 20:56 O2 Del Method Room Air 10/31/23 20:56 Weight last 48 hrs Weight 66.678 kg Physical Exam Const: COMMON NORMALS: no acute distress and patient oriented x3 HENMT: COMMON NORMALS: normocephalic HEAD & SCALP: normocephalic Eye: COMMON NORMALS: Equal, round and reactive pupils present and EOMs intact bilaterally Resp: COMMON NORMALS: normal respiratory effort, No retractions, No use of accessory muscles and clear to auscultation bilaterally AUSCULTATION: clear to auscultation bilaterally Cardio: COMMON NORMALS: regular rate, regular rhythm, S1 normal heart sound present and S2 normal heart sound present RATE: regular rate RHYTHM: regular rhythm HEART SOUNDS: S1 normal heart sound present and S2 normal heart sound present GI: COMMON NORMALS: Normal to inspection, nondistended, normoactive bowel sounds present, Soft to palpation and non-tender Extremity: COMMON NORMALS: no pedal edema Neuro: COMMON NORMALS: patient oriented x3 Psych: COMMON NORMALS: mental status grossly normal Data 10/31/23 20:39 10/31/23 20:39 A&P Assessment and plan (1) Atrial fibrillation: Qualifiers: Atrial fibrillation type: longstanding persistent Qualified Code(s): I48.11 - Longstanding persistent atrial fibrillation (2) Pacemaker: (3) Non-ST elevated myocardial infarction: (4) Hypertension: Qualifiers: Hypertension type: essential hypertension Qualified Code(s): I10 - Essential (primary) hypertension (5) Atherosclerosis of circle coronary artery without angina pectoris: Qualifiers: [place] vs. transplanted heart: circle heart Qualified Code(s): I25.10 - Atherosclerotic heart disease of circle coronary artery without angina pectoris (6) Hyperlipidemia: Qualifiers: Hyperlipidemia type: mixed hyperlipidemia Qualified Code(s): E78.2 - Mixed hyperlipidemia Plan Chest pain, NSTEMI -History of cath 07/01/2023 Conclusions 1. Critical 99% proximal RCA stenosis s/p successful revascularization with 1 stent. Diffuse severe disease of distal to apical LAD. Medical therapy. This is not amenable to revascularization.. 2. Proximal Right Coronary Artery was treated with a Balloon, Balloon, Balloon, Balloon, Balloon, and Drug Eluting Stent. ? Monitor for chest pain ? Serial EKGs consult troponins, telemetry monitoring ? Heparin drip, monitor hemoglobin closely as he has a history of GI bleed ? Aspirin, statin, Plavix, -Cardiac echo ? Cardiology to be consulted by ER -Hypothyroidism resume levothyroxine ? Acute atrial fibrillation, continue home medications, not on anticoagulation due to history of GI bleeds ? Check dig level ? Full code ? Heparin drip DVT prophylaxis Attestations Medical Necessity Statement*: Patient requires hospitalization, inpatient, greater than 2 midnights, for NSTEMI Coding Level of Care Code Acute Code for Chg Fwd Diagnoses Longstanding persistent atrial fibrillation I48.11 Atrial fibrillation type: longstanding persistent Pacemaker Z95.0 Non-ST elevated myocardial infarction I21.4 Essential hypertension I10 Hypertension type: essential hypertension Atherosclerosis of circle coronary artery of circle heart without angina pectoris I25.10 [place] vs. transplanted heart: circle heart Mixed hyperlipidemia E78.2 Hyperlipidemia type: mixed hyperlipidemia
--- NOTE | 2023-10-31 22:16 | PC.NURSE ---
DAUGHTER UPDATED ON PT CONDITION AND ADMIT
[2023-10-31 22:37] LABS: Thyroid Stimulating Hormone 2.63 uIU/mL (0.27-4.20)
[2023-10-31 22:41] LABS: Troponin 5 2HR Delta 0.6 ABS# (0-10)
[2023-10-31 22:44] LABS: Troponin 5 2HR 128.6 ng/L (0-15)
[2023-10-31 22:50] LABS: Digoxin 0.9 ng/mL (0.6-1.2)
[2023-10-31 22:53] LABS: INR 0.93 (0.8-1.2)
--- NOTE | 2023-10-31 22:55 | ECG_ITS ---
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 Measurements Intervals [place] Rate: 80 P: 50 [place]: 217 QRS: -26 QRSD: 104 T: 68 QT: 387 QTc: 447 Interpretive Statements SINUS RHYTHM WITH FIRST DEGREE AV BLOCK Marked ST depression, consistent with cardiac ischemia NONSPECIFIC ST & T-WAVE ABNORMALITY Compared to ECG 06/29/2023 17:00:08 First degree AV block now present Atrial-paced complex(es) or rhythm no longer present T-wave abnormality still present Electronically Signed On 11-01-2023 13:47:04 CDT by Yonatan Lucas M.D. [id number]
[2023-10-31 22:59] LABS: Estmated Average Glucose 126
[2023-10-31] MEDS: pantoprazole 40 mg SDV IVP (23:09)
[2023-10-31] MEDS: heparin drip 25,000 UNIT/500 ML PREMIX 24 UNIT IV (23:53)
[2023-11-01] VITALS (14 sets, daily range): BP systolic 108–204; BP diastolic 4–106; PULSE 70–76; RESP 19–35; TEMP 36.4–37; O2SAT 94–99
[2023-11-01] MEDS: carvedilol 3.125 mg Tablet PO ×3 (00:56→22:50)
[2023-11-01 02:42] LABS: Basophils % 0.6 %; Eosinophils # 0.7 10^3/uL (0.0-0.8); Eosinophils % 9.2 %; Hematocrit 36.6 % (37-53); Lymphocytes # 1.9 10^3/uL (0.8-4.8); Lymphocytes % 25.5 %; Mean Corpuscular HGB Conc 32.8 g/dL (30-55); Mean Corpuscular Hemoglobin 33.3 pg (27-33); Mean Corpuscular Volume 101.7 fl (82-101); Mean Platelet Volume 9.1 fL (7.4-10.4); Monocytes # 0.8 10^3/uL (0.2-0.9); Monocytes % 10.3 %; Neutrophils # 3.92 10^3/uL (1.8-7.7); Neutrophils % 54.1 %; Nucleated Red Blood Cells % 0 %; Platelet Count 193 10^3/cmm (157-399); Red Cell Distribution Width 13.3 % (12.1-15.1); White Blood Count 7.25 10^3/uL (3.29-11.43)
--- NOTE | 2023-11-01 02:55 | ECG_ITS ---
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 Measurements Intervals [place] Rate: 72 P: 124 AR: 223 QRS: -11 QRSD: 110 T: 137 QT: 403 QTc: 441 Interpretive Statements ELECTRONIC ATRIAL PACEMAKER INCOMPLETE RIGHT BUNDLE BRANCH BLOCK [90+ ms QRS DURATION, TERMINAL R IN V1/V2, 40+ ms S IN I/aVL/V4/V5/V6] ST DEVIATION AND MODERATE T-WAVE ABNORMALITY, CONSIDER LATERAL ISCHEMIA [-0.1+ mV T-WAVE IN I/aVL/V5/V6] Compared to ECG 10/31/2023 20:54:42 Possible ischemia now present Sinus rhythm no longer present First degree AV block no longer present T-wave abnormality still present Electronically Signed On 11-01-2023 13:44:58 CDT by Yonatan Lucas M.D. [id number]
[2023-11-01 03:13] LABS: Anion Gap 17.2 (5-19); Blood Urea Nitrogen 20 mg/dL (8-23); Calcium 8.5 mg/dL (8.5-10.5); Carbon Dioxide 14 mmol/L (22-29); Chloride 103 mmol/L (98-107); Glucose 131 mg/dL (65-115); NT Pro B Type Natriuretic Pept 1453 pg/mL (0-450); Osmolality Calculated 274 mOsm/kg (285-295); Potassium 4.2 mmol/L (3.5-5.1); Sodium 130 mmol/L (136-145)
[2023-11-01 03:14] LABS: Troponin 5 6HR Delta -8.7 ng/L (0-12)
[2023-11-01 03:15] LABS: Troponin 5 6HR 119.3 ng/L (0-15)
[2023-11-01 05:14] LABS: Partial Thromboplastin Time 54.1 SECONDS (23.9-36.7)
[2023-11-01] MEDS: heparin 5,000 unit/mL INJ 1 mL IV (05:38)
[2023-11-01] MEDS: levothyroxine 100 mcg Tablet PO (05:40)
[2023-11-01] MEDS: aspirin 81 mg EC Tablet PO (05:40)
[2023-11-01] MEDS: digoxin 125 mcg Tablet PO (05:40)
[2023-11-01] MEDS: OXcarbazepine 300 mg Tablet PO ×2 (05:41→18:00)
--- NOTE | 2023-11-01 06:00 | USCV_ITS ---
Sylvia Baptiste Age: 82 Gender: M : 1940 Exam Date: 11/01/2023 08:42 Ordering Phys: Andrea Lopes MD Technologist: Pedro Pablo Bowers [place] [facility] [place]: chest pain BP: 121 / 60 HR: 72 Rhythm: PACs Technical Quality: Adequate MEASUREMENTS (Male / Female) Normal Values 2D ECHO LV Diastolic Diameter PLAX 4.3 cm 4.2 - 5.9 / 3.9 - 5.3 cm IVS Diastolic Thickness 1.0 cm 0.6 - 1.0 / 0.6 - 0.9 cm IVS Systolic Thickness 1.6 cm LVPW Diastolic Thickness 1.0 cm 0.6 - 1.0 / 0.6 - 0.9 cm LVPW Systolic Thickness 1.5 cm LVOT Diameter 2.1 cm LV Ejection Fraction 2D Teich 56.6 % LV Ejection Fraction MOD 2C 59.9 % LV Ejection Fraction 2C AL 63.8 % LA Diameter 4.1 cm Aorta at Sinotubular Diameter 2.5 cm IVC Diameter 2.0 cm M-MODE LA Ao Ratio MM 1.1 AV Cusp Separation MM 1.1 cm DOPPLER AV Peak Velocity 125.0 cm/s LVOT Peak Velocity 110.0 cm/s AV Area Cont Eq vti 3.5 cm squared AV Area Cont Eq pk 3.1 cm squared MV Peak Velocity 380.0 cm/s MV Area PHT 5.6 cm squared Mitral E to A Ratio 0.7 TV Peak Velocity 228.0 cm/s TR Peak Velocity 264.0 cm/s TR Peak Gradient 27.9 mmHg TR Mean Velocity 172.0 cm/s TR Mean Gradient 14.2 mmHg TR Velocity Time Integral 51.2 cm PV Peak Velocity 76.7 cm/s RV Ejection Time 0.3 s FINDINGS Left Ventricle Normal left ventricular size, systolic function and wall thickness, with no regional wall motion abnormalities. Left ventricular ejection fraction is estimated at 64 %. Right Ventricle Normal right ventricular size and systolic function. Right Atrium Normal right atrial size. Left Atrium Normal left atrial size. Mitral Valve Structurally normal mitral valve. Trace mitral valve regurgitation. Aortic Valve Thickened aortic valve. No aortic valve stenosis. Trace aortic valve regurgitation. Tricuspid Valve Structurally normal tricuspid valve. No tricuspid valve regurgitation. Pulmonic Valve Pulmonic valve not well visualized. Trace pulmonary valve regurgitation. Pericardium No pericardial effusion. Aorta Normal size aortic root and proximal ascending aorta. IVC Normal inferior vena cava. CONCLUSIONS Normal left ventricular size and function with an estimated ejection fraction of 64 %. No left ventricular hypertrophy No significant valvular abnormality noted Normal right heart and pulmonary pressures. Yonatan Lucas MD (Electronically Signed) Final Date: 01 Nov 2023 13:59 S
[2023-11-01] MEDS: clopidogrel 75 mg Tablet PO (08:19)
[2023-11-01] MEDS: fexofenadine 60 mg Tablet 180 MG PO (09:44)
[2023-11-01] MEDS: sodium chloride 0.9% 1,000 ML 50 ML IV (10:01)
[2023-11-01] MEDS: isosorbide mononitrate ER 30 mg Tablet PO (10:02)
--- NOTE | 2023-11-01 10:27 | PM.CONSULT ---
Providers/Reason For Consult Consulting Physician/Specialty*: Cardiology Reason for Consult*: NSTEMI Requesting Physician: Dr. Lincoln Attending Physician: Omar Giordano MD Primary Care Provider: Rito Woods MD History of Present Illness History of Present Illness Sylvia Baptiste is a 82 year old male with a significant previous cardiac history admitted last night with apparently an episode of chest pain last night. Patient however now does not remember the chest pain history last night. Currently he denies any chest pain or any symptoms while resting in his bed. On arrival to the ER the EKG showed marked ST depression and elevated cardiac troponin enzymes, NSTEMI. Clinically patient not in heart failure. Overnight patient managed for NSTEMI. Note his previous history significant for atrial fibrillation, GI bleed therefore not on any anticoagulation long-term, recent hemoglobin stable between 12 and 13. He also underwent a angiography and angioplasty in June this year. Patient is a poor historian and therefore unable to obtain any detailed history. Currently his vitals are stable. And he is not in any chest pain or shortness of air. Review of Systems Narrative: I overall patient is a poor historian however as per record he has a significant coronary artery disease. History of GI bleed which is currently not an issue. As per the admission patient has sedentary lifestyle with the minimal ambulatory status. Unable to obtain detailed systemic review. Medications/Allergies Home Medications Medication Instructions Recorded Confirmed Last Taken Type acetaminophen 325 mg tablet 650 mg PO Q4H PRN Pain 06/27/19 11/01/23 02/24/22 History (Tylenol) bisacodyl 10 mg rectal suppository 10 mg AR DAILY PRN Constipation 06/27/19 11/01/23 Unknown History (Dulcolax (bisacodyl)) fluticasone propionate 50 1 spray intranasal BID@06/27/19 11/01/23 02/25/22 History mcg/actuation nasal spray,suspension propafenone 225 mg 225 mg PO 0700,1900 06/27/19 11/01/23 02/25/22 History capsule,extended release 12 hr levothyroxine 100 mcg tablet 100 mcg PO DAILY@06 01/24/22 11/01/23 02/25/22 History lidocaine HCl 2 % mucosal solution See Rx Instructions .Route .COMPLEX 01/24/22 11/01/23 01/22/22 History (Lidocaine Viscous) omeprazole 40 mg capsule,delayed 40 mg PO DAILY@07 01/24/22 11/01/23 02/25/22 History release oxcarbazepine 300 mg tablet 300 mg PO BID@07,01/24/22 11/01/23 02/25/22 History sodium phosphates 19 gram-7 118 ml AR DAILY PRN Constipation 01/24/22 11/01/23 Unknown History gram/118 mL enema (Tcohx-Bj-Yag Enema) hydrocodone 7.5 mg-acetaminophen 1 tab PO Q6H PRN Pain 07/28/22 11/01/23 Unknown History 325 mg tablet ammonium lactate 12 % topical cream 1 applic topical DAILY 11/03/22 11/01/23 Unknown History sodium chloride 1,000 mg soluble 1,000 mg PO DAILY 11/03/22 11/01/23 Unknown History tablet fexofenadine 180 mg tablet 180 mg PO DAILY 06/29/23 11/01/23 Unknown History magnesium hydroxide 400 mg/5 mL See Rx Instructions .Route 06/29/23 11/01/23 Unknown History oral suspension (Milk of Magnesia) .COMPLEX PRN Constipation nitroglycerin 0.4 mg sublingual See Rx Instructions .Route 06/29/23 11/01/23 Unknown History tablet (Nitrostat) .COMPLEX PRN Chest Pain aspirin 81 mg tablet,delayed 81 mg PO DAILY@07 #90 tabs 07/02/23 11/01/23 02/25/22 Rx release (Adult Aspirin Regimen) atorvastatin 40 mg tablet 40 mg PO BEDTIME #30 tabs 07/02/23 11/01/23 Unknown Rx carvedilol 3.125 mg tablet (Coreg) 3.125 mg PO BID #60 tabs 07/02/23 11/01/23 Unknown Rx clopidogrel 75 mg tablet 75 mg PO DAILY #90 tabs 07/02/23 11/01/23 Unknown Rx digoxin 125 mcg (0.125 mg) tablet 125 mcg PO DAILY@07 #90 tabs 07/14/23 11/01/23 Unknown Rx Allergies Allergy/AdvReac Type Severity Reaction Status Date / Time No Known Allergies Allergy Verified 10/31/23 20:57 Current Medications Generic Name Dose Route Start Last Admin Trade Name Freq PRN Reason Stop Dose Admin Aspirin 81 mg 11/01/23 07:00 11/01/23 05:40 Aspirin 81 Mg Ec Tablet PO 81 mg DAILY@07 NIRAJ Administration Carvedilol 3.125 mg 10/31/23 23:57 11/01/23 00:56 Carvedilol 3.125 Mg Tablet PO 3.125 mg Q12H NIRAJ Administration Clopidogrel Bisulfate 75 mg 11/01/23 09:00 11/01/23 08:19 Clopidogrel 75 Mg Tablet PO 75 mg DAILY NIRAJ Administration Digoxin 125 mcg 11/01/23 07:00 11/01/23 05:40 Digoxin 125 Mcg Tablet PO 125 mcg DAILY@07 NIRAJ Administration Fexofenadine HCl 180 mg 11/01/23 09:00 11/01/23 09:44 Fexofenadine 60 Mg Tablet PO 180 mg DAILY NIRAJ Administration Heparin Sodium (Porcine) 0 unit 10/31/23 23:52 11/01/23 05:38 Heparin 5,000 Unit/Ml Inj 1 Ml IV 1,700 unit PRN PRN Administration Heparin weight-base protocol Protocol Heparin Sodium/Sodium Chloride 25,000 unit in 500 mls @ 0 mls/hr 10/31/23 23:45 11/01/23 05:38 Heparin Drip IV 15.57 unit/kg/hr .Q0M NIRAJ 26 mls/hr Titration Protocol Per Protocol Sodium Chloride 1,000 mls @ 50 mls/hr 11/01/23 10:00 11/01/23 10:01 Sodium Chloride 0.9% IV 50 mls/hr .Q20H NIRAJ Administration Isosorbide Mononitrate 30 mg 11/01/23 09:50 11/01/23 10:02 Isosorbide Mononitrate Er 30 Mg Tablet PO 30 mg DAILY NIRAJ Administration Levothyroxine Sodium 100 mcg 11/01/23 06:00 11/01/23 05:40 Levothyroxine 100 Mcg Tablet PO 100 mcg DAILY@06 NIRAJ Administration Oxcarbazepine 300 mg 11/01/23 07:00 11/01/23 05:41 Oxcarbazepine 300 Mg Tablet PO 300 mg BID@ NIRAJ Administration Pantoprazole Sodium 40 mg 10/31/23 22:15 10/31/23 23:09 Pantoprazole 40 Mg Sdv IVP 40 mg Q24H NIRAJ Administration PFSH Acute PFSH: Medical History Hypertension Hyperlipidemia Atrial fibrillation Patient is taking a full ASA. Refuses Warfarin due to GI bleed in the past. Pt has episodes of atrial fibrillation with rapid ventricular rate. He has a history of TIA as well. ? Pacemaker Atherosclerosis of [place] coronary artery without angina pectoris Chronic kidney disease Abnormal myocardial perfusion study Positive cardiac stress test NSTEMI (non-ST elevated myocardial infarction) Chest pain High risk medication use digoxin Generalized weakness Hypothyroidism Tremor Alzheimer's dementia Orthostatic hypotension Anxiety Humerus fracture Conduct disorder on medroxyprogesterone Syncope Seizure Urinary tract infection Dupuytren's contracture of right hand BPH (benign prostatic hyperplasia) Insomnia GI bleed Adrenal adenoma benign Thoracic back pain Depression Neuropathy TIA (transient ischemic attack) Diverticulitis Incontinence GERD (gastroesophageal reflux disease) Osteoporosis Surgical History Hx of cataract surgery H/O vasectomy S/P foot surgery, right Family History Other CAD (coronary artery disease) Cancer Dementia Diabetes Hypertension Denies family history of Clotting disorder Chronic kidney disease (CKD) Suicide Anesthesia complication Bleeding disorder Lung disease Stroke Social History Smoking and tobacco/nicotine status: never used tobacco/nicotine Alcohol intake: never Substance/Drug Use: never Housing: Care Home Vitals/I&O/Wt Last Vital Signs Temp 98.6 F 11/01/23 08:41 Pulse 70 11/01/23 08:41 Resp 35 H 11/01/23 08:41 BP 170/4 11/01/23 09:48 Pulse Ox 97 11/01/23 08:41 O2 Del Method Room Air 11/01/23 04:00 O2 Flow Rate 2 10/31/23 22:54 10/31/23 11/01/23 11/01/23 22:59 06:59 14:59 Intake Total 683.867 / 683.867 Output Total 2 / Balance 681.867 / 681.867 Weight last 48 hrs Weight 178 lb Weight 184 lb 1.6 oz Weight 147 lb Physical Exam Narrative: Patient is resting comfortably on his bed. No respiratory distress. Vitals reveal blood pressure elevated 167/88, pulse 77/min regular, O2 saturation 94% on room air. No pedal edema. HEENT examination unremarkable. Neck veins not distended. Chest associated auscultation revealed normal air entry with no added sound Cardiac ablation normal first and second heart sounds with a mild systolic murmur. Abdomen soft nontender. Bowel sounds audible Skin is warm and dry Extremities no pedal edema. Distal pulses palpable Data 11/01/23 02:33 11/01/23 02:33 A&P Assessment and plan (1) Non-ST elevated myocardial infarction: Plan 82-year-old male patient with a previous known significant coronary disease with previous angioplasty in June this year, now admitted with 1. NSTEMI. Significant ST changes on EKG with elevated cardiac troponin. 2. Elevated blood pressure. Clinically no heart failure symptoms. Currently patient is asymptomatic and resting comfortably. I reviewed the current management plan including dual antiplatelets and heparin which are appropriate. He is also on oral nitrates. Concerning elevated blood pressure I am going to add one-time dose of amlodipine 5 mg. Further management of blood pressure will depend on blood pressure numbers. His hemoglobin is stable now. Renal functions are normal. Will plan for coronary angiogram tomorrow. Coding Level of Care Code Acute Code for [facility] Fwd Diagnoses Non-ST elevated myocardial infarction I21.4 Time Spent (min) 30
--- NOTE | 2023-11-01 10:35 | PC.NURSE ---
Dr. Lucas ordered a cardiac diet for patient. Order entered.
[2023-11-01] MEDS: amlodipine 5 mg Tablet PO (11:09)
[2023-11-01 11:30] LABS: Hematocrit 36.5 % (37-53)
--- NOTE | 2023-11-01 15:51 | PM.PN ---
Subjective Subjective: Admitted overnight. H&P and labs appreciated. Denies any active chest pain. Denies any nausea, vomiting, headache. Laying comfortably in bed. Blood pressure slightly elevated. Vitals/I&O/Wt Last Vital Signs Temp 97.8 F 11/01/23 12:46 Pulse 72 11/01/23 12:46 Resp 19 H 11/01/23 12:46 BP 147/67 11/01/23 12:46 Pulse Ox 98 11/01/23 12:46 O2 Del Method Room Air 11/01/23 04:00 O2 Flow Rate 2 10/31/23 22:54 11/01/23 11/01/23 11/01/23 06:59 14:59 22:59 Intake Total 683.867 / 683.867 335.367 / 335.367 Output Total Balance 681.867 / 681.867 335.367 / 335.367 Weight last 48 hrs Weight 80.739 kg Weight 83.506 kg Weight 66.678 kg Physical Exam Const: COMMON NORMALS: no acute distress and patient oriented x3 HENMT: COMMON NORMALS: normocephalic HEAD & SCALP: normocephalic Eye: COMMON NORMALS: Equal, round and reactive pupils present and EOMs intact bilaterally PUPIL: Yes Equal, round and reactive pupils present Resp: COMMON NORMALS: normal respiratory effort, No retractions, No use of accessory muscles and clear to auscultation bilaterally AUSCULTATION: clear to auscultation bilaterally Cardio: COMMON NORMALS: regular rate, regular rhythm, S1 normal heart sound present and S2 normal heart sound present RATE: regular rate RHYTHM: regular rhythm HEART SOUNDS: S1 normal heart sound present and S2 normal heart sound present GI: COMMON NORMALS: Normal to inspection, nondistended, normoactive bowel sounds present, Soft to palpation and non-tender PALPATION: Yes Soft to palpation Extremity: COMMON NORMALS: no pedal edema Neuro: COMMON NORMALS: patient oriented x3 Psych: COMMON NORMALS: mental status grossly normal Data 11/01/23 11:03 11/01/23 02:33 A&P Assessment and plan (1) Non-ST elevated myocardial infarction: (2) Hypertension: Qualifiers: Hypertension type: essential hypertension Qualified Code(s): I10 - Essential (primary) hypertension (3) Atrial fibrillation: Qualifiers: Atrial fibrillation type: longstanding persistent Qualified Code(s): I48.11 - Longstanding persistent atrial fibrillation (4) Pacemaker: (5) Atherosclerosis of [place] coronary artery without angina pectoris: Qualifiers: [place] vs. transplanted heart: [place] heart Qualified Code(s): I25.10 - Atherosclerotic heart disease of [place] coronary artery without angina pectoris (6) Hyperlipidemia: Qualifiers: Hyperlipidemia type: mixed hyperlipidemia Qualified Code(s): E78.2 - Mixed hyperlipidemia Plan [id number] MA: Appreciate troponin cycled results. No active chest pain. Continue with aspirin, Plavix, statin, beta-[place]. Echocardiogram results pending. Cardiology has been consulted. Continue with heparin drip. Hypertension: Blood pressure is elevated. Goal blood pressure less than 140/90 mmHg. Add Imdur 30 mg oral daily. Atrial fibrillation: Currently rate controlled. Continue with home dose of digoxin, beta-[place]. Heparin drip will be sufficient for DVT prophylaxis Full code. Continue other chronic home medications. Currently NPO. Will confirm with cardiology regarding possible cardiac angiogram today otherwise start on cardiac diet. Protonix OPD prophylaxis Attestations Medical Necessity Statement*: Requires further hospitalization for management of non-ST elevation MA, hypertensive urgency Diagnoses Non-ST elevated myocardial infarction I21.4 Essential hypertension I10 Hypertension type: essential hypertension Longstanding persistent atrial fibrillation I48.11 Atrial fibrillation type: longstanding persistent Pacemaker Z95.0 Atherosclerosis of [place] coronary artery of [place] heart without angina pectoris I25.10 [place] vs. transplanted heart: [place] heart Mixed hyperlipidemia E78.2 Hyperlipidemia type: mixed hyperlipidemia
--- NOTE | 2023-11-01 19:22 | PC.NURSE ---
Called and spoke with regarding plans for cath in morning. said plan is to cath patient tomorrow, make patient NPO after midnight.
[2023-11-01] MEDS: heparin drip 25,000 UNIT/500 ML PREMIX 21 UNIT IV (19:55)
[2023-11-01 20:24] LABS: Partial Thromboplastin Time 129.2 SECONDS (23.9-36.7)
[2023-11-01] MEDS: atorvastatin 40 mg Tablet PO (20:30)
[2023-11-01] MEDS: pantoprazole 40 mg SDV IVP (20:30)
[2023-11-02] VITALS (13 sets, daily range): BP systolic 129–168; BP diastolic 42–86; PULSE 70–74; RESP 15–28; TEMP 36.4–36.7; O2SAT 95–96
[2023-11-02 02:30] LABS: Basophils % 0.4 %; Eosinophils # 0.6 10^3/uL (0.0-0.8); Eosinophils % 6.8 %; Hematocrit 30.3 % (37-53); Lymphocytes # 1.7 10^3/uL (0.8-4.8); Lymphocytes % 20.7 %; Mean Corpuscular Hemoglobin 33.1 pg (27-33); Mean Corpuscular Volume 94.7 fl (82-101); Mean Platelet Volume 9.2 fL (7.4-10.4); Monocytes # 0.9 10^3/uL (0.2-0.9); Monocytes % 10.8 %; Neutrophils # 5.01 10^3/uL (1.8-7.7); Neutrophils % 60.9 %; Nucleated Red Blood Cells % 0 %; Platelet Count 196 10^3/cmm (157-399); Red Cell Distribution Width 13.3 % (12.1-15.1); White Blood Count 8.22 10^3/uL (3.29-11.43)
[2023-11-02 02:47] LABS: Alanine Aminotransferase 13 U/L (0-41); Albumin Level 3.4 g/dL (3.5-5.2); Alkaline Phosphatase 72 U/L (40-130); Anion Gap 16.4 (5-19); Aspartate Amino Transferase 16 U/L (0-40); Blood Urea Nitrogen 18 mg/dL (8-23); Carbon Dioxide 17 mmol/L (22-29); Chloride 101 mmol/L (98-107); Creatinine Clr Calc Pharmacy 48.3811; Globulin 2.5 g/dL (1.3-4.6); Glucose 110 mg/dL (65-115); Osmolality Calculated 273 mOsm/kg (285-295); Potassium 4.4 mmol/L (3.5-5.1); Sodium 130 mmol/L (136-145); Total Bilirubin 0.3 mg/dL (0.15-1.2); Total Protein 5.9 g/dL (6.6-8.7)
[2023-11-02 02:52] LABS: Partial Thromboplastin Time 88.3 SECONDS (23.9-36.7)
[2023-11-02] MEDS: sodium chloride 0.9% 1,000 ML 50 ML IV (05:20)
[2023-11-02] MEDS: aspirin 81 mg EC Tablet PO (06:13)
[2023-11-02] MEDS: OXcarbazepine 300 mg Tablet PO ×2 (06:13→18:48)
[2023-11-02] MEDS: digoxin 125 mcg Tablet PO (06:13)
[2023-11-02] MEDS: levothyroxine 100 mcg Tablet PO (06:14)
--- NOTE | 2023-11-02 07:46 | P.PN_ITS ---
Subjective 2 Subjective: Patient doing well. No chest pain. Underwent coronary angiogram that showed diffuse severe disease in LAD, left main also has diffuse disease. Culprit for NSTEMI was severe in-stent restenosis of proximal RCA stent. Underwent successful revascularization with balloon angioplasty Vitals/I&O/Wt Last Vital Signs Temp 97.6 F 11/02/23 07:00 Pulse 72 11/02/23 07:00 Resp 15 11/02/23 07:00 BP 135/65 11/02/23 07:00 Pulse Ox 95 11/02/23 07:00 O2 Del Method Room Air 11/02/23 07:00 O2 Flow Rate 2 10/31/23 22:54 11/01/23 11/02/23 11/02/23 22:59 06:59 14:59 Intake Total 137.9 / 239.877 2968.833 / 1543.100 Output Total 0 / 0 0 / 0 Balance 137.9 / 659.332 4199.833 / 1543.100 Weight last 48 hrs Weight 181 lb Weight 178 lb Weight 184 lb 1.6 oz Weight 147 lb Physical Exam 2 Narrative: GENERAL: Patient is alert NECK: No jugular vein distension. [] HEENT: No cyanosis. No icterus. No pallor. [] HEART: Regular S1 and S2. No murmur, rub or gallop. [] LUNGS: Clear to auscultate bilaterally. [] CENTRAL NERVOUS SYSTEM: Grossly nonfocal. [] EXTREMITIES: Lower extremities with 1+ edema bilaterally. Data 11/02/23 02:16 11/02/23 02:16 A&P Assessment and plan (1) Non-ST elevated myocardial infarction: (2) Hypertension: Qualifiers: Hypertension type: essential hypertension Qualified Code(s): I10 - Essential (primary) hypertension (3) Atrial fibrillation: Qualifiers: Atrial fibrillation type: longstanding persistent Qualified Code(s): I 48.11 - Longstanding persistent atrial fibrillation (4) Pacemaker: (5) Atherosclerosis of [place] coronary artery without angina pectoris: Qualifiers: [place] vs. transplanted heart: [place] heart Qualified Code(s): I25.10 - Atherosclerotic heart disease of [place] coronary artery without angina pectoris (6) Hyperlipidemia: Qualifiers: Hyperlipidemia type: mixed hyperlipidemia Qualified Code(s): E78.2 - Mixed hyperlipidemia Plan Patient admitted successful revascularization of critical proximal RCA in-stent restenosis with balloon angioplasty. This is the culprit lesion for the NSTEMI. LAD and left main have her disease however it is diffuse. Given his limited functional capacity, shared decision with family made to continue medical therapy for that. Continue dual antiplatelet therapy with aspirin and plavix Thank you for involving us with care of this patient. We will continue to follow. Please call with questions. Attestations 2 Medical Necessity Statement*: Care expected to cross 2 midnights. Coding Level of Care Code Acute Code for [facility] Diagnoses Non-ST elevated myocardial infarction I21.4 Essential hypertension I10 Hypertension type: essential hypertension Longstanding persistent atrial fibrillation I48.11 Atrial fibrillation type: longstanding persistent Pacemaker Z95.0 Atherosclerosis of [place] coronary artery of [place] heart without angina pectoris I25.10 [place] vs. transplanted heart: [place] heart Mixed hyperlipidemia E78.2 Hyperlipidemia type: mixed hyperlipidemia
--- NOTE | 2023-11-02 08:21 | XACV_ITS ---
Exam Room: [facility] Ht: 173 cm Wt: 82 kg BSA: 2.00 m2 Gender: Male : 1940 Any Known Allergies: No known allergies Exam Priority: Routine Procedure(s): Procedure Description: Diagnostic procedure Procedure Description: PCI procedure Procedure Description: PTCA Procedure Description: Miscellaneous Procedure Description: ACT Procedure Description: Coronary Angiography Diagnostic Cath Status: Urgent Diagnostic Findings * Left Main has diffuse moderate disease. * Left Anterior Descending has moderate diffuse disease in the proximal LAD and distal to apical vessel has severe diffuse disease. * Proximal Right Coronary Artery: Critical 95% in-stent restenosis. Distal vessel has diffuse significant disease.. * Circumflex has moderate diffuse disease. * Coronary angiography shows right dominance. PCI Status: Urgent PCI Indication: NSTE - ACS Interventional Findings * Proximal Right Coronary Artery: 95% stenosis treated with a MDT NC EUPHORA RX [id number] BALLOON. 0% residual stenosis, ANA: 3 flow. * Procedure detail: We engaged RCA with JR4 guide catheter. IV heparin was administered to maintain anticoagulation. 0.014 run-through guidewire was used to cross the stenosis and was placed in distal vessel. We dilated with severe ISR with 3.25 x 12 mm NC balloon at high pressure. Stent expanded well and there was no significant residual stenosis. Guidewire and guide catheter were removed. 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 Conclusions 1. Critical in-stent restenosis of proximal RCA stent s/p successful revascularization with balloon angioplasty.. 2. Proximal Right Coronary Artery was treated with a Balloon. Recommendations * Dual antiplatelet therapy with aspirin and plavix for atleast 1 year. * High intensity statin therapy. * Outpatient cardiology follow up in 4 weeks. Interventional RX Recommendation: PCI w/o planned CABG Diagnostic RX Recommendation: PCI w/o planned CABG Anticoagulation: Heparin Pressures Phase:Rest AO : 177 / 73 ( 113 ) @ 11:57:00 AM 117 / 74 ( 95 ) @ 12:01:00 PM 154 / 59 ( 96 ) @ 12:08:00 PM 117 / 57 ( 83 ) @ 12:13:00 PM 128 / 59 ( 88 ) @ 12:23:00 PM Clinical Evaluation EBL: 5mL-10mL Procedural Details Pre-Procedure Time Out. Identified patient by full name and date of as verbalized by the patient/guarantor. Does the consent match the physician's order: Yes. Accurate & Complete Informed Consent: Yes. Inpatient/Outpatient History & Physical on Chart: Yes. If H&P is completed, is and addenduem needed: No; If yes, is the addendum complete: N/A. Visualize and Verify Site with Patient/Guarantor: N/A. Relevant Radiology Images available: Yes. Pre-op teaching completed and patient verbalized understanding. The risks, benefits, and alternatives of sedation and/or procedure were discussed by physician. The patient agrees to continue. Procedure started. [facility] Clinical Fraility Score: 6: Moderately Frail. Lock Stitch Channeler Indications: ACS > 24 hours. Chest Pain Symptom Assessment: Typical Angina Symptoms. Correct patient, site and procedure confirmed by cath team. Current diagnosis: NSTEMI. A 20 gauge IV was started in the right hand using aseptic technique. Physician arrived. Current Diagnosis : NSTEMI. Physician scrubbed in. Immediate Pre-Procedure Time Out. Correct Patient: Yes; Correct Procedure: Yes; Correct Site: Yes; Correct Patient Position: Yes; Correct Supplies: Yes; Dried Flammable Prep: Yes; Blood Products Available: N/A;. Lidocaine 1% infiltrated to the right groin. Arterial access obtained with micropuncture set. A 5 [place] JL4 catheter in over wire. Catheter removed over the standard wire. A 5 bangl[place] JL3.5 catheter in over wire. Multiple views taken of left coronary artery. Catheter removed over the standard wire. A 5 bangl[place] JR4 catheter in over wire. Multiple views taken of right coronary artery. Catheter removed over the standard wire. 6 bangl[place] JR 4 guide catheter was inserted over the wire. Runthrough guidewire was advanced through the guide catheter to lesion in the prox RCA. Wire out. [employer] Property Loss Specialist 50 guidewire was advanced through the guide catheter to lesion in the prox RCA. Runthrough guidewire was advanced through the guide catheter to lesion in the prox RCA. Field Property Loss Specialist wire out. Inflation number : 1 Trevon COLON EUPHORA RX [id number] BALLOON was prepped and advanced across the Prox RCA , then inflated to 20 KAYLYN for 0:13 seconds. Balloon out. Results checked. Wire out. Guide catheter out. ACT drawn. Results 231 seconds. Therapeutic limits - pre-heparin administration 90-150 seconds and monitoring heparin during a vascular procedure >250 seconds. A Right femoral angiogram was performed to determine safe placement of closure device. A Mynx was successful obtaining hemostatsis at the Right Femoral artery insertion site. Post Procedure: Pulses reassessed and unchanged. PERRLA. Strong, equal hand process tech bilaterally. No VTE prophylaxis required. Medication's Wasted: Other = Fentanyl 75mcg Versed 1 mg. Total IV fluids: 50. mL. Post-op diagnosis: CAD. Complications: None. Estimated blood loss: 5mL-10mL. Responsiveness - Normal response to verbal stimuli; alert and oriented, PERRLA. Airway - Unaffected, no intervention required; spontaneous ventilation. Circulation: W/N/L, pulses unchanged. Nausea/Vomiting: No. Procedure completed. Vital chart was stopped. Access Site Site: Right Femoral artery Sheath Size: 6 Fr Hemostasis Method: Mynx Hemostasis Success: Successful Procedure Medications Start: 10:53 AM Stop: 10:53 AM Medication: Versed Amount: 1 mg Route: I.V. Start: 10:55 AM Stop: 10:55 AM Medication: Fentanyl Amount: 25 mcg Route: I.V. Start: 11:09 AM Stop: 11:09 AM Medication: Heparin Amount: 6000 units Route: I.V. I, the attending physician, have reviewed and verified all procedure medications. Yes, all medications given per verbal order History/Risk Factors Hypertension: Yes Dyslipidemia: Yes Peripheral Arterial Disease (PAD): No Myocardial Infarction ([place]): Yes Obesity: No Renal Disease: No Tobacco Use: Never Prior Interventions PCI: Yes CABG: No Valve Surgery: No Date of PCI: 07/01/2023 Report Signatures Finalized by Colby Lopez MD on 11/09/2023 09:58 AM
[2023-11-02 09:04] LABS: Partial Thromboplastin Time 61.7 SECONDS (23.9-36.7)
--- NOTE | 2023-11-02 09:19 | PC.NURSE ---
No change made to heparin drip at 0900. Ptt was at 61.7 and reordered for 1500.
[2023-11-02] MEDS: fexofenadine 60 mg Tablet 180 MG PO (09:26)
[2023-11-02] MEDS: clopidogrel 75 mg Tablet PO (09:26)
[2023-11-02] MEDS: isosorbide mononitrate ER 30 mg Tablet PO (09:26)
--- NOTE | 2023-11-02 09:29 | PC.CHAP ---
Pastoral Care Encounter/Spiritual Assessment Type of Contact [] Declined volunteer services assistant visit [] Patient/Family/Request visit [] Outpatient visit [] Follow-up visit [] Physician referral [] Code/Alert [x] Routine visit [] Staff referral [] Actively dying [x] Patient sleeping [] Family support [] [] Out of room [] Palliative care [] [] Receiving care in room [] Pre-surgical visit [] Trauma [] Long length of stay [] ICU visit [] Other: Relational/Emotional Strength [] Patient feels connected with others/family/visitors/staff [] Distress [] Loneliness/isolation [] Abandonment Spirituality of Patient [] Person of Aracelis [] Attends Religious of their Aracelis [] Believes in Prayer [] Reads Bible or Advent materials [] There are Spiritual issues to be addressed Magnetic Resonance Imaging Coordinator Interventions [x] Prayer [] Active listening [] Non-anxious presence [] Spiritual/emotional support [] Crisis/trauma care [] Spiritual counseling [] Bereavement support [] Provided bereavement packet [] Provided Bible/devotional materials [] Provided toy/stuffed animal, coloring book to patient or family member [] Provided Communion [] Anointing/[place] [] Salvation [] Completed spiritual assessment [] Other: Impact on Illness or Injury [] Angry [] Fearful [] Anxious [] Often cries [] Exhaustion [] Unable to work [] Unable to attend jewish [] Unable to walk/stand [] Unable to read [] Unable to drive [] Unable to eat/drink [] Unable to sleep [] Unable to be with family [] Patient intubated [] Other: Summary Time spent with patient
--- NOTE | 2023-11-02 10:49 | W.PM.OPSUD ---
Surgery/Procedure H&P Update DATE OF PROCEDURE: November 02, 2023 DATE H&P PERFORMED: 11/01/23 H&P UPDATE INFORMATION: I have reviewed H&P completed within last 30 days, I have examined patient prior to procedure and No changes to prior documentation PREOP DIAGNOSIS: NSTEMI PRIMARY INDICATION FOR PROCEDURE: NSTEMI PLANNED PROCEDURE: Left heart cath with possible percutaneous coronary intervention PATIENT REASSESSED PRIOR TO SEDATION, WITH NO CHANGE NOTED: Yes PHYSICAL EXAM: alert, oriented x 3, clear to auscultation bilaterally and regular rate & rhythm AIRWAY EVAL/ANESTHESIA PLAN: normal airway, ASA III, Local Anesthesia, Risks, benefits & alternatives of sedation and/or procedure discussed and Patient agrees to continue as planned ADDITIONAL INFORMATION: Moderate sedation
--- NOTE | 2023-11-02 11:45 | PC.NURSE ---
Recovery Note Patient arrived to CPRU 3 post cath . Patient alert and oriented to person. Breathing even and non-labored on room air. Denies pain. 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 Daughter at bedside. Pt educated on bedrest status and activity, reinforcement will be needed due to confused mental status . Right groin site has dressing that is clean dry and intact. No signs of bleeding or hematoma upon palpation. Report called to ABRIL Whitehead by ABRIL Conley.
[2023-11-02] MEDS: carvedilol 3.125 mg Tablet PO ×2 (12:52→23:13)
--- NOTE | 2023-11-02 13:34 | PC.SOCIAL ---
Pg 2 IMM Updated pt on IMM. No questions voiced. Provided pt a copy. Initialed, dated, & timed a copy & placed in chart.
--- NOTE | 2023-11-02 14:12 | P.PN_ITS ---
Subjective 2 Subjective: Patient denies any acute complaints at this time. 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 He underwent balloon angioplasty and stent was opened up. Currently denies any chest pain. Medications: Reviewed: Yes Vitals/I&O/Wt Last Vital Signs Temp 97.6 F 11/02/23 07:00 Pulse 70 11/02/23 12:15 Resp 20 H 11/02/23 12:15 BP 159/73 11/02/23 12:15 Pulse Ox 96 11/02/23 12:15 O2 Del Method Room Air 11/02/23 12:15 O2 Flow Rate 2 10/31/23 22:54 11/01/23 11/02/23 11/02/23 22:59 06:59 14:59 Intake Total 137.9 / 705.156 4341.833 / 1543.100 Output Total 0 / 0 0 / 0 300 / 300 Balance 137.9 / 493.836 8685.833 / 1543.100 -300 / -300 Weight last 48 hrs Weight 82.1 kg Weight 80.739 kg Weight 83.506 kg Weight 66.678 kg Physical Exam 2 Narrative: General: No acute distress, AO x2 HEENT: PERRLA, pupils bilaterally equal and reactive, pallors not present Chest: Normal vesicular breath sounds, no added sounds, equal good air entry bilaterally CVS: S1-S2 regular, no murmurs, no tachycardia, no gallops, no rubs Abdomen: Soft, nontender, no organomegaly, bowel sounds present Neuro: No focal deficits, no facial deformity, AO x3, power 5/5 in all limbs Data 11/02/23 02:16 11/02/23 02:16 A&P Assessment and plan (1) Non-ST elevated myocardial infarction: (2) Hypertension: Qualifiers: Hypertension type: essential hypertension Qualified Code(s): I10 - Essential (primary) hypertension (3) Atrial fibrillation: Qualifiers: Atrial fibrillation type: longstanding persistent Qualified Code(s): I 48.11 - Longstanding persistent atrial fibrillation (4) Pacemaker: (5) Atherosclerosis of [place] coronary artery without angina pectoris: Qualifiers: [place] vs. transplanted heart: [place] heart Qualified Code(s): I25.10 - Atherosclerotic heart disease of [place] coronary artery without angina pectoris (6) Hyperlipidemia: Qualifiers: Hyperlipidemia type: mixed hyperlipidemia Qualified Code(s): E78.2 - Mixed hyperlipidemia Plan [id number] CO: Appreciate cardiology recommendations Status post coronary angiogram this morning which showed severe in-stent restenosis of proximal RCA stent. Status post angioplasty for the same. No active chest pain. Continue with aspirin, Plavix, statin, beta-[place]. Echocardiogram shows normal LVEF of 64%, no LVH, no significant valvular abnormality. Hypertension: Goal blood pressure less than 140/90 mmHg. Continue carvedilol, Imdur 30 mg daily Atrial fibrillation: Currently rate controlled. Continue with home dose of digoxin, beta-[place], propafenone Full code. Continue other chronic home medications. Protonix OPD prophylaxis Attestations 2 Medical Necessity Statement*: Status post coronary angiogram today. Coding Level of Care Code Acute Code for Chg Fwd Moderate MDM includes number and complexity of problems actively addressed during encounter, amount and/or complexity of data reviewed/ordered and described risk of complication, morbidity or mortality of management as documented Diagnoses Non-ST elevated myocardial infarction I21.4 Essential hypertension I10 Hypertension type: essential hypertension Longstanding persistent atrial fibrillation I48.11 Atrial fibrillation type: longstanding persistent Pacemaker Z95.0 Atherosclerosis of [place] coronary artery of [place] heart without angina pectoris I25.10 [place] vs. transplanted heart: [place] heart Mixed hyperlipidemia E78.2 Hyperlipidemia type: mixed hyperlipidemia
[2023-11-02] MEDS: sodium chloride 0.9% 1,000 ML 100 ML IV (14:14)
[2023-11-02] MEDS: atorvastatin 40 mg Tablet PO (20:46)
[2023-11-02] MEDS: pantoprazole 40 mg SDV IVP (20:47)
[2023-11-02] MEDS: lanolin oint 7 gm 1 APPLIC TOPICAL (20:49)
[2023-11-03] VITALS: BP 149/51; PULSE 71; RESP 12; TEMP 36.6
[2023-11-03 03:43] VITALS: BP 179/70; PULSE 83; RESP 23; TEMP 36.6; O2SAT 97
[2023-11-03 05:37] VITALS: PULSE 70
[2023-11-03] MEDS: OXcarbazepine 300 mg Tablet PO (06:08)
[2023-11-03] MEDS: digoxin 125 mcg Tablet PO (06:08)
[2023-11-03] MEDS: levothyroxine 100 mcg Tablet PO (06:08)
[2023-11-03] MEDS: aspirin 81 mg EC Tablet PO (06:08)
[2023-11-03 07:47] VITALS: BP 190/80; PULSE 70; RESP 70; TEMP 36.7; O2SAT 96
--- NOTE | 2023-11-03 08:02 | P.PN_ITS ---
Subjective 2 Subjective: Patient is doing well. no chest pain Vitals/I&O/Wt Last Vital Signs Temp 98.0 F 11/03/23 07:47 Pulse 70 11/03/23 07:47 Resp 70 H 11/03/23 07:47 BP 190/80 11/03/23 07:47 Pulse Ox 96 11/03/23 07:47 O2 Del Method Room Air 11/03/23 07:47 O2 Flow Rate 2 11/02/23 14:56 11/02/23 11/03/23 11/03/23 22:59 06:59 14:59 Intake Total 232.65 / 384.10 1999.10 Output Total 0 / 300 0 / 300 Balance 232.65 / 84.10 1999.10 Weight last 48 hrs Weight 182 lb Weight 181 lb Physical Exam 2 Narrative: GENERAL: Patient is alert NECK: No jugular vein distension. [] HEENT: No cyanosis. No icterus. No pallor. [] HEART: Regular S1 and S2. No murmur, rub or gallop. [] LUNGS: Clear to auscultate bilaterally. [] CENTRAL NERVOUS SYSTEM: Grossly nonfocal. [] EXTREMITIES: Lower extremities with 1+ edema bilaterally. Data 11/03/23 09:30 11/03/23 09:30 A&P Assessment and plan (1) Non-ST elevated myocardial infarction: (2) Hypertension: Qualifiers: Hypertension type: essential hypertension Qualified Code(s): I10 - Essential (primary) hypertension (3) Atrial fibrillation: Qualifiers: Atrial fibrillation type: longstanding persistent Qualified Code(s): I 48.11 - Longstanding persistent atrial fibrillation (4) Pacemaker: (5) Atherosclerosis of [place] coronary artery without angina pectoris: Qualifiers: [place] vs. transplanted heart: [place] heart Qualified Code(s): I25.10 - Atherosclerotic heart disease of [place] coronary artery without angina pectoris (6) Hyperlipidemia: Qualifiers: Hyperlipidemia type: mixed hyperlipidemia Qualified Code(s): E78.2 - Mixed hyperlipidemia Plan Patient had successful revascularization of critical proximal RCA in-stent restenosis with balloon angioplasty. LAD/left main disease is diffuse. Medical therapy at this time pressure decision making with family. Continue dual antiplatelet therapy with aspirin and plavix Thank you for involving us with care of this patient. Patient is stable to be discharged from cardiology standpoint. Please call with questions. Attestations 2 Medical Necessity Statement*: Care expected to cross 2 midnights. Coding Level of Care Code Acute Code for [facility] Fwd Diagnoses Non-ST elevated myocardial infarction I21.4 Essential hypertension I10 Hypertension type: essential hypertension Longstanding persistent atrial fibrillation I48.11 Atrial fibrillation type: longstanding persistent Pacemaker Z95.0 Atherosclerosis of [place] coronary artery of [place] heart without angina pectoris I25.10 [place] vs. transplanted heart: [place] heart Mixed hyperlipidemia E78.2 Hyperlipidemia type: mixed hyperlipidemia
[2023-11-03] MEDS: isosorbide mononitrate ER 30 mg Tablet PO (08:54)
[2023-11-03] MEDS: amlodipine 10 mg Tablet PO (08:54)
[2023-11-03] MEDS: carvedilol 3.125 mg Tablet 6.25 MG PO (08:54)
[2023-11-03] MEDS: fexofenadine 60 mg Tablet 180 MG PO (08:54)
[2023-11-03] MEDS: clopidogrel 75 mg Tablet PO (08:54)
--- NOTE | 2023-11-03 09:16 | PC.CHAP ---
Pastoral Care Encounter/Spiritual Assessment Type of Contact [] Declined filler shaker visit [] Patient/Family/Request visit [] Outpatient visit [] Follow-up visit [] Physician referral [] Code/Alert [] Routine visit [] Staff referral [] Actively dying [x] Patient sleeping [] Family support [] [] Out of room [] Palliative care [] [] Receiving care in room [] Pre-surgical visit [] Trauma [] Long length of stay [] ICU visit [] Other: Relational/Emotional Strength [] Patient feels connected with others/family/visitors/staff [] Distress [] Loneliness/isolation [] Abandonment Spirituality of Patient [] Person of Aracelis [] Attends Pentecostalism of their Aracelis [] Believes in Prayer [] Reads Bible or Sikh materials [] There are Spiritual issues to be addressed Registered Nurse Maternal Child Interventions [] Prayer [] Active listening [] Non-anxious presence [] Spiritual/emotional support [] Crisis/trauma care [] Spiritual counseling [] Bereavement support [] Provided bereavement packet [] Provided Bible/devotional materials [] Provided toy/stuffed animal, coloring book to patient or family member [] Provided Communion [] Anointing/[place] [] Salvation [] Completed spiritual assessment [] Other: Impact on Illness or Injury [] Angry [] Fearful [] Anxious [] Often cries [] Exhaustion [] Unable to work [] Unable to attend episcopal [] Unable to walk/stand [] Unable to read [] Unable to drive [] Unable to eat/drink [] Unable to sleep [] Unable to be with family [] Patient intubated [] Other: Summary Time spent with patient
[2023-11-03 09:41] LABS: Basophils % 0.7 %; Eosinophils # 0.6 10^3/uL (0.0-0.8); Eosinophils % 10.1 %; Hematocrit 32.3 % (37-53); Lymphocytes # 1.1 10^3/uL (0.8-4.8); Lymphocytes % 18.7 %; Mean Corpuscular HGB Conc 34.1 g/dL (30-55); Mean Corpuscular Hemoglobin 32.5 pg (27-33); Mean Corpuscular Volume 95.6 fl (82-101); Mean Platelet Volume 9.3 fL (7.4-10.4); Monocytes # 0.4 10^3/uL (0.2-0.9); Monocytes % 6.1 %; Neutrophils # 3.83 10^3/uL (1.8-7.7); Neutrophils % 64.2 %; Nucleated Red Blood Cells % 0 %; Platelet Count 222 10^3/cmm (157-399); Red Blood Count 3.38 10^6/uL (3.85-5.65); Red Cell Distribution Width 13.2 % (12.1-15.1); White Blood Count 5.95 10^3/uL (3.29-11.43)
[2023-11-03 10:02] LABS: Anion Gap 16.2 (5-19); Blood Urea Nitrogen 14 mg/dL (8-23); Calcium 8.4 mg/dL (8.5-10.5); Carbon Dioxide 17 mmol/L (22-29); Chloride 99 mmol/L (98-107); Creatinine Clr Calc Pharmacy 53.3019; Glucose 134 mg/dL (65-115); Osmolality Calculated 268 mOsm/kg (285-295); Potassium 4.2 mmol/L (3.5-5.1); Sodium 128 mmol/L (136-145)
[2023-11-03 11:58] VITALS: BP 107/66; PULSE 78; RESP 20; TEMP 36.9; O2SAT 97
--- NOTE | 2023-11-03 12:00 | PC.NURSE ---
Patient walked with SERVICE CENTER ASSISTANT 300 feet. Vitals were stable.
[2023-11-03 12:41] LABS: SARS Covid-2 Antigen negative (Negative)
--- NOTE | 2023-11-03 13:15 | PC.NURSE ---
Report is called to ABRIL Lima at [facility].
--- NOTE | 2023-11-03 15:17 | P.DS_ITS ---
Discharge Providers Date of Admission: 10/31/23 22:26 Date of Discharge: November 03, 2023 Attending Provider at Admission: Andrea Lopes MD Attending Provider at Discharge: Larissa Li MD Primary Care Provider: Rito Woods MD Diagnoses at Discharge Discharge Diagnosis (1) Non-ST elevated myocardial infarction: Status: Acute (2) Hypertension: Status: Acute Qualifiers: Hypertension type: essential hypertension Qualified Code(s): I10 - Essential (primary) hypertension (3) Atrial fibrillation: Status: Acute Qualifiers: Atrial fibrillation type: longstanding persistent Qualified Code(s): I48.11 - Longstanding persistent atrial fibrillation (4) Pacemaker: Status: Acute (5) Atherosclerosis of [place] coronary artery without angina pectoris: Status: Acute Qualifiers: [place] vs. transplanted heart: [place] heart Qualified Code(s): I25.10 - Atherosclerotic heart disease of [place] coronary artery without angina pectoris (6) Hyperlipidemia: Status: Acute Qualifiers: Hyperlipidemia type: mixed hyperlipidemia Qualified Code(s): E78.2 - Mixed hyperlipidemia Reason for Visit Reason for Visit: Chest Pain Hospital Course Hospital Course 82 year old male with a past medical history of CAD, atrial fibrillation, history of GI bleeds, not on anticoagulation, recent history of coronary angiography, jun 2023, with history of stent placement, who presents [facility] for chest pain. Initial troponin 120, EKG showing ST depressions in inferior lateral leads. 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 He underwent angioplasty and the stent was opened up. Patient remained chest pain-free following the procedure. He had uncontrolled blood pressure therefore amlodipine and imdur was added to his regimen. Carvedilol was also uptitrated from 3.125 twice daily to 6.25 twice daily. Patient is being discharged today in a stable condition to nursing home facility. This documentation was created by [employer] obstetric assistant software. Every effort was made to ensure accuracy of obstetric assistant. Any obvious errors or omissions should be clarified with the author of the document. Physical Exam Narrative: General: No acute distress, AO x2-3 HEENT: PERRLA, pupils bilaterally equal and reactive, pallors not present Chest: Normal vesicular breath sounds, no added sounds, equal good air entry bilaterally CVS: S1-S2 regular, no murmurs, no tachycardia, no gallops, no rubs Abdomen: Soft, nontender, no organomegaly, bowel sounds present Neuro: No focal deficits, no facial deformity, AO x3, power 5/5 in all limbs Discharge Data Studies Completed and Pending Completed Studies During Hospitalization Category Date Time Status XR chest 1V portable [id number] Stat Exams 10/31/23 20:53 Completed CV. 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 Laboratory Results WBC 5.95 10^3/uL (3.29-11.43) 11/03/23 09:30 RBC 3.38 10^6/uL (3.85-5.65) L 11/03/23 09:30 Hgb 11.00 g/dL (11.27-16.99) L 11/03/23 09:30 Hct 32.3 % (37-53) L 11/03/23 09:30 MCV 95.6 fl (82-101) 11/03/23 09:30 MCH 32.5 pg (27-33) 11/03/23 09:30 MCHC 34.1 g/dL (30-55) 11/03/23 09:30 RDW 13.2 % (12.1-15.1) 11/03/23 09:30 Plt Count 222 10^3/cmm (157-399) 11/03/23 09:30 MPV 9.3 fL (7.4-10.4) 11/03/23 09:30 Neut % (Auto) 64.2 % 11/03/23 09:30 Lymph % (Auto) 18.7 % 11/03/23 09:30 [place] % (Auto) 6.1 % 11/03/23 09:30 Eos % (Auto) 10.1 % 11/03/23 09:30 Baso % (Auto) 0.7 % 11/03/23 09:30 Neut # (Auto) 3.83 10^3/uL (1.8-7.7) 11/03/23 09:30 Lymph # (Auto) 1.1 10^3/uL (0.8-4.8) 11/03/23 09:30 [place] # (Auto) 0.4 10^3/uL (0.2-0.9) 11/03/23 09:30 Eos # (Auto) 0.6 10^3/uL (0.0-0.8) 11/03/23 09:30 Baso # (Auto) 0.0 10^3/uL (0.0-0.1) 11/03/23 09:30 Nucleated RBC % (auto) 0 % 11/03/23 09:30 Nucleated RBCs # 0.0 /100WBC 11/03/23 09:30 PT 12.70 SECONDS (12.1-14.9) 10/31/23 20:39 INR 0.93 (0.8-1.2) 10/31/23 20:39 APTT 61.7 SECONDS (23.9-36.7) H 11/02/23 08:44 Sodium 128 mmol/L (136-145) L 11/03/23 09:30 Potassium 4.2 mmol/L (3.5-5.1) 11/03/23 09:30 Chloride 99 mmol/L (98-107) 11/03/23 09:30 Carbon Dioxide 17 mmol/L (22-29) L 11/03/23 09:30 Anion Gap 16.2 (5-19) 11/03/23 09:30 BUN 14 mg/dL (8-23) 11/03/23 09:30 Creatinine 1.1 mg/dL (0.7-1.2) 11/03/23 09:30 GFR Calculation Not Reportable 11/03/23 09:30 Glucose 134 mg/dL (65-115) H 11/03/23 09:30 Estimat Average Glucose 126 10/31/23 20:39 Hemoglobin A1c 6.0 % (4.0-6.0) 10/31/23 20:39 Calculated Osmolality 268 mOsm/kg (285-295) L 11/03/23 09:30 Calcium 8.4 mg/dL (8.5-10.5) L 11/03/23 09:30 Magnesium 2.0 mg/dL (1.7-2.3) 10/31/23 20:39 Total Bilirubin 0.3 mg/dL (0.15-1.2) 11/02/23 02:16 AST 16 U/L (0-40) 11/02/23 02:16 ALT 13 U/L (0-41) 11/02/23 02:16 Alkaline Phosphatase 72 U/L (40-130) 11/02/23 02:16 Troponin T Baseline 128 ng/L (0-15) H* 10/31/23 20:39 Troponin T 120 Minute 128.6 ng/L (0-15) H 10/31/23 22:10 Delta Troponin T 0.6 ABS# (0-10) 10/31/23 22:10 Troponin T Hi Sens 6Hr 119.3 ng/L (0-15) H 11/01/23 02:33 Troponin T Hi Sens 6Hr Delta -8.7 ng/L (0-12) L 11/01/23 02:33 NT-Pro-B Natriuret Pep 1453 pg/mL (0-450) H 11/01/23 02:33 Total Protein 5.9 g/dL (6.6-8.7) L 11/02/23 02:16 Albumin 3.4 g/dL (3.5-5.2) L 11/02/23 02:16 Globulin 2.5 g/dL (1.3-4.6) 11/02/23 02:16 TSH 2.63 uIU/mL (0.27-4.20) 10/31/23 20:39 Digoxin 0.9 ng/mL (0.6-1.2) 10/31/23 22:10 SARS-CoV-2 Ag (Rapid) negative (Negative) 11/03/23 12:12 Vitals Last Vital Signs Temp 98.4 F 11/03/23 11:58 Pulse 78 11/03/23 11:58 Resp 20 H 11/03/23 11:58 BP 107/66 11/03/23 11:58 Pulse Ox 97 11/03/23 11:58 O2 Del Method Room Air 11/03/23 11:58 O2 Flow Rate 2 11/02/23 14:56 Discharge Plan Discharge Patient Disposition: Xfer SNF Condition: Stable Prescriptions: New isosorbide mononitrate 30 mg Tablet Extended Release 24 Hr 30 mg PO DAILY 30 Days Qty: 30 0RF amlodipine 10 mg Tablet 10 mg PO DAILY 30 Days Qty: 30 0RF Continued bisacodyl [Dulcolax (bisacodyl)] 10 mg suppository 10 mg HI DAILY PRN (Reason: Constipation) propafenone 225 mg capsule,extended release 12 hr 225 mg PO 0700,1900 Rx Instructions: @07:00,19:00 acetaminophen [Tylenol] 325 mg tablet 650 mg PO Q4H PRN (Reason: Pain) fluticasone propionate 50 mcg/actuation spray,suspension 1 spray INTRANASAL BID@09,21 hydrocodone-acetaminophen 7.5-325 mg tablet 1 tab PO Q6H PRN (Reason: Pain) digoxin 125 mcg (0.125 mg) tablet 125 mcg PO DAILY@07 Qty: 90 3RF Rx Instructions: hold for pulse less than 60 ammonium lactate 12 % Cream 1 applic TOPICAL DAILY Rx Instructions: apply to neck down sodium chloride 1,000 mg Tablet,Soluble 1,000 mg PO DAILY oxcarbazepine 300 mg tablet 300 mg PO BID@07,19 omeprazole 40 mg Capsule,Delayed Release(Dr/Ec) 40 mg PO DAILY@07 levothyroxine 100 mcg tablet 100 mcg PO DAILY@06 Mscnt-To-Txm Enema 19-7 gram/118 mL Enema 118 ml HI DAILY PRN (Reason: Constipation) lidocaine HCl [Lidocaine Viscous] 2 % Solution See Rx Instructions .ROUTE .COMPLEX Rx Instructions: give 15ml po every 2 hours as needed for gum pain fexofenadine 180 mg Tablet 180 mg PO DAILY magnesium hydroxide [Milk of Magnesia] 400 mg/5 mL Suspension See Rx Instructions .ROUTE .COMPLEX PRN (Reason: Constipation) Rx Instructions: Give 30 ml by mouth every 24 hours as needed for constipation. nitroglycerin [Nitrostat] 0.4 mg Tablet, Sublingual See Rx Instructions .ROUTE .COMPLEX PRN (Reason: Chest Pain) Rx Instructions: 0.4 mg sublingually every 5 minuts as needed for chest pain x 2 doses. If chest pain continues send to ER. atorvastatin 40 mg Tablet 40 mg PO BEDTIME Qty: 30 0RF clopidogrel 75 mg Tablet 75 mg PO DAILY Qty: 90 3RF aspirin [Adult Aspirin Regimen] 81 mg tablet,delayed release (DR/EC) 81 mg PO DAILY@07 Qty: 90 3RF Changed Coreg 3.125 mg tablet 6.25 mg PO BID Qty: 60 3RF Rx Instructions: must administer with a meal/food Discharge Orders: Discharge Order (Routine); Ordered 11/03/23 Ordered By: Larissa Li Referrals: [facility] [Outside] Rito Woods MD [Primary Care Provider] - Malika Gutierrez MD [Physician] - 1 month (During your appointment with Tabatha Devi, you will be scheduled for an appointment with Dr. Gutierrez. Thank you! ) Tabatha Devi FNP [Nurse Practitioner] - 11/18/23 3:30 pm Discharge Diet: Cardiac Patient Instructions: Amlodipine (By mouth), Isosorbide Mononitrate (By mouth) (Imdur, Imdur ER, Ismo), A-fib (Atrial Fibrillation) (DC), Coronary Angioplasty (DC), Hypertension (DC), Hyperlipidemia (DC), Post Angiogram Home Care Instructions Discharge Attestations Time Spent in Discharge Care*: greater than 30 min Quality Metrics Clinical Quality Measures [ No reported AMI, CVA or VTE this stay] Coding Level of Care Code Acute Code for Chg Fwd Diagnoses Non-ST elevated myocardial infarction I21.4 Essential hypertension I10 Hypertension type: essential hypertension Longstanding persistent atrial fibrillation I48.11 Atrial fibrillation type: longstanding persistent Pacemaker Z95.0 Atherosclerosis of [place] coronary artery of [place] heart without angina pectoris I25.10 [place] vs. transplanted heart: [place] heart Mixed hyperlipidemia E78.2 Hyperlipidemia type: mixed hyperlipidemia
== END 2023-11-03 14:36 | disposition skilled nursing facility (03) | DRG 321 ==
LOC: ER 21:38 → CSU 22:26
PROVIDERS: Internal Medicine; Internal Medicine Cardiovascular Disease; Student in an Organized Health Care Education/Training Program; Admitting Provider Family Medicine; Emergency Provider Emergency Medicine; PCP Internal Medicine; Visit Provider Student in an Organized Health Care Education/Training Program
PROC: 027034Z Dilation of Coronary Artery, One Artery with Drug-eluting Intraluminal Device, Percutaneous Approach (ICD-10-PCS; principal; 2023-11-02 11:45)
PROC: 027034Z Dilation of Coronary Artery, One Artery with Drug-eluting Intraluminal Device, Percutaneous Approach (ICD-10-PCS; 2023-11-02 11:45)
DX: T82.855A Stenosis of coronary artery stent, initial encounter (principal); I21.A9 Other myocardial infarction type; F02.84 Dementia in other diseases classified elsewhere, unspecified severity, with anxiety; Y84.0 Cardiac catheterization as the cause of abnormal reaction of the patient, or of later complication, without mention of misadventure at the time of the procedure; Y92.9 Unspecified place or not applicable; Z98.61 Coronary angioplasty status; Z95.0 Presence of cardiac pacemaker; I10 Essential (primary) hypertension; E78.2 Mixed hyperlipidemia; Z86.73 Personal history of transient ischemic attack (TIA), and cerebral infarction without residual deficits; I25.2 Old myocardial infarction; E03.9 Hypothyroidism, unspecified; G30.9 Alzheimer's disease, unspecified; F91.9 Conduct disorder, unspecified; N40.0 Benign prostatic hyperplasia without lower urinary tract symptoms; G47.00 Insomnia, unspecified; G62.9 Polyneuropathy, unspecified; K21.9 Gastro-esophageal reflux disease without esophagitis; M81.0 Age-related osteoporosis without current pathological fracture; I16.0 Hypertensive urgency
CPT/HCPCS: 36415; 71045; 80048; 80053; 80162; 83036; 83735; 83880; 84443; 84484; 85014; 85018; 85025; 85347; 85610; 85730; 87426; 92920; 93005; 93306; 93454; 94664; 96365; 96367; 96374; 96375; 96376; 99152; 99153; 99285; C1725; C1760; C1769; C1887; C1894; C9113; G0269; J1644; J2250; J3010; J7030; Q9967

== ENCOUNTER → 2023-11-18 15:13 | Outpatient (BNVA) | payer MEDICARE, MEDICAID, SELFPAY | PROVIDERS: PCP Internal Medicine; Visit Provider Nurse Practitioner Family | DX: I25.10 Atherosclerotic heart disease of native coronary artery without angina pectoris (principal); Z87.891 Personal history of nicotine dependence; I10 Essential (primary) hypertension | CPT/HCPCS: 99213 ==

== ENCOUNTER 2024-01-19 23:42 | Observation (INO) | payer MEDICARE, MEDICAID, SELFPAY ==
--- NOTE | 2024-01-19 23:45 | ECG_ITS ---
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 Measurements Intervals [place] Rate: 70 P: 131 ND: 232 QRS: -14 QRSD: 110 T: 33 QT: 392 QTc: 424 Interpretive Statements ELECTRONIC ATRIAL PACEMAKER INCOMPLETE RIGHT BUNDLE BRANCH BLOCK [90+ ms QRS DURATION, TERMINAL R IN V1/V2, 40+ ms S IN I/aVL/V4/V5/V6] MODERATE ST DEPRESSION [0.05+ mV ST DEPRESSION] Compared to ECG 11/01/2023 03:14:23 ST (T wave) deviation now present T-wave abnormality no longer present Possible ischemia no longer present Electronically Signed On 01-20-2024 10:29:12 CDT by Colby Lopez M.D. [email or web address]
--- NOTE | 2024-01-19 23:45 | XRR_ITS ---
PROCEDURE INFORMATION: Exam: XR Chest Exam date and time: 01/20/2024 12:51 AM Age: 83 years old Clinical indication: Pain; Chest pressure; Additional info: Chest pain TECHNIQUE: Imaging protocol: Radiologic exam of the chest. Views: 1 view. COMPARISON: CR XR chest 1V portable [id number] 10/31/2023 9:13 PM FINDINGS: Tubes, catheters and devices: Dual lead pacemaker is seen on the left. Lungs: Unremarkable. No consolidation. Pleural spaces: Unremarkable. No pleural effusion. No pneumothorax. Heart/Mediastinum: Heart size is normal. There is calcified plaque involving the aorta. There is a retrocardiac hiatal hernia. Bones/joints: Unremarkable. XR/XR chest 1V portable [id number] IMPRESSION: 1. Retrocardiac hiatal hernia.
[2024-01-19 23:49] VITALS: BP 146/73; PULSE 70; RESP 18; TEMP 36.6; O2SAT 95; BMI 23.7
[2024-01-20] VITALS (32 sets, daily range): BP systolic 118–165; BP diastolic 52–106; PULSE 70–92; RESP 15–30; TEMP 36.4–36.9; O2SAT 91–98
[2024-01-20 00:02] LABS: Basophils # 0.1 10^3/uL (0.0-0.1); Basophils % 0.6 %; Eosinophils # 0.6 10^3/uL (0.0-0.8); Hematocrit 38.4 % (37-53); Lymphocytes # 1.6 10^3/uL (0.8-4.8); Lymphocytes % 19.5 %; Mean Corpuscular HGB Conc 34.1 g/dL (30-55); Mean Corpuscular Hemoglobin 32.2 pg (27-33); Mean Corpuscular Volume 94.3 fl (82-101); Mean Platelet Volume 9.2 fL (7.4-10.4); Monocytes # 0.8 10^3/uL (0.2-0.9); Monocytes % 9.8 %; Neutrophils # 4.96 10^3/uL (1.8-7.7); Neutrophils % 61.7 %; Nucleated Red Blood Cells % 0 %; Platelet Count 269 10^3/cmm (157-399); Red Blood Count 4.07 10^6/uL (3.85-5.65); Red Cell Distribution Width 13.8 % (12.1-15.1); White Blood Count 8.04 10^3/uL (3.29-11.43)
--- NOTE | 2024-01-20 00:14 | ED_ITS ---
HPI - Chest Pain 2 General: Chief Complaint: Chest Pain Stated Complaint: CP Time Seen by Provider: 01/19/24 23:46 History of Present Illness: Patient presents to the ER with complaints of 1 episode of substernal chest pain that did not radiate. He was lying in bed when this happened. He did not complain of shortness of breath or diaphoresis. Patient was given 1 dose of nitro at the care home and EMS gave him another dose of nitro and 3 and 24 mg aspirin en route. Patient did does have a history of coronary artery disease with stent placement just approximately 2 months ago through this facility. Patient is pain-free upon arrival to the ER. Review of Systems 2 General: Reports: 10 or more systems reviewed and unremarkable except in HPI and below PFSH ED 2 PFSH: Medical History Hypertension Hyperlipidemia Atrial fibrillation Pacemaker Atherosclerosis of [place] coronary artery without angina pectoris Chronic kidney disease Abnormal myocardial perfusion study Positive cardiac stress test NSTEMI (non-ST elevated myocardial infarction) Chest pain High risk medication use digoxin Generalized weakness Hypothyroidism Tremor Alzheimer's dementia Orthostatic hypotension Anxiety Humerus fracture Conduct disorder on medroxyprogesterone Syncope Seizure Urinary tract infection Dupuytren's contracture of right hand BPH (benign prostatic hyperplasia) Insomnia GI bleed Adrenal adenoma benign Thoracic back pain Depression Neuropathy TIA (transient ischemic attack) Diverticulitis Incontinence GERD (gastroesophageal reflux disease) Osteoporosis Surgical History Hx of cataract surgery H/O vasectomy S/P foot surgery, right Family History Other CAD (coronary artery disease) Cancer Dementia Diabetes Hypertension Denies family history of Clotting disorder Chronic kidney disease (CKD) Suicide Anesthesia complication Bleeding disorder Lung disease Stroke Social History Smoking and tobacco/nicotine status: former use of tobacco/nicotine Alcohol intake: never Substance/Drug Use: never Housing: Long-Term Physical Exam 2 Const: COMMON NORMALS: no acute distress, average body habitus, patient oriented x3, no limitations, healthy appearing, alert and well nourished HENMT: COMMON NORMALS: normocephalic, atraumatic, hearing grossly normal bilaterally, external ears normal, Normal external nose present and moist oral mucous membranes HEAD & SCALP: normocephalic and atraumatic NOSE: Normal external nose present EXTERNAL EAR: Yes external ears normal Neck/C-Spine: COMMON NORMALS: full ROM, no lymphadenopathy, supple, no meningeal signs, no JVD and Thyroid normal THYROID: Thyroid normal Chest: COMMONS NORMALS: normal inspection of the chest and normal palpation of entire chest wall Resp: COMMON NORMALS: normal respiratory effort, No retractions, No use of accessory muscles and clear to auscultation bilaterally AUSCULTATION: clear to auscultation bilaterally Cardio: COMMON NORMALS: no JVD, regular rate, regular rhythm, S1 normal heart sound present, S2 normal heart sound present, No gallops present (Cardio), No clicks present (Cardio), No murmurs present (Cardio) and No rub (Cardio) R ATE: regular rate RHYTHM: regular rhythm HEART SOUNDS: S1 normal heart sound present and S2 normal heart sound present GI: COMMON NORMALS: Normal to inspection, nondistended, normoactive bowel sounds present, Soft to palpation, non-tender, No hepatosplenomegaly present and no masses PALPATION: Yes Soft to palpation and Yes No hepatosplenomegaly present Neuro: COMMON NORMALS: patient oriented x3 SENSORIUM/ORIENTATION: Yes alert MENINGEAL SIGNS: Yes no meningeal signs Course 2 Vital Signs: Vital signs: Vital Signs Temperature 97.9 F 01/19/24 23:49 Pulse Rate 72 01/20/24 02:45 Respiratory Rate 23 H 01/20/24 02:45 Blood Pressure 146/79 01/20/24 02:45 Pulse Oximetry 93 01/20/24 02:45 Oxygen Delivery Me thod Room Air 01/20/24 00:00 MDM - Chest Pain Medical Decision Making Patient was worked up in standard chest pain fashion with serial EKGs and serial enzymes, initial troponin was 36 2-hour troponin was 48 for delta of roughly 12, 6-hour troponin was 61 for delta 25. Patient been chest pain-free his entire time of being here. Dr. Li was notified he wanted us to call Dr. Lopez who said he would come in and see him this morning before he made the decision to take him to the [facility] or to do a stress test. Patient will be placed in observation. Differential Diagnosis Unlikely acute massive pulmonary embolism, acute respiratory failure, acute myocardial infarction, cardiac arrest or sudden cardiac Medical Records I reviewed the patient's medical records. Lab Data I reviewed the patient's lab results. 01/19/24 23:38 01/19/24 23:38 Radiology Impressions Chest X-Ray 01/19/24 23:45 IMPRESSION: 1. Retrocardiac hiatal hernia. Laboratory Results WBC 8.04 10^3/uL (3.29-11.43) 01/19/24 23:38 RBC 4.07 10^6/uL (3.85-5.65) 01/19/24 23:38 Hgb 13.10 g/dL (11.27-16.99) 01/19/24 23:38 Hct 38.4 % (37-53) 01/19/24 23:38 MCV 94.3 fl (82-101) 01/19/24 23:38 MCH 32.2 pg (27-33) 01/19/24 23:38 MCHC 34.1 g/dL (30-55) 01/19/24 23:38 RDW 13.8 % (12.1-15.1) 01/19/24 23:38 Plt Count 269 10^3/cmm (157-399) 01/19/24 23:38 MPV 9.2 fL (7.4-10.4) 01/19/24 23:38 Neut % (Auto) 61.7 % 01/19/24 23:38 Lymph % (Auto) 19.5 % 01/19/24 23:38 [place] % (Auto) 9.8 % 01/19/24 23:38 Eos % (Auto) 8.0 % 01/19/24 23:38 Baso % (Auto) 0.6 % 01/19/24 23:38 Neut # (Auto) 4.96 10^3/uL (1.8-7.7) 01/19/24 23:38 Lymph # (Auto) 1.6 10^3/uL (0.8-4.8) 01/19/24 23:38 [place] # (Auto) 0.8 10^3/uL (0.2-0.9) 01/19/24 23:38 Eos # (Auto) 0.6 10^3/uL (0.0-0.8) 01/19/24 23:38 Baso # (Auto) 0.1 10^3/uL (0.0-0.1) 01/19/24 23:38 Nucleated RBC % (auto) 0 % 01/19/24 23:38 Nucleated RBCs # 0.0 /100WBC 01/19/24 23:38 PT 12.80 SECONDS (12.1-14.9) 01/19/24 23:38 INR 0.93 (0.8-1.2) 01/19/24 23:38 Sodium 136 mmol/L (136-145) 01/19/24 23:38 Potassium 4.1 mmol/L (3.5-5.1) 01/19/24 23:38 Chloride 104 mmol/L (98-107) 01/19/24 23:38 Carbon Dioxide 17 mmol/L (22-29) L 01/19/24 23:38 Anion Gap 19.1 (5-19) H 01/19/24 23:38 BUN 15 mg/dL (8-23) 01/19/24 23:38 Creatinine 1.3 mg/dL (0.7-1.2) H 01/19/24 23:38 GFR Calculation Not Reportable 01/19/24 23:38 Glucose 155 mg/dL (65-115) H 01/19/24 23:38 Calculated Osmolality 286 mOsm/kg (285-295) 01/19/24 23:38 Calcium 9.0 mg/dL (8.5-10.5) 01/19/24 23:38 Total Bilirubin 0.2 mg/dL (0.15-1.2) 01/19/24 23:38 AST 17 U/L (0-40) 01/19/24 23:38 ALT 18 U/L (0-41) 01/19/24 23:38 Alkaline Phosphatase 100 U/L (40-130) 01/19/24 23:38 Troponin T Baseline 36 ng/L (0-15) H 01/19/24 23:38 Troponin T 120 Minute 48.54 ng/L (0-15) H 01/20/24 01:27 Delta Troponin T 12.54 ABS# (0-10) H* 01/20/24 01:27 Troponin T Hi Sens 6Hr 61.22 ng/L (0-15) H 01/20/24 05:25 Troponin T Hi Sens 6Hr Delta 25.22 ng/L (0-12) H* 01/20/24 05:25 Total Protein 7.1 g/dL (6.6-8.7) 01/19/24 23:38 Albumin 4.0 g/dL (3.5-5.2) 01/19/24 23:38 Globulin 3.1 g/dL (1.3-4.6) 01/19/24 23:38 Digoxin 0.8 ng/mL (0.6-1.2) 01/19/24 23:38 All radiology interpretation(s) finalized by discharge Discharge Plan Discharge Patient Disposition: Placed in Observation Clinical Impression: Chest pain, Elevated troponin, Hx of heart artery stent Coding Level of Care Code ED Radiology Technologist for Zachary Faria
[2024-01-20 00:17] LABS: INR 0.93 (0.8-1.2)
[2024-01-20 00:21] LABS: Digoxin 0.8 ng/mL (0.6-1.2)
[2024-01-20 00:22] LABS: Alanine Aminotransferase 18 U/L (0-41); Alkaline Phosphatase 100 U/L (40-130); Anion Gap 19.1 (5-19); Aspartate Amino Transferase 17 U/L (0-40); Blood Urea Nitrogen 15 mg/dL (8-23); Carbon Dioxide 17 mmol/L (22-29); Chloride 104 mmol/L (98-107); Creatinine Clr Calc Pharmacy 38.8597; Globulin 3.1 g/dL (1.3-4.6); Glucose 155 mg/dL (65-115); Osmolality Calculated 286 mOsm/kg (285-295); Potassium 4.1 mmol/L (3.5-5.1); Sodium 136 mmol/L (136-145); Total Bilirubin 0.2 mg/dL (0.15-1.2); Total Protein 7.1 g/dL (6.6-8.7)
[2024-01-20 00:23] LABS: Troponin(5th) Baseline 36 ng/L (0-15)
--- NOTE | 2024-01-20 01:10 | PC.NURSE ---
CALL RECEIVED FROM DAUGHTER STARR. REPORT ON PT CONDITION AND PROGRESS WAS GIVEN. STARR REPORTS THAT WAS THE BEST REPORT SHE HAD EVER GOTTEN AND SHE COMPLETELY UNDERSTOOD IT. SHE STATED THAT SHE WOULD BE ABLE TO [facility] PT UPON DISCHARGE.
--- NOTE | 2024-01-20 01:45 | ECG_ITS ---
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 Measurements Intervals [place] Rate: 70 P: 110 AL: 261 QRS: -14 QRSD: 114 T: 73 QT: 386 QTc: 417 Interpretive Statements ELECTRONIC ATRIAL PACEMAKER INCOMPLETE RIGHT BUNDLE BRANCH BLOCK [90+ ms QRS DURATION, TERMINAL R IN V1/V2, 40+ ms S IN I/aVL/V4/V5/V6] NONSPECIFIC ST & T-WAVE ABNORMALITY Compared to ECG 01/19/2024 23:52:25 T-wave abnormality now present ST (T wave) deviation no longer present Electronically Signed On 01-20-2024 10:30:17 CDT by Colby Lopez M.D. [id number]
[2024-01-20 01:47] LABS: Troponin 5 2HR 48.54 ng/L (0-15)
[2024-01-20 01:56] LABS: Troponin 5 2HR Delta 12.54 ABS# (0-10)
--- NOTE | 2024-01-20 05:45 | ECG_ITS ---
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 Measurements Intervals [place] Rate: 70 P: 84 [place]: 266 QRS: -20 QRSD: 112 T: 116 QT: 400 QTc: 432 Interpretive Statements ELECTRONIC ATRIAL PACEMAKER INCOMPLETE RIGHT BUNDLE BRANCH BLOCK [90+ ms QRS DURATION, TERMINAL R IN V1/V2, 40+ ms S IN I/aVL/V4/V5/V6] SEPTAL MYOCARDIAL INFARCTION , OF INDETERMINATE AGE [40+ ms Q WAVE IN V1/V2] MODERATE T-WAVE ABNORMALITY, CONSIDER LATERAL ISCHEMIA [-0.1+ mV T-WAVE IN I/aVL/V5/V6] Compared to ECG 01/20/2024 01:45:07 Myocardial infarct finding now present Possible ischemia now present T-wave abnormality still present Electronically Signed On 01-20-2024 10:30:06 CDT by Colby Lopez M.D. [id number]
[2024-01-20 05:47] LABS: Troponin 5 6HR 61.22 ng/L (0-15)
[2024-01-20 05:50] LABS: Troponin 5 6HR Delta 25.22 ng/L (0-12)
--- NOTE | 2024-01-20 06:48 | P.HP_ITS ---
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 He underwent angioplasty and the stent was opened up. Presents to the ER due to complaints of substernal chest pain that started last night. He received nitro at the half-way and then needed another one en route via EMS. After the second dose of nitroglycerin he has been chest pain-free. His EKG is without acute ST-T wave changes. Baseline troponin was at 36, trending up at 2 hours to 48 with a delta of 12 and then at 6 hours to 61 with a delta of 25. Admission is requested in view of his extensive cardiac history and uptrending troponins. Review of Systems 2 General: Reports: 10 or more systems reviewed and unremarkable except in HPI and below Const: Denies: fever(s), chills or body aches Eyes: Denies: change in vision, blurry vision or photophobia ENMT: Reports: hoarseness; Denies: throat pain, enlarged tonsils, odynophagia or nasal congestion Card: Denies: chest pain, palpitations, irregular heart rhythm, edema, swelling of feet/ankles, lightheadedness, pre-syncope, dyspnea on exertion or orthopnea Resp: Denies: dyspnea, productive cough, non-productive cough, wheezing, stridor, pain on inspiration, change in phlegm color, hemoptysis or chest congestion GI: Denies: abdominal pain, nausea, vomiting, hematemesis, coffee ground emesis, dysphagia, heartburn, diarrhea, constipation, GI cramping, change in stool character, hematochezia or melena : Denies: flank pain, dysuria, urinary frequency, urinary urgency, urinary hesitancy or hematuria Musc: Denies: neck pain, back pain, extremity pain, joint swelling, joint warmth or deformity Neuro: Denies: headache(s), numbness in extremities, weakness in extremities, sensory changes, difficulty walking, frequent falls, dizziness, vertigo, behavioral changes, Slurred speech present or seizure-like activity Psych: Denies: anxiety, depression, suicidal ideation or homicidal ideation Endo: Denies: polyuria, polydipsia, tired all the time, cold intolerance or hot flashes Cameron/Lymph: Denies: easy bruising or easy bleeding Medications/Allergies Home Medications Medication Instructions Recorded Confirmed Last Taken Type acetaminophen 325 mg tablet 650 mg PO Q4H PRN Pain 06/27/19 11/18/23 02/24/22 History (Tylenol) bisacodyl 10 mg rectal suppository 10 mg [place] DAILY PRN Constipation 06/27/19 11/18/23 Unknown History (Dulcolax (bisacodyl)) fluticasone propionate 50 1 spray intranasal BID@06/27/19 11/18/23 02/25/22 History mcg/actuation nasal spray,suspension propafenone 225 mg 225 mg PO 0700,1900 06/27/19 11/18/23 02/25/22 History capsule,extended release 12 hr levothyroxine 100 mcg tablet 100 mcg PO DAILY@01/24/22 11/18/23 02/25/22 History lidocaine HCl 2 % mucosal solution See Rx Instructions .Route .COMPLEX 01/24/22 11/18/23 01/22/22 History (Lidocaine Viscous) omeprazole 40 mg capsule,delayed 40 mg PO DAILY@07 01/24/22 11/18/23 02/25/22 History release oxcarbazepine 300 mg tablet 300 mg PO BID@0701/24/22 11/18/23 02/25/22 History sodium phosphates 19 gram-7 118 ml [place] DAILY PRN Constipation 01/24/22 11/18/23 Unknown History gram/118 mL enema (Doifh-Jg-Osq Enema) hydrocodone 7.5 mg-acetaminophen 1 tab PO Q6H PRN Pain 07/28/22 11/18/23 Unknown History 325 mg tablet ammonium lactate 12 % topical cream 1 applic topical DAILY 11/03/22 11/18/23 Unknown History sodium chloride 1,000 mg soluble 1,000 mg PO DAILY 11/03/22 11/18/23 Unknown History tablet fexofenadine 180 mg tablet 180 mg PO DAILY 06/29/23 11/18/23 Unknown History magnesium hydroxide 400 mg/5 mL See Rx Instructions .Route 06/29/23 11/18/23 Unknown History oral suspension (Milk of Magnesia) .COMPLEX PRN Constipation nitroglycerin 0.4 mg sublingual See Rx Instructions .Route 06/29/23 11/18/23 Unknown History tablet (Nitrostat) .COMPLEX PRN Chest Pain aspirin 81 mg tablet,delayed 81 mg PO DAILY@07 #90 tabs 07/02/23 11/18/23 02/25/22 Rx release (Adult Aspirin Regimen) atorvastatin 40 mg tablet 40 mg PO BEDTIME #30 tabs 07/02/23 11/18/23 Unknown Rx clopidogrel 75 mg tablet 75 mg PO DAILY #90 tabs 07/02/23 11/18/23 Unknown Rx digoxin 125 mcg (0.125 mg) tablet 125 mcg PO DAILY@07 #90 tabs 07/14/23 11/18/23 Unknown Rx carvedilol 3.125 mg tablet (Coreg) 6.25 mg (2 x 3.125 mg) PO BID #60 11/03/23 11/18/23 Unknown Rx tabs amlodipine 10 mg tablet 10 mg PO DAILY 01/20/24 01/20/24 Unknown History bisacodyl 5 mg tablet,delayed 10 mg PO Q12H PRN Constipation 01/20/24 01/20/24 Unknown History release (Dulcolax (bisacodyl)) sodium phosphates 19 gram-7 118 ml [place] DAILY PRN Constipation 01/20/24 01/20/24 Unknown History gram/118 mL enema (Fleet Enema) Allergies Allergy/AdvReac Type Severity Reaction Status Date / Time No Known Allergies Allergy Verified 01/19/24 23:55 PFSH Acute 2 PFSH: Medical History Hypertension Hyperlipidemia Atrial fibrillation Pacemaker Atherosclerosis of [place] coronary artery without angina pectoris Chronic kidney disease Abnormal myocardial perfusion study Positive cardiac stress test NSTEMI (non-ST elevated myocardial infarction) Chest pain High risk medication use digoxin Generalized weakness Hypothyroidism Tremor Alzheimer's dementia Orthostatic hypotension Anxiety Humerus fracture Conduct disorder on medroxyprogesterone Syncope Seizure Urinary tract infection Dupuytren's contracture of right hand BPH (benign prostatic hyperplasia) Insomnia GI bleed Adrenal adenoma benign Thoracic back pain Depression Neuropathy TIA (transient ischemic attack) Diverticulitis Incontinence GERD (gastroesophageal reflux disease) Osteoporosis Surgical History Hx of cataract surgery H/O vasectomy S/P foot surgery, right Family History Other CAD (coronary artery disease) Cancer Dementia Diabetes Hypertension Denies family history of Clotting disorder Chronic kidney disease (CKD) Suicide Anesthesia complication Bleeding disorder Lung disease Stroke Social History Smoking and tobacco/nicotine status: former use of tobacco/nicotine Alcohol intake: never Substance/Drug Use: never Housing: [facility] Vitals/I&O/Wt Last Vital Signs Temp 97.9 F 01/19/24 23:49 Pulse 70 01/20/24 06:00 Resp 16 01/20/24 06:00 BP 141/64 01/20/24 06:00 Pulse Ox 95 01/20/24 06:00 O2 Del Method Room Air 01/20/24 06:00 Weight last 48 hrs Weight 66.678 kg Physical Exam 2 Narrative: General: No acute distress, AO x2-3 HEENT: PERRLA, pupils bilaterally equal and reactive, pallors not present Chest: Normal vesicular breath sounds, no added sounds, equal good air entry bilaterally CVS: S1-S2 regular, no murmurs, no tachycardia, no gallops, no rubs Abdomen: Soft, nontender, no organomegaly, bowel sounds present Neuro: No focal deficits Data 01/19/24 23:38 01/19/24 23:38 Other Labs: Radiology Impressions Chest X-Ray 01/19/24 23:45 IMPRESSION: 1. Retrocardiac hiatal hernia. Laboratory Results WBC 8.04 10^3/uL (3.29-11.43) 01/19/24 23:38 RBC 4.07 10^6/uL (3.85-5.65) 01/19/24 23:38 Hgb 13.10 g/dL (11.27-16.99) 01/19/24 23:38 Hct 38.4 % (37-53) 01/19/24 23:38 MCV 94.3 fl (82-101) 01/19/24 23:38 MCH 32.2 pg (27-33) 01/19/24 23:38 MCHC 34.1 g/dL (30-55) 01/19/24 23:38 RDW 13.8 % (12.1-15.1) 01/19/24 23:38 Plt Count 269 10^3/cmm (157-399) 01/19/24 23:38 MPV 9.2 fL (7.4-10.4) 01/19/24 23:38 Neut % (Auto) 61.7 % 01/19/24 23:38 Lymph % (Auto) 19.5 % 01/19/24 23:38 [place] % (Auto) 9.8 % 01/19/24 23:38 Eos % (Auto) 8.0 % 01/19/24 23:38 Baso % (Auto) 0.6 % 01/19/24 23:38 Neut # (Auto) 4.96 10^3/uL (1.8-7.7) 01/19/24 23:38 Lymph # (Auto) 1.6 10^3/uL (0.8-4.8) 01/19/24 23:38 [place] # (Auto) 0.8 10^3/uL (0.2-0.9) 01/19/24 23:38 Eos # (Auto) 0.6 10^3/uL (0.0-0.8) 01/19/24 23:38 Baso # (Auto) 0.1 10^3/uL (0.0-0.1) 01/19/24 23:38 Nucleated RBC % (auto) 0 % 01/19/24 23:38 Nucleated RBCs # 0.0 /100WBC 01/19/24 23:38 PT 12.80 SECONDS (12.1-14.9) 01/19/24 23:38 INR 0.93 (0.8-1.2) 01/19/24 23:38 Sodium 136 mmol/L (136-145) 01/19/24 23:38 Potassium 4.1 mmol/L (3.5-5.1) 01/19/24 23:38 Chloride 104 mmol/L (98-107) 01/19/24 23:38 Carbon Dioxide 17 mmol/L (22-29) L 01/19/24 23:38 Anion Gap 19.1 (5-19) H 01/19/24 23:38 BUN 15 mg/dL (8-23) 01/19/24 23:38 Creatinine 1.3 mg/dL (0.7-1.2) H 01/19/24 23:38 GFR Calculation Not Reportable 01/19/24 23:38 Glucose 155 mg/dL (65-115) H 01/19/24 23:38 Calculated Osmolality 286 mOsm/kg (285-295) 01/19/24 23:38 Calcium 9.0 mg/dL (8.5-10.5) 01/19/24 23:38 Total Bilirubin 0.2 mg/dL (0.15-1.2) 01/19/24 23:38 AST 17 U/L (0-40) 01/19/24 23:38 ALT 18 U/L (0-41) 01/19/24 23:38 Alkaline Phosphatase 100 U/L (40-130) 01/19/24 23:38 Troponin T Baseline 36 ng/L (0-15) H 01/19/24 23:38 Troponin T 120 Minute 48.54 ng/L (0-15) H 01/20/24 01:27 Delta Troponin T 12.54 ABS# (0-10) H* 01/20/24 01:27 Troponin T Hi Sens 6Hr 61.22 ng/L (0-15) H 01/20/24 05:25 Troponin T Hi Sens 6Hr Delta 25.22 ng/L (0-12) H* 01/20/24 05:25 Total Protein 7.1 g/dL (6.6-8.7) 01/19/24 23:38 Albumin 4.0 g/dL (3.5-5.2) 01/19/24 23:38 Globulin 3.1 g/dL (1.3-4.6) 01/19/24 23:38 Digoxin 0.8 ng/mL (0.6-1.2) 01/19/24 23:38 A&P Assessment and plan (1) Chest pain: Qualifiers: Chest pain type: unspecified Qualified Code(s): R07.9 - Chest pain, unspecified (2) Elevated troponin: Plan 83-year-old male with multiple cardiac risk factors and recent history of in- stent restenosis in October presenting today with chest pain and elevated troponins. Uptrending troponins at 2.6 hours with delta is as noted above. Currently he is chest pain-free after having received 2 nitroglycerin tab received ASA 325 via EMS Lovenox 1mg/kg s/c q12h Continue aspirin 81 mg daily, Plavix 75 mg daily, atorvastatin, carvedilol, digoxin. Home medication list needs to be verified Cardiology consult placed to assess for stress test vs angiogram Attestations 2 Medical Necessity Statement*: Less than 2 midnight stay is anticipated Coding Level of Care Code Acute Code for Chg Fwd Moderate MDM includes number and complexity of problems actively addressed during encounter, amount and/or complexity of data reviewed/ordered and described risk of complication, morbidity or mortality of management as documented Diagnoses Chest pain R07.9 Chest pain type: unspecified Elevated troponin R79.89
[2024-01-20] MEDS: enoxaparin 60 mg/0.6 mL Syringe SUBCUT ×2 (07:49→17:55)
[2024-01-20] MEDS: digoxin 125 mcg Tablet PO (07:50)
[2024-01-20] MEDS: pantoprazole DR 40 mg Tablet PO (07:50)
[2024-01-20] MEDS: aspirin 81 mg EC Tablet PO (07:50)
[2024-01-20] MEDS: carvedilol 6.25 mg Tablet PO ×2 (07:50→17:55)
[2024-01-20] MEDS: clopidogrel 75 mg Tablet PO (07:50)
--- NOTE | 2024-01-20 11:01 | ECG_ITS ---
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 Interpretive Statements NAME OF STUDY: LEXISCAN SESTAMIBI STRESS TEST INDICATION: [NONSTEMI] Procedure: At the baseline, the blood pressure was 150/65 mmHg with a heart rate of 70bpm. The electrocardiogram showed normal sinus rhythm, incomplete right bundle branch block with normal ST and T's. The Lexiscan was infused over a period of 20 seconds. A total of 0.4 mg of Lexiscan was infused. The stress phase was continued for a total of 5 minutes. Heart rate was at the end of stress phase was 71 bpm and a blood pressure of 98/53 mmHg. The EKG at the peak infusion revealed normal sinus rhythm with no significant ST-T wave changes. Sestamibi was injected 20 seconds after the Lexiscan infusion. Blood pressure at the end of recovery phase was 101/51 mmHg with a heart rate of 70 bpm. Conclusion: 1. Normal EKG response to Lexiscan infusion 2. No Lexiscan induced chest pain or cardiac arrhythmia. 3. Normal blood pressure and heart rate response. 4. Sestamibi/sestamibi perfusion scan pending; see separate report. Electronically Signed On 01-24-2024 21:29:51 CDT by Colby Lopez M.D. [id number]
--- NOTE | 2024-01-20 14:38 | W.PM.EVENTAC ---
Event Note Event Note: Admitted to the morning. Today on examination he comfortably in bed. Denies any active chest pain. States he had only 1 chest pain last night recommended the ER since last discharge. Compliant with medications. Denies any recent smoking. Appreciate troponin cycle. Repeat troponin in a.m. Care discussed in detail with cardiology. Plan for Lexiscan stress test in a.m. Cardiac diet for now. N.p.o. after midnight. For now continue with full dose Lovenox 1 mg/kg body weight every 12 hourly. Continue with aspirin, Plavix, statin. Appreciate most recent A1c and lipid panel. Medical reconciliation done. Restart home dose of levothyroxine, propafenone. Does have mild JAYLAN. Start on normal saline at 50 cc/h. Check urinalysis, urine lites, urine creatinine. Monitor BMP daily for now.
[2024-01-20 15:09] LABS: Iron 54 ug/dL (59-158); Percent Saturation 16.5 % (20-50); Total Iron Binding Capacity 327 mcg/dl; Unsaturated Iron Binding 273 ug/dL (112-347)
[2024-01-20] MEDS: sodium chloride 0.9% 1,000 ML 50 ML IV (15:23)
[2024-01-20 15:25] LABS: Vitamin B12 316 pg/mL (232-1245)
[2024-01-20 15:53] LABS: D Dimer 0.55 ug/mLFEU (0-0.59)
[2024-01-20 18:20] LABS: Bilirubin Urine Negative (Negative); Blood Urine Negative (Negative); Glucose Urine UA Negative (Normal); Ketones Urine Negative (Negative); Leukocyte Esterase Urine Negative (Negative); Nitrate Urine Negative (Negative); Protein Urine Negative (Negative); Specific Gravity, Urine 1.014 (1.005-1.030); Urine Appearance Clear (CLEAR); Urine Color Yellow (Yellow); pH Urine 6.5 (5-7)
[2024-01-20 18:23] LABS: Bacteria Urine None Seen /hpf; Hyaline Casts Urine 0-4 /lpf; RBC Urine 0-2 /hpf (0-2); Squamous Epithelial Cell Urine 0-5 /hpf (0-5); WBC Urine 0-5 /hpf (0-5)
[2024-01-20 18:32] LABS: Potassium, Radom Urine 33 mmol/L; Urine Creatinine 78 mg/dL (39-259); Urine Random Chloride 118 mmol/L; Urine Random Sodium 128 mmol/L
[2024-01-20] MEDS: atorvastatin 40 mg Tablet PO (21:11)
[2024-01-21] VITALS (12 sets, daily range): BP systolic 101–162; BP diastolic 56–82; PULSE 70–84; RESP 16–24; TEMP 36.7–37.2; O2SAT 96–99; BMI 28.3
[2024-01-21 04:19] LABS: Basophils % 0.5 %; Eosinophils # 0.6 10^3/uL (0.0-0.8); Eosinophils % 7.9 %; Hematocrit 35.5 % (37-53); Lymphocytes # 1.6 10^3/uL (0.8-4.8); Lymphocytes % 22.1 %; Mean Corpuscular HGB Conc 33.8 g/dL (30-55); Mean Corpuscular Hemoglobin 32.3 pg (27-33); Mean Corpuscular Volume 95.7 fl (82-101); Monocytes # 0.8 10^3/uL (0.2-0.9); Monocytes % 11.3 %; Neutrophils % 57.9 %; Nucleated Red Blood Cells % 0 %; Platelet Count 238 10^3/cmm (157-399); Red Blood Count 3.71 10^6/uL (3.85-5.65); Red Cell Distribution Width 14.1 % (12.1-15.1); White Blood Count 7.43 10^3/uL (3.29-11.43)
[2024-01-21 04:43] LABS: Troponin T (5th) Once 67 ng/L (0-15)
[2024-01-21 04:46] LABS: Magnesium 1.9 mg/dL (1.7-2.3)
[2024-01-21 04:48] LABS: Alanine Aminotransferase 18 U/L (0-41); Albumin Level 3.7 g/dL (3.5-5.2); Alkaline Phosphatase 92 U/L (40-130); Anion Gap 16.2 (5-19); Aspartate Amino Transferase 21 U/L (0-40); Blood Urea Nitrogen 13 mg/dL (8-23); Calcium 8.5 mg/dL (8.5-10.5); Carbon Dioxide 17 mmol/L (22-29); Chloride 107 mmol/L (98-107); Creatinine Clr Calc Pharmacy 45.4494; Globulin 2.7 g/dL (1.3-4.6); Glucose 97 mg/dL (65-115); Osmolality Calculated 282 mOsm/kg (285-295); Potassium 4.2 mmol/L (3.5-5.1); Sodium 136 mmol/L (136-145); Total Bilirubin 0.3 mg/dL (0.15-1.2); Total Protein 6.4 g/dL (6.6-8.7)
[2024-01-21 05:01] LABS: Folate Level 8.6 ng/mL (4.5-32.2)
[2024-01-21] MEDS: enoxaparin 60 mg/0.6 mL Syringe SUBCUT (05:36)
[2024-01-21] MEDS: levothyroxine 100 mcg Tablet PO (05:36)
[2024-01-21] MEDS: regadenoson 0.4 Mg/5 ml Syringe IVP (07:30)
--- NOTE | 2024-01-21 07:46 | P.CONIM_ITS ---
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 At nursing facility was given a nitroglycerin. After administration of second nitro chest pain resolved. He has diffuse disease of left main artery/ LAD that is not revascularizable. His troponin had mild elevation from baseline of 36 to 6-hour level of 61. EKG not showing significant ischemic changes. Patient has memory issues. He does not recall any episodes of chest pain. He says he is chest pain-free at this time. ECHO on last admission showed normal LV systolic function. Review of Systems 2 General: Reports: 10 or more systems reviewed and unremarkable except in HPI and below Medications/Allergies Home Medications Medication Instructions Recorded Confirmed Last Taken Type acetaminophen 325 mg tablet 650 mg PO Q4H PRN Pain 06/27/19 01/20/24 02/24/22 History (Tylenol) bisacodyl 10 mg rectal suppository 10 mg TN DAILY PRN Constipation 06/27/19 01/20/24 Unknown History (Dulcolax (bisacodyl)) fluticasone propionate 50 1 spray intranasal BID@,06/27/19 01/20/24 02/25/22 History mcg/actuation nasal spray,suspension propafenone 225 mg 225 mg PO 0700,1900 06/27/19 01/20/24 02/25/22 History capsule,extended release 12 hr levothyroxine 100 mcg tablet 100 mcg PO DAILY@01/24/22 01/20/24 02/25/22 History lidocaine HCl 2 % mucosal solution See Rx Instructions .Route .COMPLEX 01/24/22 01/20/24 01/22/22 History (Lidocaine Viscous) omeprazole 40 mg capsule,delayed 40 mg PO DAILY@01/24/22 01/20/24 02/25/22 History release oxcarbazepine 300 mg tablet 300 mg PO BID@07,19 01/24/22 01/20/24 02/25/22 History sodium phosphates 19 gram-7 118 ml TN DAILY PRN Constipation 01/24/22 01/20/24 Unknown History gram/118 mL enema (Ruflv-Cu-Cvo Enema) hydrocodone 7.5 mg-acetaminophen 1 tab PO Q6H PRN Pain 07/28/22 01/20/24 Unknown History 325 mg tablet ammonium lactate 12 % topical cream 1 applic topical DAILY 11/03/22 01/20/24 Unknown History sodium chloride 1,000 mg soluble 1,000 mg PO DAILY 11/03/22 01/20/24 Unknown History tablet fexofenadine 180 mg tablet 180 mg PO DAILY 06/29/23 01/20/24 Unknown History magnesium hydroxide 400 mg/5 mL 30 ml PO Q24H PRN Constipation 06/29/23 01/20/24 Unknown History oral suspension (Milk of Magnesia) nitroglycerin 0.4 mg sublingual See Rx Instructions .Route 06/29/23 01/20/24 Unknown History tablet (Nitrostat) .COMPLEX PRN Chest Pain aspirin 81 mg tablet,delayed 81 mg PO DAILY@07 #90 tabs 07/02/23 01/20/24 02/25/22 Rx release (Adult Aspirin Regimen) atorvastatin 40 mg tablet 40 mg PO BEDTIME #30 tabs 07/02/23 01/20/24 Unknown Rx clopidogrel 75 mg tablet 75 mg PO DAILY #90 tabs 07/02/23 01/20/24 Unknown Rx digoxin 125 mcg (0.125 mg) tablet 125 mcg PO DAILY@07 #90 tabs 07/14/23 01/20/24 Unknown Rx carvedilol 3.125 mg tablet (Coreg) 6.25 mg (2 x 3.125 mg) PO BID #60 11/03/23 01/20/24 Unknown Rx tabs amlodipine 10 mg tablet 10 mg PO DAILY 01/20/24 01/20/24 Unknown History bisacodyl 5 mg tablet,delayed 10 mg PO Q12H PRN Constipation 01/20/24 01/20/24 Unknown History release (Dulcolax (bisacodyl)) isosorbide mononitrate 30 mg 30 mg PO DAILY 01/20/24 01/20/24 Unknown History tablet,extended release 24 hr medroxyprogesterone 10 mg tablet 10 mg PO DAILY 01/20/24 01/20/24 Unknown History sodium phosphates 19 gram-7 118 ml TN DAILY PRN Constipation 01/20/24 01/20/24 Unknown History gram/118 mL enema (Fleet Enema) Allergies Allergy/AdvReac Type Severity Reaction Status Date / Time No Known Allergies Allergy Verified 01/19/24 23:55 Current Medications Generic Name Dose Route Start Last Admin Trade Name Hemanth PRN Reason Stop Dose Admin Aspirin 81 mg 01/20/24 09:00 01/20/24 07:50 Aspirin 81 Mg Ec Tablet PO 81 mg DAILY NIRAJ Administration Atorvastatin Calcium 40 mg 01/20/24 21:00 01/20/24 21:11 Atorvastatin 40 Mg Tablet PO 40 mg BEDTIME NIRAJ Administration Carvedilol 6.25 mg 01/20/24 09:00 01/20/24 17:55 Carvedilol 6.25 Mg Tablet PO 6.25 mg BID NIRAJ Administration Clopidogrel Bisulfate 75 mg 01/20/24 09:00 01/20/24 07:50 Clopidogrel 75 Mg Tablet PO 75 mg DAILY NIRAJ Administration Digoxin 125 mcg 01/20/24 09:00 01/20/24 07:50 Digoxin 125 Mcg Tablet PO 125 mcg DAILY NIRAJ Administration Enoxaparin Sodium 60 mg 01/20/24 07:15 01/21/24 05:36 Enoxaparin 60 Mg/0.6 Ml Syringe SUBCUT 60 mg Q12H NIRAJ Administration Sodium Chloride 1,000 mls @ 50 mls/hr 01/20/24 14:45 01/20/24 15:23 Sodium Chloride 0.9% IV 50 mls/hr .Q20H NIRAJ Administration Levothyroxine Sodium 100 mcg 01/21/24 06:00 01/21/24 05:36 Levothyroxine 100 Mcg Tablet PO 100 mcg DAILY@06 NIRAJ Administration Pantoprazole Sodium 40 mg 01/20/24 09:00 01/20/24 07:[address] 40 Mg Tablet PO 40 mg DAILY NIRAJ Administration PFSH Acute 2 PFSH: Medical History Hypertension Hyperlipidemia Atrial fibrillation Pacemaker Atherosclerosis of [place] coronary artery without angina pectoris Chronic kidney disease Abnormal myocardial perfusion study Positive cardiac stress test NSTEMI (non-ST elevated myocardial infarction) Chest pain High risk medication use digoxin Generalized weakness Hypothyroidism Tremor Alzheimer's dementia Orthostatic hypotension Anxiety Humerus fracture Conduct disorder on medroxyprogesterone Syncope Seizure Urinary tract infection Dupuytren's contracture of right hand BPH (benign prostatic hyperplasia) Insomnia GI bleed Adrenal adenoma benign Thoracic back pain Depression Neuropathy TIA (transient ischemic attack) Diverticulitis Incontinence GERD (gastroesophageal reflux disease) Osteoporosis Surgical History Hx of cataract surgery H/O vasectomy S/P foot surgery, right Family History Other CAD (coronary artery disease) Cancer Dementia Diabetes Hypertension Denies family history of Clotting disorder Chronic kidney disease (CKD) Suicide Anesthesia complication Bleeding disorder Lung disease Stroke Social History Smoking and tobacco/nicotine status: former use of tobacco/nicotine Alcohol intake: never Substance/Drug Use: never Housing: Alf Vitals/I&O/Wt Last Vital Signs Temp 98.9 F 01/21/24 00:44 Pulse 70 01/21/24 07:39 Resp 21 H 01/21/24 03:16 BP 101/56 01/21/24 07:39 Pulse Ox 96 01/21/24 03:16 O2 Del Method Room Air 01/21/24 03:16 01/20/24 01/21/24 01/21/24 22:59 06:59 14:59 Intake Total 480 / 720 480 / 480 Output Total 200 / 200 Balance 280 / 520 480 / 480 Weight last 48 hrs Weight 175 lb 8 oz Weight 175 lb 8 oz Weight 147 lb Physical Exam 2 Narrative: GENERAL: Patient is alert, awake NECK: No jugular vein distension. [] HEENT: No cyanosis. No icterus. No pallor. [] HEART: Regular S1 and S2. No murmur, rub or gallop. [] LUNGS: Clear to auscultate bilaterally. [] CENTRAL NERVOUS SYSTEM: Grossly nonfocal. [] EXTREMITIES: Lower extremities with 1+ edema bilaterally. Data 01/21/24 03:57 01/21/24 03:57 A&P Assessment and plan (1) Non-ST elevated myocardial infarction: (2) Hypertension: Qualifiers: Hypertension type: essential hypertension Qualified Code(s): I10 - Essential (primary) hypertension (3) Atrial fibrillation: Qualifiers: Atrial fibrillation type: longstanding persistent Qualified Code(s): I 48.11 - Longstanding persistent atrial fibrillation (4) Pacemaker: (5) Atherosclerosis of [place] coronary artery without angina pectoris: Qualifiers: [place] vs. transplanted heart: [place] heart Qualified Code(s): I25.10 - Atherosclerotic heart disease of [place] coronary artery without angina pectoris (6) Hyperlipidemia: Qualifiers: Hyperlipidemia type: mixed hyperlipidemia Qualified Code(s): E78.2 - Mixed hyperlipidemia Plan Patient has troponin elevation that is mild. He has diffuse disease of left main/LAD. LAD is nonrevascularizable. RCA has a prior stent with history of ISR. Given no significant ST-T wave changes on EKG, no ongoing chest pain and the pain resolved with nitroglycerin, will recommend stress test to assess for size and territory of ischemia. At that time will have discussion with patient and family regarding options. Continue medical therapy with dual antiplatelet therapy. Thank you for involving us with care of this patient. We will continue to follow. Please call with questions. Consult Attestations 2 Medical Necessity Statement: Care expected to cross 2 midnights. Coding Level of Care Code Acute Code for g Fwd Diagnoses Non-ST elevated myocardial infarction I21.4 Essential hypertension I10 Hypertension type: essential hypertension Longstanding persistent atrial fibrillation I48.11 Atrial fibrillation type: longstanding persistent Pacemaker Z95.0 Atherosclerosis of [place] coronary artery of [place] heart without angina pectoris I25.10 [place] vs. transplanted heart: [place] heart Mixed hyperlipidemia E78.2 Hyperlipidemia type: mixed hyperlipidemia
--- NOTE | 2024-01-21 07:53 | PM.PN ---
Subjective Subjective: Patient is chest pain free. Had stress test today. Vitals/I&O/Wt Last Vital Signs Temp 98.9 F 01/21/24 00:44 Pulse 70 01/21/24 07:39 Resp 21 H 01/21/24 03:16 BP 101/56 01/21/24 07:39 Pulse Ox 96 01/21/24 03:16 O2 Del Method Room Air 01/21/24 03:16 01/20/24 01/21/24 01/21/24 22:59 06:59 14:59 Intake Total 480 / 720 480 / 480 Output Total 200 / 200 Balance 280 / 520 480 / 480 Weight last 48 hrs Weight 175 lb 8 oz Weight 175 lb 8 oz Weight 147 lb Physical Exam Narrative: GENERAL: Patient is alert, awake NECK: No jugular vein distension. [] HEENT: No cyanosis. No icterus. No pallor. [] HEART: Regular S1 and S2. No murmur, rub or gallop. [] LUNGS: Clear to auscultate bilaterally. [] CENTRAL NERVOUS SYSTEM: Grossly nonfocal. [] EXTREMITIES: Lower extremities with 1+ edema bilaterally. Data 01/21/24 03:57 01/21/24 03:57 A&P Assessment and plan (1) Non-ST elevated myocardial infarction: (2) Hypertension: Qualifiers: Hypertension type: essential hypertension Qualified Code(s): I10 - Essential (primary) hypertension (3) Atrial fibrillation: Qualifiers: Atrial fibrillation type: longstanding persistent Qualified Code(s): I48.11 - Longstanding persistent atrial fibrillation (4) Pacemaker: (5) Atherosclerosis of [place] coronary artery without angina pectoris: Qualifiers: [place] vs. transplanted heart: [place] heart Qualified Code(s): I25.10 - Atherosclerotic heart disease of [place] coronary artery without angina pectoris (6) Hyperlipidemia: Qualifiers: Hyperlipidemia type: mixed hyperlipidemia Qualified Code(s): E78.2 - Mixed hyperlipidemia Plan Patient had mild troponin elevation. Patient's chest pain resolved with nitroglycerin. He has significant dementia history. Denies any chest pain and does not recall any pain from before. He has a history of ISR and RCA stent. We performed a stress test that is showing prior infarct with kristian-infarct ischemia in inferior and inferolateral gurrola. All options discussed with patient's daughter who confirmed that she is the DPOA. Options including invasive testing with coronary angigoram with possible PCI vs medical therapy discussed. Risks and benefits of both options discussed. Family decided to proceed with medical therapy. We will complete 48 hours of anticoagulation. Continue medical therapy with dual antiplatelet therapy. Continue imdur. Start Ranexa 500mg BID. Thank you for involving us with care of this patient. We will continue to follow. Please call with questions. Attestations Medical Necessity Statement*: Care expected to cross 2 midnights. Coding Level of Care Code Acute Code for [facility] Diagnoses Non-ST elevated myocardial infarction I21.4 Essential hypertension I10 Hypertension type: essential hypertension Longstanding persistent atrial fibrillation I48.11 Atrial fibrillation type: longstanding persistent Pacemaker Z95.0 Atherosclerosis of [place] coronary artery of [place] heart without angina pectoris I25.10 [place] vs. transplanted heart: [place] heart Mixed hyperlipidemia E78.2 Hyperlipidemia type: mixed hyperlipidemia
[2024-01-21] MEDS: digoxin 125 mcg Tablet PO (09:02)
[2024-01-21] MEDS: clopidogrel 75 mg Tablet PO (09:02)
[2024-01-21] MEDS: aspirin 81 mg EC Tablet PO (09:03)
[2024-01-21] MEDS: pantoprazole DR 40 mg Tablet PO (09:03)
[2024-01-21] MEDS: carvedilol 6.25 mg Tablet PO ×2 (09:03→17:18)
--- NOTE | 2024-01-21 09:34 | PC.CHAP ---
Pastoral Care Encounter/Spiritual Assessment Type of Contact [] Declined machine finisher visit [] Patient/Family/Request visit [] Outpatient visit [] Follow-up visit [] Physician referral [] Code/Alert [] Routine visit [] Staff referral [] Actively dying [] Patient sleeping [] Family support [] [x] Out of room [] Palliative care [] [] Receiving care in room [] Pre-surgical visit [] Trauma [] Long length of stay [] ICU visit [] Other: Relational/Emotional Strength [] Patient feels connected with others/family/visitors/staff [] Distress [] Loneliness/isolation [] Abandonment Spirituality of Patient [] Person of Aracelis [] Attends Hinduism of their Aracelis [] Believes in Prayer [] Reads Bible or Taoist materials [] There are Spiritual issues to be addressed Telecommunications Consultant Interventions [] Prayer [] Active listening [] Non-anxious presence [] Spiritual/emotional support [] Crisis/trauma care [] Spiritual counseling [] Bereavement support [] Provided bereavement packet [] Provided Bible/devotional materials [] Provided toy/stuffed animal, coloring book to patient or family member [] Provided Communion [] Anointing/[place] [] Salvation [] Completed spiritual assessment [] Other: Impact on Illness or Injury [] Angry [] Fearful [] Anxious [] Often cries [] Exhaustion [] Unable to work [] Unable to attend gnosticist [] Unable to walk/stand [] Unable to read [] Unable to drive [] Unable to eat/drink [] Unable to sleep [] Unable to be with family [] Patient intubated [] Other: Summary Time spent with patient
[2024-01-21] MEDS: morphine 4 mg/mL SDV 1 mL 2 MG IVP (09:59)
--- NOTE | 2024-01-21 11:01 | NMCV_ITS ---
NM toni perf SPECT r/s* [id number] Sylvia Baptiste Age: 83 Gender: M : 1940 Exam Date: 01/21/2024 06:22 Ordering Phys: Omar Giordano MD Technologist: MONY Alexander Exam Location: [facility] Indications: NSTEMI STRESS TEST Please see separate stress test report in [facility] for full findings IMAGE PROTOCOL Rest/Stress 1 Lexiscan Day Radiopharmaceutical Dose (mCi) Administration Site Administered by Rest: Tc-99m 10.8 IV MONY Alexander Sestamibi Stress:Tc-99m 32.9 IV MONY Alexander Sestamiadan Rest: 21-Jan-2024 60 Discovery 630 Stress: 21-Jan-2024 30 Discovery 630 0.4mg Lexiscan. Supine position only as patient was unable to lay prone. SPECT RESULTS Technical Quality: Good Raw Data Analysis: Normal Image Corrections: No attenuation or motion correction applied Summed Stress Score: 14 Summed Rest Score: 12 Summed Difference Score: 2 PERFUSION FINDINGS Large areas of partially reversible perfusion defect noted in the inferior and inferolateral gurrola. This is consistent with large area of prior infarct with significant kristian-infarct ischemia in the RCA territory. FUNCTIONAL RESULTS (calculated via Gated SPECT) Stress Image LV EF (%): 69 Stress EDV (mL):89 TID: 0.93 Stress ESV (mL):28 FUNCTIONAL FINDINGS: There is normal left ventricular systolic function. IMPRESSIONS 1. Large areas of prior infarct with significant kristian-infarct ischemia is seen in the inferior and inferolateral gurrola. 2. LV systolic function is normal Colby Lopez MD (Electronically Signed) Final Date: 21 January 2024 08:58 S
[2024-01-21] MEDS: enoxaparin 60 mg/0.6 mL Syringe 20 MG SUBCUT (12:35)
[2024-01-21] MEDS: ranolazine (12HR) 500 mg Tablet PO ×2 (12:35→17:18)
[2024-01-21] MEDS: isosorbide mononitrate ER 60 mg Tablet PO (12:35)
--- NOTE | 2024-01-21 13:35 | P.PN_ITS ---
Subjective 2 Subjective: No acute events overnight. Patient has remained medically stable and afebrile. Seen after stress test today. No further chest pain reported as per the nursing staff. Vitals/I&O/Wt Last Vital Signs Temp 98.0 F 01/21/24 09:55 Pulse 84 01/21/24 12:37 Resp 20 H 01/21/24 12:37 BP 109/82 01/21/24 12:37 Pulse Ox 99 01/21/24 12:37 O2 Del Method Room Air 01/21/24 12:37 01/20/24 01/21/24 01/21/24 22:59 06:59 14:59 Intake Total 480 / 720 1840.000 / 1840.000 Output Total 200 / 200 625 / 625 Balance 280 / 520 1215.000 / 1215.000 Weight last 48 hrs Weight 79.605 kg Weight 79.605 kg Weight 66.678 kg Physical Exam 2 Narrative: General: No acute distress, AO x2-3 HEENT: PERRLA, pupils bilaterally equal and reactive, pallors not present Chest: Normal vesicular breath sounds, no added sounds, equal good air entry bilaterally CVS: S1-S2 regular, no murmurs, no tachycardia, no gallops, no rubs Abdomen: Soft, nontender, no organomegaly, bowel sounds present Neuro: No focal deficits Data 01/21/24 03:57 01/21/24 03:57 A&P Assessment and plan (1) Non-ST elevated myocardial infarction: (2) Atherosclerosis of [place] coronary artery without angina pectoris: Qualifiers: [place] vs. transplanted heart: [place] heart Qualified Code(s): I25.10 - Atherosclerotic heart disease of [place] coronary artery without angina pectoris (3) Hx of heart artery stent: (4) Presence of permanent cardiac pacemaker: (5) Hypertension: Qualifiers: Hypertension type: essential hypertension Qualified Code(s): I10 - Essential (primary) hypertension Plan 83-year-old male with multiple cardiac risk factors and recent history of in- stent restenosis in October presenting with chest pain and found to have elevated troponins concerning for non-ST elevation IL. Appreciate cardiology recommendations. Underwent cardiac stress test on 01/20 found to have large area of prior infarct with significant kristian-infarct ischemia in inferior and inferior lateral leads. As per conversation between patient's DPOA/daughter and cardiology team decision was made for medical management. Continue with aspirin, statin, beta-[place], Plavix. Increase dose of Imdur to 60 mg oral daily. Add Ranexa 500 mg twice daily. For now continue with full dose Lovenox 1 mg/kg body weight every 12 hourly for overall 48 hours. History of atrial fibrillation: Continue with home dose of digoxin and beta- [place]. Hypertension: Goal blood pressure less than 140/90 mmHg. Continue with home dose of Coreg. Increasing home dose of Imdur. Continue other chronic medications. Restart cardiac diet Full dose Lovenox will be sufficient for DVT prophylaxis Protonix for PUD prophylaxis CODE STATUS: Will discuss again with patient's DPOA. Discharge plan: Plan for discharge in next 24 hours patient remains chest pain- free, hemodynamically stable after completion of 48 hours of full dose anticoagulation given non-ST elevation IL. Attestations 2 Medical Necessity Statement*: Requires further hospitalization for management of non-ST elevation IL in a patient with history of recurrent stent restenosis while antianginals were uptitrated for medical management Diagnoses Non-ST elevated myocardial infarction I21.4 Atherosclerosis of [place] coronary artery of [place] heart without angina pectoris I25.10 [place] vs. transplanted heart: [place] heart Hx of heart artery stent Z95.5 Presence of permanent cardiac pacemaker Z95.0 Essential hypertension I10 Hypertension type: essential hypertension
[2024-01-21] MEDS: enoxaparin 80 mg/0.8 mL Syringe SUBCUT (17:18)
[2024-01-21 20:06] LABS: Glucose Point of Care 157 mg/dL (70-110)
[2024-01-21] MEDS: atorvastatin 40 mg Tablet PO (20:55)
[2024-01-22] VITALS (8 sets, daily range): BP systolic 111–127; BP diastolic 58–70; PULSE 65–74; RESP 17–21; TEMP 36.5–37; O2SAT 94–96
[2024-01-22 04:10] LABS: Basophils % 0.6 %; Eosinophils # 0.5 10^3/uL (0.0-0.8); Eosinophils % 7.8 %; Hematocrit 33.1 % (37-53); Lymphocytes # 1.6 10^3/uL (0.8-4.8); Lymphocytes % 26.1 %; Mean Corpuscular HGB Conc 33.8 g/dL (30-55); Mean Corpuscular Hemoglobin 32.6 pg (27-33); Mean Corpuscular Volume 96.2 fl (82-101); Monocytes # 0.8 10^3/uL (0.2-0.9); Monocytes % 12.9 %; Neutrophils % 52.4 %; Nucleated Red Blood Cells % 0 %; Platelet Count 230 10^3/cmm (157-399); Red Blood Count 3.44 10^6/uL (3.85-5.65); Red Cell Distribution Width 14.2 % (12.1-15.1); White Blood Count 6.29 10^3/uL (3.29-11.43)
[2024-01-22 04:32] LABS: Alanine Aminotransferase 14 U/L (0-41); Albumin Level 3.4 g/dL (3.5-5.2); Alkaline Phosphatase 80 U/L (40-130); Anion Gap 16.3 (5-19); Aspartate Amino Transferase 14 U/L (0-40); Blood Urea Nitrogen 16 mg/dL (8-23); Calcium 8.4 mg/dL (8.5-10.5); Carbon Dioxide 18 mmol/L (22-29); Chloride 104 mmol/L (98-107); Creatinine Clr Calc Pharmacy 38.9567; Globulin 2.6 g/dL (1.3-4.6); Glucose 93 mg/dL (65-115); Osmolality Calculated 279 mOsm/kg (285-295); Potassium 4.3 mmol/L (3.5-5.1); Sodium 134 mmol/L (136-145); Total Bilirubin 0.3 mg/dL (0.15-1.2)
[2024-01-22] MEDS: levothyroxine 100 mcg Tablet PO (05:09)
[2024-01-22] MEDS: enoxaparin 80 mg/0.8 mL Syringe SUBCUT (05:09)
--- NOTE | 2024-01-22 07:17 | PM.PN ---
Subjective Subjective: Patient is doing well. Denies chest pain. Vitals/I&O/Wt Last Vital Signs Temp 98.5 F 01/22/24 04:00 Pulse 71 01/22/24 06:00 Resp 17 01/22/24 04:00 BP 118/63 01/22/24 04:00 Pulse Ox 96 01/22/24 04:00 O2 Del Method Room Air 01/22/24 04:00 01/21/24 01/22/24 01/22/24 22:59 06:59 14:59 Intake Total 780 / 2620.000 Output Total 700 / 1325 Balance 80 / 1295.000 Weight last 48 hrs Weight 176 lb Weight 175 lb 8 oz Physical Exam Narrative: GENERAL: Patient is alert, awake NECK: No jugular vein distension. [] HEENT: No cyanosis. No icterus. No pallor. [] HEART: Regular S1 and S2. No murmur, rub or gallop. [] LUNGS: Clear to auscultate bilaterally. [] CENTRAL NERVOUS SYSTEM: Grossly nonfocal. [] EXTREMITIES: Lower extremities with 1+ edema bilaterally. Data 01/22/24 04:01 01/22/24 04:01 A&P Assessment and plan (1) Non-ST elevated myocardial infarction: (2) Hypertension: Qualifiers: Hypertension type: essential hypertension Qualified Code(s): I10 - Essential (primary) hypertension (3) Atrial fibrillation: Qualifiers: Atrial fibrillation type: longstanding persistent Qualified Code(s): I48.11 - Longstanding persistent atrial fibrillation (4) Pacemaker: (5) Atherosclerosis of [place] coronary artery without angina pectoris: Qualifiers: [place] vs. transplanted heart: [place] heart Qualified Code(s): I25.10 - Atherosclerotic heart disease of [place] coronary artery without angina pectoris (6) Hyperlipidemia: Qualifiers: Hyperlipidemia type: mixed hyperlipidemia Qualified Code(s): E78.2 - Mixed hyperlipidemia Plan Patient staying stable. No chest pain complaints. Continue medical therapy with dual antiplatelet therapy. Continue imdur and ranexa Thank you for involving us with care of this patient. Patient is stable to be discharged from cardiac standpoint. Please call with questions. Attestations Medical Necessity Statement*: Care expected to cross 2 midnights. Coding Level of Care Code Acute Code for [facility] Diagnoses Non-ST elevated myocardial infarction I21.4 Essential hypertension I10 Hypertension type: essential hypertension Longstanding persistent atrial fibrillation I48.11 Atrial fibrillation type: longstanding persistent Pacemaker Z95.0 Atherosclerosis of [place] coronary artery of [place] heart without angina pectoris I25.10 [place] vs. transplanted heart: [place] heart Mixed hyperlipidemia E78.2 Hyperlipidemia type: mixed hyperlipidemia
[2024-01-22] MEDS: clopidogrel 75 mg Tablet PO (08:36)
[2024-01-22] MEDS: isosorbide mononitrate ER 60 mg Tablet PO (08:36)
[2024-01-22] MEDS: ranolazine (12HR) 500 mg Tablet PO (08:36)
[2024-01-22] MEDS: pantoprazole DR 40 mg Tablet PO (08:36)
[2024-01-22] MEDS: carvedilol 6.25 mg Tablet PO (08:36)
[2024-01-22] MEDS: digoxin 125 mcg Tablet PO (08:36)
[2024-01-22] MEDS: aspirin 81 mg EC Tablet PO (08:36)
--- NOTE | 2024-01-22 09:12 | PC.CHAP ---
Pastoral Care Encounter/Spiritual Assessment Type of Contact [] Declined crane hooker visit [] Patient/Family/Request visit [] Outpatient visit [] Follow-up visit [] Physician referral [] Code/Alert [x] Routine visit [] Staff referral [] Actively dying [] Patient sleeping [] Family support [] [] Out of room [] Palliative care [] [] Receiving care in room [] Pre-surgical visit [] Trauma [] Long length of stay [] ICU visit [] Other: Relational/Emotional Strength [x] Patient feels connected with others/family/visitors/staff [] Distress [] Loneliness/isolation [] Abandonment Spirituality of Patient [x] Person of Aracelis [] Attends Zoroastrianism of their Aracelis [x] Believes in Prayer [] Reads Bible or Advent materials [] There are Spiritual issues to be addressed Professor Of Rhetoric Interventions [x] Prayer [x] Active listening [x] Non-anxious presence [] Spiritual/emotional support [] Crisis/trauma care [] Spiritual counseling [] Bereavement support [] Provided bereavement packet [] Provided Bible/devotional materials [] Provided toy/stuffed animal, coloring book to patient or family member [] Provided Communion [] Anointing/[place] [] Salvation [] Completed spiritual assessment [] Other: Impact on Illness or Injury [] Angry [] Fearful [] Anxious [] Often cries [] Exhaustion [] Unable to work [] Unable to attend uatsdin [] Unable to walk/stand [] Unable to read [] Unable to drive [] Unable to eat/drink [] Unable to sleep [] Unable to be with family [] Patient intubated [] Other: Summary Good Spirits Time spent with patient 5min
--- NOTE | 2024-01-22 10:12 | P.DS_ITS ---
Discharge Providers Date of Admission: 01/20/24 06:14 Date of Discharge: January 22, 2024 Attending Provider at Admission: Larissa Li MD Attending Provider at Discharge: Omar Giordano MD Consults: Cardiology: Dr. Lopez Primary Care Provider: Rito Woods MD Diagnoses at Discharge Discharge Diagnosis (1) Non-ST elevated myocardial infarction: Status: Acute (2) Atherosclerosis of [place] coronary artery without angina pectoris: Status: Acute Qualifiers: [place] vs. transplanted heart: [place] heart Qualified Code(s): I25.10 - Atherosclerotic heart disease of [place] coronary artery without angina pectoris (3) Hx of heart artery stent: Status: Acute (4) Presence of permanent cardiac pacemaker: Status: Acute (5) Hypertension: Status: Acute Qualifiers: Hypertension type: essential hypertension Qualified Code(s): I10 - Essential (primary) hypertension Reason for Visit Reason for Visit: CP Brief History: History as per HPI: Sylvia Baptiste is a 83 year old male with a past medical history of CAD, atrial fibrillation, history of GI bleeds, not on anticoagulation, recent history of coronary angiography In jun 2023 and again in October 2023 for 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 He underwent angioplasty and the stent was opened up. Presents to the ER due to complaints of substernal chest pain that started last night. He received nitro at the custodial and then ne eded another one en route via EMS. After the second dose of nitroglycerin he has been chest pain-free. His EKG is without acute ST-T wave changes. Baseline troponin was at 36, trending up at 2 hours to 48 with a delta of 12 and then at 6 hours to 61 with a delta of 25. Admission is requested in view of his extensive cardiac history and uptrending troponins. Hospital Course Hospital Course Patient was admitted to the hospital further evaluation and management with concerns for non-ST elevation [place] in setting of recurrent in-stent restenosis. He was started on treatment as per ACS protocol. Cardiology was consulted. Patient remained chest pain-free. He underwent cardiac stress test on 01/20 which was concerning for significant kristian-infarct ischemia in RCA territory along with large area of prior infarct. Further treatment plan of medical management versus repeat angiogram was generated with patient's DPOA/daughter and cardiology team. Decision was made to continue with medical management. His antianginal medications were uptitrated with increasing of Imdur to 60 mg daily along with adding Ranexa 500 mg twice daily. Patient tolerated the change in the medication well. He has been discharged back to custodial in hemodynamically stable condition advised to follow-up with a primary care provider within next 1 week and nurse practitioner from cardiology within next 2 weeks on adjusted antianginal medications. Physical Exam Narrative: General: No acute distress, AO x2-3 HEENT: PERRLA, pupils bilaterally equal and reactive, pallors not present Chest: Normal vesicular breath sounds, no added sounds, equal good air entry bilaterally CVS: S1-S2 regular, no murmurs, no tachycardia, no gallops, no rubs Abdomen: Soft, nontender, no organomegaly, bowel sounds present Neuro: No focal deficits Discharge Data Studies Completed and Pending Completed Studies During Hospitalization Category Date Time Status Sestamibi Stress Test Request Routine Exams 01/20/24 11:01 Draft XR chest 1V portable [id number] Stat Exams 01/19/24 23:45 Completed NM toni perf SPECT r/s* [id number] Routine Nuc Med 01/21/24 11:01 Completed Pending at discharge Category Date Time Status COVID [SARS Covid-2 Antigen] Routine Lab 01/22/24 10:02 Received MAG [Magnesium] AM LABS Lab 01/23/24 04:00 Ordered Radiology Impressions Chest X-Ray 01/19/24 23:45 IMPRESSION: 1. Retrocardiac hiatal hernia. Lexiscan stress test: PERFUSION FINDINGS Large areas of partially reversible perfusion defect noted in the inferior and inferolateral gurrola. This is consistent with large area of prior infarct with significant kristian-infarct ischemia in the RCA territory. FUNCTIONAL RESULTS (calculated via Gated SPECT) Stress Image LV EF (%): 69 Stress EDV (mL):89 TID: 0.93 Stress ESV (mL):28 FUNCTIONAL FINDINGS: There is normal left ventricular systolic function. IMPRESSIONS 1. Large areas of prior infarct with significant kristian-infarct ischemia is seen in the inferior and inferolateral gurrola. 2. LV systolic function is normal Colby Lopez MD (Electronically Signed) Final Date: 21 January 2024 08:58 Laboratory Results WBC 6.29 10^3/uL (3.29-11.43) 01/22/24 04:01 RBC 3.44 10^6/uL (3.85-5.65) L 01/22/24 04:01 Hgb 11.20 g/dL (11.27-16.99) L 01/22/24 04:01 Hct 33.1 % (37-53) L 01/22/24 04:01 MCV 96.2 fl (82-101) 01/22/24 04:01 MCH 32.6 pg (27-33) 01/22/24 04:01 MCHC 33.8 g/dL (30-55) 01/22/24 04:01 RDW 14.2 % (12.1-15.1) 01/22/24 04:01 Plt Count 230 10^3/cmm (157-399) 01/22/24 04:01 MPV 9.0 fL (7.4-10.4) 01/22/24 04:01 Neut % (Auto) 52.4 % 01/22/24 04:01 Lymph % (Auto) 26.1 % 01/22/24 04:01 [place] % (Auto) 12.9 % 01/22/24 04:01 Eos % (Auto) 7.8 % 01/22/24 04:01 Baso % (Auto) 0.6 % 01/22/24 04:01 Neut # (Auto) 3.30 10^3/uL (1.8-7.7) 01/22/24 04:01 Lymph # (Auto) 1.6 10^3/uL (0.8-4.8) 01/22/24 04:01 [place] # (Auto) 0.8 10^3/uL (0.2-0.9) 01/22/24 04:01 Eos # (Auto) 0.5 10^3/uL (0.0-0.8) 01/22/24 04:01 Baso # (Auto) 0.0 10^3/uL (0.0-0.1) 01/22/24 04:01 Nucleated RBC % (auto) 0 % 01/22/24 04:01 Nucleated RBCs # 0.0 /100WBC 01/22/24 04:01 PT 12.80 SECONDS (12.1-14.9) 01/19/24 23:38 INR 0.93 (0.8-1.2) 01/19/24 23:38 D-Dimer 0.55 ug/mLFEU (0-0.59) 01/20/24 15:09 Sodium 134 mmol/L (136-145) L 01/22/24 04:01 Potassium 4.3 mmol/L (3.5-5.1) 01/22/24 04:01 Chloride 104 mmol/L (98-107) 01/22/24 04:01 Carbon Dioxide 18 mmol/L (22-29) L 01/22/24 04:01 Anion Gap 16.3 (5-19) 01/22/24 04:01 BUN 16 mg/dL (8-23) 01/22/24 04:01 Creatinine 1.4 mg/dL (0.7-1.2) H 01/22/24 04:01 GFR Calculation Not Reportable 01/22/24 04:01 Glucose 93 mg/dL (65-115) 01/22/24 04:01 POC Glucose 157 mg/dL (70-110) H 01/21/24 19:54 Calculated Osmolality 279 mOsm/kg (285-295) L 01/22/24 04:01 Calcium 8.4 mg/dL (8.5-10.5) L 01/22/24 04:01 Magnesium 2.0 mg/dL (1.7-2.3) 01/22/24 04:01 Iron 54 ug/dL (59-158) L 01/20/24 05:25 TIBC 327 mcg/dl 01/20/24 05:25 % Saturation 16.5 % (20-50) L 01/20/24 05:25 Unsat Iron Binding 273 ug/dL (112-347) 01/20/24 05:25 Total Bilirubin 0.3 mg/dL (0.15-1.2) 01/22/24 04:01 AST 14 U/L (0-40) 01/22/24 04:01 ALT 14 U/L (0-41) 01/22/24 04:01 Alkaline Phosphatase 80 U/L (40-130) 01/22/24 04:01 Troponin T 5th Gen ng/L 67 ng/L (0-15) H 01/21/24 03:57 Troponin T Baseline 36 ng/L (0-15) H 01/19/24 23:38 Troponin T 120 Minute 48.54 ng/L (0-15) H 01/20/24 01:27 Delta Troponin T 12.54 ABS# (0-10) H* 01/20/24 01:27 Troponin T Hi Sens 6Hr 61.22 ng/L (0-15) H 01/20/24 05:25 Troponin T Hi Sens 6Hr Delta 25.22 ng/L (0-12) H* 01/20/24 05:25 Total Protein 6.0 g/dL (6.6-8.7) L 01/22/24 04:01 Albumin 3.4 g/dL (3.5-5.2) L 01/22/24 04:01 Globulin 2.6 g/dL (1.3-4.6) 01/22/24 04:01 Vitamin B12 316 pg/mL (232-1245) 01/20/24 05:25 Folate 8.6 ng/mL (4.5-32.2) 01/21/24 03:57 Urine Color Yellow (Yellow) 01/20/24 18:00 Urine Appearance Clear (CLEAR) 01/20/24 18:00 Urine pH 6.5 (5-7) 01/20/24 18:00 Ur Specific [place] 1.014 (1.005-1.030) 01/20/24 18:00 Urine Protein Negative (Negative) 01/20/24 18:00 Urine Glucose (UA) Negative (Normal) 01/20/24 18:00 Urine Ketones Negative (Negative) 01/20/24 18:00 Urine Blood Negative (Negative) 01/20/24 18:00 Urine Nitrate Negative (Negative) 01/20/24 18:00 Urine Bilirubin Negative (Negative) 01/20/24 18:00 Urine Urobilinogen 1.0 mg/dL (Negative) 01/20/24 18:00 Ur Leukocyte Esterase Negative (Negative) 01/20/24 18:00 Urine RBC 0-2 /hpf (0-2) 01/20/24 18:00 Urine WBC 0-5 /hpf (0-5) 01/20/24 18:00 Ur Squamous Epith Cells 0-5 /hpf (0-5) 01/20/24 18:00 Amorphous Sediment Not Reportable 01/20/24 18:00 Urine Bacteria None seen /hpf (NONE) 01/20/24 18:00 Hyaline Casts 0-4 /lpf H 01/20/24 18:00 Ur Random Sodium 128 mmol/L 01/20/24 18:00 Ur Random Potassium 33 mmol/L 01/20/24 18:00 Ur Random Chloride 118 mmol/L 01/20/24 18:00 Urine Creatinine 78 mg/dL (39-259) 01/20/24 18:00 Digoxin 0.8 ng/mL (0.6-1.2) 01/19/24 23:38 Vitals Last Vital Signs Temp 98.0 F 01/22/24 07:28 Pulse 70 01/22/24 08:36 Resp 17 01/22/24 04:00 BP 127/70 01/22/24 07:28 Pulse Ox 96 01/22/24 07:28 O2 Del Method Room Air 01/22/24 07:28 Discharge Plan Discharge Patient Disposition: Xfer SNF Condition: Stable Prescriptions: New ranolazine 500 mg Tablet Extended Release 12 Hr 500 mg PO BID 30 Days Qty: 60 0RF Continued bisacodyl [Dulcolax (bisacodyl)] 10 mg suppository 10 mg DE DAILY PRN (Reason: Constipation) propafenone 225 mg capsule,extended release 12 hr 225 mg PO 0700,1900 Rx Instructions: @07:00,19:00 acetaminophen [Tylenol] 325 mg tablet 650 mg PO Q4H PRN (Reason: Pain) fluticasone propionate 50 mcg/actuation spray,suspension 1 spray INTRANASAL BID@09, hydrocodone-acetaminophen 7.5-325 mg tablet 1 tab PO Q6H PRN (Reason: Pain) digoxin 125 mcg (0.125 mg) tablet 125 mcg PO DAILY@07 Qty: 90 3RF Rx Instructions: hold for pulse less than 60 ammonium lactate 12 % Cream 1 applic TOPICAL DAILY Rx Instructions: apply to neck down sodium chloride 1,000 mg Tablet,Soluble 1,000 mg PO DAILY oxcarbazepine 300 mg tablet 300 mg PO BID@07,19 omeprazole 40 mg Capsule,Delayed Release(Dr/Ec) 40 mg PO DAILY@07 levothyroxine 100 mcg tablet 100 mcg PO DAILY@06 Bsfaj-Oy-Yfe Enema 19-7 gram/118 mL Enema 118 ml DE DAILY PRN (Reason: Constipation) lidocaine HCl [Lidocaine Viscous] 2 % Solution See Rx Instructions .ROUTE .COMPLEX Rx Instructions: give 15ml po every 2 hours as needed for gum pain fexofenadine 180 mg Tablet 180 mg PO DAILY magnesium hydroxide [Milk of Magnesia] 400 mg/5 mL Suspension 30 ml PO Q24H PRN (Reason: Constipation) nitroglycerin [Nitrostat] 0.4 mg Tablet, Sublingual See Rx Instructions .ROUTE .COMPLEX PRN (Reason: Chest Pain) Rx Instructions: 0.4 mg sublingually every 5 minuts as needed for chest pain x 2 doses. If chest pain continues send to ER. atorvastatin 40 mg Tablet 40 mg PO BEDTIME Qty: 30 0RF clopidogrel 75 mg Tablet 75 mg PO DAILY Qty: 90 3RF aspirin [Adult Aspirin Regimen] 81 mg tablet,delayed release (DR/EC) 81 mg PO DAILY@07 Qty: 90 3RF carvedilol [Coreg] 3.125 mg tablet 6.25 mg PO BID Qty: 60 3RF Rx Instructions: must administer with a meal/food Fleet Enema 19-7 gram/118 mL Enema 118 ml DE DAILY PRN (Reason: Constipation) Dulcolax (bisacodyl) 5 mg Tablet,Delayed Release (Dr/Ec) 10 mg PO Q12H PRN (Reason: Constipation) medroxyprogesterone 10 mg Tablet 10 mg PO DAILY Changed isosorbide mononitrate 30 mg Tablet Extended Release 24 Hr 60 mg PO DAILY Qty: 60 0RF Discontinued amlodipine 10 mg tablet 10 mg PO DAILY Discharge Orders: Discharge Order (Routine); Ordered 01/22/24 Ordered By: Omar Giordano Referrals: [facility] [Outside] Rito Woods MD [Primary Care Provider] - 4-7 days Tabatha Devi FNP [Nurse Practitioner] - 2 weeks Discharge Diet: Regular and Cardiac Discharge Activity: Resume usual activity and Increase activity as tolerated Patient Instructions: Opioid Safety Activity Restrictions/Additional Instructions: Dose of Imdur has been increased to 60 mg daily. Ranexa 500 mg twice daily has been added to medication list. Amlodipine has been stopped for now. Goal blood pressure of less than 140/90 mmHg. If blood pressures are elevated more than the goal amlodipine can be restarted at 5 mg daily. Please follow-up with Tabatha Devi/nurse practitioner from cardiology team in 2 weeks. Discharge Attestations Time Spent in Discharge Care*: greater than 30 min Specific Discharge Activities: educating and/or supporting family/caregiver, discussing with pcp/other providers, discussing with nurse case management/social workers/dc planners, documenting/other paperwork and evaluating patient/reviewing data Status at Discharge: Cognitive status at discharge: mildly impaired cognition , Behavioral status at discharge: cooperative , Functional status at discharge: independent ambulation , Overall status at discharge: patient is back to baseline Quality Metrics Clinical Quality Measures [ No reported AMI, CVA or VTE this stay] Coding Level of Care Code 42618 Total time (in minutes) for Discharge: 60 Diagnoses Non-ST elevated myocardial infarction I21.4 Atherosclerosis of [place] coronary artery of [place] heart without angina pectoris I25.10 [place] vs. transplanted heart: [place] heart Hx of heart artery stent Z95.5 Presence of permanent cardiac pacemaker Z95.0 Essential hypertension I10 Hypertension type: essential hypertension
[2024-01-22 10:27] LABS: SARS Covid-2 Antigen negative (Negative)
--- NOTE | 2024-01-22 14:22 | PC.NURSE ---
Patient discharged to [facility]. Patient taken by [facility]. Have attempted to call report numerous times starting at 1130 today. Still unable to give report at this time.
--- NOTE | 2024-01-22 14:32 | PC.NURSE ---
Patient taken by [facility] to [facility] at 1355
--- NOTE | 2024-01-22 14:37 | PC.NURSE ---
Report given to ABRIL Brooke. Patient arrived safely.
== END 2024-01-22 14:00 | disposition skilled nursing facility (03) ==
LOC: ER 01-20 06:02 → CSU 01-20 06:14
PROVIDERS: Admitting Provider Student in an Organized Health Care Education/Training Program; Emergency Provider Emergency Medicine; PCP Internal Medicine; Visit Provider Student in an Organized Health Care Education/Training Program
DX: I21.4 Non-ST elevation (NSTEMI) myocardial infarction (principal); I25.10 Atherosclerotic heart disease of native coronary artery without angina pectoris; Z95.5 Presence of coronary angioplasty implant and graft; Z95.0 Presence of cardiac pacemaker; I10 Essential (primary) hypertension; E78.2 Mixed hyperlipidemia; I25.2 Old myocardial infarction; Z86.73 Personal history of transient ischemic attack (TIA), and cerebral infarction without residual deficits; N40.0 Benign prostatic hyperplasia without lower urinary tract symptoms; Z87.891 Personal history of nicotine dependence; Z79.82 Long term (current) use of aspirin
CPT/HCPCS: 36415; 36416; 71045; 78452; 80053; 80162; 81001; 82436; 82570; 82607; 82746; 82962; 83540; 83550; 83735; 84133; 84300; 84484; 85025; 85378; 85610; 87426; 93005; 93017; 96361; 96372; 96374; 96375; 99285; A9500; G0378; J1650; J2270; J2785; J7030

== ENCOUNTER → 2024-01-29 08:50 | Outpatient (BNVA) | payer MEDICARE, MEDICAID, SELFPAY | PROVIDERS: PCP Internal Medicine; Visit Provider Nurse Practitioner Family | DX: L82.1 Other seborrheic keratosis (principal); L57.0 Actinic keratosis; L81.4 Other melanin hyperpigmentation; L57.8 Other skin changes due to chronic exposure to nonionizing radiation; D36.14 Benign neoplasm of peripheral nerves and autonomic nervous system of thorax; D18.01 Hemangioma of skin and subcutaneous tissue; L80 Vitiligo | CPT/HCPCS: 17000; 99213 ==

== ENCOUNTER → 2024-02-22 09:31 | Outpatient (BNVA) | payer MEDICARE, MEDICAID, SELFPAY | PROVIDERS: PCP Internal Medicine; Visit Provider Internal Medicine Cardiovascular Disease | DX: I25.10 Atherosclerotic heart disease of native coronary artery without angina pectoris (principal); I10 Essential (primary) hypertension; E78.5 Hyperlipidemia, unspecified; Z87.891 Personal history of nicotine dependence | CPT/HCPCS: 99213 ==

== ENCOUNTER 2024-08-17 11:28 | Emergency (ER) | payer MEDICARE, SELFPAY ==
[2024-08-17 11:29] VITALS: BP 169/84; PULSE 70; RESP 16; TEMP 36.7; O2SAT 96; BMI 28.5
--- NOTE | 2024-08-17 11:30 | ECG_ITS ---
[facility] Date: 2024-08-17 Pat Name: Sylvia Baptiste Department: Room: Gender: Male [employer] Att[employer]: : 1940 Requested By: Shazia Betts Order Number: [id number] Elizabeth MD: Colby Lopez M.D. Measurements Intervals [place] Rate: 70 P: -24 ID: [id number] QRS: 91 QRSD: 138 T: -16 QT: 423 QTc: 457 Interpretive Statements ELECTRONIC ATRIAL PACEMAKER BORDERLINE RIGHT AXIS DEVIATION [QRS AXIS > 90] INTRAVENTRICULAR CONDUCTION DELAY [130+ ms QRS DURATION] LATERAL MYOCARDIAL INFARCTION , PROBABLY OLD [40+ ms Q WAVE AND/OR ST/T ABNORMALITY IN I/aVL/V5/V6] Compared to ECG 01/20/2024 06:48:06 Intraventricular conduction delay now present Incomplete right bundle-branch block no longer present T-wave abnormality no longer present Possible ischemia no longer present Myocardial infarct finding still present Electronically Signed On 08-20-2024 18:08:36 CERTIFIED FLIGHT INSTRUCTOR by Colby Lopez M.D. [id number]
--- NOTE | 2024-08-17 11:32 | XR_ITS ---
WS: [id number] XR chest 1V portable [id number] REASON FOR EXAM: syncope FINDINGS: The chest is unchanged compared to 01/20/2024. Cardiac device over the left chest with trans left subclavian vein leads to the right atrium and right ventricular apex. There is mild cardiomegaly. Presumed hiatal hernia. Calcified granulomatous disease in both hemithoraces. No acute pulmonary parenchymal or pleural abnormality. Old healed fracture of the proximal right humerus. Significant degenerative spondylosis in the mid and lower thoracic spine. XR/XR chest 1V portable [id number] IMPRESSION: Stable chest without acute abnormality as above.
[2024-08-17 11:43] LABS: Basophils # 0.1 10^3/uL (0.0-0.1); Basophils % 0.8 %; Eosinophils # 0.6 10^3/uL (0.0-0.8); Eosinophils % 7.2 %; Lymphocytes # 2.3 10^3/uL (0.8-4.8); Lymphocytes % 29.4 %; Mean Corpuscular Hemoglobin 33.6 pg (27-33); Mean Corpuscular Volume 98.8 fl (82-101); Mean Platelet Volume 9.3 fL (7.4-10.4); Monocytes % 12.8 %; Neutrophils # 3.78 10^3/uL (1.8-7.7); Neutrophils % 49.3 %; Nucleated Red Blood Cells % 0 %; Platelet Count 298 10^3/cmm (157-399); Red Blood Count 4.05 10^6/uL (3.85-5.65); Red Cell Distribution Width 13.3 % (12.1-15.1); White Blood Count 7.66 10^3/uL (3.29-11.43)
--- NOTE | 2024-08-17 11:43 | W.ED.SYNCOPE ---
HPI - Syncope General: Chief Complaint: Syncope Stated Complaint: syncope Time Seen by Provider: 08/17/24 11:28 Source: EMS Mode of arrival: EMS Limitations: altered mental status History of Present Illness: 83-year-old male who is here [facility] after syncopal event that was witnessed. Patient has history of dementia he does not remember what exactly happened he has no complaints per EMS nursing states that he did have pulses and was not breathing for few seconds but was up and ambulating when they arrived. Patient has no complaints at this time but again has severe dementia Related Data Home Medications ?Medication ?Instructions ?Recorded ?Confirmed acetaminophen 325 mg tablet 650 mg PO Q4H PRN Pain 06/27/19 08/17/24 (Tylenol) fluticasone propionate 50 1 spray intranasal BID@06/27/19 08/17/24 mcg/actuation nasal spray,suspension propafenone 225 mg 225 mg PO 0700,1900 06/27/19 08/17/24 capsule,extended release 12 hr levothyroxine 100 mcg tablet 100 mcg PO DAILY@06 01/24/22 08/17/24 lidocaine HCl 2 % mucosal solution See Rx Instructions .Route .COMPLEX 01/24/22 08/17/24 (Lidocaine Viscous) omeprazole 40 mg capsule,delayed 40 mg PO DAILY@01/24/22 08/17/24 release oxcarbazepine 300 mg tablet 300 mg PO BID@01/24/22 08/17/24 sodium phosphates 19 gram-7 118 ml NC DAILY PRN Constipation 01/24/22 08/17/24 gram/118 mL enema (Hbsnu-Bj-Ncw Enema) hydrocodone 7.5 mg-acetaminophen 1 tab PO Q6H PRN Pain 07/28/22 08/17/24 325 mg tablet sodium chloride 1,000 mg soluble 1,000 mg PO DAILY 11/03/22 08/17/24 tablet fexofenadine 180 mg tablet 180 mg PO DAILY 06/29/23 08/17/24 magnesium hydroxide 400 mg/5 mL 30 ml PO Q24H PRN Constipation 06/29/23 08/17/24 oral suspension (Milk of Magnesia) nitroglycerin 0.4 mg sublingual See Rx Instructions .Route 06/29/23 08/17/24 tablet (Nitrostat) .COMPLEX PRN Chest Pain medroxyprogesterone 10 mg tablet 10 mg PO DAILY 01/20/24 08/17/24 sodium phosphates 19 gram-7 118 ml NC DAILY PRN Constipation 01/20/24 08/17/24 gram/118 mL enema (Fleet Enema) ranolazine 500 mg tablet,extended 500 mg PO BID 02/22/24 08/17/24 release,12 hr Previous Rx's ?Medication ?Instructions ?Recorded aspirin 81 mg tablet,delayed 81 mg PO DAILY@07 #90 tabs 07/02/23 release (Adult Aspirin Regimen) atorvastatin 40 mg tablet 40 mg PO BEDTIME #30 tabs 07/02/23 clopidogrel 75 mg tablet 75 mg PO DAILY #90 tabs 07/02/23 digoxin 125 mcg (0.125 mg) tablet 125 mcg PO DAILY@07 #90 tabs 07/14/23 carvedilol 3.125 mg tablet (Coreg) 6.25 mg (2 x 3.125 mg) PO BID #60 11/03/23 tabs isosorbide mononitrate 30 mg 60 mg (2 x 30 mg) PO DAILY #60 tabs 01/22/24 tablet,extended release 24 hr Allergies Allergy/AdvReac Type Severity Reaction Status Date / Time No Known Allergies Allergy Verified 02/22/24 09:38 Review of Systems General: Reports: ROS unobtainable due to mental status PFSH ED PFSH: Medical History Hyperlipidemia LDL goal <70 Essential hypertension CAD (coronary artery disease) Hypertension Hyperlipidemia Atrial fibrillation Pacemaker Atherosclerosis of [place] coronary artery without angina pectoris Chronic kidney disease Abnormal myocardial perfusion study Positive cardiac stress test NSTEMI (non-ST elevated myocardial infarction) Chest pain High risk medication use digoxin Generalized weakness Hypothyroidism Tremor Alzheimer's dementia Orthostatic hypotension Anxiety Humerus fracture Conduct disorder on medroxyprogesterone Syncope Seizure Urinary tract infection Dupuytren's contracture of right hand BPH (benign prostatic hyperplasia) Insomnia GI bleed Adrenal adenoma benign Thoracic back pain Depression Neuropathy TIA (transient ischemic attack) Diverticulitis Incontinence GERD (gastroesophageal reflux disease) Osteoporosis Surgical History Hx of cataract surgery H/O vasectomy S/P foot surgery, right Family History Other CAD (coronary artery disease) Cancer Dementia Diabetes Hypertension Denies family history of Clotting disorder Chronic kidney disease (CKD) Suicide Anesthesia complication Bleeding disorder Lung disease Stroke Social History Smoking and tobacco/nicotine status: former use of tobacco/nicotine (30 years ago) Alcohol intake: never Substance/Drug Use: never Housing: Assisted Physical Exam Const: COMMON NORMALS: healthy appearing; negative for patient oriented x3 HENMT: COMMON NORMALS: normocephalic and atraumatic HEAD & SCALP: normocephalic and atraumatic Eye: COMMON NORMALS: conjunctivae normal CONJUNCTIVA: Yes conjunctivae normal Neck/C-Spine: COMMON NORMALS: full ROM and supple Chest: COMMONS NORMALS: normal inspection of the chest and normal palpation of entire chest wall Resp: COMMON NORMALS: normal respiratory effort, No retractions, No use of accessory muscles and clear to auscultation bilaterally AUSCULTATION: clear to auscultation bilaterally Cardio: COMMON NORMALS: regular rate, regular rhythm and No murmurs present (Cardio) RATE: regular rate RHYTHM: regular rhythm GI: COMMON NORMALS: Normal to inspection, nondistended, normoactive bowel sounds present, Soft to palpation, non-tender and no masses PALPATION: Yes Soft to palpation Extremity: COMMON NORMALS: normal to inspection and full ROM Neuro: COMMON NORMALS: moves all extremities and no focal motor deficits; negative for patient oriented x3 Psych: COMMON NORMALS: mental status grossly normal, Normal thought process present and cooperative THOUGHT PROCESS: Normal thought process present Skin: COMMON NORMALS: no rashes or lesions noted and no wounds GENERAL SKIN EXAM: no rashes or lesions noted Course Vital Signs: Vital signs: Vital Signs Temperature 98.1 F 08/17/24 11:29 Pulse Rate 71 08/17/24 14:30 Respiratory Rate 16 08/17/24 11:56 Blood Pressure 142/65 08/17/24 14:30 Pulse Oximetry 100 08/17/24 14:30 Oxygen Delivery Me thod Room Air 08/17/24 14:00 MDM - Syncope Medical Decision Making Patient presents here after syncopal event blood work imaging here is normal he feels much improved he is stable for discharge his follow-up with PCP return if worsening he understands agrees to plan Medical Records I reviewed the patient's medical records. Lab Data I reviewed the patient's lab results. 08/17/24 11:18 08/17/24 11:18 Radiology Impressions Chest X-Ray 08/17/24 11:32 IMPRESSION: Stable chest without acute abnormality as above. Head CT 08/17/24 12:19 IMPRESSION: 1. No acute intracranial hemorrhage or edema. 2. Moderate to severe cerebral and cerebellar atrophy with moderate small vessel disease. Laboratory Results WBC 7.66 10^3/uL (3.29-11.43) 08/17/24 11:18 RBC 4.05 10^6/uL (3.85-5.65) 08/17/24 11:18 Hgb 13.60 g/dL (11.27-16.99) 08/17/24 11:18 Hct 40.0 % (37-53) 08/17/24 11:18 MCV 98.8 fl (82-101) 08/17/24 11:18 MCH 33.6 pg (27-33) H 08/17/24 11:18 MCHC 34.0 g/dL (30-55) 08/17/24 11:18 RDW 13.3 % (12.1-15.1) 08/17/24 11:18 Plt Count 298 10^3/cmm (157-399) 08/17/24 11:18 MPV 9.3 fL (7.4-10.4) 08/17/24 11:18 Neut % (Auto) 49.3 % 08/17/24 11:18 Lymph % (Auto) 29.4 % 08/17/24 11:18 Grant % (Auto) 12.8 % 08/17/24 11:18 Eos % (Auto) 7.2 % 08/17/24 11:18 Baso % (Auto) 0.8 % 08/17/24 11:18 Neut # (Auto) 3.78 10^3/uL (1.8-7.7) 08/17/24 11:18 Lymph # (Auto) 2.3 10^3/uL (0.8-4.8) 08/17/24 11:18 Grant # (Auto) 1.0 10^3/uL (0.2-0.9) H 08/17/24 11:18 Eos # (Auto) 0.6 10^3/uL (0.0-0.8) 08/17/24 11:18 Baso # (Auto) 0.1 10^3/uL (0.0-0.1) 08/17/24 11:18 Nucleated RBC % (auto) 0 % 08/17/24 11:18 Nucleated RBCs # 0.0 /100WBC 08/17/24 11:18 PT 12.60 SECONDS (12.1-14.9) 08/17/24 11:18 INR 0.88 (0.8-1.2) 08/17/24 11:18 Sodium 134 mmol/L (136-145) L 08/17/24 11:18 Potassium 4.5 mmol/L (3.5-5.1) 08/17/24 11:18 Chloride 102 mmol/L (98-107) 08/17/24 11:18 Carbon Dioxide 16 mmol/L (22-29) L 08/17/24 11:18 Anion Gap 20.5 (5-19) H 08/17/24 11:18 BUN 20 mg/dL (8-23) 08/17/24 11:18 Creatinine 1.2 mg/dL (0.7-1.2) 08/17/24 11:18 GFR Calculation Not Reportable 08/17/24 11:18 Glucose 101 mg/dL (65-115) 08/17/24 11:18 Calculated Osmolality 281 mOsm/kg (285-295) L 08/17/24 11:18 Calcium 9.3 mg/dL (8.5-10.5) 08/17/24 11:18 Total Bilirubin 0.3 mg/dL (0.15-1.2) 08/17/24 11:18 AST 20 U/L (0-40) 08/17/24 11:18 ALT 19 U/L (0-41) 08/17/24 11:18 Alkaline Phosphatase 91 U/L (40-130) 08/17/24 11:18 Troponin T Baseline 37 ng/L (0-15) H 08/17/24 11:18 Troponin T 120 Minute 45.77 ng/L (0-15) H 08/17/24 13:16 Delta Troponin T 8.77 ABS# (0-10) 08/17/24 13:16 Total Protein 6.9 g/dL (6.6-8.7) 08/17/24 11:18 Albumin 4.1 g/dL (3.5-5.2) 08/17/24 11:18 Globulin 2.8 g/dL (1.3-4.6) 08/17/24 11:18 All radiology interpretation(s) finalized by discharge EKG Data EKG 1: I personally reviewed and interpreted this EKG as follows: EKG interpretation date: 08/17/24 EKG interpretation time: 11:30 Interpretation: paced hr [address] elevation qrs 138 qtc 443 Discharge Plan Discharge Patient Disposition: Home Clinical Impression: Syncope Condition: Stable Prescriptions: No Action propafenone 225 mg capsule,extended release 12 hr 225 mg PO 0700,1900 Rx Instructions: @07:00,19:00 acetaminophen [Tylenol] 325 mg tablet 650 mg PO Q4H PRN (Reason: Pain) fluticasone propionate 50 mcg/actuation spray,suspension 1 spray INTRANASAL BID@09, hydrocodone-acetaminophen 7.5-325 mg tablet 1 tab PO Q6H PRN (Reason: Pain) digoxin 125 mcg (0.125 mg) tablet 125 mcg PO DAILY@07 Qty: 90 3RF Rx Instructions: hold for pulse less than 60 ranolazine 500 mg tablet extended release 12 hr 500 mg PO BID sodium chloride 1,000 mg Tablet,Soluble 1,000 mg PO DAILY oxcarbazepine 300 mg tablet 300 mg PO BID@07,19 omeprazole 40 mg Capsule,Delayed Release(Dr/Ec) 40 mg PO DAILY@07 levothyroxine 100 mcg tablet 100 mcg PO DAILY@06 Ppexk-Gm-Tvl Enema 19-7 gram/118 mL Enema 118 ml NC DAILY PRN (Reason: Constipation) lidocaine HCl [Lidocaine Viscous] 2 % Solution See Rx Instructions .ROUTE .COMPLEX Rx Instructions: give 15ml po every 2 hours as needed for gum pain fexofenadine 180 mg Tablet 180 mg PO DAILY magnesium hydroxide [Milk of Magnesia] 400 mg/5 mL Suspension 30 ml PO Q24H PRN (Reason: Constipation) nitroglycerin [Nitrostat] 0.4 mg Tablet, Sublingual See Rx Instructions .ROUTE .COMPLEX PRN (Reason: Chest Pain) Rx Instructions: 0.4 mg sublingually every 5 minuts as needed for chest pain x 2 doses. If chest pain continues send to ER. atorvastatin 40 mg Tablet 40 mg PO BEDTIME Qty: 30 0RF clopidogrel 75 mg Tablet 75 mg PO DAILY Qty: 90 3RF aspirin [Adult Aspirin Regimen] 81 mg tablet,delayed release (DR/EC) 81 mg PO DAILY@07 Qty: 90 3RF carvedilol [Coreg] 3.125 mg tablet 6.25 mg PO BID Qty: 60 3RF Rx Instructions: must administer with a meal/food Fleet Enema 19-7 gram/118 mL Enema 118 ml NC DAILY PRN (Reason: Constipation) medroxyprogesterone 10 mg Tablet 10 mg PO DAILY isosorbide mononitrate 30 mg Tablet Extended Release 24 Hr 60 mg PO DAILY Qty: 60 0RF Discharge Orders: Discharge ED (Routine); Ordered 08/17/24 Ordered By: Shazia Betts Referrals: Rito Woods MD [Primary Care Provider] - 4-7 days Discharge Diet: Advance as tolerated Discharge Activity: Resume usual activity Patient Instructions: Syncope (ED) Print Language: [place] Coding Level of Care Code ED 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
[2024-08-17] MEDS: ondansetron 2 mg/ML SDV 2 mL 4 MG IVP (11:52)
[2024-08-17 11:56] VITALS: BP 131/84; PULSE 70; RESP 16; O2SAT 97
[2024-08-17 12:03] LABS: INR 0.88 (0.8-1.2)
[2024-08-17 12:07] LABS: Troponin(5th) Baseline 37 ng/L (0-15)
[2024-08-17 12:10] LABS: Alanine Aminotransferase 19 U/L (0-41); Albumin Level 4.1 g/dL (3.5-5.2); Alkaline Phosphatase 91 U/L (40-130); Anion Gap 20.5 (5-19); Aspartate Amino Transferase 20 U/L (0-40); Blood Urea Nitrogen 20 mg/dL (8-23); Calcium 9.3 mg/dL (8.5-10.5); Carbon Dioxide 16 mmol/L (22-29); Chloride 102 mmol/L (98-107); Creatinine Clr Calc Pharmacy 48.7083; Globulin 2.8 g/dL (1.3-4.6); Glucose 101 mg/dL (65-115); Osmolality Calculated 281 mOsm/kg (285-295); Potassium 4.5 mmol/L (3.5-5.1); Sodium 134 mmol/L (136-145); Total Bilirubin 0.3 mg/dL (0.15-1.2); Total Protein 6.9 g/dL (6.6-8.7)
--- NOTE | 2024-08-17 12:19 | CT_ITS ---
WS: [id number] CT HEAD NONCONTRAST HISTORY: syncope TECHNIQUE: Contiguous axial imaging performed through the brain. Bone and soft tissue windows. Sagittal and coronal reformats reviewed. All CT scans at [facility] use at least one of these dose optimization techniques: automated exposure control; mA and/or kV adjustment per patient size (includes targeted exams where dose is matched to clinical indication); or iterative reconstruction. DLP: 1163.58 mGy.cm COMPARISON: 11/02/2022 No acute intracranial hemorrhage, midline shift or mass effect. Moderate to severe cerebral and cerebellar atrophy. Moderate small vessel ischemic disease. Ventricles: Ventricles and extra-axial spaces are prominent on the basis of central and peripheral atrophy. Paranasal sinuses: As visualized are clear. Mastoid air cells: Well pneumatized. Calvarium and scalp: Skull is intact with no soft tissue edema or swelling. CT/CT head wo con* [id number] IMPRESSION: 1. No acute intracranial hemorrhage or edema. 2. Moderate to severe cerebral and cerebellar atrophy with moderate small vess el disease.
[2024-08-17 12:35] VITALS: BP 144/68; PULSE 69; O2SAT 97
[2024-08-17 13:00] VITALS: BP 144/85; PULSE 69; O2SAT 100
--- NOTE | 2024-08-17 13:24 | ECG_ITS ---
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 Measurements Intervals Blunt Rate: 74 P: -18 WI: 268 QRS: 107 QRSD: 130 T: 17 QT: 385 QTc: 427 Interpretive Statements ELECTRONIC ATRIAL PACEMAKER POSSIBLE RIGHT VENTRICULAR HYPERTROPHY [SOME/ALL OF: PROMINENT R IN V1, LATE TRANSITION, RAD, REILLY, SSS] LATERAL MYOCARDIAL INFARCTION , PROBABLY OLD [40+ ms Q WAVE AND/OR ST/T ABNORMALITY IN I/aVL/V5/V6] Compared to ECG 08/17/2024 11:30:50 Intraventricular conduction delay no longer present Myocardial infarct finding still present Electronically Signed On 08-20-2024 19:41:44 FLOW MANAGER by Colby Lopez M.D. [email or web address]
[2024-08-17 13:40] LABS: Troponin 5 2HR 45.77 ng/L (0-15); Troponin 5 2HR Delta 8.77 ABS# (0-10)
[2024-08-17 14:00] VITALS: BP 142/65; PULSE 71; O2SAT 100
[2024-08-17 14:30] VITALS: BP 142/65; PULSE 71; O2SAT 100
== END 2024-08-17 14:31 | disposition home or self-care (01) ==
PROVIDERS: Emergency Provider Emergency Medicine; PCP Internal Medicine
DX: R55 Syncope and collapse (principal); Z79.02 Long term (current) use of antithrombotics/antiplatelets; Z79.82 Long term (current) use of aspirin; Z87.891 Personal history of nicotine dependence; I25.10 Atherosclerotic heart disease of native coronary artery without angina pectoris; E78.5 Hyperlipidemia, unspecified; Z86.73 Personal history of transient ischemic attack (TIA), and cerebral infarction without residual deficits; I12.9 Hypertensive chronic kidney disease with stage 1 through stage 4 chronic kidney disease, or unspecified chronic kidney disease; N18.9 Chronic kidney disease, unspecified
CPT/HCPCS: 70450; 71045; 80053; 84484; 85025; 85610; 93005; 96374; 99285; J2405

== ENCOUNTER → 2024-08-26 10:32 | Outpatient (BNVA) | payer MEDICARE, SELFPAY | PROVIDERS: PCP Internal Medicine; Visit Provider Internal Medicine Cardiovascular Disease | DX: I48.11 Longstanding persistent atrial fibrillation (principal); I25.10 Atherosclerotic heart disease of native coronary artery without angina pectoris | CPT/HCPCS: 99214 ==

== ENCOUNTER 2024-11-03 16:10 | Inpatient (IN) | payer MEDICARE, SELFPAY ==
[2024-11-03] VITALS (9 sets, daily range): BP systolic 103–142; BP diastolic 64–88; PULSE 70–78; RESP 17–24; TEMP 36.2–36.6; O2SAT 97–100; BMI 23.8; BMI 24.7
--- NOTE | 2024-11-03 16:12 | ECG_ITS ---
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 Measurements Intervals [place] Rate: 73 P: 59 NC: 217 QRS: 35 QRSD: 145 T: 72 QT: 405 QTc: 449 Interpretive Statements SINUS RHYTHM WITH FIRST DEGREE AV BLOCK LEFT ATRIAL ENLARGEMENT [-0.15mV P-WAVE IN V1/V2] INTRAVENTRICULAR CONDUCTION DELAY [130+ ms QRS DURATION] Possible old inferior wall OR Compared to ECG 08/17/2024 13:24:23 First degree AV block now present Intraventricular conduction delay now present Atrial-paced complex(es) or rhythm no longer present Electronically Signed On 11-03-2024 18:01:02 CDT by Malika Gutierrez M.D. [id number]
--- NOTE | 2024-11-03 16:20 | XR_ITS ---
WS: [id number] Portable AP upright chest, 11/03/2024 Clinical Data: CP Comparison: Portable chest, 08/17/2024 Findings: No nodules, masses or effusions are seen. The heart is normal. The pulmonary vascularity is not increased. No pneumonia or pneumothorax is seen. The cardiac pacemaker remains in the same position with the generator overlapping the left lateral chest. The aortic arch shows mild tortuosity as d oes the descending thoracic aorta. XR/XR chest 1V portable [id number] Impression: Atherosclerosis.
[2024-11-03 16:25] LABS: Basophils # 0.1 10^3/uL (0.0-0.1); Basophils % 0.7 %; Eosinophils # 0.3 10^3/uL (0.0-0.8); Eosinophils % 4.5 %; Hematocrit 40.7 % (37-53); Lymphocytes # 1.8 10^3/uL (0.8-4.8); Lymphocytes % 25.2 %; Mean Corpuscular HGB Conc 33.7 g/dL (30-55); Mean Corpuscular Hemoglobin 33.4 pg (27-33); Mean Corpuscular Volume 99.3 fl (82-101); Mean Platelet Volume 9.5 fL (7.4-10.4); Monocytes # 0.7 10^3/uL (0.2-0.9); Monocytes % 10.3 %; Neutrophils # 4.16 10^3/uL (1.8-7.7); Neutrophils % 58.9 %; Nucleated Red Blood Cells % 0 %; Platelet Count 296 10^3/cmm (157-399); Red Cell Distribution Width 14.6 % (12.1-15.1); White Blood Count 7.07 10^3/uL (3.29-11.43)
[2024-11-03 17:06] LABS: Troponin(5th) Baseline 125 ng/L (0-15)
[2024-11-03 17:44] LABS: Alanine Aminotransferase 17 U/L (0-41); Albumin Level 4.2 g/dL (3.5-5.2); Alkaline Phosphatase 83 U/L (40-130); Anion Gap 22.6 (5-19); Aspartate Amino Transferase 19 U/L (0-40); Blood Urea Nitrogen 21 mg/dL (8-23); Calcium 9.3 mg/dL (8.5-10.5); Carbon Dioxide 18 mmol/L (22-29); Chloride 102 mmol/L (98-107); Creatinine Clr Calc Pharmacy 41.5965; Globulin 2.8 g/dL (1.3-4.6); Glucose 121 mg/dL (65-115); Osmolality Calculated 290 mOsm/kg (285-295); Potassium 4.6 mmol/L (3.5-5.1); Sodium 138 mmol/L (136-145); Total Bilirubin 0.3 mg/dL (0.15-1.2)
[2024-11-03] MEDS: heparin 5,000 unit/mL INJ 1 mL IVP (17:50)
[2024-11-03] MEDS: heparin drip 25,000 UNIT/500 ML PREMIX 20 UNIT IV (17:50)
--- NOTE | 2024-11-03 18:09 | W.ED.CHESTPA ---
HPI - Chest Pain General: Chief Complaint: Chest Pain Stated Complaint: Chest Pain Time Seen by Provider: 11/03/24 17:10 History of Present Illness: Sylvia Sorto presents to the emergency department with a chief complaint of feeling like his heart was racing. The patient reports experiencing this sensation without any associated pain. He denies shortness of breath but mentions feeling hot and sweaty during the episode. The patient states that this has happened before, but it resolved on its own in the past. Mr. Sorto denies any abdominal pain. He reports ongoing issues with constipation, noting that his stools are not as kind of soft. His last bowel movement was this morning, and he mentions that this constipation has been a long-standing issue for him, not a new development. The patient received nitroglycerine and aspirin in the emergency department, after which his symptoms subsided. He currently reports no pain. Related Data Home Medications ?Medication ?Instructions ?Recorded ?Confirmed acetaminophen 325 mg tablet 650 mg PO Q4H PRN Pain 06/27/19 08/26/24 (Tylenol) fluticasone propionate 50 1 spray intranasal BID@06/27/19 08/26/24 mcg/actuation nasal spray,suspension propafenone 225 mg 225 mg PO 0700,1900 06/27/19 08/26/24 capsule,extended release 12 hr levothyroxine 100 mcg tablet 100 mcg PO DAILY@06 01/24/22 08/26/24 lidocaine HCl 2 % mucosal solution See Rx Instructions .Route .COMPLEX 01/24/22 08/26/24 (Lidocaine Viscous) omeprazole 40 mg capsule,delayed 40 mg PO DAILY@01/24/22 08/26/24 release oxcarbazepine 300 mg tablet 300 mg PO BID@07,01/24/22 08/26/24 sodium phosphates 19 gram-7 118 ml NH DAILY PRN Constipation 01/24/22 08/26/24 gram/118 mL enema (Jetun-Wm-Mez Enema) hydrocodone 7.5 mg-acetaminophen 1 tab PO Q6H PRN Pain 07/28/22 08/26/24 325 mg tablet sodium chloride 1,000 mg soluble 1,000 mg PO DAILY 11/03/22 08/26/24 tablet fexofenadine 180 mg tablet 180 mg PO DAILY 06/29/23 08/26/24 magnesium hydroxide 400 mg/5 mL 30 ml PO Q24H PRN Constipation 06/29/23 08/26/24 oral suspension (Milk of Magnesia) nitroglycerin 0.4 mg sublingual See Rx Instructions .Route 06/29/23 08/26/24 tablet (Nitrostat) .COMPLEX PRN Chest Pain medroxyprogesterone 10 mg tablet 10 mg PO DAILY 01/20/24 08/26/24 sodium phosphates 19 gram-7 118 ml NH DAILY PRN Constipation 01/20/24 08/26/24 gram/118 mL enema (Fleet Enema) ranolazine 500 mg tablet,extended 500 mg PO BID 02/22/24 08/26/24 release,12 hr Previous Rx's ?Medication ?Instructions ?Recorded aspirin 81 mg tablet,delayed 81 mg PO DAILY@07 #90 tabs 07/02/23 release (Adult Aspirin Regimen) atorvastatin 40 mg tablet 40 mg PO BEDTIME #30 tabs 07/02/23 clopidogrel 75 mg tablet 75 mg PO DAILY #90 tabs 07/02/23 digoxin 125 mcg (0.125 mg) tablet 125 mcg PO DAILY@07 #90 tabs 07/14/23 carvedilol 3.125 mg tablet (Coreg) 6.25 mg (2 x 3.125 mg) PO BID #60 11/03/23 tabs isosorbide mononitrate 30 mg 60 mg (2 x 30 mg) PO DAILY #60 tabs 01/22/24 tablet,extended release 24 hr Allergies Allergy/AdvReac Type Severity Reaction Status Date / Time No Known Allergies Allergy Verified 08/26/24 10:47 [facility] PFS: Medical History Hyperlipidemia LDL goal <70 Essential hypertension CAD (coronary artery disease) Hypertension Hyperlipidemia Atrial fibrillation Pacemaker Atherosclerosis of [place] coronary artery without angina pectoris Chronic kidney disease Abnormal myocardial perfusion study Positive cardiac stress test NSTEMI (non-ST elevated myocardial infarction) Chest pain High risk medication use digoxin Generalized weakness Hypothyroidism Tremor Alzheimer's dementia Orthostatic hypotension Anxiety Humerus fracture Conduct disorder on medroxyprogesterone Syncope Seizure Urinary tract infection Dupuytren's contracture of right hand BPH (benign prostatic hyperplasia) Insomnia GI bleed Adrenal adenoma benign Thoracic back pain Depression Neuropathy TIA (transient ischemic attack) Diverticulitis Incontinence GERD (gastroesophageal reflux disease) Osteoporosis Surgical History Hx of cataract surgery H/O vasectomy S/P foot surgery, right Family History Other CAD (coronary artery disease) Cancer Dementia Diabetes Hypertension Denies family history of Clotting disorder Chronic kidney disease (CKD) Suicide Anesthesia complication Bleeding disorder Lung disease Stroke Social History Smoking and tobacco/nicotine status: former use of tobacco/nicotine (30 years ago) Alcohol intake: never Substance/Drug Use: never Housing: [facility] Physical Exam Const: COMMON NORMALS: no acute distress, patient oriented x3, healthy appearing, alert and well nourished HENMT: COMMON NORMALS: normocephalic HEAD & SCALP: normocephalic Eye: COMMON NORMALS: EOMs intact bilaterally Neck/C-Spine: COMMON NORMALS: full ROM and supple Resp: COMMON NORMALS: normal respiratory effort, No retractions and clear to auscultation bilaterally AUSCULTATION: clear to auscultation bilaterally Cardio: COMMON NORMALS: regular rate, regular rhythm, No gallops present (Cardio) and No murmurs present (Cardio) RATE: regular rate RHYTHM: regular rhythm GI: COMMON NORMALS: Soft to palpation and non-tender PALPATION: Yes Soft to palpation Extremity: GENERAL: Yes normal exam except as noted Neuro: COMMON NORMALS: patient oriented x3 SENSORIUM/ORIENTATION: Yes alert Skin: COMMON NORMALS: no rashes or lesions noted GENERAL SKIN EXAM: no rashes or lesions noted Course Vital Signs: Vital signs: Vital Signs Temperature 97.9 F 11/03/24 16:13 Pulse Rate 70 11/03/24 18:14 Respiratory Rate 23 H 11/03/24 18:14 Blood Pressure 116/69 11/03/24 18:14 Pulse Oximetry 98 11/03/24 18:14 Oxygen Delivery Me thod Room Air 11/03/24 18:14 MDM - Chest Pain Medical Decision Making 83-year-old male presents emergency department valuation of racing heartbeat and chest pain. Patient has a pulse medical history of coronary artery disease with stents. His troponin was significantly elevated today. His EKG did not show any signs of ST segment elevation. Patient was started on heparin. He is already on clopidogrel and received aspirin and route. Case was discussed with Dr. Gutierrez the route rider who agreed to consult. Dr. mendenhall agreed to admit the patient. Lab Data 11/03/24 16:00 11/03/24 16:00 Laboratory Results WBC 7.07 10^3/uL (3.29-11.43) 11/03/24 16:00 RBC 4.10 10^6/uL (3.85-5.65) 11/03/24 16:00 Hgb 13.70 g/dL (11.27-16.99) 11/03/24 16:00 Hct 40.7 % (37-53) 11/03/24 16:00 MCV 99.3 fl (82-101) 11/03/24 16:00 MCH 33.4 pg (27-33) H 11/03/24 16:00 MCHC 33.7 g/dL (30-55) 11/03/24 16:00 RDW 14.6 % (12.1-15.1) 11/03/24 16:00 Plt Count 296 10^3/cmm (157-399) 11/03/24 16:00 MPV 9.5 fL (7.4-10.4) 11/03/24 16:00 Neut % (Auto) 58.9 % 11/03/24 16:00 Lymph % (Auto) 25.2 % 11/03/24 16:00 Bibb % (Auto) 10.3 % 11/03/24 16:00 Eos % (Auto) 4.5 % 11/03/24 16:00 Baso % (Auto) 0.7 % 11/03/24 16:00 Neut # (Auto) 4.16 10^3/uL (1.8-7.7) 11/03/24 16:00 Lymph # (Auto) 1.8 10^3/uL (0.8-4.8) 11/03/24 16:00 Bibb # (Auto) 0.7 10^3/uL (0.2-0.9) 11/03/24 16:00 Eos # (Auto) 0.3 10^3/uL (0.0-0.8) 11/03/24 16:00 Baso # (Auto) 0.1 10^3/uL (0.0-0.1) 11/03/24 16:00 Nucleated RBC % (auto) 0 % 11/03/24 16:00 Nucleated RBCs # 0.0 /100WBC 11/03/24 16:00 Sodium 138 mmol/L (136-145) 11/03/24 16:00 Potassium 4.6 mmol/L (3.5-5.1) 11/03/24 16:00 Chloride 102 mmol/L (98-107) 11/03/24 16:00 Carbon Dioxide 18 mmol/L (22-29) L 11/03/24 16:00 Anion Gap 22.6 (5-19) H 11/03/24 16:00 BUN 21 mg/dL (8-23) 11/03/24 16:00 Creatinine 1.3 mg/dL (0.7-1.2) H 11/03/24 16:00 GFR Calculation Not Reportable 11/03/24 16:00 Glucose 121 mg/dL (65-115) H 11/03/24 16:00 Calculated Osmolality 290 mOsm/kg (285-295) 11/03/24 16:00 Calcium 9.3 mg/dL (8.5-10.5) 11/03/24 16:00 Total Bilirubin 0.3 mg/dL (0.15-1.2) 11/03/24 16:00 AST 19 U/L (0-40) 11/03/24 16:00 ALT 17 U/L (0-41) 11/03/24 16:00 Alkaline Phosphatase 83 U/L (40-130) 11/03/24 16:00 Troponin T Baseline 125 ng/L (0-15) H* 11/03/24 16:00 Total Protein 7.0 g/dL (6.6-8.7) 11/03/24 16:00 Albumin 4.2 g/dL (3.5-5.2) 11/03/24 16:00 Globulin 2.8 g/dL (1.3-4.6) 11/03/24 16:00 All radiology interpretation(s) finalized by discharge EKG Data EKG 1: Interpretation: Sinus rhythm with a rate of 73, NH 217, QRS duration 145, QTc 431, first-degree AV block EKG 2: Interpretation: Sinus rhythm with a rate of 70, NH 232, QRS 138, QTc 403, atrial paced rhythm bikes Discharge Plan Discharge Patient Disposition: Admitted As Inpatient Clinical Impression: Non-ST elevated myocardial infarction Condition: Stable Coding Level of Care Code ED Civil Engineering Intern for Zachary Faria
--- NOTE | 2024-11-03 18:22 | ECG_ITS ---
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 Measurements Intervals [place] Rate: 70 P: 139 HI: 232 QRS: 37 QRSD: 138 T: 82 QT: 382 QTc: 414 Interpretive Statements ELECTRONIC ATRIAL PACEMAKER INTRAVENTRICULAR CONDUCTION DELAY [130+ ms QRS DURATION] INFERIOR MYOCARDIAL INFARCTION , PROBABLY OLD [40+ ms Q WAVE AND/OR ST/T ABNORMALITY IN II/aVF] Compared to ECG 11/03/2024 16:17:47 Sinus rhythm no longer present First degree AV block no longer present Atrial abnormality no longer present Myocardial infarct finding still present Electronically Signed On 11-03-2024 18:22:34 CDT by Malika Gutierrez M.D. [email or web address]
--- NOTE | 2024-11-03 18:48 | PM.CONSULT ---
Providers/Reason For Consult Consulting Physician/Specialty*: LARON Gutierrez MD/cardiology Reason for Consult*: Patient with atrial fibrillation, congestive heart failure, recurrent hospital admission Primary Care Provider: Rito Woods MD History of Present Illness History of Present Illness Sylvia Baptiste is a 83 year old male is admitted to hospital through the emergency room where he presented with complaints of chest pain. Patient is known to have atherosclerotic heart disease and had multiple hospital admissions in the recent past for unstable anginal symptoms. In June 2023, he was admitted to the hospital with unstable angina and NSTEMI. Cardiac catheterization revealed high-grade proximal RCA lesion for which he underwent PCI. In October of the same year, he was readmitted with unstable angina and features of NSTEMI. Repeat angiogram revealed high-grade in-stent stenosis. He underwent repeat PCI of this lesion. He is Left anterior descending artery was found to have diffuse disease. In January of last year he was readmitted with unstable angina and slightly elevated troponin T. He had a Myocardial perfusion imaging which revealed areas of fixed defect with a small area of reversible defect in the distribution of the right coronary artery. It was opted to treat her medically at that time. This patient was brought to the emergency room from the alf. Apparently he started having chest pain around 4:00. He described as a sharp/heavy pain in the chest with no radiation. The pain made her lasted for an hour or 2 and then was finally brought to the emergency room. Patient does not recall the details. Family at bedside unaware of the details. The alf is not available at this time to get the details. According to the patient, his chest pain is started getting worse and for that reason, he was brought to the emergency room. He has no chest pain at the time of my examination. He has no fever, chills or cough. No unusual shortness of breath. No orthopnea PND. Review of Systems Narrative: CONSTITUTIONAL: No fever or chills. EYES: No blurring of vision or other visual disturbances lately. ENT: No hoarseness of voice, auditory disturbances or sore throat. CARDIOVASCULAR: As mentioned above. RESPIRATORY: No significant cough. GASTROINTESTINAL: No hematemesis or melena. GENITOURINARY: No dysuria or hematuria. INTEGUMENTARY: No skin rashes or history of skin cancer. NEURO: Patient is known to have dementia. PSYCHIATRIC: No history of psychosis or major depression. HEMATOLOGIC: No bleeding disorders or significant anemia. ENDOCRINE: No history of polyuria or polydipsia. MUSCULOSKELETAL: No recent joint pain or swelling. ALLERGY/IMMUNOLOGY: As mentioned above. Medications/Allergies Home Medications ?Medication ?Instructions ?Recorded ?Confirmed ?Last Taken ?Type acetaminophen 325 mg tablet 650 mg PO Q4H PRN Pain 06/27/19 08/26/24 02/24/22 History (Tylenol) fluticasone propionate 50 1 spray intranasal BID@06/27/19 08/26/24 08/17/24 History mcg/actuation nasal spray,suspension propafenone 225 mg 225 mg PO 0700,1900 06/27/19 08/26/24 08/17/24 History capsule,extended release 12 hr levothyroxine 100 mcg tablet 100 mcg PO DAILY@06 01/24/22 08/26/24 08/17/24 History lidocaine HCl 2 % mucosal solution See Rx Instructions .Route .COMPLEX 01/24/22 08/26/24 01/22/22 History (Lidocaine Viscous) omeprazole 40 mg capsule,delayed 40 mg PO DAILY@07 01/24/22 08/26/24 08/17/24 History release oxcarbazepine 300 mg tablet 300 mg PO BID@01/24/22 08/26/24 08/17/24 History sodium phosphates 19 gram-7 118 ml DC DAILY PRN Constipation 01/24/22 08/26/24 Unknown History gram/118 mL enema (Bxvwo-Og-Kdb Enema) hydrocodone 7.5 mg-acetaminophen 1 tab PO Q6H PRN Pain 07/28/22 08/26/24 Unknown History 325 mg tablet sodium chloride 1,000 mg soluble 1,000 mg PO DAILY 11/03/22 08/26/24 08/17/24 History tablet fexofenadine 180 mg tablet 180 mg PO DAILY 06/29/23 08/26/24 08/17/24 History magnesium hydroxide 400 mg/5 mL 30 ml PO Q24H PRN Constipation 06/29/23 08/26/24 Unknown History oral suspension (Milk of Magnesia) nitroglycerin 0.4 mg sublingual See Rx Instructions .Route 06/29/23 08/26/24 Unknown History tablet (Nitrostat) .COMPLEX PRN Chest Pain aspirin 81 mg tablet,delayed 81 mg PO DAILY@07 #90 tabs 07/02/23 08/26/24 08/17/24 Rx release (Adult Aspirin Regimen) atorvastatin 40 mg tablet 40 mg PO BEDTIME #30 tabs 07/02/23 08/26/24 08/16/24 Rx clopidogrel 75 mg tablet 75 mg PO DAILY #90 tabs 07/02/23 08/26/24 08/17/24 Rx digoxin 125 mcg (0.125 mg) tablet 125 mcg PO DAILY@07 #90 tabs 07/14/23 08/26/24 08/17/24 Rx carvedilol 3.125 mg tablet (Coreg) 6.25 mg (2 x 3.125 mg) PO BID #60 11/03/23 08/26/24 08/17/24 Rx tabs medroxyprogesterone 10 mg tablet 10 mg PO DAILY 01/20/24 08/26/24 08/17/24 History sodium phosphates 19 gram-7 118 ml DC DAILY PRN Constipation 01/20/24 08/26/24 Unknown History gram/118 mL enema (Fleet Enema) isosorbide mononitrate 30 mg 60 mg (2 x 30 mg) PO DAILY #60 tabs 01/22/24 08/26/24 08/17/24 Rx tablet,extended release 24 hr ranolazine 500 mg tablet,extended 500 mg PO BID 02/22/24 08/26/24 08/17/24 History release,12 hr Allergies Allergy/AdvReac Type Severity Reaction Status Date / Time No Known Allergies Allergy Verified 08/26/24 10:47 Current Medications Generic Name Dose Route Start Last Admin Trade Name Freq PRN Reason Stop Dose Admin Heparin Sodium/Sodium Chloride 25,000 unit in 500 mls @ 0 mls/hr 11/03/24 17:30 11/03/24 17:50 Heparin Drip IV 14.04 unit/kg/hr CONT NIRAJ 20 mls/hr Protocol Administration Per Protocol PFSH Acute PFSH: Medical History Alzheimer's dementia Hyperlipidemia LDL goal <70 Essential hypertension CAD (coronary artery disease) Hypertension Hyperlipidemia Atrial fibrillation Pacemaker Atherosclerosis of [place] coronary artery without angina pectoris Chronic kidney disease Abnormal myocardial perfusion study Positive cardiac stress test NSTEMI (non-ST elevated myocardial infarction) Chest pain High risk medication use digoxin Generalized weakness Hypothyroidism Tremor Orthostatic hypotension Anxiety Humerus fracture Conduct disorder on medroxyprogesterone Syncope Seizure Urinary tract infection Dupuytren's contracture of right hand BPH (benign prostatic hyperplasia) Insomnia GI bleed Adrenal adenoma benign Thoracic back pain Depression Neuropathy TIA (transient ischemic attack) Diverticulitis Incontinence GERD (gastroesophageal reflux disease) Osteoporosis Surgical History Hx of cataract surgery H/O vasectomy S/P foot surgery, right Family History Other CAD (coronary artery disease) Cancer Dementia Diabetes Hypertension Denies family history of Clotting disorder Chronic kidney disease (CKD) Suicide Anesthesia complication Bleeding disorder Lung disease Stroke Social History Smoking and tobacco/nicotine status: former use of tobacco/nicotine (30 years ago) Alcohol intake: never Substance/Drug Use: never Housing: [facility] Vitals/I&O/Wt Last Vital Signs Temp 97.9 F 11/03/24 16:13 Pulse 70 11/03/24 18:14 Resp 23 H 11/03/24 18:14 BP 116/69 11/03/24 18:14 Pulse Ox 98 11/03/24 18:14 O2 Del Method Room Air 11/03/24 18:14 Weight last 48 hrs Weight 157 lb Physical Exam Narrative: GENERAL: The patient is alert and oriented times three. Not in any acute distress. HEENT: No significant pallor, icterus or lymphadenopathy.Oral cavity: There are no mucous membrane lesions. NECK: Trachea appears to be central. No masses noted. No JVD or thyromegaly appreciated. RESPIRATORY: Chest is symmetrical. No intercostals muscle retraction or any accessory muscle activation. There is no chest wall tenderness. Breath sounds are heard bilaterally. No rales or rhonchi heard. No evidence of any consolidation. BREASTS: Deferred. HEART: The heart sounds are normal. No S3 or S4. Short early systolic murmur in the left lower border. Ejection systolic murmur grade 3 or 6 in the aortic area. No diastolic murmurs. No pericardial rub ABDOMEN: No vessel pulsations or distention. No tenderness. No organomegaly appreciated. Bowel sounds are normally heard. : Deferred. RECTAL: Deferred. LYMPHATIC: No lymphadenopathy noted in the neck. EXTREMITIES: No edema or cyanosis. No clubbing. MUSCULOSKELETAL: No acute joint deformities or swelling SKIN: There are no significant rashes or ecchymosis NEUROPSYCHIATRIC: The patient is alert and oriented x3. Appears to be in a good mood. No tremors or rigidity noted. Data 11/03/24 16:00 11/03/24 16:00 Other Labs: Laboratory Last Values WBC 7.07 10^3/uL (3.29-11.43) 11/03/24 16:00 RBC 4.10 10^6/uL (3.85-5.65) 11/03/24 16:00 Hgb 13.70 g/dL (11.27-16.99) 11/03/24 16:00 Hct 40.7 % (37-53) 11/03/24 16:00 MCV 99.3 fl (82-101) 11/03/24 16:00 MCH 33.4 pg (27-33) H 11/03/24 16:00 MCHC 33.7 g/dL (30-55) 11/03/24 16:00 RDW 14.6 % (12.1-15.1) 11/03/24 16:00 Plt Count 296 10^3/cmm (157-399) 11/03/24 16:00 MPV 9.5 fL (7.4-10.4) 11/03/24 16:00 Neut % (Auto) 58.9 % 11/03/24 16:00 Lymph % (Auto) 25.2 % 11/03/24 16:00 Barber % (Auto) 10.3 % 11/03/24 16:00 Eos % (Auto) 4.5 % 11/03/24 16:00 Baso % (Auto) 0.7 % 11/03/24 16:00 Neut # (Auto) 4.16 10^3/uL (1.8-7.7) 11/03/24 16:00 Lymph # (Auto) 1.8 10^3/uL (0.8-4.8) 11/03/24 16:00 [place] # (Auto) 0.7 10^3/uL (0.2-0.9) 11/03/24 16:00 Eos # (Auto) 0.3 10^3/uL (0.0-0.8) 11/03/24 16:00 Baso # (Auto) 0.1 10^3/uL (0.0-0.1) 11/03/24 16:00 Nucleated RBC % (auto) 0 % 11/03/24 16:00 Nucleated RBCs # 0.0 /100WBC 11/03/24 16:00 Sodium 138 mmol/L (136-145) 11/03/24 16:00 Potassium 4.6 mmol/L (3.5-5.1) 11/03/24 16:00 Chloride 102 mmol/L (98-107) 11/03/24 16:00 Carbon Dioxide 18 mmol/L (22-29) L 11/03/24 16:00 Anion Gap 22.6 (5-19) H 11/03/24 16:00 BUN 21 mg/dL (8-23) 11/03/24 16:00 Creatinine 1.3 mg/dL (0.7-1.2) H 11/03/24 16:00 GFR Calculation Not Reportable 11/03/24 16:00 Glucose 121 mg/dL (65-115) H 11/03/24 16:00 Calculated Osmolality 290 mOsm/kg (285-295) 11/03/24 16:00 Calcium 9.3 mg/dL (8.5-10.5) 11/03/24 16:00 Total Bilirubin 0.3 mg/dL (0.15-1.2) 11/03/24 16:00 AST 19 U/L (0-40) 11/03/24 16:00 ALT 17 U/L (0-41) 11/03/24 16:00 Alkaline Phosphatase 83 U/L (40-130) 11/03/24 16:00 Troponin T Baseline 125 ng/L (0-15) H* 11/03/24 16:00 Total Protein 7.0 g/dL (6.6-8.7) 11/03/24 16:00 Albumin 4.2 g/dL (3.5-5.2) 11/03/24 16:00 Globulin 2.8 g/dL (1.3-4.6) 11/03/24 16:00 Other data: The EKG showed a possible a paced rhythm with diffuse ST-T changes in the anterolateral and inferior leads. A&P Assessment and plan (1) Atherosclerotic heart disease of [place] coronary artery with unstable angina pectoris: The patient's chest pain is a history of unstable angina. Hemodynamically seems to be stable. EKG shows diffuse nonspecific ST changes. These changes appears to be new compared to the EKG from January of last year. The baseline troponin T is elevated. The 2-hour delta is pending. (2) Atrial fibrillation: Patient is currently in sinus rhythm. Because of his GI bleed, he is not on any oral anticoagulation. May continue on the current (3) Hyperlipidemia: Continue on the current medications. Follow-up evaluation as per the primary care. (4) Hypertension: Currently normotensive. May continue on the current medications. (5) Presence of permanent cardiac pacemaker: The pacemaker function was found to be appropriate, based on the most recent pacemaker interrogation. (6) Carotid occlusion, bilateral: Since the patient has no specific symptoms of carotid insufficiency, advised to continue on the current measures. We will have the follow-up evaluation as scheduled. (7) Alzheimer's dementia: May continue on the current management Cardiac catheterization finding from 10/31/2023 * Proximal Right Coronary Artery: 95% stenosis treated with a MDT NC EUPHORA RX [id number] BALLOON. 0% residual stenosis, ANA: 3 flow. * Procedure detail: We engaged RCA with JR4 guide catheter. IV heparin was administered to maintain anticoagulation. 0.014 run-through guidewire was used to cross the stenosis and was placed in distal vessel. We dilated with severe ISR with 3.25 x 12 mm NC balloon at high pressure. Stent expanded well and there was no significant residual stenosis. Guidewire and guide catheter were removed. Patient left the laboratory technologist in a stable condition. Plan I may go ahead and do a limited 2D echocardiogram to evaluate LV function and rule out any other pathology. Patient may be treated with IV heparin and other symptomatic measures. May be kept on the current dose of the Plavix. Based on the clinical progress on the results of the above, further recommendations will be made. PDMP PDMP Reviewed: Not Reviewed Consult Attestations Medical Necessity Statement: Patient requires continued hospital stay for close monitoring and further management Coding Level of Care Code 13074 Diagnoses Atherosclerosis of [place] coronary artery of [place] heart with unstable angina pectoris I25.110 [place] vs. transplanted heart: [place] heart Longstanding persistent atrial fibrillation I48.11 Atrial fibrillation type: longstanding persistent Mixed hyperlipidemia E78.2 Hyperlipidemia type: mixed hyperlipidemia Essential hypertension I10 Hypertension type: essential hypertension Presence of permanent cardiac pacemaker Z95.0 Carotid occlusion, bilateral I65.23 Moderate Alzheimer's dementia, unspecified timing of dementia onset, unspecified whether behavioral, psychotic, or mood disturbance or anxiety G30.9; F02.B0 Alzheimer's disease onset: unspecified onset Dementia behavioral or psychological symptom: unspecified whether behavioral, psychotic, or mood disturbance or anxiety Dementia severity: moderate
[2024-11-03 19:10] LABS: Troponin 5 2HR 135.6 ng/L (0-15); Troponin 5 2HR Delta 10.6 ABS# (0-10)
--- NOTE | 2024-11-03 20:19 | PC.NURSE ---
Received report. patient admitted for NSTEMI. Trop 125/135. Heparin drip @ 14U/KG/min, rate 20mL hour. Cardiac hx. Had CP last PM. Pt A/O, no current CP. Family at bedside.
--- NOTE | 2024-11-03 21:35 | PC.NURSE ---
Report called to ABRIL Ortiz
[2024-11-03 23:10] LABS: Partial Thromboplastin Time 98.1 SECONDS (23.9-36.7)
[2024-11-03 23:14] LABS: Troponin 5 6HR 152.1 ng/L (0-15); Troponin 5 6HR Delta 27.1 ng/L (0-12)
--- NOTE | 2024-11-03 23:29 | ECG_ITS ---
[facility] Date: 2024-11-03 Pat Name: Sylvia Baptiste Department: Room: [facility] Gender: Male Rn Icu: : 1940 Requested By: Yusuf Kennedy Order Number: [id number] Elizabeth MD: Malika Gutierrez M.D. Measurements Intervals [place] Rate: 70 P: 99 WI: 241 QRS: 20 QRSD: 138 T: 72 QT: 393 QTc: 425 Interpretive Statements ELECTRONIC ATRIAL PACEMAKER INTRAVENTRICULAR CONDUCTION DELAY [130+ ms QRS DURATION] Compared to ECG 11/03/2024 18:21:25 Myocardial infarct finding no longer present Electronically Signed On 11-04-2024 16:33:09 CDT by Malika Gutierrez M.D. [email or web address] [id number]
[2024-11-04] VITALS (26 sets, daily range): BP systolic 102–165; BP diastolic 55–108; PULSE 59–87; RESP 13–25; TEMP 36.3–36.8; O2SAT 96–100
--- NOTE | 2024-11-04 00:21 | USCV_ITS ---
Sylvia Baptiste Age: 83 Gender: M : 1940 Exam Date: 11/04/2024 00:46 Ordering Phys: Peri Watts MD Technologist: AVE Exam Location: [facility] [place] Indication: nstemi, hx CAD s/p cardiac stenting BP: 124 / 69 HR: 69 Rhythm: Sinus Technical Quality: Adequate MEASUREMENTS (Male / Female) Normal Values 2D ECHO LV Diastolic Diameter PLAX 2.9 cm 4.2 - 5.9 / 3.9 - 5.3 cm IVS Diastolic Thickness 2.1 cm 0.6 - 1.0 / 0.6 - 0.9 cm IVS Systolic Thickness 2.0 cm LVPW Diastolic Thickness 1.2 cm 0.6 - 1.0 / 0.6 - 0.9 cm LVPW Systolic Thickness 1.8 cm LVOT Diameter 2.0 cm LV Ejection Fraction 2D Teich 52.0 % LV Ejection Fraction MOD 4C 35.9 % LV Ejection Fraction MOD 2C 46.0 % LV Ejection Fraction 2C AL 47.1 % LA Diameter 2.6 cm LA Sys Volume AL 107.4 cm cubed LA Sys Volume Index AL 56.8 cm cubed/m squared Aorta at Sinotubular Diameter 3.6 cm IVC Diameter 2.4 cm M-MODE LA Ao Ratio MM 0.8 AV Cusp Separation MM 2.0 cm DOPPLER AV Peak Velocity 133.0 cm/s LVOT Peak Velocity 77.0 cm/s AV Area Cont Eq vti 2.2 cm squared AV Area Cont Eq pk 1.8 cm squared MV Peak Velocity 136.0 cm/s MV Area PHT 6.6 cm squared Mitral E to A Ratio 0.9 TR Peak Velocity 338.0 cm/s TR Peak Gradient 45.7 mmHg TV Peak E Velocity 129.0 cm/s PV Peak Velocity 69.0 cm/s FINDINGS Left Ventricle Moderate concentric left trickle hypertrophy.Grade I/IV diastolic dysfunction (abnormal relaxation filling pattern), normal to mildly elevated filling pressures. Moderate diffuse akinesia of the inferior wal and mild diffuse hypokinesia of the inferolateral wall segments. LV ejection fraction of 46% Right Ventricle Catheter/pacemaker wire in the right ventricular cavity. Right Atrium Catheter/pacemaker wire in the right atrial cavity. Left Atrium Mildly increased left atrial size. Mitral Valve Moderate mitral annular calcification. Mild mitral valve regurgitation. Aortic Valve Thickened aortic valve. Mild to moderate aortic valve regurgitation. Tricuspid Valve Mild tricuspid valve regurgitation. Pulmonic Valve mild pulmonary valve regurgitation. Pericardium No pericardial effusion. Aorta Normal aortic annulus size. IVC Normal IVC dimension with <50% respiratory change of the inferior vena cava. CONCLUSIONS Normal LV size with a reduced ejection fraction of 46%. Wall motion abnormalities as mentioned above. Moderate concentric left trickle hypertrophy.Grade I/IV diastolic dysfunction (abnormal relaxation filling pattern), normal to mildly elevated filling pressures. Mildly increased left atrial size. Moderate mitral annular calcification. Mild mitral valve regurgitation. Thickened aortic valve. Mild to moderate aortic valve regurgitation. Mild tricuspid valve regurgitation. Moderate pulmonary hypertension with estimated pulmonary artery peak systolic pressure of 56 mmHg mild pulmonary valve regurgitation. There is no pericardial effusion. There are no intracardiac masses. Compared to the study from 11/01/2023, there is a significant drop in the LV ejection fraction. Dr Malika Gutierrez MD [facility] (Electronically Signed) Final Date: 04 Nov 2024 08:51 S
--- NOTE | 2024-11-04 01:51 | P.HP_ITS ---
Providers/Chief Complaint 2 Admitting Physician: Jonny Romero MD Primary Care Provider: Rito Woods MD Chief Complaint: Chest Pain History of Present Illness Sylvia Baptiste is a 83 year old male with cardiovascular disease significant for coronary artery disease with prior stent placement, pacemaker with defibrillator in-place in at this time with NSTEMI with an initial troponin of 125 and trending down. Cardiology consulted with Dr. Gutierrez who had also seen the patient already and made some recommendation. Case fully discussed with Dr. Gutierrez patient was admitted to stepdown unit at this time and being an overflow to the ICU because of lack of bed in this stepdown unit Patient is on heparin drip. Last chest pain was earlier on in the afternoon patient did not have any chest pain upon my seeing and evaluating him. Family in the room, son and daughter. Patient received aspirin Nitropaste to the chest wall. I do not see any Plavix in patient's home medication neither do I see any anticoagulant. Patient does have a history of atrial fibrillation and had had cardiac event 3 months ago. Patient did have stent placement in January of last year and should be on Plavix as a right at this time. There was not any from the medication list. 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 Cardiology will be seeing the patient in the morning to follow-up with any further intervention patient states n.p.o. after midnight Review of Systems 2 General: Reports: 10 or more systems reviewed and unremarkable except in HPI and below Medications/Allergies Home Medications ?Medication ?Instructions ?Recorded ?Confirmed ?Last Taken ?Type acetaminophen 325 mg tablet 650 mg PO Q4H PRN Pain 08/26/24 02/24/22 History (Tylenol) fluticasone propionate 50 1 spray intranasal BID@09,21 06/27/19 08/26/24 08/17/24 History mcg/actuation nasal spray,suspension propafenone 225 mg 225 mg PO 0700,1900 06/27/19 08/26/24 08/17/24 History capsule,extended release 12 hr levothyroxine 100 mcg tablet 100 mcg PO DAILY@06 01/2408/26/24 08/17/24 History lidocaine HCl 2 % mucosal solution See Rx Instructions .Route .COMPLEX 01/24/22 08/26/24 01/22/22 History (Lidocaine Viscous) omeprazole 40 mg capsule,delayed 40 mg PO DAILY@07 06/0508/26/24 08/17/24 History release oxcarbazepine 300 mg tablet 300 mg PO BID@07,19 08/26/24 08/17/24 History sodium phosphates 19 gram-7 118 ml SD DAILY PRN Consti pation 01/24/22 08/26/24 Unknown History gram/118 mL enema (Yvuwx-Mt-Qnl Enema) hydrocodone 7.5 mg-acetaminophen 1 tab PO Q6H PRN Pain 07/28/22 08/26/24 Unknown History 325 mg tablet sodium chloride 1,000 mg soluble 1,000 mg PO DAILY 08/26/24 08/17/24 History tablet fexofenadine 180 mg tablet 180 mg PO DAILY 06/29/2308/17/24 History magnesium hydroxide 400 mg/5 mL 30 ml PO Q24H PRN Cons tipation 06/29/23 08/26/24 Unknown History oral suspension (Milk of Magnesia) nitroglycerin 0.4 mg sublingual See Rx Instructions .R oute 06/29/23 08/26/24 Unknown History tablet (Nitrostat) .COMPLEX PRN Chest Pain aspirin 81 mg tablet,delayed 81 mg PO DAILY@07 #90 tab s 07/02/23 08/26/24 08/17/24 Rx release (Adult Aspirin Regimen) atorvastatin 40 mg tablet 40 mg PO BEDTIME #30 tabs 08/26/24 08/16/24 Rx clopidogrel 75 mg tablet 75 mg PO DAILY #90 tabs 06/1508/26/24 08/17/24 Rx digoxin 125 mcg (0.125 mg) tablet 125 mcg PO DAILY@07 #90 tabs 07/14/23 08/26/24 08/17/24 Rx carvedilol 3.125 mg tablet (Coreg) 6.25 mg (2 x 3.125 mg) PO BID #60 11/03/23 08/26/24 08/17/24 Rx tabs medroxyprogesterone 10 mg tablet 10 mg PO DAILY 08/26/24 08/17/24 History sodium phosphates 19 gram-7 118 ml SD DAILY PRN Consti pation 01/20/24 08/26/24 Unknown History gram/118 mL enema (Fleet Enema) isosorbide mononitrate 30 mg 60 mg (2 x 30 mg) PO KANE Y #60 tabs 01/22/24 08/26/24 08/17/24 Rx tablet,extended release 24 hr ranolazine 500 mg tablet,extended 500 mg PO BID 08/26/24 08/17/24 History release,12 hr Allergies Allergy/AdvReac Type Severity Reaction Status Date / Time No Known Allergies Allergy Verified 08/26/24 10:47 PFSH Acute 2 PFSH: Medical History Alzheimer's dementia Hyperlipidemia LDL goal <70 Essential hypertension CAD (coronary artery disease) Hypertension Hyperlipidemia Atrial fibrillation Pacemaker Atherosclerosis of [place] coronary artery without angina pectoris Chronic kidney disease Abnormal myocardial perfusion study Positive cardiac stress test NSTEMI (non-ST elevated myocardial infarction) Chest pain High risk medication use digoxin Generalized weakness Hypothyroidism Tremor Orthostatic hypotension Anxiety Humerus fracture Conduct disorder on medroxyprogesterone Syncope Seizure Urinary tract infection Dupuytren's contracture of right hand BPH (benign prostatic hyperplasia) Insomnia GI bleed Adrenal adenoma benign Thoracic back pain Depression Neuropathy TIA (transient ischemic attack) Diverticulitis Incontinence GERD (gastroesophageal reflux disease) Osteoporosis Surgical History Hx of cataract surgery H/O vasectomy S/P foot surgery, right Family History Other CAD (coronary artery disease) Cancer Dementia Diabetes Hypertension Denies family history of Clotting disorder Chronic kidney disease (CKD) Suicide Anesthesia complication Bleeding disorder Lung disease Stroke Social History Smoking and tobacco/nicotine status: former use of tobacco/nicotine (30 years ago) Alcohol intake: never Substance/Drug Use: never Housing: Intermediate Vitals/I&O/Wt Last Vital Signs Temp 97.9 F 11/03/24 16:13 Pulse 70 11/03/24 23:32 Resp 20 H 11/03/24 21:57 BP 112/70 11/03/24 21:57 Pulse Ox 98 11/03/24 23:32 O2 Del Method Room Air 11/03/24 23:32 O2 Flow Rate 2 11/03/24 20:00 Weight last 48 hrs Weight 74 kg Weight 71.214 kg Physical Exam 2 Narrative: Generally patient looks well lying in bed quietly denying any chest pain at this time of my evaluation son and daughter at the bedside. All questions answered satisfactorily. Family aware about the plan of care as well as the patient. HEENT normocephalic/atraumatic Neck?neck is supple Chest?lungs are clear with good air entry no adventitious breath sounds Abdomen?soft nontender nondistended has good bowel sounds ?unremarkable Extremities?no edema has good pulses, no cyanosis Neurology there are no focalities Lab studies reviewed and noted Data 11/03/24 16:00 11/03/24 16:00 A&P Assessment and plan (1) Atherosclerotic heart disease of [place] coronary artery with unstable angina pectoris: Admit to stepdown unit Aspirin nitrates anticoagulation with heparin drip initiated Patient is in ICU as an overflow because of lack of bed availability in stepdown tonight Patient had not had any further chest pain as of the time of my evaluation. I have discussed care with cardiology Dr. Gutierrez and he is going to be following up with the patient on consultation (2) Non-ST elevated myocardial infarction: NSTEMI Stepdown floor admission Continue heparin drip, statins, antiplatelets (3) CAD (coronary artery disease): Patient is with coronary artery disease history Continue antiplatelets with aspirin I do not see any Plavix cardiology on the case and may need to place the patient on Plavix because of stent placement that had not been greater than a year. (4) Hx of heart artery stent: Patient has been status post stent placed in the coronary vessels Patient is on baby aspirin but not on Plavix at this time of admission. Is on heparin drip on admission now (5) Elevated troponin: At presentation troponin is elevated and now trending down Continue heparin drip with the setting of unstable angina Cardiology on the case (6) Alzheimer's dementia: Patient is with dementia but able to communicate very well and have full conversation and answer questions (7) Carotid occlusion, bilateral: Patient with peripheral vascular disease with carotic occlusion bilaterally for history (8) Presence of permanent cardiac pacemaker: Patient is with pacemaker with defibrillator and it is working as of 3 months ago when it was interrogated according to the family (9) Hypertension: History of hypertension patient blood pressure is pretty much stable with desired level (10) Hyperlipidemia: Will follow through with a fasting lipid level in the morning Patient is on atorvastatin 40 mg at bedtime, will follow-up if this needed to be increased by cardiology (11) Atrial fibrillation: History of atrial fibrillation at a controlled rate Patient is on heparin drip at the moment (12) Atherosclerosis of [place] coronary artery without angina pectoris: (13) Tremor: Chronic essential tremor unstable (14) Chronic constipation: Patient denies any constipation on admission and [facility] the [facility] for care (15) Dupuytren's contracture of right hand: This is a medical history of the patient commonly found in diabetes. Patient is not diabetic (16) TIA (transient ischemic attack): No events of TIA at the moment PDMP PDMP Reviewed: Not Reviewed Attestations 2 Medical Necessity Statement*: I attest that patient is with NSTEMI with significant cardiovascular disease prior stent placement coming in with unstable angina requiring further care workup and had meant the criteria for inpatient stay requiring at least 2 midnights Coding Level of Care Code Acute Code for Chg Fwd Diagnoses Atherosclerosis of [place] coronary artery of [place] heart with unstable angina pectoris I25.110 [place] vs. transplanted heart: [place] heart Non-ST elevated myocardial infarction I21.4 Coronary artery disease involving [place] coronary artery of [place] heart without angina pectoris I25.10 Coronary Disease-Associated Artery/Lesion type: [place] artery [place] vs. transplanted heart: [place] heart Associated angina: without angina Hx of heart artery stent Z95.5 Elevated troponin R79.89 Moderate Alzheimer's dementia, unspecified timing of dementia onset, unspecified whether behavioral, psychotic, or mood disturbance or anxiety G30.9; F02.B0 Alzheimer's disease onset: unspecified onset Dementia severity: moderate Dementia behavioral or psychological symptom: unspecified whether behavioral, psychotic, or mood disturbance or anxiety Carotid occlusion, bilateral I65.23 Presence of permanent cardiac pacemaker Z95.0 Essential hypertension I10 Hypertension type: essential hypertension Mixed hyperlipidemia E78.2 Hyperlipidemia type: mixed hyperlipidemia Longstanding persistent atrial fibrillation I48.11 Atrial fibrillation type: longstanding persistent Atherosclerosis of [place] coronary artery of [place] heart without angina pectoris I25.10 [place] vs. transplanted heart: [place] heart Tremor R25.1 Chronic constipation K59.09 Dupuytren's contracture of right hand M72.0 TIA (transient ischemic attack) G45.9 Time Spent (min) 60
[2024-11-04] MEDS: nitroglycerin 1 gm/inch oint Pkt 1 INCH TOPICAL ×5 (02:05→23:12)
[2024-11-04] MEDS: pantoprazole 40 mg SDV IVP ×2 (02:06→23:13)
[2024-11-04] MEDS: sodium chloride 0.45% 1,000 ML 75 ML IV ×2 (02:06→14:25)
[2024-11-04 03:59] LABS: Basophils % 0.5 %; Eosinophils # 0.5 10^3/uL (0.0-0.8); Eosinophils % 5.7 %; Hematocrit 38.4 % (37-53); Lymphocytes # 2.3 10^3/uL (0.8-4.8); Lymphocytes % 28.6 %; Mean Corpuscular HGB Conc 33.6 g/dL (30-55); Mean Corpuscular Hemoglobin 33.6 pg (27-33); Mean Platelet Volume 9.4 fL (7.4-10.4); Monocytes # 0.7 10^3/uL (0.2-0.9); Monocytes % 9.3 %; Neutrophils # 4.43 10^3/uL (1.8-7.7); Neutrophils % 55.6 %; Nucleated Red Blood Cells % 0 %; Platelet Count 267 10^3/cmm (157-399); Red Blood Count 3.84 10^6/uL (3.85-5.65); Red Cell Distribution Width 14.5 % (12.1-15.1); White Blood Count 7.95 10^3/uL (3.29-11.43)
[2024-11-04 04:22] LABS: Alanine Aminotransferase 14 U/L (0-41); Albumin Level 3.5 g/dL (3.5-5.2); Alkaline Phosphatase 69 U/L (40-130); Anion Gap 15.2 (5-19); Aspartate Amino Transferase 17 U/L (0-40); Blood Urea Nitrogen 19 mg/dL (8-23); Calcium 8.6 mg/dL (8.5-10.5); Carbon Dioxide 20 mmol/L (22-29); Chloride 101 mmol/L (98-107); Creatinine Clr Calc Pharmacy 45.7852; Glucose 87 mg/dL (65-115); Osmolality Calculated 276 mOsm/kg (285-295); Phosphorus 3.4 mg/dL (2.5-4.5); Potassium 4.2 mmol/L (3.5-5.1); Sodium 132 mmol/L (136-145); Total Bilirubin 0.4 mg/dL (0.15-1.2); Total Protein 6.5 g/dL (6.6-8.7)
[2024-11-04 08:23] LABS: Troponin T (5th) Once 148 ng/L (0-15)
[2024-11-04] MEDS: aspirin 81 mg EC Tablet 162 MG PO (08:55)
--- NOTE | 2024-11-04 09:30 | PM.PN ---
Subjective Subjective: 83-year-old female admitted last night with chest pain. He has dementia and lives at [facility]. His Valerie who has been to him for 28 years states that patient's daughter is the power of ip technology transactions attorney. Daughter was called by residential yesterday reporting the patient had chest pain and he was sent to the emergency department. Once there he has not had any further chest pain. She and the patient reports that he is just had the 1 stent Patient was seen by Dr. Gutierrez last night and echo shows moderate concentric left ventricular hypertrophy with grade 1/4 diastolic dysfunction and a normal LV size with reduced LVEF of 46% this represents a significant drop from 11/01/2023 when EF was and 64% he has peak pulmonary pressure 55 mmHg. Nuclear stress test on 01/20/2024 showed large areas of partially reversible ischemia in the inferolateral wall as well as large area of scar in the RCA territory. EKG shows electronic atrial pacer and nonspecific ST-T wave abnormality. 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 Patient tells me that if he needed a stent he would be agreeable to that. He also states that if he was actively dying and could not breathe and heart was stopped he would want CPR. He told me this in the presence of Aubrey his RN and Valerie his Vitals/I&O/Wt Last Vital Signs Temp 98.2 F 11/04/24 08:00 Pulse 70 11/04/24 08:00 Resp 20 H 11/04/24 08:00 BP 132/85 11/04/24 08:00 Pulse Ox 97 11/04/24 08:00 O2 Del Method Room Air 11/04/24 08:00 O2 Flow Rate 2 11/03/24 20:00 11/03/24 11/04/24 11/04/24 22:59 06:59 14:59 Intake Total 163.667 / 163.667 105.067 / 105.067 Output Total 500 / 500 Balance -336.333 / -336.333 105.067 / 105.067 Weight last 48 hrs Weight 73.936 kg Weight 74 kg Weight 71.214 kg Physical Exam Narrative: General well-developed male in no acute cardiopulmonary distress he is alert and oriented to being in the hospital but thought he was in a town near [place]. On further discussion he was able to tell me he is in [place]. He recognized Ray as being his nurse CV S4 S1-S2 no loud murmur rate is controlled and regular Lungs clear to auscultation bilaterally Abdomen positive bowel sounds soft nontender Calves no edema Dorsal pedal pulses diminished but equal bilateral Mood and affect cooperative Data 11/04/24 03:53 11/04/24 03:53 A&P Assessment and plan (1) Atherosclerotic heart disease of [place] coronary artery with unstable angina pectoris: Patient was admitted to cardiac stepdown but overflowed into the ICU. He has not had chest pain. Echo shows significant drop in LVEF. He has recent nuclear test January 2024 showing RCA territory scar with kristian-infarct ischemia. He had cardiac cath October 2023 with the proximal RCA stenosis treated with stent (2) Non-ST elevated myocardial infarction: NSTEMI Troponin peaked at 152 and then this morning was 148. He is now chest pain-free (3) CAD (coronary artery disease): Patient is with coronary artery disease history Continue antiplatelets with aspirin I do not see any Plavix cardiology on the case and may need to place the patient on Plavix because of stent placement that had not been greater than a year. (4) Hx of heart artery stent: Patient has been status post stent placed in the coronary vessels Patient is on baby aspirin but not on Plavix at this time of admission. Is on heparin drip on admission now (5) Alzheimer's dementia: Patient is with dementia but able to communicate very well and have full conversation and answer questions (6) Carotid occlusion, bilateral: Patient with peripheral vascular disease with carotic occlusion bilaterally for history (7) Presence of permanent cardiac pacemaker: Patient is with pacemaker with defibrillator and it is working as of 3 months ago when it was interrogated according to the family (8) Hypertension: History of hypertension patient blood pressure is pretty much stable with desired level (9) Hyperlipidemia: Will follow through with a fasting lipid level in the morning Patient is on atorvastatin 40 mg at bedtime, will follow-up if this needed to be increased by cardiology. Last LDL 111 will check a.m. fasting lipid profile high-sensitivity C-reactive protein and lipoprotein a (10) Atrial fibrillation: History of atrial fibrillation at a controlled rate Patient is on heparin drip at the moment (11) Chronic constipation: Patient denies any constipation on admission and lives in the residential for care Will start MiraLAX and docusate PDMP PDMP Reviewed: Not Reviewed Attestations Medical Necessity Statement*: Patient remains in hospital for angiogram. Management per cardiology Coding Level of Care Code 12227 Diagnoses Atherosclerosis of [place] coronary artery of [place] heart with unstable angina pectoris I25.110 [place] vs. transplanted heart: [place] heart Non-ST elevated myocardial infarction I21.4 Coronary artery disease involving [place] coronary artery of [place] heart without angina pectoris I25.10 Coronary Disease-Associated Artery/Lesion type: [place] artery [place] vs. transplanted heart: [place] heart Associated angina: without angina Hx of heart artery stent Z95.5 Moderate Alzheimer's dementia, unspecified timing of dementia onset, unspecified whether behavioral, psychotic, or mood disturbance or anxiety G30.9; F02.B0 Alzheimer's disease onset: unspecified onset Dementia severity: moderate Dementia behavioral or psychological symptom: unspecified whether behavioral, psychotic, or mood disturbance or anxiety Carotid occlusion, bilateral I65.23 Presence of permanent cardiac pacemaker Z95.0 Essential hypertension I10 Hypertension type: essential hypertension Mixed hyperlipidemia E78.2 Hyperlipidemia type: mixed hyperlipidemia Longstanding persistent atrial fibrillation I48.11 Atrial fibrillation type: longstanding persistent Chronic constipation K59.09 Time Spent (min) 40
--- NOTE | 2024-11-04 13:02 | PC.SOCIAL ---
IMM Update pg 2 of IMM Updated and reviewed w/ patient and his and daughter. Copy provided and copy dated, initialed and placed in chart.
--- NOTE | 2024-11-04 13:57 | P.PN_ITS ---
<Statement entered by Mark Carlos MD - 11/04/24 18:15> Patient was evaluated and cared for in conjunction with an advanced practice practitioner. I personally examined the patient and reviewed the chart and all pertinent data including imaging, telemetry, and laboratory results. I discussed the patient in detail with the advanced practice practitioner. Please see their note for complete H&P testing result and agreed upon plan of care for the patient. Patient denies any chest pain. Patient has prior multiple interventions he has diffuse multivessel disease. During this admission troponin has bumped up but denies any chest pain there is no arrhythmia no EKG changes. GENERAL: Patient is alert, awake with waxing and waning orientation due to underlying dementia HEART: Regular S1 and S2. No murmur, rub or gallop. LUNGS: Clear to auscultate bilaterally. CENTRAL NERVOUS SYSTEM: Grossly nonfocal. EXTREMITIES: Lower extremities with out edema bilaterally. Elevated cardiac marker Multivessel coronary artery diffuse disease Hypertension Advanced dementia Patient denies any chest pain updated discussion with the patient I reviewed the previous angiogram given nature of his comorbidities advanced age at this point would like to treat him medically since patient remains asymptomatic. While talking with the patient and son by bedside we are all in agreement to give medical management a chance. Continue aspirin statin beta-[place] isosorbide mononitrate Further plan be advised as per progress of the patient Subjective 2 Subjective: We were asked to see the patient today due to NSTEMI-troponin series: 125-> 135- > 152, this morning random troponin 148. He has not had any chest pain yet today. Blood pressure is well-controlled, he is atrial paced 90% of the time. He has a history of atrial fibrillation, not anticoagulated due to GI bleed. Hemoglobin is stable this admission. Creatinine 1.2 today. Echocardiogram today shows LVEF 46%, reduced from 64% last year. Vitals/I&O/Wt Last Vital Signs Temp 97.6 F 11/04/24 12:00 Pulse 70 11/04/24 12:11 Resp 15 11/04/24 12:00 BP 140/81 11/04/24 12:11 Pulse Ox 96 11/04/24 12:00 O2 Del Method Room Air 11/04/24 12:00 O2 Flow Rate 2 11/03/24 20:00 11/03/24 11/04/24 11/04/24 22:59 06:59 14:59 Intake Total 163.667 / 163.667 105.067 / 105.067 Output Total 500 / 500 200 / 200 Balance -336.333 / -336.333 -94.933 / -94.933 Weight last 48 hrs Weight 163 lb Weight 163 lb 2.273 oz Weight 157 lb Physical Exam 2 Const: COMMON NORMALS: no acute distress and patient oriented x3 GENERAL APPEARANCE: cooperative and comfortable ORIENTATION/CONSCIOUSNESS: Yes awake, Yes oriented to person, Yes oriented to place and Yes oriented to time Chest: COMMONS NORMALS: normal inspection of the chest and normal palpation of entire chest wall CHEST: Yes Symmetrical chest wall rise Resp: COMMON NORMALS: normal respiratory effort, No retractions, No use of accessory muscles and clear to auscultation bilaterally EFFORT & INSPECTION: Yes symmetric chest movement AUSCULTATION: clear to auscultation bilaterally Cardio: COMMON NORMALS: regular rate, regular rhythm, S1 normal heart sound present, S2 normal heart sound present, No gallops present (Cardio), No clicks present (Cardio) and No rub (Cardio) RATE: regular rate RHYTHM: regular rhythm HEART SOUNDS: S1 normal heart sound present, S2 normal heart sound present and Murmur heart sound present systolic Intensity: II/ PERIPHERAL PULSES: radial pulses present Extremity: COMMON NORMALS: no pedal edema Neuro: COMMON NORMALS: patient oriented x3 and moves all extremities S ENSORIUM/ORIENTATION: Yes oriented to person, Yes oriented to place and Yes oriented to time Data 11/04/24 03:53 11/04/24 03:53 A&P Assessment and plan (1) Elevated troponin: (2) Atherosclerotic heart disease of [place] coronary artery with unstable angina pectoris: (3) Essential hypertension: (4) Hyperlipidemia LDL goal <70: (5) Presence of permanent cardiac pacemaker: (6) Atrial fibrillation: Plan Discussed with him the findings of the stress test from last year, as well as the elevated troponin from this admission. His daughter is at the bedside for the discussion as well. Patient intermittently oriented, but for this discussion seems to be able to make decisions competently. He states he would like to have a coronary angiogram to further investigate the elevated troponin and chest pain. Will make him n.p.o. after midnight tonight and perform coronary angiogram tomorrow morning. Continue heparin for now, Nitropaste. PDMP PDMP Reviewed: Not Reviewed Attestations 2 Medical Necessity Statement*: Ischemic workup, NSTEMI Coding Level of Care Code Acute Code for Chg Fwd Diagnoses Elevated troponin R79.89 Atherosclerosis of [place] coronary artery of [place] heart with unstable angina pectoris I25.110 [place] vs. transplanted heart: [place] heart Essential hypertension I10 Hyperlipidemia LDL goal <70 E78.5 Presence of permanent cardiac pacemaker Z95.0 Longstanding persistent atrial fibrillation I48.11 Atrial fibrillation type: longstanding persistent
[2024-11-04 14:46] LABS: Partial Thromboplastin Time 55.7 SECONDS (23.9-36.7)
--- NOTE | 2024-11-04 19:44 | PC.NURSE ---
Transfer to room 103 report given to Fabiana. Patient condition oriented x 2 self and year. Recognizes son at bedside. Wheel chair ride to new room.
[2024-11-04] MEDS: heparin drip 25,000 UNIT/500 ML PREMIX 16 UNIT IV (20:32)
--- NOTE | 2024-11-04 21:36 | PC.NURSE ---
Patient moved to 111-1 due to increasing confusion.
[2024-11-04 22:25] LABS: Partial Thromboplastin Time 46.8 SECONDS (23.9-36.7)
[2024-11-04] MEDS: heparin 5,000 unit/mL INJ 1 mL IVP (22:43)
[2024-11-05] VITALS (9 sets, daily range): BP systolic 105–164; BP diastolic 58–94; PULSE 70–91; RESP 14–26; TEMP 36.4–37.3; O2SAT 95–99
[2024-11-05] MEDS: sodium chloride 0.45% 1,000 ML 75 ML IV ×2 (03:12→17:48)
--- NOTE | 2024-11-05 04:28 | PC.NURSE ---
was Instructed to call before 9pm to confirm if patient was going to manager labor delivery in the Morning, Doctor Carlos said no to manager labor delivery and to medically manage.
[2024-11-05 04:59] LABS: Platelet Count 259 10^3/cmm (157-399)
[2024-11-05 05:12] LABS: Partial Thromboplastin Time 56.7 SECONDS (23.9-36.7)
[2024-11-05 05:22] LABS: Chol HDL Ratio 4.07 mg/dL (1.0-5.00); Cholesterol 122 mg/dL (0-200); HDL Cholesterol 30 mg/dL (60-100); LDL Cholesterol Calculated 60 mg/dL (50-129); Triglycerides 159 mg/dL (0-150)
[2024-11-05] MEDS: aspirin 81 mg EC Tablet 162 MG PO (08:09)
[2024-11-05] MEDS: nitroglycerin 1 gm/inch oint Pkt 1 INCH TOPICAL (08:10)
[2024-11-05 10:57] LABS: Partial Thromboplastin Time 56.2 SECONDS (23.9-36.7)
[2024-11-05] MEDS: isosorbide mononitrate ER 30 mg Tablet PO ×2 (11:51→17:46)
--- NOTE | 2024-11-05 13:38 | P.PN_ITS ---
Subjective 2 Subjective: Patient denies any chest pain Vitals/I&O/Wt Last Vital Signs Temp 97.9 F 11/05/24 07:34 Pulse 70 11/05/24 09:27 Resp 18 11/05/24 07:34 BP 164/94 11/05/24 08:10 Pulse Ox 96 11/05/24 09:27 O2 Del Method Room Air 11/05/24 09:27 O2 Flow Rate 2 11/03/24 20:00 11/04/24 11/05/24 11/05/24 22:59 06:59 14:59 Intake Total 472.666 / 6050.225 3549.45 / 2719.000 106.817 / 106.817 Output Total 650 / 850 350 / 350 Balance -177.334 / 332.225 8034.45 / 1869.000 -243.183 / -243.183 Weight last 48 hrs Weight 164 lb 6.4 oz Weight 163 lb Weight 163 lb 2.273 oz Weight 157 lb Physical Exam 2 Const: OTHER: GENERAL: Patient is alert, awake and oriented x3. Patient has altered sensorium with underlying dementia HEART: Regular S1 and S2. No murmur, rub or gallop. LUNGS: Clear to auscultate bilaterally. CENTRAL NERVOUS SYSTEM: Grossly nonfocal. EXTREMITIES: Lower extremities with out edema bilaterally. Data 11/05/24 04:28 11/04/24 03:53 A&P Assessment and plan (1) Elevated troponin: (2) Atherosclerotic heart disease of [place] coronary artery with unstable angina pectoris: (3) Essential hypertension: (4) Hyperlipidemia LDL goal <70: (5) Presence of permanent cardiac pacemaker: (6) Atrial fibrillation: Plan We have detailed discussion with the patient and his son by bedside again we all are opting and agree with that for medical management only patient denies any chest pain since admission. Patient has underlying multivessel disease he had multiple angiogram in the past. Given his underlying dementia history of GI bleed and mostly immobile medical management is the best option. Add isosorbide mononitrate 30 mg twice daily Continue aspirin statin beta-[place]ust[place] Discontinue IV heparin If patient continued do fine tomorrow may can discharge to care home. PDMP PDMP Reviewed: Not Reviewed Attestations 2 Medical Necessity Statement*: Require continuation hospitalization for above defined care Coding Level of Care Code Acute Code for Chg Fwd Diagnoses Elevated troponin R79.89 Atherosclerosis of [place] coronary artery of [place] heart with unstable angina pectoris I25.110 [place] vs. transplanted heart: [place] heart Essential hypertension I10 Hyperlipidemia LDL goal <70 E78.5 Presence of permanent cardiac pacemaker Z95.0 Longstanding persistent atrial fibrillation I48.11 Atrial fibrillation type: longstanding persistent
--- NOTE | 2024-11-05 15:38 | PM.PN ---
Subjective Subjective: Patient denies any chest pain but tells me he had his chest pain yesterday. On further clarification he had it before he came to the hospital. Patient tells me he walked yesterday but not today Patient knew that he was at [place] in the hospital and thinks it is may he was unable to tell me who the president is but was able to pick the name out from Obmary, Stacie and Fam correctly although he did not seem particularly certain Vitals/I&O/Wt Last Vital Signs Temp 97.9 F 11/05/24 07:34 Pulse 91 11/05/24 15:23 Resp 26 H 11/05/24 15:23 BP 116/80 11/05/24 15:23 Pulse Ox 98 11/05/24 15:23 O2 Del Method Room Air 11/05/24 15:23 O2 Flow Rate 2 11/03/24 20:00 11/05/24 11/05/24 11/05/24 06:59 14:59 22:59 Intake Total 1116.45 / 2719.000 106.817 / 106.817 Output Total 350 / 350 500 / 850 Balance 1116.45 / 1869.000 -243.183 / -243.183 -500 / -743.183 Weight last 48 hrs Weight 74.571 kg Weight 73.936 kg Weight 74 kg Weight 71.214 kg Physical Exam Narrative: General well-developed male in no acute cardiopulmonary stress he is alert and oriented to person place and October he thought it was Thursday CV S4 S1-S2 no loud murmur rate is controlled and regular Lungs clear to auscultation bilaterally Abdomen positive bowel sounds soft nontender Calves no edema Dorsal pedal pulses diminished but equal bilateral Mood and affect cooperative Data 11/05/24 04:28 11/04/24 03:53 A&P Assessment and plan (1) Atherosclerotic heart disease of [place] coronary artery with unstable angina pectoris: Patient was admitted to cardiac stepdown but overflowed into the ICU. He has not had chest pain. Echo shows significant drop in LVEF. He has recent nuclear test January 2024 showing RCA territory scar with kristian-infarct ischemia. He had cardiac cath October 2023 with the proximal RCA stenosis treated with stent I spoke with Dr. Taylor who relays that the patient has diffuse disease and not a good candidate for intervention. Will treat medically (2) Non-ST elevated myocardial infarction: NSTEMI Troponin peaked at 152 and then yesterday morning was 148. He is now chest pain-free (3) CAD (coronary artery disease): Patient is with coronary artery disease history and he has been on aspirin and Plavix. Continue both (4) Hx of heart artery stent: Continue aspirin and Plavix. (5) Alzheimer's dementia: Patient is with dementia but able to communicate very well and have full conversation and answer questions (6) Carotid occlusion, bilateral: Patient with peripheral vascular disease with carotic occlusion bilaterally for history (7) Presence of permanent cardiac pacemaker: Patient is with pacemaker with defibrillator and it is working as of 3 months ago when it was interrogated according to the family (8) Hypertension: History of hypertension patient blood pressure is pretty much stable with desired level (9) Hyperlipidemia: Will follow through with a fasting lipid level in the morning Patient is on atorvastatin 40 mg at bedtime, will follow-up if this needed to be increased by cardiology. Last LDL 111 will check a.m. fasting lipid profile high-sensitivity C-reactive protein and lipoprotein a (10) Atrial fibrillation: History of atrial fibrillation at a controlled rate Patient is on heparin drip at the moment (11) Chronic constipation: Patient denies any constipation on admission and lives in the custodial for care Will start MiraLAX and docusate PDMP PDMP Reviewed: Not Reviewed Attestations Medical Necessity Statement*: Will remain the hospital 1 more night and if chest pain-free off heparin can be discharged Coding Level of Care Code 10555 Diagnoses Atherosclerosis of [place] coronary artery of [place] heart with unstable angina pectoris I25.110 [place] vs. transplanted heart: [place] heart Non-ST elevated myocardial infarction I21.4 Coronary artery disease involving [place] coronary artery of [place] heart without angina pectoris I25.10 Coronary Disease-Associated Artery/Lesion type: [place] artery [place] vs. transplanted heart: [place] heart Associated angina: without angina Hx of heart artery stent Z95.5 Moderate Alzheimer's dementia, unspecified timing of dementia onset, unspecified whether behavioral, psychotic, or mood disturbance or anxiety G30.9; F02.B0 Alzheimer's disease onset: unspecified onset Dementia severity: moderate Dementia behavioral or psychological symptom: unspecified whether behavioral, psychotic, or mood disturbance or anxiety Carotid occlusion, bilateral I65.23 Presence of permanent cardiac pacemaker Z95.0 Essential hypertension I10 Hypertension type: essential hypertension Mixed hyperlipidemia E78.2 Hyperlipidemia type: mixed hyperlipidemia Longstanding persistent atrial fibrillation I48.11 Atrial fibrillation type: longstanding persistent Chronic constipation K59.09 Time Spent (min) 25
[2024-11-05 16:44] LABS: Partial Thromboplastin Time 61.6 SECONDS (23.9-36.7)
[2024-11-05] MEDS: metoprolol succinate ER (24 HR) 25 mg Tablet PO (17:46)
[2024-11-05] MEDS: clopidogrel 75 mg Tablet PO (17:46)
[2024-11-05] MEDS: ranolazine (12HR) 500 mg Tablet PO (17:47)
[2024-11-05] MEDS: enoxaparin 40 mg/0.4 mL Syringe SUBCUT (17:47)
[2024-11-05] MEDS: OXcarbazepine 300 mg Tablet PO (17:52)
[2024-11-06 03:48] VITALS: BP 112/64; PULSE 70; RESP 18; TEMP 36.9; O2SAT 96
[2024-11-06] MEDS: sodium chloride 0.45% 1,000 ML 75 ML IV (05:58)
[2024-11-06] MEDS: levothyroxine 100 mcg Tablet PO (05:58)
[2024-11-06] MEDS: OXcarbazepine 300 mg Tablet PO (06:00)
[2024-11-06 07:33] VITALS: BP 144/72; PULSE 74; RESP 25; TEMP 36.5; O2SAT 96
--- NOTE | 2024-11-06 08:20 | P.DS_ITS ---
Discharge Providers Date of Admission: 11/03/24 18:48 Date of Discharge: November 06, 2024 Attending Provider at Admission: Jonny Romero MD Attending Provider at Discharge: Jonny Romero MD Primary Care Provider: [facility] Physician Diagnoses at Discharge Discharge Diagnosis (1) Atherosclerotic heart disease of [place] coronary artery with unstable angina pectoris: Details from hospital stay: Patient had chest pain and NSTEMI now manage medically with addition of beta- [place] and Imdur. Continue propafenone for control of his A-fib arrhythmia. His most recent EKG shows electronic atrial pacing on Status: Acute Qualifiers: [place] vs. transplanted heart: [place] heart Qualified Code(s): I25.110 - Atherosclerotic heart disease of [place] coronary artery with unstable angina pectoris (2) Non-ST elevated myocardial infarction: Details from hospital stay: As above troponin peaked at 152 Status: Acute (3) CAD (coronary artery disease): Details from hospital stay: History of RCA stent and diffuse disease and stent was reopened 11/03/2023 and initial stent placed 07/01/2023 RCA Status: Acute Qualifiers: Associated angina: without angina Coronary Disease-Associated Artery/Lesion type: [place] artery [place] vs. transplanted heart: [place] heart Qualified Code(s): I25.10 - Atherosclerotic heart disease of [place] coronary artery without angina pectoris (4) Hx of heart artery stent: Details from hospital stay: History of RCA stent and diffuse disease and stent was reopened 11/03/2023 and initial stent placed 07/01/2023 RCA Status: Acute (5) Alzheimer's dementia: Details from hospital stay: Patient pleasantly confused he told me he would like full treatment and CPR if needed Status: Acute Qualifiers: Alzheimer's disease onset: unspecified onset Dementia behavioral or psychological symptom: unspecified whether behavioral, psychotic, or mood disturbance or anxiety Dementia severity: moderate Qualified Code(s): G30.9 - Alzheimer's disease, unspecified; F02.B0 - Dementia in other diseases classified elsewhere, moderate, without behavioral disturbance, psychotic disturbance, mood disturbance, and anxiety (6) Carotid occlusion, bilateral: Details from hospital stay: Unchanged Status: Acute (7) Presence of permanent cardiac pacemaker: Details from hospital stay: Stable with atrial paced Status: Acute (8) Hypertension: Details from hospital stay: Stable and tolerating up titration of metoprolol XL to 50 mg daily Status: Acute Qualifiers: Hypertension type: essential hypertension Qualified Code(s): I10 - Essential (primary) hypertension (9) Hyperlipidemia: Details from hospital stay: Continue atorvastatin LDL was 60 high-sensitivity C-reactive protein was 1.18. Given his recurrent in-stent stenoses I am going to increase his atorvastatin to 80 mg daily and start colchicine 0.5 mg daily monitor for signs of diarrhea or renal dysfunction. Lipoprotein a is pending but the best medication for treatment of this is lepodisiran and not on the market yet Status: Acute Qualifiers: Hyperlipidemia type: mixed hyperlipidemia Qualified Code(s): E78.2 - Mixed hyperlipidemia (10) Atrial fibrillation: Details from hospital stay: Stable on pacemaker and propafenone with the addition of Toprol-XL at 50 mg daily Status: Acute Qualifiers: Atrial fibrillation type: longstanding persistent Qualified Code(s): I48.11 - Longstanding persistent atrial fibrillation (11) Chronic constipation: Details from hospital stay: Monitor for signs and symptoms of resolution and/or diarrhea with colchicine Status: Chronic Reason for Visit Reason for Visit: Chest Pain Brief History: Sylvia Baptiste is a 83 year old male with cardiovascular disease significant for coronary artery disease with prior stent placement, pacemaker with defibrillator in-place in at this time with NSTEMI with an initial troponin of 125 and trending down. Cardiology consulted with Dr. Gutierrez who had also seen the patient already and made some recommendation. Case fully discussed with Dr. Gutierrez patient was admitted to stepdown unit at this time and being an overflow to the ICU because of lack of bed in this stepdown unit Patient is on heparin drip. Last chest pain was earlier on in the afternoon patient did not have any chest pain upon my seeing and evaluating him. Family in the room, son and daughter. Patient received aspirin Nitropaste to the chest wall. I do not see any Plavix in patient's home medication neither do I see any anticoagulant. Patient does have a history of atrial fibrillation and had had cardiac event 3 months ago. Patient did have stent placement in January of last year and on asa plavix, ranexa and dig and propafenone Hospital Course Hospital Course 83-year-old male admitted with chest pain from retirement. His troponin was elevated and peaked at 152. He had echo with findings below normal LV size with a reduced ejection fraction of 46%. Wall motion abnormalities as mentioned above. Moderate concentric left trickle hypertrophy.Grade I/IV diastolic dysfunction (abnormal relaxation filling pattern), normal to mildly elevated filling pressures. Mildly increased left atrial size. Moderate mitral annular calcification. Mild mitral valve regurgitation. Thickened aortic valve. Mild to moderate aortic valve regurgitation. Mild tricuspid valve regurgitation. Moderate pulmonary hypertension with estimated pulmonary artery peak systolic pressure of 56 mmHg mild pulmonary valve regurgitation. There is no pericardial effusion. There are no intracardiac masses. Compared to the study from 11/01/2023, there is a significant drop in the LV ejection fraction. Patient was evaluated by Dr. Gutierrez and Dr. Taylor. Initially was some thought of doing angiogram however on further discussion with patient and family and consideration of the patient's diffuse multivessel disease it was determined that angiogram would not be pursued and the patient will be medically managed. I stopped the patient's digoxin and added Toprol-XL 25 mg daily yesterday and increase that dose to 50 mg daily today based on his blood pressure and heart rate still above desired goal. The patient has been chest pain-free in the hospital. He will be discharged back to intermediate facility with medication changes including discontinuance of digoxin and addition of Imdur and metoprolol XL I added colchicine and increase atorvastatin due to recurrent in-stent stenoses and angina maximizing patient's medical treatment. Added coenzyme Q 10. I counseled patient's son Tyler and the patient that with colchicine if there is diarrhea decrease the dose to every other day or twice a week. If significant myalgias with increased atorvastatin despite coenzyme Q 10 decrease the dose back to 40 mg daily I clarified with the patient today if he was not breathing or heart stopped and he needed CPR because he was actively dying or be allowed to pass what would he want and he wants CPR. Son Tyler present for this If patient was incapacitated and prognosis was poor after this decision would then fall to his power of trademark attorney's should it prove futile Physical Exam Narrative: General well-developed well-nourished male in no acute cardiopulmonary stress. He is accompanied by his son Tyler CV regular rate and rhythm Lungs clear to auscultation bilaterally Abdomen positive bowel sounds soft nontender Calves no tenderness cords pretrip edema Mood and affect are appropriate. Discharge Data Studies Completed and Pending Completed Studies During Hospitalization Category Date Time Status XR chest 1V portable [id number] Stat Exams 11/03/24 16:20 Completed CV. echo complete* [id number] Routine Ultrasound 11/04/24 00:21 Completed Pending at discharge Category Date Time Status Lipoprotein (a) Routine Lab 11/05/24 04:28 Received Radiology Impressions Chest X-Ray 11/03/24 16:20 Impression: Atherosclerosis. Laboratory Results WBC 7.95 10^3/uL (3.29-11.43) 11/04/24 03:53 RBC 3.84 10^6/uL (3.85-5.65) L 11/04/24 03:53 Hgb 12.90 g/dL (11.27-16.99) 11/04/24 03:53 Hct 38.4 % (37-53) 11/04/24 03:53 MCV 100.0 fl (82-101) 11/04/24 03:53 MCH 33.6 pg (27-33) H 11/04/24 03:53 MCHC 33.6 g/dL (30-55) 11/04/24 03:53 RDW 14.5 % (12.1-15.1) 11/04/24 03:53 Plt Count 259 10^3/cmm (157-399) 11/05/24 04:28 MPV 9.4 fL (7.4-10.4) 11/04/24 03:53 Neut % (Auto) 55.6 % 11/04/24 03:53 Lymph % (Auto) 28.6 % 11/04/24 03:53 [place] % (Auto) 9.3 % 11/04/24 03:53 Eos % (Auto) 5.7 % 11/04/24 03:53 Baso % (Auto) 0.5 % 11/04/24 03:53 Neut # (Auto) 4.43 10^3/uL (1.8-7.7) 11/04/24 03:53 Lymph # (Auto) 2.3 10^3/uL (0.8-4.8) 11/04/24 03:53 [place] # (Auto) 0.7 10^3/uL (0.2-0.9) 11/04/24 03:53 Eos # (Auto) 0.5 10^3/uL (0.0-0.8) 11/04/24 03:53 Baso # (Auto) 0.0 10^3/uL (0.0-0.1) 11/04/24 03:53 Nucleated RBC % (auto) 0 % 11/04/24 03:53 Nucleated RBCs # 0.0 /100WBC 11/04/24 03:53 APTT 61.6 SECONDS (23.9-36.7) H 11/05/24 16:07 Sodium 132 mmol/L (136-145) L 11/04/24 03:53 Potassium 4.2 mmol/L (3.5-5.1) 11/04/24 03:53 Chloride 101 mmol/L (98-107) 11/04/24 03:53 Carbon Dioxide 20 mmol/L (22-29) L 11/04/24 03:53 Anion Gap 15.2 (5-19) 11/04/24 03:53 BUN 19 mg/dL (8-23) 11/04/24 03:53 Creatinine 1.2 mg/dL (0.7-1.2) 11/04/24 03:53 GFR Calculation Not Reportable 11/04/24 03:53 Glucose 87 mg/dL (65-115) 11/04/24 03:53 Calculated Osmolality 276 mOsm/kg (285-295) L 11/04/24 03:53 Calcium 8.6 mg/dL (8.5-10.5) 11/04/24 03:53 Phosphorus 3.4 mg/dL (2.5-4.5) 11/04/24 03:53 Magnesium 2.0 mg/dL (1.7-2.3) 11/04/24 03:53 Total Bilirubin 0.4 mg/dL (0.15-1.2) 11/04/24 03:53 AST 17 U/L (0-40) 11/04/24 03:53 ALT 14 U/L (0-41) 11/04/24 03:53 Alkaline Phosphatase 69 U/L (40-130) 11/04/24 03:53 Troponin T 5th Gen ng/L 148 ng/L (0-15) H* 11/04/24 03:53 Troponin T Baseline 125 ng/L (0-15) H* 11/03/24 16:00 Troponin T 120 Minute 135.6 ng/L (0-15) H 11/03/24 18:28 Delta Troponin T 10.6 ABS# (0-10) H* 11/03/24 18:28 Troponin T Hi Sens 6Hr 152.1 ng/L (0-15) H 11/03/24 22:43 Troponin T Hi Sens 6Hr Delta 27.1 ng/L (0-12) H* 11/03/24 22:43 C-React Prot High Sens 1.180 mg/dL (0.0-0.3) H 11/04/24 03:53 Total Protein 6.5 g/dL (6.6-8.7) L 11/04/24 03:53 Albumin 3.5 g/dL (3.5-5.2) 11/04/24 03:53 Globulin 3.0 g/dL (1.3-4.6) 11/04/24 03:53 Triglycerides 159 mg/dL (0-150) H 11/05/24 04:28 Cholesterol 122 mg/dL (0-200) 11/05/24 04:28 LDL Cholesterol, Calc 60 mg/dL (50-129) 11/05/24 04:28 HDL Cholesterol 30 mg/dL (60-100) L 11/05/24 04:28 LDL/HDL Ratio 2.00 RATIO (0.00-3.22) 11/05/24 04:28 Cholesterol/HDL Ratio 4.07 mg/dL (1.0-5.00) 11/05/24 04:28 Vitals Last Vital Signs Temp 97.7 F 11/06/24 07:33 Pulse 74 11/06/24 07:33 Resp 25 H 11/06/24 07:33 BP 144/72 11/06/24 07:33 Pulse Ox 96 11/06/24 07:33 O2 Del Method Room Air 11/06/24 07:33 O2 Flow Rate 2 11/03/24 20:00 Discharge Plan Discharge Patient Disposition: Xfer SNF Condition: Stable Prescriptions: New isosorbide mononitrate 30 mg Tablet Extended Release 24 Hr 30 mg PO BID Qty: 60 0RF metoprolol succinate 50 mg Tablet Extended Release 24 Hr 50 mg PO DAILY Qty: 30 0RF coenzyme Q10 200 mg capsule 200 mg PO DAILY Qty: 30 0RF atorvastatin [Lipitor] 80 mg tablet 80 mg PO DAILY Qty: 30 0RF colchicine [Colcrys] 0.6 mg tablet 0.6 mg PO DAILY Qty: 30 0RF Rx Instructions: IF diarrhea change to every other day or twice a week Continued propafenone 225 mg capsule,extended release 12 hr 225 mg PO 0700,1900 Rx Instructions: @07:00,19:00 acetaminophen [Tylenol] 325 mg tablet 650 mg PO Q4H PRN (Reason: Pain) fluticasone propionate 50 mcg/actuation spray,suspension 1 spray INTRANASAL BID@, hydrocodone-acetaminophen 7.5-325 mg tablet 1 tab PO Q6H PRN (Reason: Pain) ranolazine 500 mg tablet extended release 12 hr 500 mg PO BID oxcarbazepine 300 mg tablet 300 mg PO BID@, omeprazole 40 mg Capsule,Delayed Release(Dr/Ec) 40 mg PO DAILY@07 levothyroxine 100 mcg tablet 100 mcg PO DAILY@06 Hqfhb-Th-Rue Enema 19-7 gram/118 mL Enema 118 ml [place] DAILY PRN (Reason: Constipation) lidocaine HCl [Lidocaine Viscous] 2 % Solution See Rx Instructions .ROUTE .COMPLEX Rx Instructions: give 15ml po every 2 hours as needed for gum pain fexofenadine 180 mg Tablet 180 mg PO DAILY magnesium hydroxide [Milk of Magnesia] 400 mg/5 mL Suspension 30 ml PO Q24H PRN (Reason: Constipation) nitroglycerin [Nitrostat] 0.4 mg Tablet, Sublingual See Rx Instructions .ROUTE .COMPLEX PRN (Reason: Chest Pain) Rx Instructions: 0.4 mg sublingually every 5 minuts as needed for chest pain x 3 doses. If chest pain continues send to ER. clopidogrel 75 mg Tablet 75 mg PO DAILY Qty: 90 3RF aspirin [Adult Aspirin Regimen] 81 mg tablet,delayed release (DR/EC) 81 mg PO DAILY@07 Qty: 90 3RF Fleet Enema 19-7 gram/118 mL Enema 118 ml [place] DAILY PRN (Reason: Constipation) medroxyprogesterone 10 mg Tablet 10 mg PO DAILY Discontinued digoxin 125 mcg (0.125 mg) tablet 125 mcg PO DAILY@07 Qty: 90 3RF Rx Instructions: hold for pulse less than 60 atorvastatin 40 mg Tablet 40 mg PO BEDTIME Qty: 30 0RF Discharge Orders: Discharge Order (Routine); Ordered 11/06/24 Ordered By: Jonny Romero Referrals: [facility] [Outside] Rito Woods MD [Primary Care Provider, Hospitalist] Discharge Diet: Cardiac Discharge Activity: Increase activity as tolerated Patient Instructions: Metoprolol (By mouth) (Lopressor, Toprol XL), Colchicine (By mouth) (Colcrys, Mitigare, Lodoco, Gloperba), Isosorbide Mononitrate (By mouth) (Imdur, Imdur ER, Ismo), Atorvastatin (By mouth) (Lipitor, Atorvaliq), Coenzyme Q10 (By mouth) ([place] Coenzyme Q-10, [employer]..., Coronary [place] thang Disease (DC), Chest Pain (DC), Chest Pain Stoplight, Opioid Safety, Pain Management Activity Restrictions/Additional Instructions: stop digoxin. Take metoprolol xl 50 mg and imdur 30 mg bid as prescribed if BP below 105 or HR below 60 give only 25 mg metoprlol xl Discharge Attestations Time Spent in Discharge Care*: greater than 30 min Time Spent in Smoking Cessation: not a smoker Status at Discharge: Cognitive status at discharge: mildly impaired cognition , [facility] , Quality Metrics Clinical Quality Measures [ Acute Myocardial Infaction { Clinical Trial Participant: No; Contraindication to aspirin: None; Aspirin prescribed; Contraindication to statin: None; Statin prescribed;}] Coding Level of Care Code 24680 Diagnoses Atherosclerosis of [place] coronary artery of [place] heart with unstable angina pectoris I25.110 [place] vs. transplanted heart: [place] heart Non-ST elevated myocardial infarction I21.4 Coronary artery disease involving [place] coronary artery of [place] heart without angina pectoris I25.10 Associated angina: without angina Coronary Disease-Associated Artery/Lesion type: [place] artery [place] vs. transplanted heart: [place] heart Hx of heart artery stent Z95.5 Moderate Alzheimer's dementia, unspecified timing of dementia onset, unspecified whether behavioral, psychotic, or mood disturbance or anxiety G30.9; F02.B0 Alzheimer's disease onset: unspecified onset Dementia behavioral or psychological symptom: unspecified whether behavioral, psychotic, or mood disturbance or anxiety Dementia severity: moderate Carotid occlusion, bilateral I65.23 Presence of permanent cardiac pacemaker Z95.0 Essential hypertension I10 Hypertension type: essential hypertension Mixed hyperlipidemia E78.2 Hyperlipidemia type: mixed hyperlipidemia Longstanding persistent atrial fibrillation I48.11 Atrial fibrillation type: longstanding persistent Chronic constipation K59.09 Time Spent (min) 40
[2024-11-06] MEDS: clopidogrel 75 mg Tablet PO (08:47)
[2024-11-06] MEDS: metoprolol succinate ER (24 HR) 50 mg Tablet PO (08:47)
[2024-11-06] MEDS: aspirin 81 mg EC Tablet 162 MG PO (08:47)
[2024-11-06] MEDS: isosorbide mononitrate ER 30 mg Tablet PO (08:48)
[2024-11-06] MEDS: ranolazine (12HR) 500 mg Tablet PO (08:48)
[2024-11-06] MEDS: pantoprazole DR 40 mg Tablet PO (08:48)
--- NOTE | 2024-11-06 11:22 | PC.NURSE ---
Called report to [facility]. When i talked to staff they said they will call me back to let me know if they can take the pt today since they don't have anybody to admit residents today. scu call back # provided.
--- NOTE | 2024-11-06 11:37 | PC.NURSE ---
report called to [facility] Per chad, if it is okay to run covid test prior to discharge since he is going back to snf and he has a roommate. faxed discharge papers to their facility.
[2024-11-06 11:39] VITALS: BP 123/55; PULSE 70; RESP 28; O2SAT 97
--- NOTE | 2024-11-06 13:21 | PM.PN ---
Subjective Subjective: No chest pain Vitals/I&O/Wt Last Vital Signs Temp 97.7 F 11/06/24 07:33 Pulse 70 11/06/24 11:39 Resp 28 H 11/06/24 11:39 BP 123/55 11/06/24 11:39 Pulse Ox 97 11/06/24 11:39 O2 Del Method Room Air 11/06/24 11:39 O2 Flow Rate 2 11/03/24 20:00 11/05/24 11/06/24 11/06/24 22:59 06:59 14:59 Intake Total 1076.4 / 1183.217 912.5 / 2095.717 Output Total 500 / 850 Balance 576.4 / 333.217 912.5 / 1245.717 Weight last 48 hrs Weight 167 lb Weight 164 lb 6.4 oz Physical Exam Const: OTHER: GENERAL: Patient is alert, awake and oriented x3. HEART: Regular S1 and S2. No murmur, rub or gallop. LUNGS: Clear to auscultate bilaterally. CENTRAL NERVOUS SYSTEM: Grossly nonfocal. EXTREMITIES: Lower extremities with out edema bilaterally. Data 11/05/24 04:28 11/04/24 03:53 A&P Assessment and plan (1) Elevated troponin: (2) Atherosclerotic heart disease of [place] coronary artery with unstable angina pectoris: (3) Essential hypertension: (4) Hyperlipidemia LDL goal <70: (5) Presence of permanent cardiac pacemaker: (6) Atrial fibrillation: Plan We have detailed discussion with the patient and his son by bedside again we all are opting and agree with that for medical management only patient denies any chest pain since admission. Patient has underlying multivessel disease he had multiple angiogram in the past. Given his underlying dementia history of GI bleed and mostly immobile medical management is the best option. Add isosorbide mononitrate 30 mg twice daily Continue aspirin statin beta-[place] Discontinue IV heparin If patient continued do fine tomorrow may can discharge to intermediate. On today's visit Patient is doing fine, he denies chest pain, he is tolerating medicine well.Continue current regimen, it is Ok to dischage patient to intermediate. PDMP PDMP Reviewed: Not Reviewed Attestations Medical Necessity Statement*: As per medicine Coding Level of Care Code Acute Code for Chg Fwd Diagnoses Elevated troponin R79.89 Atherosclerosis of [place] coronary artery of [place] heart with unstable angina pectoris I25.110 [place] vs. transplanted heart: [place] heart Essential hypertension I10 Hyperlipidemia LDL goal <70 E78.5 Presence of permanent cardiac pacemaker Z95.0 Longstanding persistent atrial fibrillation I48.11 Atrial fibrillation type: longstanding persistent
[2024-11-06 13:33] LABS: SARS Covid-2 Antigen Negative (Negative)
[2024-11-06 14:00] VITALS: BP 156/62; PULSE 71; O2SAT 94
== END 2024-11-06 13:30 | disposition skilled nursing facility (03) | DRG 281 ==
LOC: ER 18:31 → ER IP 18:48 → ICU 20:47 → CSU 11-04 19:27
PROVIDERS: Family Medicine; Internal Medicine; Admitting Provider Internal Medicine; Emergency Provider General Practice; PCP Internal Medicine; Visit Provider Internal Medicine
DX: I21.4 Non-ST elevation (NSTEMI) myocardial infarction (principal); F02.B3 Dementia in other diseases classified elsewhere, moderate, with mood disturbance; I48.11 Longstanding persistent atrial fibrillation; F02.B4 Dementia in other diseases classified elsewhere, moderate, with anxiety; I25.10 Atherosclerotic heart disease of native coronary artery without angina pectoris; I12.9 Hypertensive chronic kidney disease with stage 1 through stage 4 chronic kidney disease, or unspecified chronic kidney disease; N18.9 Chronic kidney disease, unspecified; E78.2 Mixed hyperlipidemia; G30.9 Alzheimer's disease, unspecified; I65.23 Occlusion and stenosis of bilateral carotid arteries; K59.09 Other constipation; E03.9 Hypothyroidism, unspecified; M72.0 Palmar fascial fibromatosis [Dupuytren]; N40.0 Benign prostatic hyperplasia without lower urinary tract symptoms; G62.9 Polyneuropathy, unspecified; I44.0 Atrioventricular block, first degree; M81.0 Age-related osteoporosis without current pathological fracture; K21.9 Gastro-esophageal reflux disease without esophagitis; Z79.02 Long term (current) use of antithrombotics/antiplatelets; Z79.82 Long term (current) use of aspirin; Z95.5 Presence of coronary angioplasty implant and graft; Z95.0 Presence of cardiac pacemaker; Z87.440 Personal history of urinary (tract) infections; Z86.73 Personal history of transient ischemic attack (TIA), and cerebral infarction without residual deficits; Z87.891 Personal history of nicotine dependence
CPT/HCPCS: 36415; 71045; 80053; 80061; 83695; 83735; 84100; 84484; 85025; 85049; 85730; 86141; 87426; 93005; 93306; 96365; 96372; 96375; 96376; 99285; J1644; J1650; J2470; J9999